=== PATIENT | female | born 1965 | race Caucasian/White ===

== ENCOUNTER 2017-08-14 08:04 | Day surgery (SDC) | payer MEDICARE ==
[2017-08-13 08:29] LABS: BASOPHILS # (AUTO) 0.1 X10'3 (0-0.2); EOSINOPHILS # (AUTO) 0.4 X10'3 (0-0.9); EOSINOPHILS % (AUTO) 2.6 % (0-6); HEMATOCRIT 45.3 % (35.0-45.0); HEMOGLOBIN 15.4 g/dl (12.0-16.0); LYMPHOCYTES # (AUTO) 2.1 X10'3 (1.1-4.8); LYMPHOCYTES % (AUTO) 15.5 % (21-51); MEAN CORPUSCULAR HEMOGLOBIN 29.2 PG (27.0-31.0); MEAN CORPUSCULAR HGB CONC 34.1 % (33.0-36.5); MEAN CORPUSCULAR VOLUME 85.8 FL (78-98); MEAN PLATELET VOLUME 7.6 FL (7.4-10.4); MONOCYTES # (AUTO) 0.9 X10'3 (0-0.9); MONOCYTES % (AUTO) 6.6 % (2-12); NEUTROPHILS # (AUTO) 10.1 X10'3 (1.8-7.7); NEUTROPHILS % (AUTO) 74.3 % (42-75); PLATELET COUNT 344 X10'3 (140-440); RED BLOOD COUNT 5.28 X10'6 (4.20-5.60); RED CELL DISTRIBUTION WIDTH 13.4 % (11.5-14.5); WHITE BLOOD COUNT 13.7 X10'3 (4.5-11.0)
[2017-08-13 08:43] LABS: INR 0.9 INR; PARTIAL THROMBOPLASTIN TIME 28 SECONDS (22-32); PROTHROMBIN TIME 9.5 SECONDS (9.0-12.0)
[2017-08-13 08:46] LABS: ALANINE AMINOTRANSFERASE 26 U/L (12-78); ALBUMIN 3.9 G/DL (3.4-5.0); ALKALINE PHOSPHATASE 127 IU/L (46-116); ANION GAP 12 (8-16); ASPARTATE AMINO TRANSFERASE 14 U/L (10-37); BILIRUBIN,TOTAL 0.2 MG/DL (0.1-1.0); BLOOD UREA NITROGEN 12 MG/DL (7-18); BUN/CREATININE RATIO 16.4 (6.6-38.0); CALCIUM 8.7 MG/DL (8.5-10.1); CHLORIDE 105 MMOL/L (99-107); CREATININE 0.73 MG/DL (0.40-0.90); GLUCOSE 83 MG/DL (70-104); POTASSIUM 3.1 MMOL/L (3.5-5.1); SODIUM 143 MMOL/L (135-145); TOTAL CARBON DIOXIDE 26.5 MMOL/L (24-32); TOTAL PROTEIN 7.9 G/DL (6.4-8.2); eGFR 84 ML/MIN
[2017-08-14] VITALS (12 sets, daily range): BP systolic 113–141; BP diastolic 69–85
[~2017-08-14] VITALS: Ht 162.6 cm; Wt 106.0 kg
[~2017-08-14 08:04] MED LIST: ACET-812 PO; ALBU8.5H8 INH; ASPI-10 PO; BUSP10TA10 PO; FLUT1DIS4 IH; FURO40TA4 PO; IBUP-1985 PO; IPRA3AMP IH; IPRA4AER INH; NIFE90TA2 PO; OMEP-50 PO; OMEP40CA37 PO; POLY17PO10 PO; POTA10CA44 PO; POTA10TA19 PO; SPIIN INH; SUCR1TAB PO; SUCR1TAB34 PO; TOPI25TA15 PO; TRAM50TA2 PO; VENL150C2 PO; VENL150T3 PO; VENL75TA4 PO; VENL75TA90 PO
[2017-08-14] MEDS ORDERED: nitroGLYCERIN 0.4mg SUBLingual tab SL PRN (08:20)
[2017-08-14] MEDS ORDERED: normal saline 1000ml 1,000 ML IV SCH (08:25)
[2017-08-14] MEDS ORDERED: diphenhydrAMINE 25mg capsule PO PRN (08:25)
[2017-08-14] MEDS ORDERED: LORazepam 0.5 MG tablet PO PRN (08:25)
[2017-08-14] MEDS ORDERED: DIPH25CA83 PO (08:46)
[2017-08-14] MEDS ORDERED: VENL150C2 PO (08:46)
[2017-08-14] MEDS ORDERED: VARE0.5T PO (08:51)
[2017-08-14] MEDS ORDERED: iohexol 350 MG/ML 50ML vial IV ONE (09:26)
[2017-08-14] MEDS ORDERED: iohexol 350MG/ML 100ml bottle IV ONE (09:26)
[2017-08-14] MEDS ORDERED: LIDOcaine 1%/PF (10mg/ml) 5ml vial ONE (09:27)
[2017-08-14] MEDS ORDERED: K and/or MAG REPLACEMENT MC SCH (09:30)
[2017-08-14] MEDS ORDERED: potassium Cl 40MEQ/NS 500ml 500 ML IV PRN ×2 (09:40)
[2017-08-14] MEDS ORDERED: potassium Cl 20 mEq SR tablet PO PRN ×2 (09:40)
[2017-08-14] MEDS ORDERED: potassium Cl oral solution 20 MEQ/15 ML PO PRN (09:48)
[2017-08-14] MEDS: potassium Cl oral solution 20 MEQ/15 ML PO PRN ×2 (10:00→16:38)
[2017-08-14] MEDS ORDERED: fentaNYL/PF 50MCG/1 ML 2ML syringe ONE (10:18)
[2017-08-14] MEDS ORDERED: midazolam 2 mg/2 ml injection ONE ×2 (10:19→10:37)
[2017-08-14] MEDS ORDERED: HYDROmorphone inj. 0.5 MG/0.5 ML DISP.SYRIN ONE (10:31)
[2017-08-14] MEDS ORDERED: HYDROcodone/acetaminophen 5mg/325mg tablet PO PRN (11:25)
[2017-08-14] MEDS ORDERED: acetaminophen 325mg tablet PO PRN (11:25)
[2017-08-14] MEDS ORDERED: HYDROcodone/acetaminophen 10/325mg tab PO PRN (11:25)
[2017-08-14] MEDS ORDERED: OXAZEpam 15mg capsule PO PRN (11:25)
[2017-08-14] MEDS ORDERED: ondansetron/PF 4mg/2ml inj IV PRN (11:25)
[2017-08-14] MEDS ORDERED: proCHLORperazine 10 MG/2 ml inj IV PRN (11:25)
[2017-08-14] MEDS ORDERED: HYDROmorphone 1 mg/ml syringe IV PRN (12:30)
== END 2017-08-14 17:00 | disposition home or self-care (01) ==
LOC: SSTAY O 08:04
PROVIDERS: ATTEND Internal Medicine Cardiovascular Disease
DX: I25.119 Atherosclerotic heart disease of native coronary artery with unspecified angina pectoris (principal); J44.9 Chronic obstructive pulmonary disease, unspecified; I73.9 Peripheral vascular disease, unspecified; K21.9 Gastro-esophageal reflux disease without esophagitis; F31.9 Bipolar disorder, unspecified; I34.0 Nonrheumatic mitral (valve) insufficiency; Z79.82 Long term (current) use of aspirin; Z79.899 Other long term (current) drug therapy; Z88.0 Allergy status to penicillin; Z88.1 Allergy status to other antibiotic agents; Z88.8 Allergy status to other drugs, medicaments and biological substances
CPT/HCPCS: 36415; 71046; 80053; 82948; 85025; 85610; 85730; 93458; 99152; 99153; A6257; C1769; J1170; J1644; J2001; J2250; J3010; J7030; Q0163; Q9967; A4315; A4620

== ENCOUNTER 2017-08-24 10:45 | Inpatient (IN) | payer MEDICARE, MEDICAID ==
[~2017-08-24] VITALS: Ht 162.6 cm; Wt 109.0 kg
[~2017-08-24 10:45] MED LIST changes: -ALBU8.5H8 INH; -BUSP10TA10 PO; -IBUP-1985 PO; -IPRA3AMP IH; -IPRA4AER INH; -OMEP-50 PO; -POTA10TA19 PO; -SPIIN INH; -SUCR1TAB PO; -SUCR1TAB34 PO; +TOP100T PO; -TOPI25TA15 PO; -VENL150C2 PO; -VENL150T3 PO; -VENL75TA4 PO
[2017-08-24] MEDS ORDERED: VENLAFAXINE PO (13:22)
[2017-08-24] MEDS ORDERED: ALBU18HF2 INH (13:22)
[2017-08-24] MEDS ORDERED: SPIRIVA RESPIMAT INH (13:22)
[2017-08-24] MEDS ORDERED: mag hydrox/Alum hydrox/simeth 30ml oral suspension PO PRN (13:30)
[2017-08-24] MEDS ORDERED: acetaminophen 325mg tablet PO PRN (13:30)
[2017-08-24] MEDS ORDERED: magnesium hydroxide 30ml (MOM) UD suspension PO PRN (13:30)
[2017-08-24] MEDS ORDERED: ipratropium 0.5 MG/2.5ML nebule IH PRN (15:35)
[2017-08-24] MEDS ORDERED: albuterol 2.5 MG/3 ML nebule NEB PRN (15:35)
[2017-08-24] MEDS: nicotine prolacrilex 2mg gum BC PRN (16:27)
[2017-08-24] MEDS: traMADol 50MG tablet PO PRN ×2 (16:28→21:26)
[2017-08-24] MEDS: acetaminophen 325mg tablet PO PRN (17:37)
[2017-08-24 19:57] VITALS: BP 98/55
[2017-08-24] MEDS: acetaminophen 325mg tablet PO SCH (21:00)
[2017-08-24] MEDS: furosemide 40mg tablet PO SCH (21:12)
[2017-08-24] MEDS: potassium Cl 20 mEq SR tablet PO SCH (21:12)
[2017-08-24] MEDS: polyethylene glycol 3350 17gm powd pack PO PRN (21:26)
[2017-08-25] MEDS: traMADol 50MG tablet PO PRN ×3 (03:15→15:39)
[2017-08-25 07:02] VITALS: BP 98/55
[2017-08-25] MEDS ORDERED: venlafaxine XR 75mg capsule (Q24H) PO SCH (08:00)
[2017-08-25] MEDS: acetaminophen 325mg tablet PO SCH ×2 (08:00→13:17)
[2017-08-25] MEDS ORDERED: topiramate 100mg tablet PO SCH (08:00)
[2017-08-25 08:10] VITALS: BP 127/80
[2017-08-25] MEDS: pantoprazole 40mg Tablet.DR PO SCH (08:10)
[2017-08-25] MEDS: NIFEdipine XL 30mg tablet PO SCH (08:10)
[2017-08-25] MEDS: potassium Cl 20 mEq SR tablet PO SCH ×2 (08:11→20:19)
[2017-08-25] MEDS: aspirin 325mg tablet PO PRN ×2 (08:26→20:36)
[2017-08-25] MEDS: furosemide 40mg tablet PO SCH ×2 (09:11→20:19)
[2017-08-25] MEDS: polyethylene glycol 3350 17gm powd pack PO PRN (12:19)
[2017-08-25] MEDS: hydrOXYzine 25 MG tablet PO PRN (14:18)
[2017-08-25] MEDS: nicotine prolacrilex 2mg gum BC PRN ×2 (14:18→20:36)
[2017-08-25 19:55] VITALS: BP 110/60
[2017-08-25] MEDS: lurasidone 20mg tablet PO SCH (20:19)
[2017-08-26 06:54] LABS: BASOPHILS # (AUTO) 0.1 X10'3 (0-0.2); BASOPHILS % (AUTO) 0.9 % (0-1); EOSINOPHILS # (AUTO) 0.5 X10'3 (0-0.9); EOSINOPHILS % (AUTO) 4.5 % (0-6); HEMATOCRIT 44.1 % (35.0-45.0); LYMPHOCYTES # (AUTO) 2.1 X10'3 (1.1-4.8); LYMPHOCYTES % (AUTO) 19.7 % (21-51); MEAN CORPUSCULAR HEMOGLOBIN 29.3 PG (27.0-31.0); MEAN CORPUSCULAR VOLUME 86.2 FL (78-98); MEAN PLATELET VOLUME 7.6 FL (7.4-10.4); MONOCYTES # (AUTO) 0.6 X10'3 (0-0.9); MONOCYTES % (AUTO) 6.1 % (2-12); NEUTROPHILS # (AUTO) 7.2 X10'3 (1.8-7.7); NEUTROPHILS % (AUTO) 68.8 % (42-75); PLATELET COUNT 325 X10'3 (140-440); RED BLOOD COUNT 5.12 X10'6 (4.20-5.60); RED CELL DISTRIBUTION WIDTH 13.5 % (11.5-14.5); WHITE BLOOD COUNT 10.5 X10'3 (4.5-11.0)
[2017-08-26] MEDS: traMADol 50MG tablet PO PRN ×3 (07:09→20:25)
[2017-08-26] MEDS: potassium Cl 20 mEq SR tablet PO SCH ×2 (07:49→20:23)
[2017-08-26] MEDS: polyethylene glycol 3350 17gm powd pack PO PRN (07:49)
[2017-08-26] MEDS: venlafaxine XR 75mg capsule (Q24H) PO SCH (07:49)
[2017-08-26] MEDS: topiramate 25mg tablet PO SCH (07:50)
[2017-08-26] MEDS: furosemide 40mg tablet PO SCH ×2 (07:50→20:24)
[2017-08-26] MEDS: NIFEdipine XL 30mg tablet PO SCH (07:50)
[2017-08-26] MEDS: pantoprazole 40mg Tablet.DR PO SCH (07:50)
[2017-08-26 08:10] VITALS: BP 116/85
[2017-08-26] MEDS: nicotine prolacrilex 2mg gum BC PRN ×3 (08:11→16:41)
[2017-08-26] MEDS: hydrOXYzine 25 MG tablet PO PRN ×3 (09:20→20:24)
[2017-08-26] MEDS: acetaminophen 325mg tablet PO PRN (09:55)
[2017-08-26] MEDS: aspirin 325mg tablet PO PRN (09:55)
[2017-08-26] MEDS: lurasidone 20mg tablet PO SCH (18:29)
[2017-08-26 19:36] VITALS: BP 111/79
[2017-08-26] MEDS: naproxen sodium 220mg tablet PO SCH (20:23)
[2017-08-27] MEDS: hydrOXYzine 25 MG tablet PO PRN (03:41)
[2017-08-27] MEDS: traMADol 50MG tablet PO PRN ×2 (03:42→09:27)
[2017-08-27 06:48] VITALS: BP 120/88
[2017-08-27] MEDS: pantoprazole 40mg Tablet.DR PO SCH (08:01)
[2017-08-27] MEDS: potassium Cl 20 mEq SR tablet PO SCH (08:14)
[2017-08-27] MEDS: naproxen sodium 220mg tablet PO SCH (08:14)
[2017-08-27] MEDS: NIFEdipine XL 30mg tablet PO SCH (08:14)
[2017-08-27] MEDS: venlafaxine XR 75mg capsule (Q24H) PO SCH (08:15)
[2017-08-27] MEDS: topiramate 25mg tablet PO SCH (08:15)
[2017-08-27] MEDS: furosemide 40mg tablet PO SCH (08:15)
[2017-08-27 08:40] LABS: HEMOGLOBIN A1C 5.6 % (4.5-6.2)
[2017-08-27 08:42] LABS: CHOL/HDL RATIO 4.2 (0.00-4.99); CHOLESTEROL 220 MG/DL (0-200); HDL CHOLESTEROL 52 MG/DL (35-60); LDL CHOLESTEROL 150 MG/DL (50-100); TRIGLYCERIDES 126 MG/DL (20-135)
[2017-08-27] MEDS: polyethylene glycol 3350 17gm powd pack PO PRN (09:27)
[2017-08-27] MEDS: nicotine prolacrilex 2mg gum BC PRN (09:27)
[2017-08-27] MEDS ORDERED: NAPR220T67 PO (10:38)
[2017-08-27] MEDS ORDERED: NICO2GUM29 BC (10:38)
[2017-08-27] MEDS ORDERED: LURA20TA PO (10:38)
[2017-08-27] MEDS ORDERED: HYDR-3686 PO (10:38)
[2017-08-27] MEDS ORDERED: ACET-812 PO (10:38)
[2017-08-27] MEDS ORDERED: VENL150T3 PO (10:38)
[2017-08-27] MEDS: acetaminophen 325mg tablet PO PRN (12:07)
== END 2017-08-27 12:45 | disposition home or self-care (01) | DRG 885 ==
LOC: ADULT MH 10:45
PROVIDERS: ADMIT Psychiatry & Neurology Psychiatry; ATTEND Psychiatry & Neurology Psychiatry
DX: F29 Unspecified psychosis not due to a substance or known physiological condition (principal); R45.851 Suicidal ideations; E66.01 Morbid (severe) obesity due to excess calories; Z68.41 Body mass index [BMI] 40.0-44.9, adult; F15.20 Other stimulant dependence, uncomplicated; F25.9 Schizoaffective disorder, unspecified; F32.9 Major depressive disorder, single episode, unspecified; D72.829 Elevated white blood cell count, unspecified; F41.9 Anxiety disorder, unspecified; G89.29 Other chronic pain; M54.9 Dorsalgia, unspecified; I10 Essential (primary) hypertension; J44.9 Chronic obstructive pulmonary disease, unspecified; F10.10 Alcohol abuse, uncomplicated; F12.90 Cannabis use, unspecified, uncomplicated; F17.210 Nicotine dependence, cigarettes, uncomplicated; F19.11 Other psychoactive substance abuse, in remission; Z88.0 Allergy status to penicillin; Z88.1 Allergy status to other antibiotic agents; Z88.8 Allergy status to other drugs, medicaments and biological substances; Z79.899 Other long term (current) drug therapy; Z79.82 Long term (current) use of aspirin
CPT/HCPCS: 36415; 80061; 83036; 85025; 87070; 94640; 94760; Q0177

== ENCOUNTER 2017-11-07 11:02 | Emergency (ER) | payer MEDICARE, MEDICAID ==
[~2017-11-07] VITALS: Ht 167.6 cm; Wt 109.5 kg
[~2017-11-07 11:02] MED LIST changes: +ALBU18HF2 INH; -ASPI-10 PO; +HYDR-3686 PO; +LURA20TA PO; +NAPR220T67 PO; +NICO2GUM29 BC; +SPIRIVA RESPIMAT INH; -TRAM50TA2 PO; +VENL150T3 PO; -VENL75TA90 PO
[2017-11-07] MEDS ORDERED: AZIT-55 PO (12:23)
[2017-11-07] MEDS ORDERED: triamcinolone acetonide 40mg/ml inj IM ONE (12:25)
[2017-11-07 12:46] VITALS: BP 138/65
== END 2017-11-07 12:47 | disposition home or self-care (01) ==
LOC: ER 11:03
DX: J44.1 Chronic obstructive pulmonary disease with (acute) exacerbation (principal); I11.0 Hypertensive heart disease with heart failure; I50.9 Heart failure, unspecified; K21.9 Gastro-esophageal reflux disease without esophagitis; G89.29 Other chronic pain; F12.10 Cannabis abuse, uncomplicated; Z88.0 Allergy status to penicillin; Z88.6 Allergy status to analgesic agent; Z88.8 Allergy status to other drugs, medicaments and biological substances; Z87.891 Personal history of nicotine dependence; Z79.899 Other long term (current) drug therapy
CPT/HCPCS: 71045; 82948; 93005; 96372; 99284; J3301

== ENCOUNTER 2017-11-09 11:43 | Inpatient (IN) | payer MEDICARE, MEDICAID ==
[~2017-11-09] VITALS: Ht 167.6 cm; Wt 110.0 kg
[~2017-11-09 11:43] MED LIST changes: +AZIT-55 PO
[2017-11-09] MEDS ORDERED: methylPREDNISolone sod succ 125mg/2ml vial IV ONE (12:10)
[2017-11-09] MEDS ORDERED: magnesium 2GM in 50ml NS 50 ML IV ONE (12:10)
[2017-11-09] MEDS ORDERED: levoFLOXACIN-Levaquin 750MG/D5 150 ML IV ONE (12:10)
[2017-11-09] MEDS ORDERED: ipratropium/albuterol 3ml nebule NEB ONE (12:10)
[2017-11-09 12:41] LABS: BASOPHILS # (AUTO) 0.1 X10'3 (0-0.2); BASOPHILS % (AUTO) 0.7 % (0-1); EOSINOPHILS # (AUTO) 0.5 X10'3 (0-0.9); EOSINOPHILS % (AUTO) 3.3 % (0-6); HEMATOCRIT 40.1 % (35.0-45.0); HEMOGLOBIN 14.1 g/dl (12.0-16.0); LYMPHOCYTES # (AUTO) 1.9 X10'3 (1.1-4.8); LYMPHOCYTES % (AUTO) 11.4 % (21-51); MEAN CORPUSCULAR HEMOGLOBIN 28.3 PG (27.0-31.0); MEAN CORPUSCULAR HGB CONC 35.1 % (33.0-36.5); MEAN CORPUSCULAR VOLUME 80.7 FL (78-98); MEAN PLATELET VOLUME 6.7 FL (7.4-10.4); MONOCYTES # (AUTO) 1.1 X10'3 (0-0.9); MONOCYTES % (AUTO) 6.7 % (2-12); NEUTROPHILS # (AUTO) 13.1 X10'3 (1.8-7.7); NEUTROPHILS % (AUTO) 77.9 % (42-75); PLATELET COUNT 432 X10'3 (140-440); RED BLOOD COUNT 4.97 X10'6 (4.20-5.60); RED CELL DISTRIBUTION WIDTH 12.9 % (11.5-14.5); WHITE BLOOD COUNT 16.8 X10'3 (4.5-11.0)
[2017-11-09 13:03] LABS: ALANINE AMINOTRANSFERASE 60 U/L (12-78); ALBUMIN 3.1 G/DL (3.4-5.0); ALBUMIN/GLOBULIN RATIO 0.7 (1.1-1.5); ALKALINE PHOSPHATASE 114 IU/L (46-116); ANION GAP 10 (8-16); ASPARTATE AMINO TRANSFERASE 45 U/L (10-37); BILIRUBIN,TOTAL 0.4 MG/DL (0.1-1.0); BLOOD UREA NITROGEN 6 MG/DL (7-18); BUN/CREATININE RATIO 12.5 (6.6-38.0); CALCIUM 8.5 MG/DL (8.5-10.1); CHLORIDE 86 MMOL/L (99-107); CREATININE 0.48 MG/DL (0.40-0.90); GLUCOSE 123 MG/DL (70-104); MAGNESIUM 1.8 MG/DL (1.5-2.4); SODIUM 123 MMOL/L (135-145); TOTAL CARBON DIOXIDE 27.2 MMOL/L (24-32); TOTAL PROTEIN 7.6 G/DL (6.4-8.2); eGFR > 90 ML/MIN
[2017-11-09 13:06] LABS: POTASSIUM 2.5 MMOL/L (3.5-5.1)
[2017-11-09] MEDS ORDERED: potassium Cl 40MEQ/NS 500ml 500 ML IV PRN ×4 (13:30→15:00)
[2017-11-09] MEDS ORDERED: potassium Cl 20 mEq SR tablet PO PRN ×3 (13:30→15:00)
[2017-11-09] MEDS ORDERED: morphine 4 MG/ML inj SYRINge IV PRN ×2 (15:00)
[2017-11-09] MEDS ORDERED: metoclopramide 5 mg/ml inj IV PRN (15:00)
[2017-11-09] MEDS ORDERED: magnesium hydroxide 30ml (MOM) UD suspension PO PRN (15:00)
[2017-11-09] MEDS ORDERED: mag hydrox/Alum hydrox/simeth 30ml oral suspension PO PRN (15:00)
[2017-11-09] MEDS ORDERED: HYDROcodone/acetaminophen 5mg/325mg tablet PO PRN (15:00)
[2017-11-09] MEDS ORDERED: diphenhydrAMINE 50 mg/ml inj IV PRN (15:00)
[2017-11-09] MEDS ORDERED: acetaminophen 650mg rectal suppository RC PRN (15:00)
[2017-11-09] MEDS ORDERED: acetaminophen 325mg tablet PO PRN ×2 (15:00)
[2017-11-09] MEDS ORDERED: HYDROmorphone inj. 0.5 MG/0.5 ML DISP.SYRIN IV PRN (15:00)
[2017-11-09] MEDS ORDERED: diphenhydrAMINE 25mg capsule PO PRN (15:00)
[2017-11-09] MEDS ORDERED: bisacodyl 10mg suppository rectal RC PRN (15:00)
[2017-11-09] MEDS: potassium Cl 20 mEq SR tablet PO PRN ×2 (15:05→19:15)
[2017-11-09] MEDS ORDERED: hydrOXYzine 25 MG tablet PO PRN (15:15)
[2017-11-09 15:22] LABS: PARTIAL THROMBOPLASTIN TIME 35 SECONDS (22-32)
[2017-11-09] MEDS: nicotine 21mg patch - 24 hr TD SCH (17:18)
[2017-11-09 17:30] VITALS: BP 118/66
[2017-11-09] MEDS: potassium Cl 20mEq in NS 1,000 ML IV SCH ×2 (17:40→23:42)
[2017-11-09] MEDS: HYDROcodone/acetaminophen 10/325mg tab PO PRN (17:51)
[2017-11-09 18:00] VITALS: BP 142/84
[2017-11-09] MEDS ORDERED: lurasidone 20mg tablet PO SCH (18:00)
[2017-11-09] MEDS: docusate sod 100mg capsule PO SCH (19:16)
[2017-11-09] MEDS: ondansetron/PF 4mg/2ml inj IV PRN (19:41)
[2017-11-09] MEDS: albuterol 2.5 MG/3 ML nebule NEB PRN (21:17)
[2017-11-09 22:14] LABS: HEMOGLOBIN A1C 5.8 % (4.5-6.2)
[2017-11-09] MEDS: temazepam 15mg capsule PO PRN (23:42)
[2017-11-10] VITALS: BP 144/85
[2017-11-10] MEDS: potassium Cl 20 mEq SR tablet PO PRN (00:25)
[2017-11-10] MEDS: ondansetron/PF 4mg/2ml inj IV PRN (02:13)
[2017-11-10] MEDS: HYDROmorphone inj. 0.5 MG/0.5 ML DISP.SYRIN IV PRN ×2 (02:13→20:51)
[2017-11-10 05:33] LABS: BASOPHILS % (AUTO) 0.1 % (0-1); EOSINOPHILS # (AUTO) 0.2 X10'3 (0-0.9); EOSINOPHILS % (AUTO) 1.5 % (0-6); HEMATOCRIT 40.4 % (35.0-45.0); HEMOGLOBIN 13.6 g/dl (12.0-16.0); LYMPHOCYTES # (AUTO) 1.3 X10'3 (1.1-4.8); LYMPHOCYTES % (AUTO) 10.3 % (21-51); MEAN CORPUSCULAR HGB CONC 33.5 % (33.0-36.5); MEAN CORPUSCULAR VOLUME 83.5 FL (78-98); MONOCYTES # (AUTO) 0.9 X10'3 (0-0.9); MONOCYTES % (AUTO) 7.4 % (2-12); NEUTROPHILS # (AUTO) 10.2 X10'3 (1.8-7.7); NEUTROPHILS % (AUTO) 80.7 % (42-75); PLATELET COUNT 408 X10'3 (140-440); RED BLOOD COUNT 4.84 X10'6 (4.20-5.60); WHITE BLOOD COUNT 12.7 X10'3 (4.5-11.0)
[2017-11-10 06:10] LABS: ANION GAP 9 (8-16); BILIRUBIN,TOTAL 0.2 MG/DL (0.1-1.0); BLOOD UREA NITROGEN 7 MG/DL (7-18); BUN/CREATININE RATIO 11.7 (6.6-38.0); CALCIUM 8.5 MG/DL (8.5-10.1); CHLORIDE 96 MMOL/L (99-107); GLUCOSE 133 MG/DL (70-104); MAGNESIUM 2.4 MG/DL (1.5-2.4); POTASSIUM 3.9 MMOL/L (3.5-5.1); SODIUM 132 MMOL/L (135-145); TOTAL CARBON DIOXIDE 26.8 MMOL/L (24-32); TOTAL PROTEIN 7.4 G/DL (6.4-8.2); eGFR > 90 ML/MIN
[2017-11-10 06:11] LABS: ALANINE AMINOTRANSFERASE 54 U/L (12-78); ALBUMIN/GLOBULIN RATIO 0.7 (1.1-1.5); ALKALINE PHOSPHATASE 106 IU/L (46-116); ASPARTATE AMINO TRANSFERASE 30 U/L (10-37)
[2017-11-10 07:00] VITALS: BP 130/82
[2017-11-10] MEDS: K and/or MAG REPLACEMENT MC SCH (07:06)
[2017-11-10] MEDS: levoFLOXACIN-Levaquin 750MG/D5 150 ML IV SCH (07:19)
[2017-11-10] MEDS: enoxaparin 40mg/0.4ml syringe SQ SCH (07:23)
[2017-11-10] MEDS: nicotine 21mg patch - 24 hr TD SCH (07:24)
[2017-11-10] MEDS: docusate sod 100mg capsule PO SCH ×2 (07:25→20:30)
[2017-11-10] MEDS: pantoprazole 40mg Tablet.DR PO SCH (07:26)
[2017-11-10] MEDS: venlafaxine XR 75mg capsule (Q24H) PO SCH (07:27)
[2017-11-10] MEDS: aripiprazole 5mg tablet PO SCH (07:28)
[2017-11-10] MEDS: topiramate 25mg tablet PO SCH (07:30)
[2017-11-10] MEDS: NIFEdipine XL 30mg tablet PO SCH (08:03)
[2017-11-10] MEDS: HYDROcodone/acetaminophen 10/325mg tab PO PRN ×3 (09:24→19:52)
[2017-11-10 11:00] VITALS: BP 119/77
[2017-11-10] MEDS: potassium Cl 20mEq in NS 1,000 ML IV SCH ×2 (11:21→20:32)
[2017-11-10] MEDS ORDERED: insulin Lispro (HumaLOG) vial - multi-dose SQ SCH (11:50)
[2017-11-10] MEDS ORDERED: dextrose 50%-water 50ml dispensing syringe IV PRN ×2 (11:50)
[2017-11-10] MEDS ORDERED: MESSAGE TO PHARMACY PO ONE (11:50)
[2017-11-10] MEDS ORDERED: glucagon, human recombinant 1mg kit SUBCUT PRN (11:50)
[2017-11-10] MEDS ORDERED: dextrose ORAL solution 15 GM/59 ML bottle PO PRN ×2 (11:50)
[2017-11-10] MEDS: diphenhydrAMINE 50 mg/ml inj IV PRN (14:27)
[2017-11-10] MEDS: albuterol 2.5 MG/3 ML nebule NEB PRN (16:30)
[2017-11-10] MEDS: ketorolac trometh. 30mg/ml inj. IV PRN (17:02)
[2017-11-10 19:00] VITALS: BP 116/88
[2017-11-10] MEDS: insulin glargine (Lantus) pen - multi-dose SQ SCH (21:00)
[2017-11-11] VITALS: BP 116/88
[2017-11-11] MEDS: HYDROcodone/acetaminophen 10/325mg tab PO PRN ×4 (01:22→21:07)
[2017-11-11] MEDS: HYDROmorphone inj. 0.5 MG/0.5 ML DISP.SYRIN IV PRN ×4 (03:01→23:46)
[2017-11-11 05:53] LABS: ALANINE AMINOTRANSFERASE 50 U/L (12-78); ALBUMIN/GLOBULIN RATIO 0.8 (1.1-1.5); ALKALINE PHOSPHATASE 92 IU/L (46-116); ANION GAP 7 (8-16); ASPARTATE AMINO TRANSFERASE 21 U/L (10-37); BASOPHILS % (AUTO) 0.4 % (0-1); BILIRUBIN,TOTAL 0.1 MG/DL (0.1-1.0); BLOOD UREA NITROGEN 11 MG/DL (7-18); CALCIUM 8.6 MG/DL (8.5-10.1); CHLORIDE 101 MMOL/L (99-107); CREATININE 0.61 MG/DL (0.40-0.90); EOSINOPHILS # (AUTO) 0.5 X10'3 (0-0.9); EOSINOPHILS % (AUTO) 4.3 % (0-6); GLUCOSE 102 MG/DL (70-104); HEMATOCRIT 36.7 % (35.0-45.0); HEMOGLOBIN 12.5 g/dl (12.0-16.0); LYMPHOCYTES # (AUTO) 2.1 X10'3 (1.1-4.8); LYMPHOCYTES % (AUTO) 19.9 % (21-51); MAGNESIUM 2.2 MG/DL (1.5-2.4); MEAN CORPUSCULAR VOLUME 82.4 FL (78-98); MEAN PLATELET VOLUME 7.4 FL (7.4-10.4); MONOCYTES % (AUTO) 8.9 % (2-12); NEUTROPHILS # (AUTO) 7.1 X10'3 (1.8-7.7); NEUTROPHILS % (AUTO) 66.5 % (42-75); PLATELET COUNT 462 X10'3 (140-440); POTASSIUM 3.9 MMOL/L (3.5-5.1); RED BLOOD COUNT 4.45 X10'6 (4.20-5.60); RED CELL DISTRIBUTION WIDTH 12.5 % (11.5-14.5); SODIUM 136 MMOL/L (135-145); TOTAL CARBON DIOXIDE 27.6 MMOL/L (24-32); WHITE BLOOD COUNT 10.7 X10'3 (4.5-11.0); eGFR > 90 ML/MIN
[2017-11-11] MEDS: potassium Cl 20mEq in NS 1,000 ML IV SCH (06:59)
[2017-11-11 07:51] VITALS: BP 121/78
[2017-11-11] MEDS: K and/or MAG REPLACEMENT MC SCH (08:00)
[2017-11-11] MEDS: levoFLOXACIN-Levaquin 750MG/D5 150 ML IV SCH (08:57)
[2017-11-11] MEDS: NIFEdipine XL 30mg tablet PO SCH (08:58)
[2017-11-11] MEDS: topiramate 25mg tablet PO SCH (08:58)
[2017-11-11] MEDS: aripiprazole 5mg tablet PO SCH (08:58)
[2017-11-11] MEDS: nicotine 21mg patch - 24 hr TD SCH (08:58)
[2017-11-11] MEDS: venlafaxine XR 75mg capsule (Q24H) PO SCH (08:58)
[2017-11-11] MEDS: docusate sod 100mg capsule PO SCH ×2 (08:59→20:34)
[2017-11-11] MEDS: enoxaparin 40mg/0.4ml syringe SQ SCH (08:59)
[2017-11-11] MEDS: pantoprazole 40mg Tablet.DR PO SCH (09:11)
[2017-11-11 11:19] VITALS: BP 123/69
[2017-11-11] MEDS: diphenhydrAMINE 50 mg/ml inj IV PRN (11:35)
[2017-11-11] MEDS: albuterol 2.5 MG/3 ML nebule NEB PRN (18:51)
[2017-11-11 19:05] VITALS: BP 113/61
[2017-11-11] MEDS: lactobacillus rhamnosus 10,000 MMU CELLS/CAPSULE PO SCH (20:34)
[2017-11-11] MEDS: insulin glargine (Lantus) pen - multi-dose SQ SCH (21:00)
[2017-11-11] MEDS ORDERED: polyethylene glycol 3350 17gm powd pack PO SCH (21:00)
[2017-11-11] MEDS: temazepam 15mg capsule PO PRN (21:07)
[2017-11-12] VITALS: BP 135/73
[2017-11-12] MEDS: HYDROcodone/acetaminophen 10/325mg tab PO PRN (05:19)
[2017-11-12 06:07] LABS: BASOPHILS # (AUTO) 0.1 X10'3 (0-0.2); BASOPHILS % (AUTO) 0.8 % (0-1); EOSINOPHILS # (AUTO) 0.6 X10'3 (0-0.9); EOSINOPHILS % (AUTO) 6.4 % (0-6); HEMATOCRIT 36.9 % (35.0-45.0); HEMOGLOBIN 12.5 g/dl (12.0-16.0); LYMPHOCYTES # (AUTO) 2.2 X10'3 (1.1-4.8); LYMPHOCYTES % (AUTO) 23.7 % (21-51); MEAN CORPUSCULAR HEMOGLOBIN 27.9 PG (27.0-31.0); MEAN CORPUSCULAR HGB CONC 33.9 % (33.0-36.5); MEAN CORPUSCULAR VOLUME 82.2 FL (78-98); MEAN PLATELET VOLUME 6.9 FL (7.4-10.4); MONOCYTES # (AUTO) 0.8 X10'3 (0-0.9); MONOCYTES % (AUTO) 8.7 % (2-12); NEUTROPHILS # (AUTO) 5.7 X10'3 (1.8-7.7); NEUTROPHILS % (AUTO) 60.4 % (42-75); PLATELET COUNT 386 X10'3 (140-440); RED CELL DISTRIBUTION WIDTH 13.3 % (11.5-14.5); WHITE BLOOD COUNT 9.4 X10'3 (4.5-11.0)
[2017-11-12 06:49] LABS: ALANINE AMINOTRANSFERASE 46 U/L (12-78); ALBUMIN/GLOBULIN RATIO 0.8 (1.1-1.5); ALKALINE PHOSPHATASE 87 IU/L (46-116); ANION GAP 11 (8-16); ASPARTATE AMINO TRANSFERASE 12 U/L (10-37); BILIRUBIN,TOTAL 0.2 MG/DL (0.1-1.0); BLOOD UREA NITROGEN 9 MG/DL (7-18); BUN/CREATININE RATIO 15.8 (6.6-38.0); CALCIUM 8.7 MG/DL (8.5-10.1); CHLORIDE 102 MMOL/L (99-107); CREATININE 0.57 MG/DL (0.40-0.90); GLUCOSE 101 MG/DL (70-104); MAGNESIUM 1.9 MG/DL (1.5-2.4); POTASSIUM 3.7 MMOL/L (3.5-5.1); SODIUM 138 MMOL/L (135-145); TOTAL CARBON DIOXIDE 25.1 MMOL/L (24-32); TOTAL PROTEIN 6.7 G/DL (6.4-8.2); eGFR > 90 ML/MIN
[2017-11-12 06:53] VITALS: BP 143/85
[2017-11-12] MEDS: lactobacillus rhamnosus 10,000 MMU CELLS/CAPSULE PO SCH (07:46)
[2017-11-12] MEDS: aripiprazole 5mg tablet PO SCH (07:46)
[2017-11-12] MEDS: venlafaxine XR 75mg capsule (Q24H) PO SCH (07:47)
[2017-11-12] MEDS: topiramate 25mg tablet PO SCH (07:47)
[2017-11-12] MEDS: pantoprazole 40mg Tablet.DR PO SCH (07:47)
[2017-11-12] MEDS: docusate sod 100mg capsule PO SCH (07:47)
[2017-11-12] MEDS: NIFEdipine XL 30mg tablet PO SCH (07:47)
[2017-11-12] MEDS: enoxaparin 40mg/0.4ml syringe SQ SCH (07:48)
[2017-11-12] MEDS: nicotine 21mg patch - 24 hr TD SCH (07:48)
[2017-11-12] MEDS: levoFLOXACIN-Levaquin 750MG/D5 150 ML IV SCH (07:48)
[2017-11-12] MEDS: ketorolac trometh. 30mg/ml inj. IV PRN (07:49)
[2017-11-12] MEDS: K and/or MAG REPLACEMENT MC SCH (08:00)
[2017-11-12] MEDS: albuterol 2.5 MG/3 ML nebule NEB PRN (08:37)
[2017-11-12] MEDS: HYDROmorphone inj. 0.5 MG/0.5 ML DISP.SYRIN IV PRN (10:34)
== END 2017-11-12 11:42 | disposition home or self-care (01) | DRG 871 ==
LOC: ER 11:44 → ED HOLD 14:59 → EDBEDREQ 16:00 → MED 3N 17:03
PROVIDERS: ADMIT Family Medicine; ATTEND Family Medicine
DX: A41.9 Sepsis, unspecified organism (principal); J18.9 Pneumonia, unspecified organism; I11.0 Hypertensive heart disease with heart failure; I50.9 Heart failure, unspecified; J44.1 Chronic obstructive pulmonary disease with (acute) exacerbation; E87.1 Hypo-osmolality and hyponatremia; J44.0 Chronic obstructive pulmonary disease with (acute) lower respiratory infection; F25.9 Schizoaffective disorder, unspecified; E87.6 Hypokalemia; G47.30 Sleep apnea, unspecified; K21.9 Gastro-esophageal reflux disease without esophagitis; F32.9 Major depressive disorder, single episode, unspecified; F41.9 Anxiety disorder, unspecified; G89.29 Other chronic pain; M54.9 Dorsalgia, unspecified; F12.90 Cannabis use, unspecified, uncomplicated; F17.210 Nicotine dependence, cigarettes, uncomplicated; Z98.891 History of uterine scar from previous surgery; Z98.51 Tubal ligation status; Z88.0 Allergy status to penicillin; Z88.6 Allergy status to analgesic agent; Z88.8 Allergy status to other drugs, medicaments and biological substances; Z79.899 Other long term (current) drug therapy; Z82.49 Family history of ischemic heart disease and other diseases of the circulatory system
CPT/HCPCS: 36415; 71045; 80053; 83036; 83605; 83735; 83880; 84100; 84145; 84484; 85025; 85610; 85730; 87070; 93005; 94640; 94760; 96365; 96368; 96375; 99285; A6257; A6449; J1170; J1200; J1650; J1815; J1885; J1956; J2270; J2405; J2930; J3475; J7030; Q0177

== ENCOUNTER 2017-11-18 08:40 | Emergency (ER) | payer MEDICARE, MEDICAID ==
[~2017-11-18] VITALS: Ht 167.6 cm; Wt 106.0 kg
[~2017-11-18 08:40] MED LIST changes: -FURO40TA4 PO; -NAPR220T67 PO; -POTA10CA44 PO
[2017-11-18] MEDS ORDERED: ketorolac trometh inj. 60 MG/2 ML VIAL IM ONE (09:05)
[2017-11-18] MEDS ORDERED: HYDROcodone/acetaminophen 5mg/325mg tablet PO ONE (09:05)
[2017-11-18 10:18] VITALS: BP 140/91
== END 2017-11-18 10:22 | disposition home or self-care (01) ==
LOC: ER 08:40
DX: M54.42 Lumbago with sciatica, left side (principal); I11.0 Hypertensive heart disease with heart failure; I50.9 Heart failure, unspecified; J44.9 Chronic obstructive pulmonary disease, unspecified; K21.9 Gastro-esophageal reflux disease without esophagitis; Z98.51 Tubal ligation status; Z98.890 Other specified postprocedural states; Z88.0 Allergy status to penicillin; Z79.899 Other long term (current) drug therapy
CPT/HCPCS: 96372; 99283; J1885

== ENCOUNTER 2017-12-26 10:50 | Emergency (ER) | payer MEDICARE, MEDICAID ==
[~2017-12-26] VITALS: Ht 165.1 cm; Wt 101.0 kg
[~2017-12-26 10:50] MED LIST changes: -AZIT-55 PO
[2017-12-26 10:54] VITALS: BP 137/89
[2017-12-26 11:42] LABS: BASOPHILS # (AUTO) 0.1 X10'3 (0-0.2); BASOPHILS % (AUTO) 0.9 % (0-1); EOSINOPHILS # (AUTO) 0.4 X10'3 (0-0.9); EOSINOPHILS % (AUTO) 3.1 % (0-6); HEMATOCRIT 41.3 % (35.0-45.0); HEMOGLOBIN 14.2 g/dl (12.0-16.0); LYMPHOCYTES # (AUTO) 2.2 X10'3 (1.1-4.8); LYMPHOCYTES % (AUTO) 18.7 % (21-51); MEAN CORPUSCULAR HEMOGLOBIN 27.4 PG (27.0-31.0); MEAN CORPUSCULAR HGB CONC 34.4 % (33.0-36.5); MEAN CORPUSCULAR VOLUME 79.6 FL (78-98); MEAN PLATELET VOLUME 7.8 FL (7.4-10.4); MONOCYTES # (AUTO) 0.6 X10'3 (0-0.9); MONOCYTES % (AUTO) 5.3 % (2-12); NEUTROPHILS # (AUTO) 8.4 X10'3 (1.8-7.7); PLATELET COUNT 288 X10'3 (140-440); RED BLOOD COUNT 5.19 X10'6 (4.20-5.60); RED CELL DISTRIBUTION WIDTH 14.7 % (11.5-14.5); WHITE BLOOD COUNT 11.7 X10'3 (4.5-11.0)
[2017-12-26 12:02] LABS: ALANINE AMINOTRANSFERASE 33 U/L (12-78); ALBUMIN 3.7 G/DL (3.4-5.0); ALBUMIN/GLOBULIN RATIO 1.1 (1.1-1.5); ALKALINE PHOSPHATASE 101 IU/L (46-116); ANION GAP 10 (8-16); ASPARTATE AMINO TRANSFERASE 19 U/L (10-37); BILIRUBIN,TOTAL 0.3 MG/DL (0.1-1.0); BLOOD UREA NITROGEN 9 MG/DL (7-18); BUN/CREATININE RATIO 14.8 (6.6-38.0); CALCIUM 8.5 MG/DL (8.5-10.1); CHLORIDE 104 MMOL/L (99-107); CREATININE 0.61 MG/DL (0.40-0.90); ETHANOL < 0.010 GM/DL (0.0-0.010); GLUCOSE 104 MG/DL (70-104); SODIUM 138 MMOL/L (135-145); TOTAL CARBON DIOXIDE 24.5 MMOL/L (24-32); eGFR > 90 ML/MIN
[2017-12-26 12:05] LABS: POTASSIUM 2.6 MMOL/L (3.5-5.1)
[2017-12-26 12:08] LABS: CLARITY,URINE CLEAR (Clear); COLOR,URINE YELLOW (Yellow); GLUCOSE, URINE NEGATIVE (Neg); KETONES,URINE NEGATIVE (Neg); LEUKOCYTE ESTERASE ,URINE NEGATIVE (Neg); NITRITES, URINE NEGATIVE (Neg); OCCULT BLOOD,URINE NEGATIVE (Neg); PROTEIN,URINE NEGATIVE (Neg); UA COLLECTION TYPE CLN CATCH MIDSTREAM; UROBILINOGEN,URINE 0.2 E.U/dL (0.2-1.0)
[2017-12-26] MEDS ORDERED: potassium Cl oral solution 20 MEQ/15 ML PO ONE (12:10)
[2017-12-26 12:11] LABS: URINE AMPHETAMINE SCREEN NEGATIVE (Neg); URINE BARBITUATE SCREEN NEGATIVE (Neg); URINE BENZODIAZEPINES SCREEN NEGATIVE (Neg); URINE CANNABINOID SCREEN POSITIVE (Neg); URINE COCAINE SCREEN NEGATIVE (Neg); URINE METHADONE SCREEN NEGATIVE (Neg); URINE OPIATE SCREEN NEGATIVE (Neg); URINE PHENCYCLIDINE SCREEN NEGATIVE (Neg)
== END 2017-12-26 13:31 | disposition home or self-care (01) ==
LOC: ER 10:50
DX: F31.9 Bipolar disorder, unspecified (principal); F20.9 Schizophrenia, unspecified; F41.9 Anxiety disorder, unspecified; F32.9 Major depressive disorder, single episode, unspecified; I11.0 Hypertensive heart disease with heart failure; I50.9 Heart failure, unspecified; G89.29 Other chronic pain; K21.9 Gastro-esophageal reflux disease without esophagitis; J44.9 Chronic obstructive pulmonary disease, unspecified; F12.10 Cannabis abuse, uncomplicated; Z88.0 Allergy status to penicillin; Z88.1 Allergy status to other antibiotic agents; Z88.6 Allergy status to analgesic agent; Z88.8 Allergy status to other drugs, medicaments and biological substances; Z79.899 Other long term (current) drug therapy
CPT/HCPCS: 36415; 80053; 80305; 80320; 81003; 84443; 85025; 99284

== ENCOUNTER 2018-04-02 06:59 | Day surgery (SDC) | payer MEDICARE, MEDICAID ==
[~2018-04-02] VITALS: Ht 165.1 cm; Wt 98.9 kg
[2018-04-02 07:30] VITALS: BP 111/67
[2018-04-02] MEDS ORDERED: VENL150C58 PO (07:47)
[2018-04-02] MEDS ORDERED: DIPH25CA83 PO (07:47)
[2018-04-02] MEDS ORDERED: OXYC20TA55 PO (07:47)
[2018-04-02] MEDS ORDERED: PER10325T PO (07:47)
[2018-04-02] MEDS ORDERED: LIDOcaine 1%/PF 5ML 10 MG/ML VIAL SQ ONE (07:55)
[2018-04-02 08:35] VITALS: BP 98/60
[2018-04-02 08:40] VITALS: BP 100/54
[2018-04-02 08:45] VITALS: BP 99/52
[2018-04-02 08:46] VITALS: BP 100/55
[2018-04-02 08:57] VITALS: BP 114/73
[2018-04-02 10:50] LABS: BF RBC COUNT 20500 /CU MM; BF WBC COUNT 30 /CU MM (0-1000); BFAPPEAR CLOUDY; BFCOLOR RED; BFVOLUME 290 ML
== END 2018-04-02 09:00 | disposition home or self-care (01) ==
LOC: SSTAY O 06:59
PROVIDERS: ATTEND Radiology Diagnostic Radiology
DX: M96.842 Postprocedural seroma of a musculoskeletal structure following a musculoskeletal system procedure (principal); N94.89 Other specified conditions associated with female genital organs and menstrual cycle; I11.0 Hypertensive heart disease with heart failure; I50.9 Heart failure, unspecified; F17.210 Nicotine dependence, cigarettes, uncomplicated; J44.9 Chronic obstructive pulmonary disease, unspecified; K21.9 Gastro-esophageal reflux disease without esophagitis; F41.8 Other specified anxiety disorders; I34.0 Nonrheumatic mitral (valve) insufficiency; E89.0 Postprocedural hypothyroidism; F20.89 Other schizophrenia; E66.01 Morbid (severe) obesity due to excess calories; F32.89 Other specified depressive episodes; F12.90 Cannabis use, unspecified, uncomplicated; Z98.51 Tubal ligation status; Z72.89 Other problems related to lifestyle; Z79.2 Long term (current) use of antibiotics; Z98.891 History of uterine scar from previous surgery; Z79.82 Long term (current) use of aspirin; Z68.36 Body mass index [BMI] 36.0-36.9, adult; Z88.6 Allergy status to analgesic agent; Z88.0 Allergy status to penicillin; Z88.1 Allergy status to other antibiotic agents; Z79.891 Long term (current) use of opiate analgesic; Z88.8 Allergy status to other drugs, medicaments and biological substances; Z79.899 Other long term (current) drug therapy; Z98.890 Other specified postprocedural states; Z82.49 Family history of ischemic heart disease and other diseases of the circulatory system
CPT/HCPCS: 10030; 87070; 89051; J2001; 49083

== ENCOUNTER 2018-04-09 09:15 | Emergency (ER) | payer MEDICARE, MEDICAID ==
[~2018-04-09] VITALS: Ht 165.1 cm; Wt 100.0 kg
[~2018-04-09 09:15] MED LIST changes: +DIPH25CA83 PO; +OXYC20TA55 PO; +PER10325T PO; +VENL150C58 PO
[2018-04-09 09:18] VITALS: BP 102/56
[2018-04-09] MEDS ORDERED: CLIN300C85 PO (10:09)
== END 2018-04-09 10:23 | disposition home or self-care (01) ==
LOC: ER 09:16
DX: L03.116 Cellulitis of left lower limb (principal); L76.34 Postprocedural seroma of skin and subcutaneous tissue following other procedure; I11.0 Hypertensive heart disease with heart failure; I50.9 Heart failure, unspecified; J44.9 Chronic obstructive pulmonary disease, unspecified; K21.9 Gastro-esophageal reflux disease without esophagitis; E11.9 Type 2 diabetes mellitus without complications; G89.29 Other chronic pain; M54.9 Dorsalgia, unspecified; F17.200 Nicotine dependence, unspecified, uncomplicated; F12.90 Cannabis use, unspecified, uncomplicated; Z88.6 Allergy status to analgesic agent; Z88.1 Allergy status to other antibiotic agents; Z88.0 Allergy status to penicillin; Z88.8 Allergy status to other drugs, medicaments and biological substances
CPT/HCPCS: 93971; 99284

== ENCOUNTER 2018-05-02 20:24 | Inpatient (IN) | payer MEDICARE, MEDICAID ==
[~2018-05-02] VITALS: Ht 165.1 cm; Wt 86.0 kg
[~2018-05-02 20:24] MED LIST changes: -ACET-812 PO; -ALBU18HF2 INH; +CLIN300C85 PO; -HYDR-3686 PO; -LURA20TA PO; -NICO2GUM29 BC; -VENL150T3 PO
[2018-05-02 21:10] VITALS: BP 130/83
[2018-05-02] MEDS ORDERED: OLANZapine 2.5MG tablet PO ONE (21:10)
[2018-05-02] MEDS ORDERED: OLANZapine 5mg rapidly disint. tablet PO PRN (21:10)
[2018-05-02] MEDS ORDERED: acetaminophen 325mg tablet PO PRN ×2 (21:15)
[2018-05-02] MEDS ORDERED: magnesium hydroxide 30ml (MOM) UD suspension PO PRN (21:20)
[2018-05-02] MEDS ORDERED: mag hydrox/Alum hydrox/simeth 30ml oral suspension PO PRN (21:20)
[2018-05-02] MEDS ORDERED: SIMV10TA6 PO (22:03)
[2018-05-02] MEDS ORDERED: FURO-149 PO (22:03)
[2018-05-02] MEDS ORDERED: ARIP5TAB20 PO (22:03)
[2018-05-02] MEDS ORDERED: IPRA4AER IH (22:03)
[2018-05-02] MEDS ORDERED: PROM25TA14 PO (22:03)
[2018-05-02] MEDS ORDERED: FLUT16SP20 IH (22:03)
[2018-05-02] MEDS ORDERED: proMETHazine 25mg tablet PO PRN (22:05)
[2018-05-02] MEDS ORDERED: ipratropium 0.5 MG/2.5ML nebule IH SCH (22:15)
[2018-05-02] MEDS ORDERED: oxyCODONE SR 10mg (sust. release) tab PO SCH (22:15)
[2018-05-02] MEDS: temazepam 15mg capsule PO PRN (22:35)
[2018-05-02] MEDS: LORazepam 1 MG tablet PO PRN (22:40)
[2018-05-02] MEDS ORDERED: OLANZapine 5mg rapidly disint. tablet PO ONE (23:40)
[2018-05-03] MEDS: LORazepam 1 MG tablet PO PRN ×2 (00:32→22:30)
[2018-05-03] MEDS: temazepam 15mg capsule PO PRN ×2 (00:42→19:55)
[2018-05-03] MEDS ORDERED: oxyCODONE SR 10mg (sust. release) tab PO SCH (08:00)
[2018-05-03] MEDS ORDERED: aripiprazole 5mg tablet PO SCH (08:00)
[2018-05-03 08:01] VITALS: BP 127/91
[2018-05-03] MEDS: NIFEdipine XL 30mg tablet PO SCH (08:14)
[2018-05-03] MEDS: topiramate 25mg tablet PO SCH (08:15)
[2018-05-03] MEDS: potassium Cl 20 mEq SR tablet PO SCH (08:18)
[2018-05-03] MEDS: venlafaxine XR 75mg capsule (Q24H) PO SCH (08:19)
[2018-05-03] MEDS: atorvastatin 10mg tablet PO SCH (08:20)
[2018-05-03] MEDS ORDERED: OLANZapine 5mg rapidly disint. tablet PO PRN (08:20)
[2018-05-03] MEDS: pantoprazole 40mg Tablet.DR PO SCH (08:20)
[2018-05-03] MEDS: furosemide 40mg tablet PO SCH (08:21)
[2018-05-03] MEDS: fluticasone nasal spray 16GM bottle NS SCH (08:22)
[2018-05-03] MEDS: nicotine 21mg patch - 24 hr TD SCH (08:24)
[2018-05-03 09:58] LABS: BASOPHILS # (AUTO) 0.1 X10'3 (0-0.2); BASOPHILS % (AUTO) 0.9 % (0-1); EOSINOPHILS # (AUTO) 0.5 X10'3 (0-0.9); EOSINOPHILS % (AUTO) 4.7 % (0-6); HEMOGLOBIN 12.5 g/dl (12.0-16.0); LYMPHOCYTES # (AUTO) 1.7 X10'3 (1.1-4.8); LYMPHOCYTES % (AUTO) 16.8 % (21-51); MEAN CORPUSCULAR HEMOGLOBIN 24.6 PG (27.0-31.0); MEAN CORPUSCULAR HGB CONC 32.8 % (33.0-36.5); MEAN CORPUSCULAR VOLUME 74.9 FL (78-98); MEAN PLATELET VOLUME 8.5 FL (7.4-10.4); MONOCYTES # (AUTO) 0.7 X10'3 (0-0.9); NEUTROPHILS % (AUTO) 70.6 % (42-75); PLATELET COUNT 340 X10'3 (140-440); RED BLOOD COUNT 5.07 X10'6 (4.20-5.60); RED CELL DISTRIBUTION WIDTH 17.3 % (11.5-14.5); WHITE BLOOD COUNT 9.9 X10'3 (4.5-11.0)
[2018-05-03] MEDS: polyethylene glycol 3350 17gm powd pack PO PRN (10:11)
[2018-05-03 10:16] LABS: ALBUMIN 3.3 G/DL (3.4-5.0); ANION GAP 11 (8-16); BLOOD UREA NITROGEN 11 MG/DL (7-18); BUN/CREATININE RATIO 17.5 (6.6-38.0); CALCIUM 9.2 MG/DL (8.5-10.1); CHLORIDE 100 MMOL/L (99-107); CHOL/HDL RATIO 2.5 (0.00-4.99); CHOLESTEROL 138 MG/DL (0-200); CREATININE 0.63 MG/DL (0.40-0.90); GLUCOSE 103 MG/DL (70-104); HDL CHOLESTEROL 56 MG/DL (35-60); LDL CHOLESTEROL 75 MG/DL (50-100); POTASSIUM 3.2 MMOL/L (3.5-5.1); SODIUM 139 MMOL/L (135-145); TOTAL CARBON DIOXIDE 28.4 MMOL/L (24-32); TRIGLYCERIDES 96 MG/DL (20-135); eGFR > 90 ML/MIN
[2018-05-03] MEDS: HYDROcodone/acetaminophen 10/325mg tab PO PRN ×3 (11:22→23:28)
[2018-05-03] MEDS ORDERED: potassium chloride 8mEq ER tablet PO ONE (11:25)
[2018-05-03 11:37] LABS: HEMOGLOBIN A1C 5.8 % (4.5-6.2)
[2018-05-03] MEDS: azithromycin 250mg tablet PO SCH (13:10)
[2018-05-03] MEDS: haloperidol 1mg tablet PO SCH ×2 (13:11→19:55)
[2018-05-03 19:00] VITALS: BP 112/75
[2018-05-03] MEDS: benztropine 1mg tablet PO SCH (19:55)
[2018-05-03] MEDS ORDERED: OLANZapine 2.5MG tablet PO SCH (21:00)
[2018-05-04] MEDS: topiramate 25mg tablet PO SCH (07:56)
[2018-05-04] MEDS: venlafaxine XR 75mg capsule (Q24H) PO SCH (07:57)
[2018-05-04] MEDS: azithromycin 250mg tablet PO SCH (07:58)
[2018-05-04] MEDS: NIFEdipine XL 30mg tablet PO SCH (07:58)
[2018-05-04] MEDS: HYDROcodone/acetaminophen 10/325mg tab PO PRN ×2 (07:59→15:03)
[2018-05-04 08:00] VITALS: BP 120/86
[2018-05-04] MEDS ORDERED: enoxaparin 40mg/0.4ml syringe SUBCUT SCH (08:00)
[2018-05-04] MEDS: haloperidol 1mg tablet PO SCH ×3 (08:00→20:22)
[2018-05-04] MEDS: benztropine 1mg tablet PO SCH ×2 (08:00→20:23)
[2018-05-04] MEDS: furosemide 40mg tablet PO SCH (08:01)
[2018-05-04] MEDS: atorvastatin 10mg tablet PO SCH (08:01)
[2018-05-04] MEDS: pantoprazole 40mg Tablet.DR PO SCH (08:01)
[2018-05-04] MEDS: potassium Cl 20 mEq SR tablet PO SCH (08:01)
[2018-05-04] MEDS: fluticasone nasal spray 16GM bottle NS SCH (08:03)
[2018-05-04] MEDS: nicotine 21mg patch - 24 hr TD SCH (08:04)
[2018-05-04] MEDS: LORazepam 1 MG tablet PO PRN ×2 (10:11→20:22)
[2018-05-04] MEDS: ipratropium/albuterol 3ml nebule IH PRN ×2 (12:05→19:52)
[2018-05-04] MEDS: polyethylene glycol 3350 17gm powd pack PO PRN (16:32)
[2018-05-04 19:50] VITALS: BP 123/78
[2018-05-04] MEDS ORDERED: oxyCODONE SR 10mg (sust. release) tab PO SCH (20:00)
[2018-05-04] MEDS ORDERED: lactobacillus rhamnosus 10,000 MMU CELLS/CAPSULE PO SCH (20:00)
[2018-05-04] MEDS: temazepam 15mg capsule PO PRN (20:30)
== END 2018-05-04 22:40 | disposition left against medical advice (07) | DRG 885 ==
LOC: ADULT MH 20:24
PROVIDERS: ADMIT Psychiatry & Neurology Psychiatry; ATTEND Psychiatry & Neurology Psychiatry
DX: F29 Unspecified psychosis not due to a substance or known physiological condition (principal); J44.0 Chronic obstructive pulmonary disease with (acute) lower respiratory infection; F25.9 Schizoaffective disorder, unspecified; F32.9 Major depressive disorder, single episode, unspecified; E11.9 Type 2 diabetes mellitus without complications; E78.00 Pure hypercholesterolemia, unspecified; E78.5 Hyperlipidemia, unspecified; F12.90 Cannabis use, unspecified, uncomplicated; F17.210 Nicotine dependence, cigarettes, uncomplicated; I11.0 Hypertensive heart disease with heart failure; I25.10 Atherosclerotic heart disease of native coronary artery without angina pectoris; I50.9 Heart failure, unspecified; E66.01 Morbid (severe) obesity due to excess calories; G89.29 Other chronic pain; M54.9 Dorsalgia, unspecified; I83.90 Asymptomatic varicose veins of unspecified lower extremity; J20.9 Acute bronchitis, unspecified; Z53.21 Procedure and treatment not carried out due to patient leaving prior to being seen by health care provider; Z91.19 Patient's noncompliance with other medical treatment and regimen; Z98.51 Tubal ligation status; Z88.1 Allergy status to other antibiotic agents; Z88.0 Allergy status to penicillin; Z88.8 Allergy status to other drugs, medicaments and biological substances; Z79.899 Other long term (current) drug therapy; Z82.49 Family history of ischemic heart disease and other diseases of the circulatory system; Z68.31 Body mass index [BMI] 31.0-31.9, adult; Z71.6 Tobacco abuse counseling
CPT/HCPCS: 36415; 80048; 80061; 83036; 85025; 87070; 94640; 94760; J1650; Q0169

== ENCOUNTER 2018-05-24 08:31 | Emergency (ER) | payer MEDICARE, MEDICAID ==
[~2018-05-24] VITALS: Ht 165.1 cm; Wt 90.0 kg
[~2018-05-24 08:31] MED LIST changes: +ARIP5TAB20 PO; -CLIN300C85 PO; -DIPH25CA83 PO; +FLUT16SP20 IH; +FURO-149 PO; +IPRA4AER IH; -PER10325T PO; +PROM25TA14 PO; +SIMV10TA6 PO
[2018-05-24 09:09] VITALS: BP 115/71
== END 2018-05-24 09:18 | disposition home or self-care (01) ==
LOC: ER 08:32
DX: R07.89 Other chest pain (principal); R11.2 Nausea with vomiting, unspecified; R42 Dizziness and giddiness; R05 Cough; I25.10 Atherosclerotic heart disease of native coronary artery without angina pectoris; I11.0 Hypertensive heart disease with heart failure; I50.9 Heart failure, unspecified; E78.00 Pure hypercholesterolemia, unspecified; J44.9 Chronic obstructive pulmonary disease, unspecified; E11.9 Type 2 diabetes mellitus without complications; G89.29 Other chronic pain; F17.200 Nicotine dependence, unspecified, uncomplicated; F12.90 Cannabis use, unspecified, uncomplicated; Z98.51 Tubal ligation status; Z98.890 Other specified postprocedural states; Z88.0 Allergy status to penicillin; Z88.1 Allergy status to other antibiotic agents; Z88.5 Allergy status to narcotic agent; Z88.8 Allergy status to other drugs, medicaments and biological substances; Z79.899 Other long term (current) drug therapy
CPT/HCPCS: 71045; 93005; 99284

== ENCOUNTER 2018-08-07 18:29 | Inpatient (IN) | payer MEDICARE, OTHER ==
[~2018-08-07] VITALS: Ht 167.6 cm; Wt 107.7 kg
[2018-08-07] MEDS ORDERED: diltiazem 5mg/ml 5ml inj. IV ONE ×2 (19:35→20:30)
[2018-08-07] MEDS ORDERED: methylPREDNISolone sod succ 125mg/2ml vial IV ONE (19:35)
[2018-08-07] MEDS ORDERED: iohexol 350MG/ML 100ml bottle IV ONE (19:48)
[2018-08-07] MEDS ORDERED: fentaNYL/PF 50MCG/1 ML 2ML syringe IV ONE (20:00)
[2018-08-07 20:10] LABS: BASOPHILS # (AUTO) 0.1 X10'3 (0-0.2); BASOPHILS % (AUTO) 1.5 % (0-1); EOSINOPHILS # (AUTO) 0.4 X10'3 (0-0.9); EOSINOPHILS % (AUTO) 4.3 % (0-6); HEMATOCRIT 34.5 % (35.0-45.0); HEMOGLOBIN 11.5 g/dl (12.0-16.0); LYMPHOCYTES % (AUTO) 21.1 % (21-51); MEAN CORPUSCULAR HEMOGLOBIN 25.2 PG (27.0-31.0); MEAN CORPUSCULAR HGB CONC 33.3 % (33.0-36.5); MEAN CORPUSCULAR VOLUME 75.8 FL (78-98); MEAN PLATELET VOLUME 7.6 FL (7.4-10.4); MONOCYTES # (AUTO) 0.8 X10'3 (0-0.9); NEUTROPHILS # (AUTO) 6.1 X10'3 (1.8-7.7); NEUTROPHILS % (AUTO) 64.1 % (42-75); PLATELET COUNT 360 X10'3 (140-440); RED BLOOD COUNT 4.55 X10'6 (4.20-5.60); WHITE BLOOD COUNT 9.4 X10'3 (4.5-11.0)
[2018-08-07 20:15] LABS: PARTIAL THROMBOPLASTIN TIME 30 SECONDS (22-32); PROTHROMBIN TIME 9.8 SECONDS (9.0-12.0)
[2018-08-07 20:19] LABS: ALANINE AMINOTRANSFERASE 25 U/L (12-78); ALBUMIN 3.3 G/DL (3.4-5.0); ALKALINE PHOSPHATASE 116 IU/L (46-116); ANION GAP 14 (8-16); ASPARTATE AMINO TRANSFERASE 11 U/L (10-37); BILIRUBIN,TOTAL 0.2 MG/DL (0.1-1.0); BLOOD UREA NITROGEN 15 MG/DL (7-18); BUN/CREATININE RATIO 26.3 (6.6-38.0); CALCIUM 8.4 MG/DL (8.5-10.1); CHLORIDE 103 MMOL/L (99-107); CREATININE 0.57 MG/DL (0.40-0.90); GLUCOSE 93 MG/DL (70-104); SODIUM 140 MMOL/L (135-145); TOTAL CARBON DIOXIDE 23.2 MMOL/L (24-32); TOTAL PROTEIN 6.7 G/DL (6.4-8.2); eGFR > 90 ML/MIN
[2018-08-07 20:27] LABS: ETHANOL < 0.010 GM/DL (0.0-0.010)
--- NOTE | 2018-08-07 20:32 | NUR ---
TO CT SCAN
--- NOTE | 2018-08-07 20:50 | NUR ---
RETURNED FROM [facility]. REPORTING 9 OUT OF 10 BARNEY TO HER LEFT LEG. REPORTS THE PAIN MEDS GIVEN EARLIER HELPED BUT NOW IT IS WEARING OFF. BP 103/67, HR 83. PT A&OX4 AND COOERATIVE.
--- NOTE | 2018-08-07 20:52 | NUR ---
PT NOW IN NSR AT 83BPM
[2018-08-07] MEDS ORDERED: temazepam 15mg capsule PO PRN (21:00)
[2018-08-07] MEDS ORDERED: ipratropium/albuterol 3ml nebule NEB ONE (21:05)
[2018-08-07] MEDS ORDERED: aspirin 81mg tab.chew PO ONE (21:05)
[2018-08-07] MEDS ORDERED: potassium Cl 20 mEq SR tablet PO ONE (21:25)
[2018-08-07 21:59] LABS: URINE AMPHETAMINE SCREEN NEGATIVE (Neg); URINE BARBITUATE SCREEN NEGATIVE (Neg); URINE BENZODIAZEPINES SCREEN NEGATIVE (Neg); URINE CANNABINOID SCREEN POSITIVE (Neg); URINE COCAINE SCREEN NEGATIVE (Neg); URINE METHADONE SCREEN NEGATIVE (Neg); URINE OPIATE SCREEN POSITIVE (Neg); URINE PHENCYCLIDINE SCREEN NEGATIVE (Neg)
[2018-08-07] MEDS ORDERED: diphenhydrAMINE 25mg capsule PO PRN (22:05)
[2018-08-07] MEDS ORDERED: bisacodyl 10mg suppository rectal RC PRN (22:05)
[2018-08-07] MEDS ORDERED: ondansetron/PF 4mg/2ml inj IV PRN (22:05)
[2018-08-07] MEDS ORDERED: acetaminophen 325mg tablet PO PRN ×2 (22:05)
[2018-08-07] MEDS ORDERED: morphine 4 MG/ML inj SYRINge IV PRN (22:05)
[2018-08-07] MEDS ORDERED: acetaminophen 650mg rectal suppository RC PRN (22:05)
[2018-08-07] MEDS ORDERED: mag hydrox/Alum hydrox/simeth 30ml oral suspension PO PRN (22:05)
[2018-08-07] MEDS ORDERED: potassium Cl 40MEQ/NS 500ml 500 ML IV PRN ×2 (22:05)
[2018-08-07] MEDS ORDERED: potassium Cl 20 mEq SR tablet PO PRN ×2 (22:05)
[2018-08-07] MEDS ORDERED: metoclopramide 5 mg/ml inj IV PRN (22:05)
[2018-08-07] MEDS: K and/or MAG REPLACEMENT MC SCH (22:05)
[2018-08-07] MEDS ORDERED: diphenhydrAMINE 50 mg/ml inj IV PRN (22:05)
[2018-08-07] MEDS ORDERED: magnesium hydroxide 30ml (MOM) UD suspension PO PRN (22:05)
[2018-08-07 22:30] LABS: LIPASE 109 U/L (73-393); PHOSPHORUS 3.8 MG/DL (2.3-4.5)
[2018-08-07 22:33] LABS: HEMOGLOBIN A1C 5.8 % (4.5-6.2)
[2018-08-07] MEDS: potassium 10mEq/100ml NS w/LIDOcaine (10mg/bag) IV SCH (23:07)
[2018-08-07] MEDS: HYDROmorphone 1 mg/ml syringe IV PRN (23:10)
[2018-08-08 00:30] VITALS: BP 104/62
--- NOTE | 2018-08-08 00:30 | NUR ---
patient arrived to floor via gurney and ambulated to hospital bed with sba; patient had disconnected her iv infusing with potassium replacement on her own and was instructed and educated on risks of doing this. iv protector placed on new iv. patient placed on tele monitor, oriented to room, nurses and call light system. bed low/locked and alarm on. patient appearing very fatigued and sleepy during assessment and v/s. will continue to monitor belongings at bedside.
[2018-08-08] MEDS: potassium 10mEq/100ml NS w/LIDOcaine (10mg/bag) IV SCH (00:58)
[2018-08-08] MEDS ORDERED: azithromycin/NS 500mg/250ml 250 ML IV SCH (02:00)
[2018-08-08] MEDS: potassium Cl 20mEq in NS 1,000 ML IV SCH ×2 (02:22→08:05)
[2018-08-08 03:00] VITALS: BP 136/68
[2018-08-08 06:00] VITALS: BP 129/74
--- NOTE | 2018-08-08 06:22 | NUR ---
[facility] Medication Administration: For this medication-pass time frame, all medication were reviewed, dispensed, administered and documented per hospital policy by marylou jones.
--- NOTE | 2018-08-08 06:22 | NUR ---
orientee documentation: I have reviewed and agree with all interventions, assessments performed and documented by marylou jones.
--- NOTE | 2018-08-08 06:34 | NUR ---
Problems reprioritized. Patient report given, questions answered & plan of care reviewed with Arely CUEVA. Addendum: 08/08/18 at 0635 by Luis Daniel Chapman RN patient awake in no distress; sitting up in chair
[2018-08-08] MEDS ORDERED: docusate sod 100mg capsule PO SCH (08:00)
[2018-08-08] MEDS ORDERED: enoxaparin 100mg/ml syringe SQ SCH (08:00)
[2018-08-08] MEDS ORDERED: metoprolol tartrate 50mg tablet PO SCH (08:00)
[2018-08-08] MEDS ORDERED: methylPREDNISolone sod succ 125mg/2ml vial IV SCH ×2 (08:00→20:00)
[2018-08-08] MEDS: K and/or MAG REPLACEMENT MC SCH (08:00)
[2018-08-08 08:11] LABS: BASOPHILS % (AUTO) 0.2 % (0-1); EOSINOPHILS % (AUTO) 0.2 % (0-6); LYMPHOCYTES % (AUTO) 11.1 % (21-51); MEAN CORPUSCULAR HGB CONC 32.4 % (33.0-36.5); MEAN PLATELET VOLUME 7.9 FL (7.4-10.4); MONOCYTES # (AUTO) 0.4 X10'3 (0-0.9); MONOCYTES % (AUTO) 4.1 % (2-12); NEUTROPHILS # (AUTO) 7.3 X10'3 (1.8-7.7); NEUTROPHILS % (AUTO) 84.4 % (42-75); PLATELET COUNT 338 X10'3 (140-440); RED BLOOD COUNT 4.41 X10'6 (4.20-5.60); RED CELL DISTRIBUTION WIDTH 16.8 % (11.5-14.5); WHITE BLOOD COUNT 8.7 X10'3 (4.5-11.0)
[2018-08-08 08:29] LABS: ALANINE AMINOTRANSFERASE 26 U/L (12-78); ALBUMIN 3.5 G/DL (3.4-5.0); ALBUMIN/GLOBULIN RATIO 0.9 (1.1-1.5); ALKALINE PHOSPHATASE 110 IU/L (46-116); ANION GAP 11 (8-16); ASPARTATE AMINO TRANSFERASE 11 U/L (10-37); BILIRUBIN,TOTAL 0.2 MG/DL (0.1-1.0); BLOOD UREA NITROGEN 17 MG/DL (7-18); BUN/CREATININE RATIO 29.8 (6.6-38.0); CALCIUM 8.4 MG/DL (8.5-10.1); CHLORIDE 105 MMOL/L (99-107); CREATININE 0.57 MG/DL (0.40-0.90); GLUCOSE 121 MG/DL (70-104); POTASSIUM 3.9 MMOL/L (3.5-5.1); SODIUM 140 MMOL/L (135-145); TOTAL CARBON DIOXIDE 24.3 MMOL/L (24-32); TOTAL PROTEIN 7.3 G/DL (6.4-8.2); eGFR > 90 ML/MIN
[2018-08-08 08:36] LABS: CHOL/HDL RATIO 1.9 (0.00-4.99); CHOLESTEROL 161 MG/DL (0-200); HDL CHOLESTEROL 83 MG/DL (35-60); LDL CHOLESTEROL 71 MG/DL (50-100); TRIGLYCERIDES 38 MG/DL (20-135)
[2018-08-08 11:00] VITALS: BP 116/74
[2018-08-08] MEDS ORDERED: nicotine 7mg patch - 24hr TD SCH (11:15)
[2018-08-08 15:00] VITALS: BP 137/79
[2018-08-08] MEDS: HYDROmorphone 1 mg/ml syringe IV PRN (16:56)
[2018-08-08 18:00] VITALS: BP 125/76
--- NOTE | 2018-08-08 19:00 | NUR ---
Met pt. in [facility], expressing she wants to go home now. Encouraged to stay and MD called and paged w/no response. This nurse encouraged pt to have patience so staff can obtain the approp orders, however pt. took off her monitor and took out her SL and called her spouse to come and get her. Pt. moved to room closer to nurse's station to enhance staff attention. Pt. conts. to state she wants her home meds fr/the in house pharmacy so she can leave when her arrives. Still no call back fr/.
--- NOTE | 2018-08-08 19:31 | NUR ---
Patient in room PCU 3023. I have received report from Arely CUEVA and had the opportunity to ask questions and assume patient care.
[2018-08-08] MEDS ORDERED: apixaban 5mg tablet PO SCH (20:00)
[2018-08-08] MEDS ORDERED: lactobacillus rhamnosus 10,000 MMU CELLS/CAPSULE PO SCH (20:00)
[2018-08-08] MEDS ORDERED: carVEDilol 3.125mg tablet PO SCH (20:00)
--- NOTE | 2018-08-08 21:00 | NUR ---
Pt left PCU to wait f/ in the lobby. This nurse found her sitting in the lobby waiting f/spouse to sign AMA form which was completed on PCU w/CN. Home medications returned to pt. and spouse and accompanied out of hospital to the door. Pt. amb w/spouse to car. Educated to consequences of leaving AMA and pt. stated she needs to go home tonight.
== END 2018-08-08 20:55 | disposition left against medical advice (07) | DRG 308 ==
LOC: ER 18:29 → ED HOLD 22:05 → PCU 3S 08-08 00:40
PROVIDERS: ADMIT Family Medicine; ATTEND Family Medicine
PROC: B32T1ZZ Computerized Tomography (CT Scan) of Left Pulmonary Artery using Low Osmolar Contrast (ICD-10-PCS; principal; 2018-08-07)
PROC: B3201ZZ Computerized Tomography (CT Scan) of Thoracic Aorta using Low Osmolar Contrast (ICD-10-PCS; 2018-08-07)
PROC: B32S1ZZ Computerized Tomography (CT Scan) of Right Pulmonary Artery using Low Osmolar Contrast (ICD-10-PCS; 2018-08-07)
DX: I48.91 Unspecified atrial fibrillation (principal); I50.33 Acute on chronic diastolic (congestive) heart failure; J44.1 Chronic obstructive pulmonary disease with (acute) exacerbation; I11.0 Hypertensive heart disease with heart failure; Z53.21 Procedure and treatment not carried out due to patient leaving prior to being seen by health care provider; E11.9 Type 2 diabetes mellitus without complications; E66.01 Morbid (severe) obesity due to excess calories; F20.9 Schizophrenia, unspecified; G89.29 Other chronic pain; M54.9 Dorsalgia, unspecified; E78.00 Pure hypercholesterolemia, unspecified; E87.6 Hypokalemia; F12.90 Cannabis use, unspecified, uncomplicated; F17.210 Nicotine dependence, cigarettes, uncomplicated; I25.10 Atherosclerotic heart disease of native coronary artery without angina pectoris; Z98.891 History of uterine scar from previous surgery; Z88.0 Allergy status to penicillin; Z88.8 Allergy status to other drugs, medicaments and biological substances; Z98.51 Tubal ligation status; Z79.899 Other long term (current) drug therapy; Z82.49 Family history of ischemic heart disease and other diseases of the circulatory system; Z68.38 Body mass index [BMI] 38.0-38.9, adult
CPT/HCPCS: 36415; 71045; 71275; 80053; 80061; 80305; 80320; 83036; 83690; 83735; 83880; 84100; 84484; 85025; 85610; 85730; 87070; 87502; 87503; 93306; 94640; 94760; 96374; 96375; 99291; G0378; J1170; J1650; J2270; J2930; J3010; J3480; J3490; Q9967

== ENCOUNTER 2018-10-11 09:15 | Emergency (ER) | payer MEDICARE, MEDICAID ==
[~2018-10-11] VITALS: Ht 167.6 cm; Wt 118.2 kg
[2018-10-11 10:15] LABS: BASOPHILS # (AUTO) 0.2 X10'3 (0-0.2); BASOPHILS % (AUTO) 1.1 % (0-1); EOSINOPHILS # (AUTO) 0.7 X10'3 (0-0.9); EOSINOPHILS % (AUTO) 5.3 % (0-6); HEMATOCRIT 31.9 % (35.0-45.0); HEMOGLOBIN 10.4 g/dl (12.0-16.0); LYMPHOCYTES # (AUTO) 2.1 X10'3 (1.1-4.8); LYMPHOCYTES % (AUTO) 14.9 % (21-51); MEAN CORPUSCULAR HEMOGLOBIN 23.6 PG (27.0-31.0); MEAN CORPUSCULAR HGB CONC 32.6 g/dL (33.0-36.5); MEAN CORPUSCULAR VOLUME 72.4 FL (78-98); MEAN PLATELET VOLUME 6.4 FL (7.4-10.4); MONOCYTES # (AUTO) 1.1 X10'3 (0-0.9); MONOCYTES % (AUTO) 7.9 % (2-12); NEUTROPHILS # (AUTO) 9.8 X10'3 (1.8-7.7); NEUTROPHILS % (AUTO) 70.8 % (42-75); PLATELET COUNT 475 X10'3 (140-440); RED CELL DISTRIBUTION WIDTH 19.1 % (11.5-14.5); WHITE BLOOD COUNT 13.8 X10'3 (4.5-11.0)
[2018-10-11] MEDS ORDERED: ipratropium/albuterol 3ml nebule NEB ONE (10:15)
[2018-10-11] MEDS ORDERED: furosemide 40mg/4ml inj IV ONE (10:15)
[2018-10-11 10:18] LABS: PARTIAL THROMBOPLASTIN TIME 32 SECONDS (22-32); PROTHROMBIN TIME 9.8 SECONDS (9.0-12.0)
[2018-10-11 10:48] LABS: ALANINE AMINOTRANSFERASE 30 U/L (12-78); ALBUMIN/GLOBULIN RATIO 0.7 (1.1-1.5); ALKALINE PHOSPHATASE 119 IU/L (46-116); ANION GAP 8 (8-16); ASPARTATE AMINO TRANSFERASE 5 U/L (10-37); BILIRUBIN,TOTAL 0.1 MG/DL (0.1-1.0); BLOOD UREA NITROGEN 10 MG/DL (7-18); BUN/CREATININE RATIO 15.4 (6.6-38.0); CALCIUM 8.7 MG/DL (8.5-10.1); CHLORIDE 101 MMOL/L (99-107); CREATININE 0.65 MG/DL (0.40-0.90); GLUCOSE 96 MG/DL (70-104); POTASSIUM 3.6 MMOL/L (3.5-5.1); SODIUM 137 MMOL/L (135-145); TOTAL CARBON DIOXIDE 27.8 MMOL/L (24-32); TOTAL PROTEIN 7.2 G/DL (6.4-8.2); eGFR > 90 ML/MIN
[2018-10-11] MEDS ORDERED: HYDROcodone/acetaminophen 10/325mg tab PO ONE (10:55)
[2018-10-11 11:26] LABS: ANISOCYTOSIS 2+; MICROCYTOSIS 1+; PLATELET ESTIMATE INCREASED; POLYCHROMASIA 1+; TOTAL CELLS COUNTED 100
--- NOTE | 2018-10-11 11:33 | NUR ---
medic technician at bedside.
[2018-10-11] MEDS ORDERED: IPRA4AER IH (12:28)
[2018-10-11 12:40] VITALS: BP 126/32
== END 2018-10-11 12:42 | disposition home or self-care (01) ==
LOC: ER 09:15
DX: J44.1 Chronic obstructive pulmonary disease with (acute) exacerbation (principal); R60.0 Localized edema; I25.10 Atherosclerotic heart disease of native coronary artery without angina pectoris; I11.0 Hypertensive heart disease with heart failure; I50.9 Heart failure, unspecified; E78.00 Pure hypercholesterolemia, unspecified; E11.9 Type 2 diabetes mellitus without complications; G89.29 Other chronic pain; F17.200 Nicotine dependence, unspecified, uncomplicated; F12.10 Cannabis abuse, uncomplicated; Z98.51 Tubal ligation status; Z88.5 Allergy status to narcotic agent; Z88.8 Allergy status to other drugs, medicaments and biological substances; Z88.0 Allergy status to penicillin; Z88.1 Allergy status to other antibiotic agents; Z79.899 Other long term (current) drug therapy
CPT/HCPCS: 36415; 71045; 80053; 83880; 84484; 85025; 85610; 85730; 93005; 93970; 94640; 94760; 96374; 99284; J1940

== ENCOUNTER 2018-11-19 13:55 | Inpatient (IN) | payer MEDICARE, MEDICAID ==
[~2018-11-19] VITALS: Ht 167.6 cm; Wt 115.5 kg
[~2018-11-19 13:55] MED LIST changes: +FLUT16SP20; -FLUT16SP20 IH
[2018-11-19] MEDS ORDERED: ketorolac tromethamine 15mg/ml inj. IM ONE (14:20)
[2018-11-19] MEDS ORDERED: dexamethasone 4mg tablet PO ONE (14:20)
[2018-11-19 14:46] LABS: BASOPHILS # (AUTO) 0.1 X10'3 (0-0.2); BASOPHILS % (AUTO) 0.5 % (0-1); EOSINOPHILS # (AUTO) 0.6 X10'3 (0-0.9); EOSINOPHILS % (AUTO) 3.6 % (0-6); HEMOGLOBIN 10.3 g/dl (12.0-16.0); LYMPHOCYTES # (AUTO) 1.7 X10'3 (1.1-4.8); LYMPHOCYTES % (AUTO) 11.1 % (21-51); MEAN CORPUSCULAR HEMOGLOBIN 21.8 PG (27.0-31.0); MEAN CORPUSCULAR HGB CONC 32.1 g/dL (33.0-36.5); MEAN PLATELET VOLUME 6.7 FL (7.4-10.4); MONOCYTES # (AUTO) 1.6 X10'3 (0-0.9); MONOCYTES % (AUTO) 10.1 % (2-12); NEUTROPHILS # (AUTO) 11.6 X10'3 (1.8-7.7); NEUTROPHILS % (AUTO) 74.7 % (42-75); PLATELET COUNT 397 X10'3 (140-440); RED CELL DISTRIBUTION WIDTH 18.6 % (11.5-14.5); WHITE BLOOD COUNT 15.5 X10'3 (4.5-11.0)
[2018-11-19 14:59] LABS: ALANINE AMINOTRANSFERASE 21 U/L (12-78); ALBUMIN 3.2 G/DL (3.4-5.0); ALBUMIN/GLOBULIN RATIO 0.8 (1.1-1.5); ALKALINE PHOSPHATASE 124 IU/L (46-116); ANION GAP 7 (8-16); ASPARTATE AMINO TRANSFERASE 11 U/L (10-37); BILIRUBIN,TOTAL 0.1 MG/DL (0.1-1.0); BLOOD UREA NITROGEN 14 MG/DL (7-18); CHLORIDE 100 MMOL/L (99-107); CREATININE 0.56 MG/DL (0.40-0.90); GLUCOSE 90 MG/DL (70-104); POTASSIUM 3.1 MMOL/L (3.5-5.1); SODIUM 137 MMOL/L (135-145); TOTAL PROTEIN 7.2 G/DL (6.4-8.2); eGFR > 90 ML/MIN
[2018-11-19 15:00] LABS: D-DIMER 0.53 MG/L FEU (0-0.50); PARTIAL THROMBOPLASTIN TIME 33 SECONDS (22-32)
[2018-11-19 15:05] LABS: TOTAL CELLS COUNTED 100
[2018-11-19 15:06] LABS: ANISOCYTOSIS 2+; MICROCYTOSIS 2+; PLATELET ESTIMATE NORMAL
[2018-11-19 15:08] LABS: HYPOCHROMASIA 2+; TEAR DROP CELLS FEW
[2018-11-19] MEDS ORDERED: FLUO20CA22 PO (16:03)
[2018-11-19] MEDS ORDERED: ASPI81TA52 PO (16:03)
[2018-11-19] MEDS ORDERED: POTA10TA15 PO (16:03)
[2018-11-19] MEDS ORDERED: TIOT4MIS5 IH (16:03)
[2018-11-19] MEDS ORDERED: DULO60CA45 PO (16:03)
[2018-11-19] MEDS ORDERED: IPRA4AER IH (16:03)
[2018-11-19] MEDS ORDERED: ALBU8.5H8 INH (16:03)
[2018-11-19] MEDS ORDERED: OLAN5TAB26 PO (16:03)
[2018-11-19] MEDS ORDERED: ACTIFED PO (16:03)
[2018-11-19] MEDS ORDERED: TRAM50TA2 PO (16:03)
[2018-11-19] MEDS ORDERED: OLAN10TA19 PO (16:03)
[2018-11-19] MEDS ORDERED: SPIR50TA5 PO (16:03)
[2018-11-19] MEDS ORDERED: HYDR50TA65 PO (16:03)
[2018-11-19] MEDS ORDERED: iohexol 350MG/ML 100ml bottle IV ONE (16:41)
[2018-11-19] MEDS ORDERED: CefTRIAXone 2gm/D5W 50ml 50 ML IV ONE (18:35)
[2018-11-19] MEDS ORDERED: azithromycin 250mg tablet PO ONE (18:35)
[2018-11-19] MEDS ORDERED: potassium Cl 20 mEq SR tablet PO STA (19:30)
[2018-11-19] MEDS ORDERED: acetaminophen 325mg tablet PO PRN ×2 (19:50)
[2018-11-19] MEDS ORDERED: magnesium 2GM in 50ml NS 50 ML IV PRN (19:50)
[2018-11-19] MEDS ORDERED: mag hydrox/Alum hydrox/simeth 30ml oral suspension PO PRN (19:50)
[2018-11-19] MEDS ORDERED: ipratropium/albuterol 3ml nebule NEB PRN (19:50)
[2018-11-19] MEDS ORDERED: magnesium 4gm in 100ml NS 100 ML IV PRN (19:50)
[2018-11-19] MEDS ORDERED: furosemide 40mg/4ml inj IV ONE (19:50)
[2018-11-19] MEDS ORDERED: potassium Cl 20 mEq SR tablet PO PRN (19:50)
[2018-11-19] MEDS ORDERED: ondansetron/PF 4mg/2ml inj IV PRN (19:50)
[2018-11-19] MEDS ORDERED: potassium Cl 40MEQ/NS 500ml 500 ML IV PRN ×2 (19:50)
[2018-11-19] MEDS ORDERED: magnesium Cl slow-release 64mg tablet PO PRN (19:50)
[2018-11-19] MEDS: furosemide 40mg/4ml inj IV SCH (20:36)
[2018-11-19] MEDS ORDERED: MESSAGE TO PHARMACY PO ONE (21:15)
[2018-11-19] MEDS ORDERED: dextrose ORAL solution 15 GM/59 ML bottle PO PRN ×2 (21:15)
[2018-11-19] MEDS ORDERED: glucagon, human recombinant 1mg kit SUBCUT PRN (21:15)
[2018-11-19] MEDS ORDERED: dextrose 50%-water 50ml dispensing syringe IV PRN ×2 (21:15)
[2018-11-19] MEDS ORDERED: HYDROcodone/acetaminophen 5mg/325mg tablet PO PRN (21:15)
[2018-11-19] MEDS ORDERED: nicotine 14mg patch - 24hr TD ONE (21:20)
[2018-11-19] MEDS ORDERED: OLANZAPINE 5 MG TABLET PO PRN (21:20)
[2018-11-19 21:45] LABS: HEMOGLOBIN A1C 6.2 % (4.5-6.2)
[2018-11-19] MEDS: HYDROcodone/acetaminophen 10/325mg tab PO PRN (22:35)
[2018-11-20 00:15] VITALS: BP 120/70
[2018-11-20] MEDS: temazepam 15mg capsule PO PRN ×3 (01:03→23:48)
[2018-11-20] MEDS: ipratropium/albuterol 3ml nebule NEB SCH ×6 (01:12→23:51)
[2018-11-20] MEDS: HYDROcodone/acetaminophen 10/325mg tab PO PRN ×2 (02:35→07:01)
[2018-11-20] MEDS: methylPREDNISolone sod succ 125mg/2ml vial IV SCH ×4 (02:38→20:37)
[2018-11-20 03:12] LABS: BASOPHILS % (AUTO) 0.3 % (0-1); EOSINOPHILS % (AUTO) 0 % (0-6); HEMATOCRIT 33.2 % (35.0-45.0); HEMOGLOBIN 10.4 g/dl (12.0-16.0); LYMPHOCYTES # (AUTO) 0.9 X10'3 (1.1-4.8); LYMPHOCYTES % (AUTO) 6.7 % (21-51); MEAN CORPUSCULAR HEMOGLOBIN 21.6 PG (27.0-31.0); MEAN CORPUSCULAR HGB CONC 31.4 g/dL (33.0-36.5); MEAN PLATELET VOLUME 6.9 FL (7.4-10.4); MONOCYTES # (AUTO) 0.3 X10'3 (0-0.9); MONOCYTES % (AUTO) 2.5 % (2-12); NEUTROPHILS # (AUTO) 11.7 X10'3 (1.8-7.7); NEUTROPHILS % (AUTO) 90.5 % (42-75); PLATELET COUNT 427 X10'3 (140-440); RED BLOOD COUNT 4.82 X10'6 (4.20-5.60); RED CELL DISTRIBUTION WIDTH 18.9 % (11.5-14.5); WHITE BLOOD COUNT 12.9 X10'3 (4.5-11.0)
[2018-11-20 03:16] LABS: ALBUMIN 3.3 G/DL (3.4-5.0); ANION GAP 10 (8-16); BLOOD UREA NITROGEN 15 MG/DL (7-18); BUN/CREATININE RATIO 24.2 (6.6-38.0); CALCIUM 9.5 MG/DL (8.5-10.1); CHLORIDE 100 MMOL/L (99-107); CHOL/HDL RATIO 2.2 (0.00-4.99); CHOLESTEROL 141 MG/DL (0-200); CREATININE 0.62 MG/DL (0.40-0.90); GLUCOSE 156 MG/DL (70-104); HDL CHOLESTEROL 65 MG/DL (35-60); LDL CHOLESTEROL 73 MG/DL (50-100); PHOSPHORUS 4.3 MG/DL (2.3-4.5); POTASSIUM 3.8 MMOL/L (3.5-5.1); SODIUM 135 MMOL/L (135-145); TOTAL CARBON DIOXIDE 25.3 MMOL/L (24-32); TRIGLYCERIDES 37 MG/DL (20-135); eGFR > 90 ML/MIN
[2018-11-20] MEDS: hydrOXYzine 25 MG tablet PO PRN ×3 (04:04→23:49)
--- NOTE | 2018-11-20 06:30 | NUR ---
I have received patient report from Malka CUEVA
[2018-11-20 06:58] VITALS: BP 126/76
[2018-11-20] MEDS ORDERED: enoxaparin 40mg/0.4ml syringe SUBCUT SCH (08:00)
[2018-11-20] MEDS: K and/or MAG REPLACEMENT MC SCH (08:00)
[2018-11-20] MEDS ORDERED: aspirin 81mg tablet.DR PO SCH (08:00)
[2018-11-20] MEDS: levoFLOXACIN-Levaquin 500mg/D5 100 ML IV SCH (08:25)
[2018-11-20] MEDS: furosemide 40mg/4ml inj IV SCH ×2 (08:25→20:38)
[2018-11-20] MEDS: FLUoxetine 20mg capsule PO SCH (08:26)
[2018-11-20] MEDS: spironolactone 50 MG tablet PO SCH (08:26)
[2018-11-20] MEDS: pantoprazole 40mg Tablet.DR PO SCH (08:26)
[2018-11-20] MEDS: NIFEdipine XL 30mg tablet PO SCH (08:26)
[2018-11-20] MEDS: topiramate 100mg tablet PO SCH (08:27)
[2018-11-20] MEDS: duloxetine 30mg CAPSULE.DR PO SCH (08:27)
[2018-11-20] MEDS: potassium chloride 10mEq ER tablet PO SCH (08:27)
[2018-11-20] MEDS: nicotine 14mg patch - 24hr TD SCH (08:28)
[2018-11-20] MEDS: CefTRIAXone/D5W-Rocephin 1gm 50 ML IV SCH (09:41)
[2018-11-20] MEDS: oxyCODONE/APAP 10/325mg tablet PO PRN ×3 (09:56→21:54)
[2018-11-20 10:00] VITALS: BP 116/73
[2018-11-20] MEDS: traMADol 50MG tablet PO PRN (15:00)
[2018-11-20] MEDS ORDERED: albuterol 2.5 MG/3 ML nebule NEB PRN (16:05)
[2018-11-20] MEDS ORDERED: LORazepam 1 MG tablet PO PRN (17:30)
[2018-11-20 18:00] VITALS: BP 114/94
--- NOTE | 2018-11-20 18:10 | NUR ---
Patient in room ORTHO 4015B. I have received report from ANAY Alcocer and had the opportunity to ask questions and assume patient care.
--- NOTE | 2018-11-20 18:30 | NUR ---
Patient report given to Lizzie Manriquez RN
--- NOTE | 2018-11-20 18:48 | NUR ---
Student documentation: I have reviewed and agree with all interventions, assessments performed and documented by Aleshia Stanton
[2018-11-20] MEDS: diazepam 5mg tablet PO PRN (19:04)
[2018-11-20] MEDS: insulin Lispro (HumaLOG) vial - multi-dose SQ SCH (19:07)
[2018-11-20] MEDS: lactobacillus rhamnosus 10,000 MMU CELLS/CAPSULE PO SCH (20:37)
[2018-11-20] MEDS: atorvastatin 10mg tablet PO SCH (20:37)
[2018-11-20] MEDS: olanzapine 10mg tablet PO SCH (20:37)
[2018-11-20] MEDS: apixaban 5mg tablet PO SCH (20:37)
[2018-11-20] MEDS: insulin glargine (Lantus) pen - multi-dose SQ SCH (21:15)
[2018-11-20 22:00] VITALS: BP 99/45
[2018-11-21] MEDS: methylPREDNISolone sod succ 125mg/2ml vial IV SCH ×5 (02:06→20:47)
[2018-11-21 06:29] VITALS: BP 118/67
--- NOTE | 2018-11-21 06:30 | NUR ---
I have received patient report from Lizzie Max RN
[2018-11-21 06:44] LABS: BASOPHILS % (AUTO) 0.3 % (0-1); EOSINOPHILS % (AUTO) 0 % (0-6); HEMATOCRIT 31.5 % (35.0-45.0); HEMOGLOBIN 9.9 g/dl (12.0-16.0); LYMPHOCYTES # (AUTO) 0.6 X10'3 (1.1-4.8); LYMPHOCYTES % (AUTO) 3.3 % (21-51); MEAN CORPUSCULAR HEMOGLOBIN 21.4 PG (27.0-31.0); MEAN CORPUSCULAR HGB CONC 31.3 g/dL (33.0-36.5); MEAN CORPUSCULAR VOLUME 68.5 FL (78-98); MONOCYTES # (AUTO) 1.1 X10'3 (0-0.9); MONOCYTES % (AUTO) 6.1 % (2-12); NEUTROPHILS # (AUTO) 16.3 X10'3 (1.8-7.7); NEUTROPHILS % (AUTO) 90.3 % (42-75); PLATELET COUNT 425 X10'3 (140-440); RED CELL DISTRIBUTION WIDTH 18.7 % (11.5-14.5); WHITE BLOOD COUNT 18.1 X10'3 (4.5-11.0)
[2018-11-21 07:01] LABS: ALBUMIN 3.1 G/DL (3.4-5.0); ANION GAP 8 (8-16); BLOOD UREA NITROGEN 21 MG/DL (7-18); BUN/CREATININE RATIO 32.8 (6.6-38.0); CALCIUM 8.7 MG/DL (8.5-10.1); CHLORIDE 103 MMOL/L (99-107); CREATININE 0.64 MG/DL (0.40-0.90); GLUCOSE 179 MG/DL (70-104); MAGNESIUM 2.2 MG/DL (1.5-2.4); PHOSPHORUS 3.7 MG/DL (2.3-4.5); POTASSIUM 3.4 MMOL/L (3.5-5.1); SODIUM 139 MMOL/L (135-145); TOTAL CARBON DIOXIDE 27.7 MMOL/L (24-32); eGFR > 90 ML/MIN
[2018-11-21] MEDS: ipratropium/albuterol 3ml nebule NEB SCH ×5 (07:55→23:16)
[2018-11-21] MEDS: K and/or MAG REPLACEMENT MC SCH (08:00)
[2018-11-21] MEDS: spironolactone 50 MG tablet PO SCH (08:34)
[2018-11-21] MEDS: furosemide 40mg/4ml inj IV SCH ×3 (08:34→20:20)
[2018-11-21] MEDS: apixaban 5mg tablet PO SCH ×2 (08:34→20:19)
[2018-11-21] MEDS: pantoprazole 40mg Tablet.DR PO SCH (08:34)
[2018-11-21] MEDS: lactobacillus rhamnosus 10,000 MMU CELLS/CAPSULE PO SCH ×2 (08:34→20:16)
[2018-11-21] MEDS: topiramate 100mg tablet PO SCH (08:35)
[2018-11-21] MEDS: FLUoxetine 20mg capsule PO SCH (08:35)
[2018-11-21] MEDS: potassium chloride 10mEq ER tablet PO SCH (08:35)
[2018-11-21] MEDS: NIFEdipine XL 30mg tablet PO SCH (08:35)
[2018-11-21] MEDS: duloxetine 30mg CAPSULE.DR PO SCH (08:36)
[2018-11-21] MEDS: nicotine 14mg patch - 24hr TD SCH (08:36)
[2018-11-21] MEDS: levoFLOXACIN-Levaquin 500mg/D5 100 ML IV SCH (08:36)
[2018-11-21] MEDS: insulin Lispro (HumaLOG) vial - multi-dose SQ SCH ×3 (09:02→18:50)
[2018-11-21 10:00] VITALS: BP 119/75
[2018-11-21] MEDS: potassium Cl 20 mEq SR tablet PO PRN ×3 (10:06→18:49)
[2018-11-21] MEDS: CefTRIAXone/D5W-Rocephin 1gm 50 ML IV SCH (10:06)
[2018-11-21] MEDS: oxyCODONE/APAP 10/325mg tablet PO PRN ×2 (12:59→20:19)
[2018-11-21] MEDS: diazepam 5mg tablet PO PRN (14:04)
[2018-11-21] MEDS: magnesium hydroxide 30ml (MOM) UD suspension PO PRN (17:16)
[2018-11-21] MEDS: traMADol 50MG tablet PO PRN (17:16)
[2018-11-21 18:00] VITALS: BP 121/63
--- NOTE | 2018-11-21 18:28 | NUR ---
I gave patient report to Lizzie CUEVA
--- NOTE | 2018-11-21 18:30 | NUR ---
Patient in room ORTHO 4015B. I have received report from Carlyn CUEVA, and had the opportunity to ask questions and assume patient care.
[2018-11-21] MEDS: nortriptyline 25mg capsule PO SCH (20:16)
[2018-11-21] MEDS: atorvastatin 10mg tablet PO SCH (20:17)
[2018-11-21] MEDS: temazepam 15mg capsule PO PRN (20:19)
[2018-11-21] MEDS: olanzapine 10mg tablet PO SCH (20:24)
[2018-11-21] MEDS: insulin glargine (Lantus) pen - multi-dose SQ SCH (20:27)
--- NOTE | 2018-11-21 20:53 | NUR ---
Took over care of this patient with Jena CUEVA who is on orientation at this time.
[2018-11-21 22:00] VITALS: BP 104/57
[2018-11-22] MEDS: methylPREDNISolone sod succ 125mg/2ml vial IV SCH ×4 (02:13→20:32)
[2018-11-22] MEDS: diazepam 5mg tablet PO PRN ×2 (02:43→15:00)
[2018-11-22] MEDS: oxyCODONE/APAP 10/325mg tablet PO PRN ×2 (02:53→20:32)
[2018-11-22 05:00] VITALS: BP 107/63
[2018-11-22] MEDS: traMADol 50MG tablet PO PRN ×2 (05:29→19:07)
[2018-11-22 06:16] LABS: BASOPHILS % (AUTO) 0.2 % (0-1); EOSINOPHILS % (AUTO) 0 % (0-6); HEMATOCRIT 34.7 % (35.0-45.0); HEMOGLOBIN 10.9 g/dl (12.0-16.0); LYMPHOCYTES # (AUTO) 0.8 X10'3 (1.1-4.8); LYMPHOCYTES % (AUTO) 4.6 % (21-51); MEAN CORPUSCULAR HEMOGLOBIN 21.6 PG (27.0-31.0); MEAN CORPUSCULAR HGB CONC 31.6 g/dL (33.0-36.5); MEAN CORPUSCULAR VOLUME 68.6 FL (78-98); MEAN PLATELET VOLUME 6.8 FL (7.4-10.4); MONOCYTES # (AUTO) 0.8 X10'3 (0-0.9); NEUTROPHILS # (AUTO) 14.9 X10'3 (1.8-7.7); NEUTROPHILS % (AUTO) 90.2 % (42-75); PLATELET COUNT 507 X10'3 (140-440); RED BLOOD COUNT 5.06 X10'6 (4.20-5.60); RED CELL DISTRIBUTION WIDTH 18.5 % (11.5-14.5); WHITE BLOOD COUNT 16.5 X10'3 (4.5-11.0)
[2018-11-22 06:28] LABS: ALBUMIN 3.3 G/DL (3.4-5.0); ANION GAP 9 (8-16); BLOOD UREA NITROGEN 24 MG/DL (7-18); BUN/CREATININE RATIO 36.4 (6.6-38.0); CALCIUM 8.9 MG/DL (8.5-10.1); CHLORIDE 105 MMOL/L (99-107); CREATININE 0.66 MG/DL (0.40-0.90); GLUCOSE 159 MG/DL (70-104); MAGNESIUM 2.4 MG/DL (1.5-2.4); PHOSPHORUS 3.1 MG/DL (2.3-4.5); SODIUM 140 MMOL/L (135-145); TOTAL CARBON DIOXIDE 26.3 MMOL/L (24-32); eGFR > 90 ML/MIN
[2018-11-22] MEDS: ipratropium/albuterol 3ml nebule NEB SCH ×4 (07:51→23:00)
[2018-11-22] MEDS: K and/or MAG REPLACEMENT MC SCH (08:00)
[2018-11-22 08:16] LABS: TOTAL CELLS COUNTED 100
[2018-11-22 08:19] LABS: ANISOCYTOSIS 2+; HYPOCHROMASIA 2+; MICROCYTOSIS 2+; PLATELET ESTIMATE INCREASED; POLYCHROMASIA 1+; TEAR DROP CELLS FEW
[2018-11-22] MEDS: apixaban 5mg tablet PO SCH ×2 (08:26→20:32)
[2018-11-22] MEDS: topiramate 100mg tablet PO SCH (08:26)
[2018-11-22] MEDS: duloxetine 30mg CAPSULE.DR PO SCH (08:26)
[2018-11-22] MEDS: pantoprazole 40mg Tablet.DR PO SCH (08:26)
[2018-11-22] MEDS: FLUoxetine 20mg capsule PO SCH (08:26)
[2018-11-22] MEDS: furosemide 40mg/4ml inj IV SCH ×2 (08:27→20:33)
[2018-11-22] MEDS: NIFEdipine XL 30mg tablet PO SCH (08:27)
[2018-11-22] MEDS: lactobacillus rhamnosus 10,000 MMU CELLS/CAPSULE PO SCH ×2 (08:27→20:44)
[2018-11-22] MEDS: potassium chloride 10mEq ER tablet PO SCH (08:27)
[2018-11-22] MEDS: spironolactone 50 MG tablet PO SCH (08:27)
[2018-11-22] MEDS: nicotine 14mg patch - 24hr TD SCH (08:28)
[2018-11-22] MEDS: CefTRIAXone/D5W-Rocephin 1gm 50 ML IV SCH (08:29)
--- NOTE | 2018-11-22 08:30 | NUR ---
patient was dozing off and fell asleep during med pass.
[2018-11-22] MEDS: oxyCODONE/APAP 5-325mg tablet PO PRN ×2 (09:28→15:00)
[2018-11-22] MEDS: insulin Lispro (HumaLOG) vial - multi-dose SQ SCH ×3 (09:47→19:06)
[2018-11-22] MEDS: levoFLOXACIN-Levaquin 500mg/D5 100 ML IV SCH (10:05)
--- NOTE | 2018-11-22 12:45 | NUR ---
PATIENT IS NON COMPLIANT WITH FLUID RESTRICTIONS. SHE IS GETTING UP AND GETTTING WATER OUT OF THE FAUCET
[2018-11-22] MEDS ORDERED: diazepam 5mg tablet PO PRN (16:05)
[2018-11-22 18:00] VITALS: BP 119/77
[2018-11-22] MEDS: nortriptyline 25mg capsule PO SCH (20:32)
[2018-11-22] MEDS: olanzapine 10mg tablet PO SCH (20:32)
[2018-11-22] MEDS: atorvastatin 10mg tablet PO SCH (20:32)
[2018-11-22] MEDS: insulin glargine (Lantus) pen - multi-dose SQ SCH (21:07)
[2018-11-22 22:00] VITALS: BP 122/74
[2018-11-23] MEDS: temazepam 15mg capsule PO PRN (01:27)
--- NOTE | 2018-11-23 01:29 | NUR ---
reviewed and agree with SRN assessment.
[2018-11-23] MEDS: methylPREDNISolone sod succ 125mg/2ml vial IV SCH ×4 (01:30→21:24)
[2018-11-23 05:00] VITALS: BP 118/76
[2018-11-23] MEDS: oxyCODONE/APAP 10/325mg tablet PO PRN ×3 (05:05→19:15)
[2018-11-23] MEDS: diazepam 5mg tablet PO PRN ×2 (05:05→16:40)
[2018-11-23 06:09] LABS: BASOPHILS % (AUTO) 0.2 % (0-1); EOSINOPHILS % (AUTO) 0.1 % (0-6); HEMATOCRIT 36.7 % (35.0-45.0); HEMOGLOBIN 11.5 g/dl (12.0-16.0); LYMPHOCYTES # (AUTO) 0.8 X10'3 (1.1-4.8); LYMPHOCYTES % (AUTO) 6.5 % (21-51); MEAN CORPUSCULAR HEMOGLOBIN 21.4 PG (27.0-31.0); MEAN CORPUSCULAR HGB CONC 31.2 g/dL (33.0-36.5); MEAN CORPUSCULAR VOLUME 68.4 FL (78-98); MEAN PLATELET VOLUME 6.8 FL (7.4-10.4); MONOCYTES # (AUTO) 0.8 X10'3 (0-0.9); MONOCYTES % (AUTO) 5.8 % (2-12); NEUTROPHILS # (AUTO) 11.4 X10'3 (1.8-7.7); NEUTROPHILS % (AUTO) 87.4 % (42-75); PLATELET COUNT 504 X10'3 (140-440); RED BLOOD COUNT 5.37 X10'6 (4.20-5.60); RED CELL DISTRIBUTION WIDTH 18.4 % (11.5-14.5)
[2018-11-23 06:30] LABS: ALBUMIN 3.2 G/DL (3.4-5.0); ANION GAP 8 (8-16); CHLORIDE 104 MMOL/L (99-107); GLUCOSE 157 MG/DL (70-104); MAGNESIUM 2.4 MG/DL (1.5-2.4); PHOSPHORUS 3.3 MG/DL (2.3-4.5); POTASSIUM 3.7 MMOL/L (3.5-5.1); SODIUM 138 MMOL/L (135-145); TOTAL CARBON DIOXIDE 26.2 MMOL/L (24-32)
[2018-11-23 06:48] LABS: BLOOD UREA NITROGEN 34 MG/DL (7-18); BUN/CREATININE RATIO 51.5 (6.6-38.0); CREATININE 0.66 MG/DL (0.40-0.90); eGFR > 90 ML/MIN
[2018-11-23] MEDS: ipratropium/albuterol 3ml nebule NEB SCH ×6 (07:00→23:00)
[2018-11-23 07:50] LABS: PLATELET ESTIMATE INCREASED
[2018-11-23 07:51] LABS: ANISOCYTOSIS 2+; HYPOCHROMASIA 2+; MICROCYTOSIS 2+; POLYCHROMASIA 1+; TEAR DROP CELLS FEW
[2018-11-23] MEDS: apixaban 5mg tablet PO SCH ×2 (08:00→21:37)
[2018-11-23] MEDS: K and/or MAG REPLACEMENT MC SCH (08:00)
[2018-11-23] MEDS: furosemide 40mg/4ml inj IV SCH ×2 (09:42→21:24)
[2018-11-23] MEDS: CefTRIAXone/D5W-Rocephin 1gm 50 ML IV SCH (09:43)
[2018-11-23] MEDS: levoFLOXACIN-Levaquin 500mg/D5 100 ML IV SCH (09:52)
[2018-11-23] MEDS: spironolactone 50 MG tablet PO SCH (09:53)
[2018-11-23] MEDS: lactobacillus rhamnosus 10,000 MMU CELLS/CAPSULE PO SCH ×2 (09:54→21:25)
[2018-11-23] MEDS: duloxetine 30mg CAPSULE.DR PO SCH (09:55)
[2018-11-23] MEDS: potassium chloride 10mEq ER tablet PO SCH (09:55)
[2018-11-23] MEDS: NIFEdipine XL 30mg tablet PO SCH (09:56)
[2018-11-23] MEDS: FLUoxetine 20mg capsule PO SCH (09:56)
[2018-11-23] MEDS: nicotine 14mg patch - 24hr TD SCH (09:56)
[2018-11-23] MEDS: pantoprazole 40mg Tablet.DR PO SCH (09:56)
[2018-11-23] MEDS: topiramate 100mg tablet PO SCH (09:56)
[2018-11-23 10:00] VITALS: BP 130/89
[2018-11-23] MEDS: insulin Lispro (HumaLOG) vial - multi-dose SQ SCH ×3 (10:17→19:11)
[2018-11-23] MEDS: hydrOXYzine 25 MG tablet PO PRN (16:26)
[2018-11-23 17:00] VITALS: BP 126/78
--- NOTE | 2018-11-23 18:24 | NUR ---
Problems reprioritized. Patient report given, questions answered & plan of care reviewed with ANAY Upton.
--- NOTE | 2018-11-23 18:27 | NUR ---
Patient in room ORTHO 4015. I have received report from SUMEET CUEVA and had the opportunity to ask questions and assume patient care.
--- NOTE | 2018-11-23 20:58 | NUR ---
phoned MD YEAGER to notify him that pt continues to complain of 8-10/10 pain in back and rt leg despite percocet admin earlier, pt is specifically demanding that I call the dr and get her IV dilaudid. received orders to increase percocet with the next dose
[2018-11-23] MEDS: olanzapine 10mg tablet PO SCH (21:24)
[2018-11-23] MEDS: traMADol 50MG tablet PO PRN (21:25)
[2018-11-23] MEDS: nortriptyline 25mg capsule PO SCH (21:25)
[2018-11-23] MEDS: atorvastatin 10mg tablet PO SCH (21:25)
[2018-11-23] MEDS: insulin glargine (Lantus) pen - multi-dose SQ SCH (21:42)
[2018-11-23 22:00] VITALS: BP 115/63
[2018-11-24] MEDS ORDERED: oxyCODONE/APAP 10/325mg tablet PO PRN (01:35)
[2018-11-24] MEDS: methylPREDNISolone sod succ 125mg/2ml vial IV SCH ×3 (02:15→15:38)
[2018-11-24 06:00] VITALS: BP 139/83
--- NOTE | 2018-11-24 06:11 | NUR ---
Patient in room ORTHO 4015. I have received report from SUMEET CUEVA and had the opportunity to ask questions and assume patient care.
[2018-11-24 06:40] LABS: BASOPHILS % (AUTO) 0.1 % (0-1); EOSINOPHILS % (AUTO) 0 % (0-6); HEMATOCRIT 38.9 % (35.0-45.0); HEMOGLOBIN 12.1 g/dl (12.0-16.0); LYMPHOCYTES # (AUTO) 0.6 X10'3 (1.1-4.8); LYMPHOCYTES % (AUTO) 4.2 % (21-51); MEAN CORPUSCULAR HEMOGLOBIN 21.3 PG (27.0-31.0); MEAN CORPUSCULAR HGB CONC 31.1 g/dL (33.0-36.5); MEAN CORPUSCULAR VOLUME 68.5 FL (78-98); MEAN PLATELET VOLUME 6.8 FL (7.4-10.4); MONOCYTES # (AUTO) 0.6 X10'3 (0-0.9); MONOCYTES % (AUTO) 3.8 % (2-12); NEUTROPHILS # (AUTO) 13.4 X10'3 (1.8-7.7); NEUTROPHILS % (AUTO) 91.9 % (42-75); PLATELET COUNT 539 X10'3 (140-440); RED BLOOD COUNT 5.69 X10'6 (4.20-5.60); RED CELL DISTRIBUTION WIDTH 18.7 % (11.5-14.5); WHITE BLOOD COUNT 14.6 X10'3 (4.5-11.0)
[2018-11-24 07:02] LABS: ALBUMIN 3.1 G/DL (3.4-5.0); ANION GAP 6 (8-16); BLOOD UREA NITROGEN 33 MG/DL (7-18); BUN/CREATININE RATIO 49.3 (6.6-38.0); CHLORIDE 103 MMOL/L (99-107); CREATININE 0.67 MG/DL (0.40-0.90); GLUCOSE 168 MG/DL (70-104); MAGNESIUM 2.3 MG/DL (1.5-2.4); PHOSPHORUS 4.3 MG/DL (2.3-4.5); POTASSIUM 3.8 MMOL/L (3.5-5.1); SODIUM 136 MMOL/L (135-145); TOTAL CARBON DIOXIDE 26.7 MMOL/L (24-32); eGFR > 90 ML/MIN
[2018-11-24 07:24] LABS: ANISOCYTOSIS 2+; MICROCYTOSIS 2+; PLATELET ESTIMATE INCREASED
[2018-11-24 07:25] LABS: HYPOCHROMASIA 1+
[2018-11-24 07:26] LABS: LARGE PLATELETS FEW; TEAR DROP CELLS FEW
[2018-11-24] MEDS: K and/or MAG REPLACEMENT MC SCH (08:00)
[2018-11-24] MEDS: ipratropium/albuterol 3ml nebule NEB SCH ×2 (08:03→11:00)
[2018-11-24] MEDS: insulin Lispro (HumaLOG) vial - multi-dose SQ SCH (08:38)
[2018-11-24] MEDS: CefTRIAXone/D5W-Rocephin 1gm 50 ML IV SCH (08:41)
[2018-11-24] MEDS: furosemide 40mg/4ml inj IV SCH (08:41)
[2018-11-24 09:10] VITALS: BP 129/72
[2018-11-24] MEDS ORDERED: levoFLOXACIN 500mg tablet PO SCH (11:00)
[2018-11-24] MEDS: pantoprazole 40mg Tablet.DR PO SCH (11:25)
[2018-11-24] MEDS: spironolactone 50 MG tablet PO SCH (11:25)
[2018-11-24] MEDS: lactobacillus rhamnosus 10,000 MMU CELLS/CAPSULE PO SCH (11:25)
[2018-11-24] MEDS: duloxetine 30mg CAPSULE.DR PO SCH (11:26)
[2018-11-24] MEDS: potassium chloride 10mEq ER tablet PO SCH (11:27)
[2018-11-24] MEDS: apixaban 5mg tablet PO SCH (11:27)
[2018-11-24] MEDS: topiramate 100mg tablet PO SCH (11:28)
[2018-11-24] MEDS: FLUoxetine 20mg capsule PO SCH (11:28)
[2018-11-24] MEDS: NIFEdipine XL 30mg tablet PO SCH (11:28)
[2018-11-24] MEDS: nicotine 14mg patch - 24hr TD SCH (11:30)
[2018-11-24] MEDS: oxyCODONE/APAP 5-325mg tablet PO PRN ×2 (11:33→15:38)
--- NOTE | 2018-11-24 12:21 | NUR ---
Student Medication Administration:For this medication-pass time frame [id number], all medications were reviewed, administered and documented per hospital policy by Mark Mckeon. Student documentation: I have reviewed and agree with all interventions, assessments performed and documented by Mark Mckeon.
[2018-11-24] MEDS: magnesium hydroxide 30ml (MOM) UD suspension PO PRN (15:38)
[2018-11-24] MEDS: traMADol 50MG tablet PO PRN (15:39)
--- NOTE | 2018-11-24 17:00 | NUR ---
Received discharge orders for pt to transfer to [facility] for short term rehab at 1715 today. Called report to Cheryl at [facility] at 1700. Dc'd Saline lock RFA with cannula intact. No redness/swelling at IV site. Bandaid applied. [facility] [employer] transported pt via w/c at 1715.
== END 2018-11-24 17:15 | DRG 871 ==
LOC: ER 13:55 → ORTHO 4S 11-20 00:29 → CMPBEDREQ 11-20 01:48
PROVIDERS: ADMIT Family Medicine; ATTEND Family Medicine
PROC: BW241ZZ Computerized Tomography (CT Scan) of Chest and Abdomen using Low Osmolar Contrast (ICD-10-PCS; principal; 2018-11-19)
DX: A41.9 Sepsis, unspecified organism (principal); J18.9 Pneumonia, unspecified organism; J96.91 Respiratory failure, unspecified with hypoxia; J44.1 Chronic obstructive pulmonary disease with (acute) exacerbation; Z68.41 Body mass index [BMI] 40.0-44.9, adult; I50.30 Unspecified diastolic (congestive) heart failure; J44.0 Chronic obstructive pulmonary disease with (acute) lower respiratory infection; K76.0 Fatty (change of) liver, not elsewhere classified; E66.01 Morbid (severe) obesity due to excess calories; E11.9 Type 2 diabetes mellitus without complications; E78.00 Pure hypercholesterolemia, unspecified; E78.5 Hyperlipidemia, unspecified; E87.6 Hypokalemia; F32.9 Major depressive disorder, single episode, unspecified; F41.9 Anxiety disorder, unspecified; G89.4 Chronic pain syndrome; I11.0 Hypertensive heart disease with heart failure; I25.10 Atherosclerotic heart disease of native coronary artery without angina pectoris; I48.91 Unspecified atrial fibrillation; F17.200 Nicotine dependence, unspecified, uncomplicated; M51.36 Other intervertebral disc degeneration, lumbar region; K21.9 Gastro-esophageal reflux disease without esophagitis; M43.17 Spondylolisthesis, lumbosacral region; Z98.1 Arthrodesis status; Z98.51 Tubal ligation status; Z98.891 History of uterine scar from previous surgery; Z88.1 Allergy status to other antibiotic agents; Z88.0 Allergy status to penicillin; Z88.8 Allergy status to other drugs, medicaments and biological substances; Z79.82 Long term (current) use of aspirin; Z79.899 Other long term (current) drug therapy; Z82.49 Family history of ischemic heart disease and other diseases of the circulatory system
CPT/HCPCS: 36415; 71045; 71275; 72110; 72131; 80048; 80053; 80061; 82948; 83036; 83735; 83880; 84100; 84443; 84484; 85025; 85379; 85610; 85730; 87070; 93005; 94640; 94760; 96365; 96372; 96375; 97116; 97162; 97530; 99285; G0378; J0696; J1650; J1815; J1885; J1940; J1956; J2930; J3490; J8540; Q0177; Q9967

== ENCOUNTER 2018-11-27 21:35 | Emergency (ER) | payer MEDICARE, MEDICAID ==
[~2018-11-27] VITALS: Ht 165.1 cm; Wt 117.7 kg
[~2018-11-27 21:35] MED LIST changes: +ACTIFED PO; +ALBU8.5H8 INH; -ARIP5TAB20 PO; +ASPI81TA52 PO; +DULO60CA45 PO; +FLUO20CA22 PO; -FLUT1DIS4 IH; +HYDR50TA65 PO; +OLAN10TA19 PO; +OLAN5TAB26 PO; -OXYC20TA55 PO; -POLY17PO10 PO; +POTA10TA15 PO; +SPIR50TA5 PO; -SPIRIVA RESPIMAT INH; +TIOT4MIS5 IH; +TRAM50TA2 PO; -VENL150C58 PO
[2018-11-27 22:19] LABS: BASOPHILS # (AUTO) 0.2 X10'3 (0-0.2); BASOPHILS % (AUTO) 0.8 % (0-1); EOSINOPHILS # (AUTO) 0.6 X10'3 (0-0.9); EOSINOPHILS % (AUTO) 2.6 % (0-6); HEMATOCRIT 37.3 % (35.0-45.0); HEMOGLOBIN 11.6 g/dl (12.0-16.0); LYMPHOCYTES % (AUTO) 13.9 % (21-51); MEAN CORPUSCULAR HEMOGLOBIN 21.3 PG (27.0-31.0); MEAN CORPUSCULAR HGB CONC 31.1 g/dL (33.0-36.5); MEAN CORPUSCULAR VOLUME 68.5 FL (78-98); MEAN PLATELET VOLUME 7.2 FL (7.4-10.4); MONOCYTES # (AUTO) 1.4 X10'3 (0-0.9); MONOCYTES % (AUTO) 6.5 % (2-12); NEUTROPHILS # (AUTO) 16.6 X10'3 (1.8-7.7); NEUTROPHILS % (AUTO) 76.2 % (42-75); PLATELET COUNT 392 X10'3 (140-440); RED BLOOD COUNT 5.44 X10'6 (4.20-5.60); RED CELL DISTRIBUTION WIDTH 19.3 % (11.5-14.5); WHITE BLOOD COUNT 21.8 X10'3 (4.5-11.0)
[2018-11-27 22:21] LABS: ALANINE AMINOTRANSFERASE 33 U/L (12-78); ALBUMIN 2.8 G/DL (3.4-5.0); ALBUMIN/GLOBULIN RATIO 0.8 (1.1-1.5); ALKALINE PHOSPHATASE 95 IU/L (46-116); ANION GAP 10 (8-16); ASPARTATE AMINO TRANSFERASE 12 U/L (10-37); BILIRUBIN,TOTAL 0.1 MG/DL (0.1-1.0); BLOOD UREA NITROGEN 16 MG/DL (7-18); BUN/CREATININE RATIO 23.2 (6.6-38.0); CALCIUM 8.4 MG/DL (8.5-10.1); CHLORIDE 102 MMOL/L (99-107); CREATININE 0.69 MG/DL (0.40-0.90); GLUCOSE 145 MG/DL (70-104); POTASSIUM 3.2 MMOL/L (3.5-5.1); SODIUM 139 MMOL/L (135-145); TOTAL PROTEIN 6.1 G/DL (6.4-8.2); eGFR 89 ML/MIN
[2018-11-27 22:22] LABS: PARTIAL THROMBOPLASTIN TIME 32 SECONDS (22-32)
--- NOTE | 2018-11-27 23:05 | NUR ---
pt requesting her evening scheduled pain meds tramadol 50 mg and percocet [address] sanders updated and verbal received for percocet
[2018-11-27] MEDS ORDERED: oxyCODONE/APAP 5-325mg tablet PO ONE (23:10)
[2018-11-27 23:55] LABS: TOTAL CELLS COUNTED 100
[2018-11-27 23:56] LABS: ANISOCYTOSIS 2+; MICROCYTOSIS 2+; PLATELET ESTIMATE NORMAL; POLYCHROMASIA FEW
--- NOTE | 2018-11-28 00:01 | NUR ---
PT UP TO BSC TO VOID, INDEPENDENT. PT WITH STABLE VS AND NSR OON MONITOR.
[2018-11-28] MEDS ORDERED: potassium Cl 20 mEq SR tablet PO STA (00:34)
--- NOTE | 2018-11-28 00:50 | NUR ---
3 hr trop drawn. pt feeling no further symptoms and is hopeful of discharge. dr. sanders updated. k 3.3, kdur ordered.
[2018-11-28 00:58] VITALS: BP 120/80
--- NOTE | 2018-11-28 02:04 | NUR ---
Report called to karen obrien, [facility]. Pt denies any cp currently.
== END 2018-11-28 02:04 | disposition home or self-care (01) ==
LOC: ER 21:35
DX: R07.81 Pleurodynia (principal); I11.0 Hypertensive heart disease with heart failure; I50.9 Heart failure, unspecified; I25.10 Atherosclerotic heart disease of native coronary artery without angina pectoris; E78.00 Pure hypercholesterolemia, unspecified; J44.9 Chronic obstructive pulmonary disease, unspecified; E11.9 Type 2 diabetes mellitus without complications; G89.29 Other chronic pain; M54.9 Dorsalgia, unspecified; F17.200 Nicotine dependence, unspecified, uncomplicated; Z98.51 Tubal ligation status; F12.90 Cannabis use, unspecified, uncomplicated; Z88.1 Allergy status to other antibiotic agents; Z88.0 Allergy status to penicillin; Z88.8 Allergy status to other drugs, medicaments and biological substances; Z79.82 Long term (current) use of aspirin
CPT/HCPCS: 36415; 71045; 80053; 82948; 84484; 85025; 85610; 85730; 93005; 99284

== ENCOUNTER 2018-12-24 21:56 | Emergency (ER) | payer MEDICARE, MEDICAID ==
[~2018-12-24] VITALS: Ht 165.1 cm; Wt 117.0 kg
--- NOTE | 2018-12-24 22:59 | NUR ---
PT TOLD THE TECH SHE WAS FEELING BETTER AND WANTED TO LEAVE. SHE ALSO TOLD THE TECH SHE WANTED TO EAT STARBURSTS AND WE DIDN'T HAVE ANY IN THE VENDING MACHINE SO SHE WANTED TO GO GET SOME. PT REQUESTING A CAB (HOSPITAL PAY). PT WAS ADVISED THAT SHE IS NEXT TO COME BACK FOR EVALUATION BUT THAT THE ROOM NEEDED TO BE CLEANED. SHE WAS ALSO ADVISED THAT IN ORDER FOR D\C TRANSPORTATION SHE ACTUALLY NEEDS TO BE SEEN AND D\C'D BY A PROVIDER. PT AGREES TO WAIT TO BE SEEN.
[2018-12-24] MEDS ORDERED: HYDROcodone/acetaminophen 10/325mg tab PO ONE (23:25)
[2018-12-24 23:57] LABS: BASOPHILS # (AUTO) 0.1 X10'3 (0-0.2); BASOPHILS % (AUTO) 0.7 % (0-1); EOSINOPHILS # (AUTO) 0.5 X10'3 (0-0.9); EOSINOPHILS % (AUTO) 4.7 % (0-6); HEMATOCRIT 37.5 % (35.0-45.0); HEMOGLOBIN 11.9 g/dl (12.0-16.0); LYMPHOCYTES # (AUTO) 2.5 X10'3 (1.1-4.8); LYMPHOCYTES % (AUTO) 22.3 % (21-51); MEAN CORPUSCULAR HEMOGLOBIN 21.6 PG (27.0-31.0); MEAN CORPUSCULAR HGB CONC 31.8 g/dL (33.0-36.5); MEAN CORPUSCULAR VOLUME 67.8 FL (78-98); MEAN PLATELET VOLUME 6.7 FL (7.4-10.4); MONOCYTES # (AUTO) 1.1 X10'3 (0-0.9); MONOCYTES % (AUTO) 9.8 % (2-12); NEUTROPHILS # (AUTO) 7.1 X10'3 (1.8-7.7); NEUTROPHILS % (AUTO) 62.5 % (42-75); PLATELET COUNT 450 X10'3 (140-440); RED BLOOD COUNT 5.53 X10'6 (4.20-5.60); RED CELL DISTRIBUTION WIDTH 19.9 % (11.5-14.5); WHITE BLOOD COUNT 11.4 X10'3 (4.5-11.0)
[2018-12-25 00:08] LABS: ALANINE AMINOTRANSFERASE 23 U/L (12-78); ALBUMIN 3.1 G/DL (3.4-5.0); ALBUMIN/GLOBULIN RATIO 0.8 (1.1-1.5); ALKALINE PHOSPHATASE 142 IU/L (46-116); ANION GAP 8 (8-16); ASPARTATE AMINO TRANSFERASE 10 U/L (10-37); BILIRUBIN,TOTAL 0.1 MG/DL (0.1-1.0); BLOOD UREA NITROGEN 7 MG/DL (7-18); BUN/CREATININE RATIO 11.1 (6.6-38.0); CALCIUM 8.6 MG/DL (8.5-10.1); CHLORIDE 100 MMOL/L (99-107); CREATININE 0.63 MG/DL (0.40-0.90); GLUCOSE 100 MG/DL (70-104); SODIUM 137 MMOL/L (135-145); TOTAL CARBON DIOXIDE 28.8 MMOL/L (24-32); eGFR > 90 ML/MIN
[2018-12-25 00:09] LABS: POTASSIUM 2.8 MMOL/L (3.5-5.1)
[2018-12-25] MEDS ORDERED: potassium Cl oral solution 20 MEQ/15 ML PO ONE (00:10)
--- NOTE | 2018-12-25 00:15 | NUR ---
wen alvarado at bedside and vascular us in progress. provider talking with pt about likely dc. current vss.
[2018-12-25 00:16] VITALS: BP 136/89
[2018-12-25 00:19] LABS: PLATELET ESTIMATE INCREASED
[2018-12-25 00:20] LABS: ANISOCYTOSIS 2+; MICROCYTOSIS 2+
[2018-12-25] MEDS ORDERED: CEPH-571 PO (00:23)
[2018-12-25] MEDS ORDERED: SPIR50TA5 PO (00:23)
[2018-12-25] MEDS ORDERED: RIVA10TA PO (00:23)
[2018-12-25] MEDS ORDERED: cephalexin 250mg capsule PO ONE (00:25)
[2018-12-25] MEDS ORDERED: rivaroxaban 10mg tablet PO ONE (00:25)
[2018-12-25] MEDS ORDERED: ketorolac trometh. 30mg/ml inj. IV ONE (01:00)
== END 2018-12-25 01:19 | disposition home or self-care (01) ==
LOC: ER 21:57
DX: L03.115 Cellulitis of right lower limb (principal); E87.6 Hypokalemia; I48.91 Unspecified atrial fibrillation; F12.90 Cannabis use, unspecified, uncomplicated; Z76.0 Encounter for issue of repeat prescription; I25.10 Atherosclerotic heart disease of native coronary artery without angina pectoris; I11.0 Hypertensive heart disease with heart failure; I50.9 Heart failure, unspecified; E78.00 Pure hypercholesterolemia, unspecified; J44.9 Chronic obstructive pulmonary disease, unspecified; E11.9 Type 2 diabetes mellitus without complications; G89.29 Other chronic pain; Z98.51 Tubal ligation status; Z98.890 Other specified postprocedural states; Z88.0 Allergy status to penicillin; Z88.1 Allergy status to other antibiotic agents; Z88.8 Allergy status to other drugs, medicaments and biological substances; Z79.82 Long term (current) use of aspirin; Z79.899 Other long term (current) drug therapy
CPT/HCPCS: 36415; 80053; 85025; 85610; 93971; 96374; 99284; J1885

== ENCOUNTER 2018-12-31 22:07 | Emergency (ER) | payer MEDICARE, MEDICAID ==
[~2018-12-31] VITALS: Ht 165.1 cm; Wt 122.0 kg
[~2018-12-31 22:07] MED LIST changes: +CEPH-571 PO; +RIVA10TA PO
[2018-12-31] MEDS ORDERED: ketorolac trometh. 30mg/ml inj. IM ONE (22:50)
[2018-12-31] MEDS ORDERED: HYDROcodone/acetaminophen 5mg/325mg tablet PO ONE (22:50)
[2019-01-01 00:24] VITALS: BP 131/85
--- NOTE | 2019-01-01 00:25 | NUR ---
CAB COMPANY CONTACTED WHO REPORTS SENDING A CONSTRUCTION SUPERVISOR OUT IN THE NEXT 10-15 MINUTES. PATIENT REQUESTS THAT HER BE CONTACTED TO HAVE HER WALKER WAITING FOR HER OUTSIDE WHICH WAS DONE.
== END 2019-01-01 00:29 | disposition home or self-care (01) ==
LOC: ER 22:07
DX: M25.551 Pain in right hip (principal); I25.10 Atherosclerotic heart disease of native coronary artery without angina pectoris; I11.0 Hypertensive heart disease with heart failure; I50.9 Heart failure, unspecified; E78.00 Pure hypercholesterolemia, unspecified; J44.9 Chronic obstructive pulmonary disease, unspecified; E11.9 Type 2 diabetes mellitus without complications; G89.29 Other chronic pain; F17.210 Nicotine dependence, cigarettes, uncomplicated; F12.90 Cannabis use, unspecified, uncomplicated; Z88.0 Allergy status to penicillin; Z88.1 Allergy status to other antibiotic agents; Z98.51 Tubal ligation status; Z98.890 Other specified postprocedural states; Z88.8 Allergy status to other drugs, medicaments and biological substances; Z79.82 Long term (current) use of aspirin; Z79.2 Long term (current) use of antibiotics; Z79.899 Other long term (current) drug therapy
CPT/HCPCS: 73502; 96372; 99284; J1885

== ENCOUNTER 2019-06-12 01:37 | Emergency (ER) | payer MEDICARE, MEDICAID ==
[~2019-06-12] VITALS: Ht 167.6 cm; Wt 123.0 kg
[~2019-06-12 01:37] MED LIST changes: -CEPH-571 PO; -NIFE90TA2 PO; -OLAN10TA19 PO; +OLAN20TA3 PO; -OLAN5TAB26 PO; +OMEP40CA13 PO; -OMEP40CA37 PO; -POTA10TA15 PO; +POTA20TA19 PO; -RIVA10TA PO; +RIVA20TA PO; -SIMV10TA6 PO; +SIMV10TA98 PO; -SPIR50TA5 PO
--- NOTE | 2019-06-12 02:00 | NUR ---
pt admits to smoking and eating marijuana today. 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 admits to partaking in this behavior before calling EMS today.
[2019-06-12] MEDS ORDERED: ipratropium/albuterol 3ml nebule NEB ONE (02:15)
[2019-06-12 02:31] LABS: BASOPHILS # (AUTO) 0.3 X10'3 (0-0.2); BASOPHILS % (AUTO) 1.6 % (0-1); EOSINOPHILS # (AUTO) 0.7 X10'3 (0-0.9); EOSINOPHILS % (AUTO) 4.5 % (0-6); HEMATOCRIT 38.4 % (35.0-45.0); HEMOGLOBIN 12.3 g/dl (12.0-16.0); LYMPHOCYTES # (AUTO) 3.1 X10'3 (1.1-4.8); LYMPHOCYTES % (AUTO) 19.1 % (21-51); MEAN CORPUSCULAR HEMOGLOBIN 21.7 PG (27.0-31.0); MEAN CORPUSCULAR HGB CONC 32.2 g/dL (33.0-36.5); MEAN CORPUSCULAR VOLUME 67.4 FL (78-98); MEAN PLATELET VOLUME 7.5 FL (7.4-10.4); MONOCYTES # (AUTO) 1.2 X10'3 (0-0.9); MONOCYTES % (AUTO) 7.4 % (2-12); NEUTROPHILS # (AUTO) 11.1 X10'3 (1.8-7.7); NEUTROPHILS % (AUTO) 67.4 % (42-75); PLATELET COUNT 430 X10'3 (140-440); RED CELL DISTRIBUTION WIDTH 17.1 % (11.5-14.5); WHITE BLOOD COUNT 16.4 X10'3 (4.5-11.0)
[2019-06-12 02:42] LABS: ALANINE AMINOTRANSFERASE 19 U/L (12-78); ALBUMIN 3.4 G/DL (3.4-5.0); ALBUMIN/GLOBULIN RATIO 0.8 (1.1-1.5); ALKALINE PHOSPHATASE 134 IU/L (46-116); ANION GAP 7 (8-16); ASPARTATE AMINO TRANSFERASE 7 U/L (10-37); BILIRUBIN,TOTAL 0.2 MG/DL (0.1-1.0); BLOOD UREA NITROGEN 21 MG/DL (7-18); BUN/CREATININE RATIO 27.6 (6.6-38.0); CHLORIDE 103 MMOL/L (99-107); CREATININE 0.76 MG/DL (0.40-0.90); GLUCOSE 132 MG/DL (70-104); POTASSIUM 3.6 MMOL/L (3.5-5.1); SODIUM 138 MMOL/L (135-145); TOTAL CARBON DIOXIDE 27.6 MMOL/L (24-32); TOTAL PROTEIN 7.5 G/DL (6.4-8.2); eGFR 80 ML/MIN
[2019-06-12 03:04] LABS: URINE AMPHETAMINE SCREEN NEGATIVE (Neg); URINE BARBITUATE SCREEN NEGATIVE (Neg); URINE BENZODIAZEPINES SCREEN NEGATIVE (Neg); URINE CANNABINOID SCREEN POSITIVE (Neg); URINE COCAINE SCREEN NEGATIVE (Neg); URINE METHADONE SCREEN NEGATIVE (Neg); URINE OPIATE SCREEN NEGATIVE (Neg); URINE PHENCYCLIDINE SCREEN NEGATIVE (Neg)
[2019-06-12 03:05] LABS: ANISOCYTOSIS 1+; MICROCYTOSIS 2+; PLATELET ESTIMATE NORMAL
[2019-06-12 03:06] LABS: HYPOCHROMASIA 1+; POLYCHROMASIA FEW; STOMATOCYTES FEW
--- NOTE | 2019-06-12 03:22 | NUR ---
PT C/O LEFT SIDED RIB/CHEST PAIN 04/14. EDMD OHLFS MADE AWARE. NO NEW ORDERS AT THIS TIME. WILL CONTINUE TO MONITOR. PT HOOKED UP TO CARDIAC MONITORS PREVIOUSLY AND NO SIGNIFICANT CHANGES NOTED AT THIS TIME.
[2019-06-12] MEDS ORDERED: aspirin 325mg tablet PO ONE (03:55)
[2019-06-12] MEDS ORDERED: azithromycin 250mg tablet PO ONE (04:30)
[2019-06-12] MEDS ORDERED: CefTRIAXone 2gm/D5W 50ml 50 ML IV ONE (04:30)
[2019-06-12 04:33] LABS: CLARITY,URINE CLOUDY (Clear); COLOR,URINE YELLOW (Yellow); GLUCOSE, URINE NEGATIVE (Neg); KETONES,URINE NEGATIVE (Neg); LEUKOCYTE ESTERASE ,URINE NEGATIVE (Neg); NITRITES, URINE NEGATIVE (Neg); OCCULT BLOOD,URINE NEGATIVE (Neg); PH,URINE 7.5 (4.8-8.0); PROTEIN,URINE NEGATIVE (Neg); UROBILINOGEN,URINE 0.2 E.U/dL (0.2-1.0)
[2019-06-12 04:38] LABS: UA COLLECTION TYPE CLN CATCH MIDSTREAM
[2019-06-12] MEDS ORDERED: AZIT-63 PO (04:53)
[2019-06-12 04:57] LABS: BACTERIA,URINE FEW /HPF (Neg); RBC,URINE NONE SEEN /HPF (0-2); SQUAMOUS EPITHELIAL CELL,UR MANY /LPF (FEW); WBC,URINE 0-4 /HPF (0-4)
[2019-06-12] MEDS ORDERED: BENZ-38 PO (05:22)
[2019-06-12 05:47] VITALS: BP 108/67
== END 2019-06-12 05:51 | disposition home or self-care (01) ==
LOC: ER 01:38
DX: J44.9 Chronic obstructive pulmonary disease, unspecified (principal); R07.9 Chest pain, unspecified; E78.00 Pure hypercholesterolemia, unspecified; I25.10 Atherosclerotic heart disease of native coronary artery without angina pectoris; I50.9 Heart failure, unspecified; I11.0 Hypertensive heart disease with heart failure; E11.9 Type 2 diabetes mellitus without complications; G89.29 Other chronic pain; F12.90 Cannabis use, unspecified, uncomplicated; F17.210 Nicotine dependence, cigarettes, uncomplicated; Z88.0 Allergy status to penicillin; Z88.1 Allergy status to other antibiotic agents; Z88.8 Allergy status to other drugs, medicaments and biological substances; Z79.899 Other long term (current) drug therapy; Z79.82 Long term (current) use of aspirin; Z79.2 Long term (current) use of antibiotics; Z98.890 Other specified postprocedural states; Z98.51 Tubal ligation status
CPT/HCPCS: 36415; 71045; 80053; 80305; 81001; 83735; 83880; 84145; 84484; 85025; 93005; 94640; 94760; 96365; 99284; J0696

== ENCOUNTER 2019-09-15 16:35 | Emergency (ER) | payer MEDICARE, MEDICAID ==
[~2019-09-15] VITALS: Ht 167.6 cm; Wt 115.9 kg
[~2019-09-15 16:35] MED LIST changes: +FLUO-167 PO; -FLUO20CA22 PO
[2019-09-15 18:00] LABS: BASOPHILS # (AUTO) 0.1 X10'3 (0-0.2); BASOPHILS % (AUTO) 0.5 % (0-1); EOSINOPHILS # (AUTO) 0.9 X10'3 (0-0.9); EOSINOPHILS % (AUTO) 4.4 % (0-6); HEMATOCRIT 39.8 % (35.0-45.0); HEMOGLOBIN 12.8 g/dl (12.0-16.0); LYMPHOCYTES # (AUTO) 4.1 X10'3 (1.1-4.8); LYMPHOCYTES % (AUTO) 20.1 % (21-51); MEAN CORPUSCULAR HGB CONC 32.2 g/dL (33.0-36.5); MEAN CORPUSCULAR VOLUME 62.1 FL (78-98); MEAN PLATELET VOLUME 8.8 FL (7.4-10.4); MONOCYTES # (AUTO) 1.3 X10'3 (0-0.9); MONOCYTES % (AUTO) 6.2 % (2-12); NEUTROPHILS % (AUTO) 68.8 % (42-75); PLATELET COUNT 489 X10'3 (140-440); RED BLOOD COUNT 6.41 X10'6 (4.20-5.60); RED CELL DISTRIBUTION WIDTH 20.6 % (11.5-14.5); WHITE BLOOD COUNT 20.3 X10'3 (4.5-11.0)
[2019-09-15 18:15] LABS: ALANINE AMINOTRANSFERASE 22 U/L (12-78); ALBUMIN 3.3 G/DL (3.4-5.0); ALBUMIN/GLOBULIN RATIO 0.8 (1.1-1.5); ALKALINE PHOSPHATASE 130 IU/L (46-116); AMYLASE 28 U/L (25-115); ANION GAP 8 (8-16); ASPARTATE AMINO TRANSFERASE 10 U/L (10-37); BILIRUBIN,TOTAL 0.2 MG/DL (0.1-1.0); BLOOD UREA NITROGEN 12 MG/DL (7-18); BUN/CREATININE RATIO 17.6 (6.6-38.0); CALCIUM 9.2 MG/DL (8.5-10.1); CHLORIDE 102 MMOL/L (99-107); CREATININE 0.68 MG/DL (0.40-0.90); GLUCOSE 101 MG/DL (70-104); LIPASE 117 U/L (73-393); POTASSIUM 3.5 MMOL/L (3.5-5.1); SODIUM 138 MMOL/L (135-145); TOTAL CARBON DIOXIDE 27.8 MMOL/L (24-32); TOTAL PROTEIN 7.3 G/DL (6.4-8.2); eGFR > 90 ML/MIN
[2019-09-15 18:41] LABS: PLATELET ESTIMATE INCREASED
[2019-09-15 18:42] LABS: ANISOCYTOSIS 2+; MICROCYTOSIS 2+
[2019-09-15 20:22] LABS: CLARITY,URINE CLEAR (Clear); COLOR,URINE YELLOW (Yellow); GLUCOSE, URINE NEGATIVE (Neg); KETONES,URINE NEGATIVE (Neg); LEUKOCYTE ESTERASE ,URINE NEGATIVE (Neg); NITRITES, URINE NEGATIVE (Neg); OCCULT BLOOD,URINE TRACE-INTACT (Neg); PH,URINE 6.5 (4.8-8.0); PROTEIN,URINE NEGATIVE (Neg); UROBILINOGEN,URINE 0.2 E.U/dL (0.2-1.0)
[2019-09-15 20:35] LABS: UA COLLECTION TYPE CLN CATCH MIDSTREAM
[2019-09-15 20:38] LABS: BACTERIA,URINE FEW /HPF (Neg); RBC,URINE NONE SEEN /HPF (0-2); SQUAMOUS EPITHELIAL CELL,UR MODERATE /LPF (FEW); WBC,URINE NONE SEEN /HPF (0-4)
[2019-09-15] MEDS ORDERED: HYDR25SU32 RC (20:44)
[2019-09-15 21:06] VITALS: BP 112/70
== END 2019-09-15 21:07 | disposition home or self-care (01) ==
LOC: ER 16:35
DX: K92.2 Gastrointestinal hemorrhage, unspecified (principal); I25.10 Atherosclerotic heart disease of native coronary artery without angina pectoris; I50.9 Heart failure, unspecified; E78.00 Pure hypercholesterolemia, unspecified; I11.0 Hypertensive heart disease with heart failure; J44.9 Chronic obstructive pulmonary disease, unspecified; G47.30 Sleep apnea, unspecified; E11.9 Type 2 diabetes mellitus without complications; G89.29 Other chronic pain; F12.90 Cannabis use, unspecified, uncomplicated; F17.200 Nicotine dependence, unspecified, uncomplicated; Z98.51 Tubal ligation status; Z98.890 Other specified postprocedural states; Z88.0 Allergy status to penicillin; Z88.1 Allergy status to other antibiotic agents; Z88.8 Allergy status to other drugs, medicaments and biological substances; Z79.82 Long term (current) use of aspirin; Z79.899 Other long term (current) drug therapy
CPT/HCPCS: 36415; 80053; 81001; 82150; 83690; 85025; 85610; 99284

== ENCOUNTER 2019-10-04 03:16 | Emergency (ER) | payer MEDICARE, MEDICAID ==
[~2019-10-04] VITALS: Ht 165.1 cm; Wt 111.4 kg
[~2019-10-04 03:16] MED LIST changes: +HYDR25SU32 RC
[2019-10-04 03:41] LABS: BASOPHILS # (AUTO) 0.2 X10'3 (0-0.2); BASOPHILS % (AUTO) 1.5 % (0-1); EOSINOPHILS # (AUTO) 0.5 X10'3 (0-0.9); EOSINOPHILS % (AUTO) 3.5 % (0-6); HEMOGLOBIN 12.5 g/dl (12.0-16.0); LYMPHOCYTES # (AUTO) 3.2 X10'3 (1.1-4.8); LYMPHOCYTES % (AUTO) 21.1 % (21-51); MEAN CORPUSCULAR HEMOGLOBIN 20.1 PG (27.0-31.0); MEAN CORPUSCULAR HGB CONC 31.3 g/dL (33.0-36.5); MEAN CORPUSCULAR VOLUME 64.2 FL (78-98); MEAN PLATELET VOLUME 8.5 FL (7.4-10.4); NEUTROPHILS # (AUTO) 10.1 X10'3 (1.8-7.7); NEUTROPHILS % (AUTO) 66.9 % (42-75); PLATELET COUNT 395 X10'3 (140-440); RED BLOOD COUNT 6.23 X10'6 (4.20-5.60); WHITE BLOOD COUNT 15.1 X10'3 (4.5-11.0)
[2019-10-04 03:53] LABS: ALANINE AMINOTRANSFERASE 23 U/L (12-78); ALBUMIN 3.2 G/DL (3.4-5.0); ALBUMIN/GLOBULIN RATIO 0.9 (1.1-1.5); ALKALINE PHOSPHATASE 117 IU/L (46-116); ANION GAP 8 (8-16); ASPARTATE AMINO TRANSFERASE 13 U/L (10-37); BILIRUBIN,TOTAL 0.1 MG/DL (0.1-1.0); BLOOD UREA NITROGEN 9 MG/DL (7-18); CALCIUM 8.4 MG/DL (8.5-10.1); CHLORIDE 105 MMOL/L (99-107); CREATININE 0.75 MG/DL (0.40-0.90); GLUCOSE 107 MG/DL (70-104); POTASSIUM 3.6 MMOL/L (3.5-5.1); SODIUM 141 MMOL/L (135-145); TOTAL CARBON DIOXIDE 28.4 MMOL/L (24-32); TOTAL PROTEIN 6.8 G/DL (6.4-8.2); eGFR 81 ML/MIN
[2019-10-04 04:22] VITALS: BP 130/95
== END 2019-10-04 04:23 | disposition home or self-care (01) ==
LOC: ER 03:16
DX: R07.9 Chest pain, unspecified (principal); I25.10 Atherosclerotic heart disease of native coronary artery without angina pectoris; I11.0 Hypertensive heart disease with heart failure; E78.00 Pure hypercholesterolemia, unspecified; J44.9 Chronic obstructive pulmonary disease, unspecified; G47.30 Sleep apnea, unspecified; G89.29 Other chronic pain; M54.9 Dorsalgia, unspecified; F12.90 Cannabis use, unspecified, uncomplicated; F41.9 Anxiety disorder, unspecified; I50.9 Heart failure, unspecified; E11.9 Type 2 diabetes mellitus without complications; Z98.890 Other specified postprocedural states; Z72.89 Other problems related to lifestyle; Z79.02 Long term (current) use of antithrombotics/antiplatelets; Z79.82 Long term (current) use of aspirin; Z79.899 Other long term (current) drug therapy; Z88.0 Allergy status to penicillin; Z88.1 Allergy status to other antibiotic agents; Z88.8 Allergy status to other drugs, medicaments and biological substances
CPT/HCPCS: 71045; 80053; 84484; 85025; 93005; 99285

== ENCOUNTER 2020-01-03 04:17 | Emergency (ER) | payer MEDICARE, OTHER ==
[~2020-01-03] VITALS: Ht 167.6 cm; Wt 109.1 kg
[2020-01-03] MEDS ORDERED: aspirin 81mg tab.chew PO ONE (04:20)
[2020-01-03 04:51] LABS: BASOPHILS # (AUTO) 0.2 X10'3 (0-0.2); BASOPHILS % (AUTO) 1.1 % (0-1); EOSINOPHILS # (AUTO) 0.7 X10'3 (0-0.9); EOSINOPHILS % (AUTO) 2.9 % (0-6); HEMATOCRIT 39.5 % (35.0-45.0); HEMOGLOBIN 12.3 g/dl (12.0-16.0); LYMPHOCYTES # (AUTO) 3.3 X10'3 (1.1-4.8); LYMPHOCYTES % (AUTO) 14.9 % (21-51); MEAN CORPUSCULAR HGB CONC 31.2 g/dL (33.0-36.5); MEAN CORPUSCULAR VOLUME 67.4 FL (78-98); MEAN PLATELET VOLUME 7.4 FL (7.4-10.4); MONOCYTES # (AUTO) 1.1 X10'3 (0-0.9); MONOCYTES % (AUTO) 4.8 % (2-12); NEUTROPHILS # (AUTO) 17.1 X10'3 (1.8-7.7); NEUTROPHILS % (AUTO) 76.3 % (42-75); PLATELET COUNT 538 X10'3 (140-440); RED BLOOD COUNT 5.87 X10'6 (4.20-5.60); RED CELL DISTRIBUTION WIDTH 18.6 % (11.5-14.5); WHITE BLOOD COUNT 22.4 X10'3 (4.5-11.0)
[2020-01-03 04:53] LABS: ALANINE AMINOTRANSFERASE 14 U/L (12-78); ALBUMIN 3.4 G/DL (3.4-5.0); ALBUMIN/GLOBULIN RATIO 0.9 (1.1-1.5); ALKALINE PHOSPHATASE 127 IU/L (46-116); ANION GAP 7 (8-16); ASPARTATE AMINO TRANSFERASE 7 U/L (10-37); BILIRUBIN,TOTAL 0.1 MG/DL (0.1-1.0); BLOOD UREA NITROGEN 8 MG/DL (7-18); BUN/CREATININE RATIO 10.5 (6.6-38.0); CHLORIDE 99 MMOL/L (99-107); CREATININE 0.76 MG/DL (0.40-0.90); GLUCOSE 128 MG/DL (70-104); POTASSIUM 3.7 MMOL/L (3.5-5.1); SODIUM 135 MMOL/L (135-145); TOTAL CARBON DIOXIDE 28.8 MMOL/L (24-32); eGFR 80 ML/MIN
[2020-01-03 05:22] LABS: TOTAL CELLS COUNTED 100
[2020-01-03 05:23] LABS: ANISOCYTOSIS 2+; LARGE PLATELETS FEW; MICROCYTOSIS 2+; PLATELET ESTIMATE INCREASED; POLYCHROMASIA FEW
[2020-01-03 05:31] VITALS: BP 129/81
== END 2020-01-03 05:39 | disposition home or self-care (01) ==
LOC: ER 04:17
DX: R00.2 Palpitations (principal); I25.10 Atherosclerotic heart disease of native coronary artery without angina pectoris; E78.00 Pure hypercholesterolemia, unspecified; I11.0 Hypertensive heart disease with heart failure; I50.9 Heart failure, unspecified; J44.9 Chronic obstructive pulmonary disease, unspecified; E11.9 Type 2 diabetes mellitus without complications; G89.29 Other chronic pain; F12.90 Cannabis use, unspecified, uncomplicated; Z98.890 Other specified postprocedural states; Z98.51 Tubal ligation status; Z88.8 Allergy status to other drugs, medicaments and biological substances; Z88.0 Allergy status to penicillin; Z88.1 Allergy status to other antibiotic agents; Z79.82 Long term (current) use of aspirin; Z79.899 Other long term (current) drug therapy
CPT/HCPCS: 80053; 83735; 84484; 85025; 93005; 99284

== ENCOUNTER 2020-09-17 08:39 | Emergency (ER) | payer MEDICARE, OTHER ==
[~2020-09-17] VITALS: Ht 167.6 cm; Wt 113.6 kg
[2020-09-17 09:20] LABS: BASOPHILS # (AUTO) 0.1 X10'3 (0-0.2); BASOPHILS % (AUTO) 0.7 % (0-1); EOSINOPHILS # (AUTO) 0.3 X10'3 (0-0.9); EOSINOPHILS % (AUTO) 1.6 % (0-6); LYMPHOCYTES # (AUTO) 2.4 X10'3 (1.1-4.8); LYMPHOCYTES % (AUTO) 13.3 % (21-51); MEAN PLATELET VOLUME 8.5 FL (7.4-10.4); MONOCYTES # (AUTO) 1.1 X10'3 (0-0.9); MONOCYTES % (AUTO) 6.1 % (2-12); NEUTROPHILS # (AUTO) 13.8 X10'3 (1.8-7.7); NEUTROPHILS % (AUTO) 78.3 % (42-75); PLATELET COUNT 465 X10'3 (140-440); WHITE BLOOD COUNT 17.6 X10'3 (4.5-11.0)
[2020-09-17 09:31] LABS: ALANINE AMINOTRANSFERASE 17 U/L (12-78); ALBUMIN/GLOBULIN RATIO 0.8 (1.1-1.5); ALKALINE PHOSPHATASE 122 IU/L (46-116); ANION GAP 11 (8-16); ASPARTATE AMINO TRANSFERASE 9 U/L (10-37); BILIRUBIN,TOTAL 0.2 MG/DL (0.1-1.0); BLOOD UREA NITROGEN 19 MG/DL (7-18); BUN/CREATININE RATIO 20.7 (6.6-38.0); CHLORIDE 95 MMOL/L (99-107); CREATININE 0.92 MG/DL (0.40-0.90); GLUCOSE 202 MG/DL (70-104); LIPASE 102 U/L (73-393); SODIUM 133 MMOL/L (135-145); TOTAL CARBON DIOXIDE 26.9 MMOL/L (24-32); eGFR 64 ML/MIN
[2020-09-17 09:35] LABS: CLARITY,URINE CLEAR (Clear); COLOR,URINE YELLOW (Yellow); GLUCOSE, URINE NEGATIVE (Neg); KETONES,URINE NEGATIVE (Neg); LEUKOCYTE ESTERASE ,URINE NEGATIVE (Neg); NITRITES, URINE NEGATIVE (Neg); OCCULT BLOOD,URINE NEGATIVE (Neg); PROTEIN,URINE NEGATIVE (Neg); UROBILINOGEN,URINE 0.2 E.U/dL (0.2-1.0)
[2020-09-17 09:35] LABS: POTASSIUM 3.4 MMOL/L (3.5-5.1)
[2020-09-17 09:38] LABS: RED BLOOD COUNT 6.42 X10'6 (4.20-5.60)
[2020-09-17 09:38] LABS: URINE HCG NEGATIVE (NEG)
[2020-09-17 09:39] LABS: HEMATOCRIT 38.7 % (35.0-45.0); MEAN CORPUSCULAR HEMOGLOBIN 18.7 PG (27.0-31.0); MEAN CORPUSCULAR VOLUME 60.3 FL (78-98); RED CELL DISTRIBUTION WIDTH 18.8 % (11.5-14.5)
[2020-09-17 09:41] LABS: UA COLLECTION TYPE STRAIGHT CATH
[2020-09-17] MEDS ORDERED: normal saline 1000ML IV soln IVB ONE (10:00)
[2020-09-17] MEDS ORDERED: ondansetron/PF 4mg/2ml inj IV ONE (10:15)
[2020-09-17] MEDS ORDERED: morphine 2 MG/ML inj. syringe IV ONE (10:15)
[2020-09-17] MEDS ORDERED: iohexol 350MG/ML 100ml bottle IV ONE (10:41)
[2020-09-17] MEDS ORDERED: MESSAGE TO NURSING PO SCH (11:00)
[2020-09-17] MEDS ORDERED: morphine 4 MG/ML inj SYRINge IV ONE (11:15)
[2020-09-17] MEDS ORDERED: CYCL-1 PO (12:06)
[2020-09-17 12:25] VITALS: BP 106/63
== END 2020-09-17 12:27 | disposition home or self-care (01) ==
LOC: ER 08:42
DX: R10.31 Right lower quadrant pain (principal); R25.2 Cramp and spasm; R94.6 Abnormal results of thyroid function studies; D17.79 Benign lipomatous neoplasm of other sites; I25.10 Atherosclerotic heart disease of native coronary artery without angina pectoris; I50.9 Heart failure, unspecified; E78.00 Pure hypercholesterolemia, unspecified; I11.0 Hypertensive heart disease with heart failure; J44.9 Chronic obstructive pulmonary disease, unspecified; G47.30 Sleep apnea, unspecified; E11.9 Type 2 diabetes mellitus without complications; G89.29 Other chronic pain; Z86.79 Personal history of other diseases of the circulatory system; Z98.891 History of uterine scar from previous surgery; Z98.51 Tubal ligation status; F12.90 Cannabis use, unspecified, uncomplicated; Z72.89 Other problems related to lifestyle; Z88.0 Allergy status to penicillin; Z88.2 Allergy status to sulfonamides; Z88.8 Allergy status to other drugs, medicaments and biological substances; Z79.82 Long term (current) use of aspirin; Z79.899 Other long term (current) drug therapy
CPT/HCPCS: 71275; 74174; 80053; 81003; 81025; 83690; 85025; 96361; 96374; 96375; 99285; J2270; J2405; J7030; Q9967; 96372

== ENCOUNTER 2021-04-17 13:02 | Emergency (ER) | payer MEDICARE, OTHER ==
[~2021-04-17] VITALS: Ht 167.6 cm; Wt 90.9 kg
[~2021-04-17 13:02] MED LIST changes: +ALBU8.5H17 INH; -ALBU8.5H8 INH; +CYCL-1 PO; -DULO60CA45 PO; +DULO60CA59 PO; -OMEP40CA13 PO; +OMEP40CA21 PO; +POTA-208 PO; -POTA20TA19 PO
[2021-04-17 14:10] VITALS: BP 128/88
== END 2021-04-17 15:17 | disposition home or self-care (01) ==
LOC: ER 13:03
DX: S00.83XA Contusion of other part of head, initial encounter (principal); R07.89 Other chest pain; R06.02 Shortness of breath; R05 Cough; I25.10 Atherosclerotic heart disease of native coronary artery without angina pectoris; E78.00 Pure hypercholesterolemia, unspecified; I11.0 Hypertensive heart disease with heart failure; I50.9 Heart failure, unspecified; J44.9 Chronic obstructive pulmonary disease, unspecified; E11.9 Type 2 diabetes mellitus without complications; G89.29 Other chronic pain; G47.39 Other sleep apnea; F17.200 Nicotine dependence, unspecified, uncomplicated; F12.90 Cannabis use, unspecified, uncomplicated; Z72.89 Other problems related to lifestyle; Z88.0 Allergy status to penicillin; Z88.1 Allergy status to other antibiotic agents; Z88.8 Allergy status to other drugs, medicaments and biological substances; Z79.82 Long term (current) use of aspirin; Z79.899 Other long term (current) drug therapy; W22.8XXA Striking against or struck by other objects, initial encounter; Y93.89 Activity, other specified; Y92.002 Bathroom of unspecified non-institutional (private) residence as the place of occurrence of the external cause; Y99.8 Other external cause status
CPT/HCPCS: 99281

== ENCOUNTER 2021-06-05 18:39 | Emergency (ER) | payer MEDICARE, OTHER ==
[~2021-06-05] VITALS: Ht 162.6 cm; Wt 84.1 kg
--- NOTE | 2021-06-05 23:57 | NUR ---
PT CURLED UP IN POSITION WITH BLANKET ON HER. DOES NOT SPEAK OR ANSWER QUESTIONS. MAKES RANDOM NOISES FROM TIME TO TIME. DAUGHTER AT BEDSIDE REPORTS PT HAS NOT BEEN ON HER SCHIZOPHRENIA MEDS FOR 3 MONTHS. IS CONCERNED PT HAS BEEN 'ACTING DIFFERENTLY TODAY' INCLUDING THROWING THINGS AROUND THE HOUSE, FALLING ASLEEP ON HER CIGARETTES, AND WALKING INTO THE STREET ALTERED.
--- NOTE | 2021-06-06 00:39 | NUR ---
UNABLE TO TAKE COVID SWAB AT THIS TIME. PT PRESSES HER FACE AGAINST HER PILLOWS; WILL ATTEMPT AT ANOTHER TIME. BLOODWORK HAS ALREADY BEEN TAKEN.
[2021-06-06 00:48] LABS: BASOPHILS # (AUTO) 0.1 X10'3 (0-0.2); EOSINOPHILS # (AUTO) 0.3 X10'3 (0-0.9); LYMPHOCYTES % (AUTO) 15.4 % (21-51); MEAN CORPUSCULAR VOLUME 60.4 FL (78-98); MEAN PLATELET VOLUME 8.6 FL (7.4-10.4); MONOCYTES # (AUTO) 0.9 X10'3 (0-0.9); RED CELL DISTRIBUTION WIDTH 20.1 % (11.5-14.5)
[2021-06-06 00:49] LABS: BASOPHILS % (AUTO) 0.7 % (0-1); EOSINOPHILS % (AUTO) 2.5 % (0-6); HEMATOCRIT 37.2 % (35.0-45.0); HEMOGLOBIN 11.5 g/dl (12.0-16.0); LYMPHOCYTES # (AUTO) 1.8 X10'3 (1.1-4.8); MEAN CORPUSCULAR HEMOGLOBIN 18.7 PG (27.0-31.0); MEAN CORPUSCULAR HGB CONC 30.9 g/dL (33.0-36.5); MONOCYTES % (AUTO) 7.4 % (2-12); NEUTROPHILS # (AUTO) 8.7 X10'3 (1.8-7.7); PLATELET COUNT 350 X10'3 (140-440); RED BLOOD COUNT 6.15 X10'6 (4.20-5.60); WHITE BLOOD COUNT 11.8 X10'3 (4.5-11.0)
--- NOTE | 2021-06-06 00:51 | NUR ---
DAUGHTER REPORTS THAT IN THE PAST PT HAS USED PINS TO HURT HER OWN WRISTS. DENIES SEEING PT DOING ANYTHING TO HURT HERSELF RECENTLY. I AM UNABLE TO INTERVIEW PT SHE IS NONVERBAL AND ONLY SPEAKS RANDOM WORDS
[2021-06-06 00:57] LABS: ALANINE AMINOTRANSFERASE 17 U/L (12-78); ALBUMIN 3.3 G/DL (3.4-5.0); ALBUMIN/GLOBULIN RATIO 0.9 (1.1-1.5); ALKALINE PHOSPHATASE 99 IU/L (46-116); ANION GAP 8 (8-16); ASPARTATE AMINO TRANSFERASE 11 U/L (10-37); BILIRUBIN,TOTAL 0.3 MG/DL (0.1-1.0); BLOOD UREA NITROGEN 11 MG/DL (7-18); CALCIUM 8.6 MG/DL (8.5-10.1); CHLORIDE 101 MMOL/L (99-107); CREATININE 0.55 MG/DL (0.40-0.90); GLUCOSE 105 MG/DL (70-104); POTASSIUM 3.8 MMOL/L (3.5-5.1); SODIUM 138 MMOL/L (135-145); TOTAL PROTEIN 6.8 G/DL (6.4-8.2); eGFR > 90 ML/MIN
[2021-06-06 01:06] LABS: ETHANOL < 0.010 GM/DL (0.0-0.010)
--- NOTE | 2021-06-06 01:45 | NUR ---
PT WAS ABLE TO VOICE NEED TO USE RESTROOM. WAS ABLE TO MOVE FROM THE GURNEY TO BEDSIDE COMMODE. URINE SAMPLE PROVIDED. COVID SWAB TAKEN WELL. PT NOW APPROPRIATELY ANSWERING QUESTIONS. WILL SWITCH TO MAKING RANDOM STATEMENTS INTERMITTENTLY PT USES WHEELCHAIR AT HOME D/T CHRONIC PAIN
[2021-06-06 02:07] LABS: ANISOCYTOSIS 3+; MICROCYTOSIS 2+; PLATELET ESTIMATE NORMAL
[2021-06-06 02:08] LABS: LARGE PLATELETS FEW
[2021-06-06 02:11] LABS: CLARITY,URINE SLIGHTLY CLOUDY (Clear); COLOR,URINE YELLOW (Yellow); UA COLLECTION TYPE OTHER
[2021-06-06 02:12] LABS: GLUCOSE, URINE NEGATIVE (Neg); KETONES,URINE TRACE mg/dl (Neg); LEUKOCYTE ESTERASE ,URINE NEGATIVE (Neg); NITRITES, URINE NEGATIVE (Neg); OCCULT BLOOD,URINE NEGATIVE (Neg); PH,URINE 6.5 (4.8-8.0); PROTEIN,URINE NEGATIVE (Neg); UROBILINOGEN,URINE 0.2 E.U/dL (0.2-1.0)
[2021-06-06 02:13] LABS: URINE HCG NEGATIVE (NEG)
[2021-06-06 02:20] LABS: HYALINE CASTS 0-3 /LPF (NEGATIVE); MUCUS STRANDS FEW /LPF (Neg); SQUAMOUS EPITHELIAL CELL,UR MANY /LPF (FEW)
[2021-06-06 02:21] LABS: BACTERIA,URINE 1+ /HPF (Neg)
[2021-06-06 02:22] LABS: RBC,URINE 0-2 /HPF (0-2); URINE AMPHETAMINE SCREEN NEGATIVE (Neg); URINE BARBITUATE SCREEN NEGATIVE (Neg); URINE BENZODIAZEPINES SCREEN NEGATIVE (Neg); URINE CANNABINOID SCREEN POSITIVE (Neg); URINE COCAINE SCREEN NEGATIVE (Neg); URINE METHADONE SCREEN NEGATIVE (Neg); URINE OPIATE SCREEN NEGATIVE (Neg); URINE PHENCYCLIDINE SCREEN NEGATIVE (Neg); WBC,URINE 0-4 /HPF (0-4)
[2021-06-06] MEDS ORDERED: acetaminophen 325mg tablet PO ONE (02:40)
[2021-06-06] MEDS ORDERED: LORazepam 1 MG tablet PO PRN (02:40)
--- NOTE | 2021-06-06 03:55 | NUR ---
DAUGHTER'S LARY) PHONE NUMBER IS [phone].
--- NOTE | 2021-06-06 03:58 | NUR ---
PT HAS USED BEDSIDE COMMODE AGAIN. SHE REQUESTED DILAUDID.
--- NOTE | 2021-06-06 04:19 | NUR ---
PT SLEEPING, INTERMITTENTLY MAKING RANDOM NOISES
--- NOTE | 2021-06-06 06:37 | NUR ---
recieved patient @ 0630 from [facility], patient is asking for assistance to ambulated to restroom. Patient given Greens to change into, personal belongs taken added to inventory. Patient given a walk for assistance when going to restroom.
[2021-06-06] MEDS ORDERED: METF-1203 PO (07:40)
[2021-06-06] MEDS ORDERED: OMEP-50 PO (07:40)
[2021-06-06] MEDS ORDERED: CHOL200012 PO (07:40)
[2021-06-06] MEDS ORDERED: FURO40TA4 PO (07:40)
[2021-06-06] MEDS ORDERED: POTA-84 PO (07:40)
[2021-06-06] MEDS ORDERED: topiramate 100mg tablet PO SCH (08:00)
[2021-06-06] MEDS ORDERED: OLANZapine 2.5MG tablet PO SCH (08:00)
[2021-06-06] MEDS ORDERED: potassium Cl 20 mEq SR tablet PO SCH (08:00)
[2021-06-06] MEDS ORDERED: ALBUTEROL INHALER 1 PUFF/90 MCG INHALER IH PRN (08:05)
--- NOTE | 2021-06-06 08:05 | NUR ---
Breakfast tray set at bedside patient still sleeping
[2021-06-06] MEDS ORDERED: OLANZapine 5mg rapidly disint. tablet PO SCH ×2 (08:35→20:00)
[2021-06-06] MEDS ORDERED: pantoprazole 40mg Tablet.DR PO SCH (09:00)
--- NOTE | 2021-06-06 09:02 | NUR ---
PACKET FAXED TO [facility]
--- NOTE | 2021-06-06 10:15 | NUR ---
Patient sleepin well after Zyprexa Zidis given, patient sleepin on left side snoring, no distress noted, this wrtier cleaned room area and covered patient up to ensure good rest.
--- NOTE | 2021-06-06 12:13 | NUR ---
Patient sleeping on right side, amanda thrashing about but will not wake for MH eval, [facility] try eval after lunch. Family has called to talk with patient, patient too sleepy to take phone call. Head of bed is up, as patient is snoring loudly, seems to have helped. Patient declined inhaler at this time.
--- NOTE | 2021-06-06 12:30 | NUR ---
Patient urinated in her depends and took them off and placed them on her sheets, bed changed and patient given wipes and new depends to change. Patient was able to change herself with prompting.
--- NOTE | 2021-06-06 14:34 | NUR ---
Patient sleeping on left side, easliy arroused by this wrtier, pateint asked if she was safe here, patient overheard bed next to her getting interviewed, patient advised that she is safe here, patient pulled covers over her shoulders and went back to sleep.
--- NOTE | 2021-06-06 15:59 | NUR ---
Patient resting on left side, toss and turns often while talking in her sleep. No signs of distress
--- NOTE | 2021-06-06 17:33 | NUR ---
Patient resting on left side, vitals being done
[2021-06-06 17:45] VITALS: BP 129/88
--- NOTE | 2021-06-06 18:21 | NUR ---
Naheed accepted at [facility] picking up at 1845
--- NOTE | 2021-06-06 18:43 | NUR ---
Received report on patient that will discharge at 1845.
--- NOTE | 2021-06-06 19:17 | NUR ---
Director Of Respiratory Therapy here to picker packer patient for travel to [place]. She is accompanied by PCT and inventory associate and driver.
[2021-06-06] MEDS ORDERED: furosemide 40mg tablet PO SCH (20:00)
[2021-06-06] MEDS ORDERED: metFORMIN 500mg tablet PO SCH (20:00)
[2021-06-07] MEDS ORDERED: cholecalciferol (vitamin D3) 1,000 unit (25mcg) tablet PO SCH (08:00)
== END 2021-06-06 19:50 ==
LOC: ER 18:39
DX: R45.851 Suicidal ideations (principal); Z20.822 Contact with and (suspected) exposure to COVID-19; F20.9 Schizophrenia, unspecified; I11.0 Hypertensive heart disease with heart failure; I50.9 Heart failure, unspecified; E78.00 Pure hypercholesterolemia, unspecified; J44.9 Chronic obstructive pulmonary disease, unspecified; G47.30 Sleep apnea, unspecified; E11.9 Type 2 diabetes mellitus without complications; G89.29 Other chronic pain; F12.90 Cannabis use, unspecified, uncomplicated; Z72.89 Other problems related to lifestyle; Z98.891 History of uterine scar from previous surgery; Z98.51 Tubal ligation status; Z86.79 Personal history of other diseases of the circulatory system
CPT/HCPCS: 36415; 80053; 80305; 80320; 81001; 81025; 84443; 85008; 85025; 87635; 99285; C9803

== ENCOUNTER 2021-08-23 11:12 | Inpatient (IN) | payer MEDICARE, MEDICAID ==
[~2021-08-23] VITALS: Ht 170.2 cm; Wt 98.6 kg
[~2021-08-23 11:12] MED LIST changes: -ACTIFED PO; -ASPI81TA52 PO; +CHOL200012 PO; -CYCL-1 PO; -DULO60CA59 PO; -FLUO-167 PO; -FLUT16SP20; -FURO-149 PO; +FURO40TA4 PO; -HYDR25SU32 RC; -HYDR50TA65 PO; -IPRA4AER IH; +METF-1203 PO; -OLAN20TA3 PO; +OMEP20CA16 PO; -OMEP40CA21 PO; -POTA-208 PO; +POTA-84 PO; -PROM25TA14 PO; -RIVA20TA PO; -SIMV10TA98 PO; -TIOT4MIS5 IH; -TOP100T PO; -TRAM50TA2 PO
[2021-08-23 12:00] LABS: BASOPHILS # (AUTO) 0.1 X10'3 (0-0.2); BASOPHILS % (AUTO) 1.1 % (0-1); EOSINOPHILS # (AUTO) 0.4 X10'3 (0-0.9); EOSINOPHILS % (AUTO) 2.6 % (0-6); HEMATOCRIT 43.1 % (35.0-45.0); LYMPHOCYTES # (AUTO) 2.5 X10'3 (1.1-4.8); LYMPHOCYTES % (AUTO) 18.5 % (21-51); MEAN CORPUSCULAR HGB CONC 32.4 g/dL (33.0-36.5); MEAN CORPUSCULAR VOLUME 71.1 FL (78-98); MEAN PLATELET VOLUME 8.5 FL (7.4-10.4); MONOCYTES % (AUTO) 7.2 % (2-12); NEUTROPHILS # (AUTO) 9.6 X10'3 (1.8-7.7); NEUTROPHILS % (AUTO) 70.6 % (42-75); PLATELET COUNT 335 X10'3 (140-440); RED BLOOD COUNT 6.06 X10'6 (4.20-5.60); RED CELL DISTRIBUTION WIDTH 25.3 % (11.5-14.5); WHITE BLOOD COUNT 13.6 X10'3 (4.5-11.0)
[2021-08-23 12:16] LABS: ALANINE AMINOTRANSFERASE 19 U/L (12-78); ALBUMIN 3.6 G/DL (3.4-5.0); ALBUMIN/GLOBULIN RATIO 1.1 (1.1-1.5); ALKALINE PHOSPHATASE 103 IU/L (46-116); ANION GAP 11 (8-16); ASPARTATE AMINO TRANSFERASE 8 U/L (10-37); BILIRUBIN,TOTAL 0.3 MG/DL (0.1-1.0); BLOOD UREA NITROGEN 16 MG/DL (7-18); BUN/CREATININE RATIO 31.4 (6.6-38.0); CALCIUM 9.4 MG/DL (8.5-10.1); CHLORIDE 102 MMOL/L (99-107); CREATININE 0.51 MG/DL (0.40-0.90); ETHANOL < 0.010 GM/DL (0.0-0.010); GLUCOSE 112 MG/DL (70-104); POTASSIUM 3.5 MMOL/L (3.5-5.1); SODIUM 140 MMOL/L (135-145); TOTAL CARBON DIOXIDE 27.3 MMOL/L (24-32); TOTAL PROTEIN 6.9 G/DL (6.4-8.2); eGFR > 90 ML/MIN
[2021-08-23 13:25] LABS: ANISOCYTOSIS 3+; MICROCYTOSIS 1+; PLATELET ESTIMATE NORMAL; TOTAL CELLS COUNTED 100
[2021-08-23 13:27] LABS: LARGE PLATELETS FEW
[2021-08-23 13:28] LABS: ELLIPTOCYTES FEW
[2021-08-23 13:32] LABS: URINE HCG NEGATIVE (NEG)
[2021-08-23 13:44] LABS: URINE AMPHETAMINE SCREEN NEGATIVE (Neg); URINE BARBITUATE SCREEN NEGATIVE (Neg); URINE BENZODIAZEPINES SCREEN NEGATIVE (Neg); URINE CANNABINOID SCREEN POSITIVE (Neg); URINE COCAINE SCREEN NEGATIVE (Neg); URINE METHADONE SCREEN NEGATIVE (Neg); URINE OPIATE SCREEN NEGATIVE (Neg); URINE PHENCYCLIDINE SCREEN NEGATIVE (Neg)
--- NOTE | 2021-08-23 20:00 | NUR ---
The patient was transported via [place] to bed 20 in the ER overflow. She was incontinent of urine and she was assisted with linen change. She was able to state where she was at. She was unable to state why she here.
[2021-08-23] MEDS ORDERED: HYDR-3686 PO (20:55)
[2021-08-23] MEDS ORDERED: ATRIN INH (20:55)
[2021-08-23] MEDS ORDERED: OLAN10TA73 PO (20:55)
[2021-08-23] MEDS ORDERED: METH-797 PO (20:55)
[2021-08-23] MEDS ORDERED: HALO5TAB PO (20:55)
[2021-08-23] MEDS ORDERED: DOCU-148 PO (20:55)
[2021-08-23] MEDS ORDERED: ALBU18HF2 INH (20:55)
[2021-08-23] MEDS ORDERED: BENZ0.5T36 PO (20:55)
[2021-08-23] MEDS ORDERED: TOPI50TA PO (20:55)
[2021-08-23] MEDS ORDERED: albuterol 2.5 MG/3 ML nebule NEB PRN (21:50)
--- NOTE | 2021-08-23 22:10 | NUR ---
The patient appears to be sleeping
--- NOTE | 2021-08-23 23:38 | NUR ---
The patient up to use the bathroom. She is making nonsensical statements that very disorganized
--- NOTE | 2021-08-24 01:24 | NUR ---
The patient appears to be sleeping
--- NOTE | 2021-08-24 03:00 | NUR ---
THe patient appears to be sleeping
--- NOTE | 2021-08-24 04:53 | NUR ---
The patient appears to be sleeping
--- NOTE | 2021-08-24 06:30 | NUR ---
Received pt. sleeping with HOB elevated at the beginning of the shift, rr even and unlabored.
--- NOTE | 2021-08-24 07:57 | NUR ---
Pt. awoke to use the bedside commode. She continues to require assistance from one-staff member r/t generalized weakness. Pt's thought process presents as tangental and disorganized, but she is able to be redirected.
--- NOTE | 2021-08-24 08:30 | NUR ---
Pt. sitting up eating breakfast at this time, she was able to eat 100% of her meal, and afterwards lay back in bed, will continue to monitor.
[2021-08-24] MEDS: haloperidol 5mg tablet PO SCH (08:47)
[2021-08-24] MEDS: topiramate 25mg tablet PO SCH (08:47)
[2021-08-24] MEDS: furosemide 40mg tablet PO SCH ×2 (08:48→20:37)
[2021-08-24] MEDS: potassium Cl 20 mEq SR tablet PO SCH ×2 (08:48→20:37)
--- NOTE | 2021-08-24 09:00 | NUR ---
Pt. was compliant with all medications, however she continues to present with tangential and disorganized speech and thought process and requires frequent redirection. She is A&O x1 to name only, and when questioned why she is here states, "I'm here to help the little dog get back." Pt. denies any S/I or H/I, however repots A/V/PARRISH. Upon further questioning she states nonsensically, "I see and hear things, I'm a mixed up copycat." Pt. also admits to paranoid delusions that random others want to hurt here. Pt. appears to be internally preoccupied and talks aloud to random others who are not there. She also calls staff random names which may be the names of family members or friends. Pt. is disheveled and requires assistance to dress herself and preform ADLs.
[2021-08-24] MEDS: ipratropium 0.5 MG/2.5ML nebule NEB SCH ×3 (09:36→20:25)
--- NOTE | 2021-08-24 10:33 | NUR ---
Pt. contiues to sleep at this time, laying on her left side with HOB elevated. She snores occassionally.
--- NOTE | 2021-08-24 12:30 | NUR ---
Pt. sat up and ate lunch independently, she continues to be internally preoccupied, and is observed to be talking aloud to herself. After lunch, pt. lays back down in bed, will continue to monitor.
[2021-08-24] MEDS: hydrOXYzine 25 MG tablet PO PRN (13:30)
--- NOTE | 2021-08-24 13:30 | NUR ---
Pt. exhibited increased anxiety and agitation AEB increasingly responding to internal stimuli, speaking profanities, and banging on objects. This appeals writer sat with pt. and offered active listening and positive encouragement regarding her safety. Pt. reported paranoid delusions of being "chased by rattlesnakes" and being "Cursed by Satan." PRN Atrax was administered, will continue to monitor.
--- NOTE | 2021-08-24 14:28 | NUR ---
Pt. is laying in bed with her eyes open at this time, she appears calm and content.
--- NOTE | 2021-08-24 14:32 | NUR ---
Pt. is talking on the telephone with her sister at this time. She remains very tangental and disorganized. Upon finishing the conversation yells out, "Are you still there?!" She throws the phone, however is able to be redirected.
--- NOTE | 2021-08-24 16:30 | NUR ---
Pt. is sleeping in bed at this time, rr even and unlabored.
--- NOTE | 2021-08-24 17:10 | NUR ---
Per [facility], pt. accepted at [facility] by Dr. Cisneros. Will endorse to Noc shift.
--- NOTE | 2021-08-24 18:07 | NUR ---
Pt. continues to sleep at this time, laying on her left side.
--- NOTE | 2021-08-24 19:29 | NUR ---
THe patient has been up and sitting on the side of her bed. She is very disorganized and is unable to answer any questions in any logical or coherrant way. "I'm here to prove that I'm here and your'e here...we are all in God's family...It could be a fig sanabria" She is only oriented to self.
[2021-08-24] MEDS: olanzapine 10mg tablet PO SCH (20:37)
[2021-08-24] MEDS: benztropine 1mg tablet PO SCH (20:37)
--- NOTE | 2021-08-24 20:47 | NUR ---
The patient is disorganized. She placed a roll of toilet paper in her water pitcher. Her bedside table and area was cleaned and organized. She is pending transfer to [facility]
[2021-08-24] MEDS ORDERED: mag hydrox/Alum hydrox/simeth 30ml oral suspension PO PRN (22:30)
[2021-08-24] MEDS ORDERED: acetaminophen 325mg tablet PO PRN (22:30)
[2021-08-24] MEDS ORDERED: loperamide 2mg capsule PO PRN (22:30)
[2021-08-24] MEDS ORDERED: NICOTINE POLACRILEX 2 MG LOZENGE BC PRN (22:30)
--- NOTE | 2021-08-24 23:48 | NUR ---
5150 NOTE: LEGAL HOLD: 5150 for GD REASON FOR ADMIT: "Nereida was brought to [facility] by her who was concerned that Nereida was hallucinating that the devil was going to get her." "Nereida is disoriented, disorganized, and unable to articulate a viable plan for food, clothing, and/or correction. Her reports that she has been increasingly agitated and has not been sleeping or eating."
[2021-08-25] MEDS ORDERED: METF-436 PO (00:01)
[2021-08-25] MEDS ORDERED: OMEP40CA21 PO (00:02)
[2021-08-25 03:13] VITALS: BP 133/92
--- NOTE | 2021-08-25 03:23 | NUR ---
WORKFORCE INVESTMENT ACT CAREER MANAGER NOTE: LEGAL HOLD: 5150 for GD REASON FOR ADMIT: "[facility] her who was concerned that Nereida was hallucinating that the devil was going to get her." "Nereida is disoriented, disorganized, and unable to articulate a viable plan for food, clothing, and/or skilled nursing. Her reports that she has been increasingly agitated and has not been sleeping or eating." THIS SHIFT: Client arrived on unit at 22:38, in a wheelchair accompanied by Artie Saldana Client is disheveled and disorganized. Client is a high fall risk. Ambulates poorly with walker. A wheelchair is at bedside. A bedside commode was provided and then removed as client attempted to take it apart. Clients speech is disjointed and she makes numerous jehovah's witness references. Client was cooperative. Client had PM meds in ED.
[2021-08-25 08:06] LABS: HEMOGLOBIN A1C 6.7 % (4.5-6.2)
[2021-08-25] MEDS: furosemide 40mg tablet PO SCH ×2 (08:14→20:48)
[2021-08-25] MEDS: haloperidol 5mg tablet PO SCH (08:14)
[2021-08-25] MEDS: nicotine 21mg patch - 24 hr TD SCH (08:14)
[2021-08-25] MEDS: topiramate 25mg tablet PO SCH (08:14)
[2021-08-25] MEDS: potassium Cl 20 mEq SR tablet PO SCH ×2 (08:14→20:48)
[2021-08-25 08:22] VITALS: BP 153/96
[2021-08-25 08:37] LABS: CHOL/HDL RATIO 2.9 (0.00-4.99); CHOLESTEROL 152 MG/DL (0-200); HDL CHOLESTEROL 52 MG/DL (35-60); LDL CHOLESTEROL 83 MG/DL (50-100); TRIGLYCERIDES 75 MG/DL (20-135)
[2021-08-25] MEDS: ipratropium 0.5 MG/2.5ML nebule NEB SCH ×2 (09:00→21:00)
[2021-08-25] MEDS: hydrOXYzine 25 MG tablet PO PRN ×2 (13:22→22:21)
--- NOTE | 2021-08-25 16:05 | NUR ---
Nursing Progress Note: Legal hold:5150 Client on voluntary/involuntary status for GD Report received from nurse with use of MARIANA Cheema REASON FOR ADMIT: "Nereida was brought to [facility] by her who was concerned that Nereida was hallucinating that the devil was going to get her." "Nereida is disoriented, disorganized, and unable to articulate a viable plan for food, clothing, and/or long term. Her reports that she has been increasingly agitated and has not been sleeping or eating." Assessment What has happened this shift: Pt spends most of the day in her room. PT took her pants off. Helped pt into clothes for breakfast. Pt uses walker, has steady gait but walks bent over. Pt talks all day responding to internal stimuli. Pt later in day seen swatting at invisible bugs on her bed. Pt found banging on her commode. Removed the commode. Pt later banging a cup on a table. Removed the cup. Pt threw her water on one bed and dumped lemonade on the other bed. Room cleaned up . Pt has no linen on bed at this time. Pt will have bed made prior to sleep time. Pt found with her pants off again. Pt redressed by staff. PT talking nonsensical. S/I, H/I:[No] A/VH: [Yes] Sleep:[not during day shift] ADL's:[needs prompting] Group attendance:[No groups today] Were meds taken:[compliant] Any med S/E[no] Mental Status Exam Appearance:[unkempt] Eye contact:[good] Behavior:[bizarre] Speech:[pressured] Mood:[] Affect:[] Thought process:[delusional] Thought Content:[delusional] Cognition:[delusional] Insight:[poor] Judgment:[poor] Interventions PRN's used:[Atarax] Therapeutic interventions:[] Restraints/seclusion/emergency medication:[no] Justification of Continued Inpatient Treatment:[psychotic, delusional]
[2021-08-25 19:55] VITALS: BP 127/96
[2021-08-25] MEDS: olanzapine 10mg tablet PO SCH (20:48)
[2021-08-25] MEDS: benztropine 1mg tablet PO SCH (20:49)
[2021-08-25] MEDS: olanzapine 10mg tablet PO PRN (23:09)
[2021-08-25] MEDS: acetaminophen 325mg tablet PO PRN (23:20)
--- NOTE | 2021-08-26 03:22 | NUR ---
Nursing Progress Note: Legal hold:5150 Client on voluntary/involuntary status for GD Report received from Atilio MOYA with use of SBAR REASON FOR ADMIT: "Nereida was brought to [facility] by her who was concerned that Nereida was hallucinating that the devil was going to get her." "Nereida is disoriented, disorganized, and unable to articulate a viable plan for food, clothing, and/or mcc. Her reports that she has been increasingly agitated and has not been sleeping or eating." Assessment What has happened this shift: Patient was found in the community room at the start of the shift, referring to another patient as "German" incorrectly. Patient was initially very nonsensical in speech but pleasant. Patient was compliant with medications and ate a snack. Patient's speech became much more linear by 2200 but patient also grew more anxious and agitated. Patient requested haldol for sleep. This selling underwriter explained to the patient that that medication was not available outside of its scheduled time and that other options would be tried. Patient was dubious of potential effectiveness of atarax and zyprexa. patient additionally grew angry that "no one is willing to come into my room and let me talk through all of my needs, I am also in pain and I want aspirin and a toothbrush and a hair brush." These things were provided to patient, but patient remained anxious and slept fitfully. S/I, H/I: denies A/VH: [Yes] Sleep: see sleep report ADL's:needed prompting earlier in shift but was fixated later in shift. Group attendance:none during shift Were meds taken: compliant Any med S/E: no Mental Status Exam Appearance:[unkempt] Eye contact:[good] Behavior:[bizarre] Speech:[pressured, nonsensical, tangential.] Mood:[affable to highly anxious] Affect:[congruent with mood] Thought process:[delusional] Thought Content:[delusional] Cognition:[delusional] Insight:[poor] Judgment:[poor] Interventions PRN's used:[Atarax, zyprexa, tylenol] Therapeutic interventions:[] Restraints/seclusion/emergency medication:[no] Justification of Continued Inpatient Treatment:[psychotic, delusional, needs medications adjusted]
[2021-08-26] MEDS: olanzapine 10mg tablet PO PRN (05:44)
[2021-08-26] MEDS: acetaminophen 325mg tablet PO PRN (05:44)
[2021-08-26] MEDS: nicotine 21mg patch - 24 hr TD SCH (07:41)
[2021-08-26] MEDS: furosemide 40mg tablet PO SCH ×2 (07:41→20:52)
[2021-08-26] MEDS: topiramate 25mg tablet PO SCH (07:41)
[2021-08-26] MEDS: haloperidol 5mg tablet PO SCH (07:41)
[2021-08-26] MEDS: potassium Cl 20 mEq SR tablet PO SCH ×2 (07:41→20:52)
[2021-08-26 08:18] VITALS: BP 147/101
[2021-08-26] MEDS: metFORMIN 500mg tablet PO SCH ×2 (08:30→20:52)
[2021-08-26] MEDS: ipratropium 0.5 MG/2.5ML nebule NEB SCH ×2 (10:02→21:00)
[2021-08-26] MEDS: docusate sod 100mg capsule PO PRN (15:44)
--- NOTE | 2021-08-26 17:01 | NUR ---
Nursing Progress Note: Legal hold: 5150 Client on involuntary status for GD Report received from nurse with use of Rocío PEÑA. REASON FOR ADMIT: "Nereida was brought to [facility] by her who was concerned that Nereida was hallucinating that the devil was going to get her." "Nereida is disoriented, disorganized, and unable to articulate a viable plan for food, clothing, and/or prison. Her reports that she has been increasingly agitated and has not been sleeping or eating." Assessment What has happened this shift: Received pt. awake in her room. Patients room is a mess with bits of paper torn up all over the room. Water on the floor. Requesting new socks due to them being wet. Patient is talking about some witches that made a brew in her room for Atilio, and points to the trash can. Patient has a ball of hair stuck around her water container and tells RN that it is horse hair and did I need any. Patient responding to internal stimuli. Patient attempted to leave through the exit door. Patient expressing the need to go home. Patient sitting in the hallway screaming and yelling for to help her. Dont make me call on the Holy Spirit. Patient also starts yelling that she wants real drugs, like Cocaine and Dilaudid. Patient singing at times nonsensical statements and then some rhyming words. Patient only slept 1.5 hours last night. Patient complains of tooth pain. Patient was able to talk to and when she is done with the phone she asks RN do you want to gnaw off my hand? Hospitalist came to see patient for tooth pain. Patient refused Tylenol stating that it doesnt work. S/I, H/I: No A/VH: Yes Sleep: 1.5 hours at NOC. 2 hr. nap. ADL's: needs prompting Group attendance: No groups today Were meds taken: Yes. Any med S/E: None noted or reported. Mental Status Exam Appearance: Blonde haired female with dark circles under her eyes, wearing green scrubs, disheveled. Eye contact: Good. Behavior: Responding to internal stimuli, yelling. Speech: Pressured. Mood: Agitated. Affect: Labile. Thought process: Delusions, tangential, loose associations. Thought Content: Going home. Cognition: Oriented x 1. Insight: Impaired. Judgment: Impaired. Interventions PRN's used: None. Therapeutic interventions: 1:1 assessment, establishment of rapport, therapeutic conversation, active listening, medication administration/education/monitoring, encouragement of personal hygiene, behavior monitoring and intervention as needed; reality orientation, distraction, redirection, limit setting, positive reinforcement, and Q 15 minute safety checks. Restraints/seclusion/emergency medication: N/A Justification of Continued Inpatient Treatment: Pt in need of stabilization with medication adjustment and monitoring in a safe and therapeutic environment.
[2021-08-26 19:25] VITALS: BP 124/68
[2021-08-26] MEDS: benztropine 1mg tablet PO SCH (20:52)
[2021-08-26] MEDS: traZODone 50mg tablet PO SCH (20:52)
[2021-08-26] MEDS: clindamycin 150mg capsule PO SCH (20:53)
[2021-08-27] MEDS: clindamycin 150mg capsule PO SCH ×4 (02:00→20:35)
--- NOTE | 2021-08-27 02:56 | NUR ---
Nursing Progress Note: Legal hold:5150 Client on voluntary/involuntary status for GD Report received from Atilio MOYA with use of SBAR REASON FOR ADMIT: "Nereida was brought to [facility] by her who was concerned that Nereida was hallucinating that the devil was going to get her." "Nereida is disoriented, disorganized, and unable to articulate a viable plan for food, clothing, and/or retirement. Her reports that she has been increasingly agitated and has not been sleeping or eating." Assessment What has happened this shift: Patient isolated to her room, mumbling to herself at the beginning of shift. Pt is not cooperative for the 1:1 assessment and is resistive to care. Pt refuses physical assessment and keeps waving her hands at RN to exit the room. Pt refused HS accucheck stating, "leave a wee bit for and get out!" PT did take HS medications after yelling at RN. She then accused RN of pounding on her window. "Get with it bitch, you know how to make it stop, but you won't because you're a whore." She then screams a few times and yells " Yaya!" she then goes to sleep and sleeps soundly. S/I, H/I: denies A/VH: Yes Sleep: see sleep report ADL's:needed prompting Group attendance:none during shift Were meds taken: compliant, but refused physical assessment and accucheck Any med S/E: no Mental Status Exam Appearance:unkempt, hair uncombed Eye contact:fair Behavior: erratic Speech:pressured Mood: angry Affect: congruent with mood Thought process: delusional Thought Content: delusional Cognition:poor Insight: poor Judgment:poor Interventions PRN's used:NA Therapeutic interventions: 1:1, Q15 min safety checks, medication administration, encouragement Restraints/seclusion/emergency medication: no Justification of Continued Inpatient Treatment: psychotic, delusional, needs medications adjusted
--- NOTE | 2021-08-27 06:38 | NUR ---
NOC shift blood sugar was not documented. Addendum: 08/27/21 at 0638 by Brenda Layton RN Amended: Links added.
[2021-08-27] MEDS: nicotine 21mg patch - 24 hr TD SCH (07:41)
[2021-08-27] MEDS: benztropine 1mg tablet PO SCH ×2 (07:42→20:36)
[2021-08-27] MEDS: potassium Cl 20 mEq SR tablet PO SCH ×2 (07:42→20:36)
[2021-08-27] MEDS: topiramate 25mg tablet PO SCH (07:42)
[2021-08-27] MEDS: haloperidol 5mg tablet PO SCH (07:42)
[2021-08-27] MEDS: metFORMIN 500mg tablet PO SCH ×2 (07:42→20:36)
[2021-08-27] MEDS: furosemide 40mg tablet PO SCH ×2 (07:42→20:35)
[2021-08-27] MEDS: lactobacillus rhamnosus 10,000 MMU CELLS/CAPSULE PO SCH ×2 (07:42→20:36)
[2021-08-27 07:54] VITALS: BP 136/60
[2021-08-27] MEDS ORDERED: CARIPRAZINE 1.5 MG CAPSULE PO SCH (08:00)
[2021-08-27] MEDS: ipratropium 0.5 MG/2.5ML nebule NEB SCH ×2 (09:00→21:00)
--- NOTE | 2021-08-27 13:12 | NUR ---
Nursing Progress Note: WENDY Legal hold: 5150 Expires 08/27 @ 9092 Client on involuntary status for GD Report received from ANAY Ward with use of SBAR REASON FOR ADMIT: Patient was brought to [facility] by her who was concerned that patient was hallucinating that the devil was going to get her. Patient is disoriented, disorganized, and unable to articulate a viable plan for food, clothing, and/or nursing home. Her reports that she has been increasingly agitated and has not been sleeping or eating." Assessment What has happened this shift: Received pt awake in her room at shift change. Pt lying in bed rambling to herself. Pt talking surely someone like you wouldnt want satan Then something about reading the Bible, you dont want to get stricken. We are so dizzy we dont want nuts and berries. Pt was compliant with medications and 1:1. When asked why she was here pt stated lets skip that one and go down two lines, youre smarter than that. It was later noted that pt had pulled the curtain divider down from the hooks, states I dont want to be in Satans family anymore. I am tired of blowing him. Dont want to do it anymore when I can blow a horn. Not sure what I blew yesterday." When asked about A/VH pt states Its all true. 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 I honestly report whats going on in my head when it happens. Conversation quickly decompensates pt stating then I honestly report to my mom and dad. You would rather eat me because youre a caldron in the fire. Pt is psychotic, but had not outburst with ghost writer and is able to be redirected. S/I, H/I: Pt denies. A/VH: Yes. See note above. Sleep: 5.75 hours per sleep assessment. No naps today. ADL's: Independent, with prompting. Group attendance: No scheduled group today. Were meds taken: Yes, without issue. Any med S/E: None observed or reported. Mental Status Exam Appearance: Heavy set middle age women with disheveled blonde hair. Dressed in kahn t-shirt and green scrub bottoms. Eye contact: Good Behavior: Isolates to her room rambling to self. Pt has been cooperative with no outbursts. Speech: Rapid, Mood: angry Affect: congruent with mood Thought process: Delusional, flight of ideas Thought Content: Flight of ideas, religiously preoccupied. Cognition: Alert Insight: Poor Judgment: Poor Interventions PRN's used: None Therapeutic interventions: Maintained safe, therapeutic environment, encouraged participation with ADLs, therapeutic conversation, reality orientation, distraction, limit setting, Q15 min safety checks. Restraints/seclusion/emergency medication: N/A Justification of Continued Inpatient Treatment: Pt in need of stabilization with medication adjustment and monitoring in a safe and therapeutic environment. Pt presents with psychotic, delusional symptoms. Addendum: 08/27/21 at 1357 by Brenda Layton RN BLOOD GLUCOSE TEST CHANGED TO AM ONLY. PER DR. MEYERS. Addendum: 08/27/21 at 1500 by Brenda Layton RN GLUCOSE TESTING CHANGED TO A.M ONLY. Pt on Clindamycin r/t poor dentition. No c/o pain this shift. Pt's gait is unsteady without her FWW.
[2021-08-27 19:06] VITALS: BP 156/81
[2021-08-27] MEDS: traZODone 50mg tablet PO SCH (21:12)
[2021-08-28] MEDS: clindamycin 150mg capsule PO SCH ×4 (02:00→20:11)
--- NOTE | 2021-08-28 03:55 | NUR ---
Nursing Progress Note: Legal hold: 5150 Client on involuntary status for GD Report received from ANAY Trimble with use of SBAR REASON FOR ADMIT: "Nereida was brought to [facility] by her who was concerned that Nereida was hallucinating that the devil was going to get her." "Nereida is disoriented, disorganized, and unable to articulate a viable plan for food, clothing, and/or penitentiary. Her reports that she has been increasingly agitated and has not been sleeping or eating." Assessment What has happened this shift: The patient was in her room talking to herself. She is disorganized in speech and refuses assessment. Patient seems paranoid about "the end coming soon." She rambles on about the Devil and "Satan taking" her. She then tells medical underwriter to leave. Came back later with HS medications, and she was so distracted that she just took them. Patient has woke a couple times through the night, but goes back to sleep. S/I, H/I: Denies A/VH: Positive AV/H. Sleep: see sleep report ADL's: Needs prompting prompting Group attendance: No Were meds taken: Yes Any med S/E: None reported or observed. Mental Status Exam Appearance: Disheveled with unbrushed hair in unit scrubs. Eye contact: Fair Behavior: Isolative, distracted, delusional Speech: Pressured Mood: Angry Affect: Congruent with mood Thought process: Delusional Thought Content: Delusional Cognition: Poor Insight: Poor Judgment: Poor Interventions PRN's used:NA Therapeutic interventions: 1:1, Q15 min safety checks, medication administration, encouragement Restraints/seclusion/emergency medication: no Justification of Continued Inpatient Treatment: psychotic, delusional, needs medications adjusted
[2021-08-28] MEDS: topiramate 25mg tablet PO SCH (07:25)
[2021-08-28] MEDS: aspirin 81mg, enteric-coated 1 TAB TABLET.DR PO SCH (07:25)
[2021-08-28] MEDS: nicotine 21mg patch - 24 hr TD SCH (07:25)
[2021-08-28] MEDS: haloperidol 5mg tablet PO SCH (07:25)
[2021-08-28] MEDS: furosemide 40mg tablet PO SCH ×2 (07:26→20:12)
[2021-08-28] MEDS: lactobacillus rhamnosus 10,000 MMU CELLS/CAPSULE PO SCH ×2 (07:26→20:11)
[2021-08-28] MEDS: potassium Cl 20 mEq SR tablet PO SCH ×2 (07:26→20:11)
[2021-08-28] MEDS: metFORMIN 500mg tablet PO SCH ×2 (07:26→20:11)
[2021-08-28] MEDS: benztropine 1mg tablet PO SCH ×2 (07:29→20:11)
[2021-08-28 07:48] VITALS: BP 138/86
[2021-08-28] MEDS ORDERED: CARIPRAZINE 1.5 MG CAPSULE PO SCH (08:00)
[2021-08-28] MEDS: magnesium hydroxide 30ml (MOM) UD suspension PO PRN (09:00)
[2021-08-28] MEDS: ipratropium 0.5 MG/2.5ML nebule NEB SCH ×2 (09:00→20:49)
[2021-08-28] MEDS: hydrOXYzine 25 MG tablet PO PRN (09:29)
--- NOTE | 2021-08-28 11:47 | NUR ---
PHONE CALL W/ Nereida's , Craig (ph# [phone]) called. He reported Nereida was hospitalized about a month ago in [place]. He reported she followed up with [facility], however, was declined services due to insurance (Medicare only). He reported in the past she did well on Abilify. ASIM Mendez
[2021-08-28] MEDS ORDERED: proCHLORperazine 5mg tablet PO ONE (12:00)
--- NOTE | 2021-08-28 14:43 | NUR ---
5250 HEARING UPHELD FOR GD
--- NOTE | 2021-08-28 16:33 | NUR ---
Nursing Progress Note: WENDY Legal hold: 5250 Expires 09/10/21. UPHELD IN HEARING TODAY. Client on involuntary status for GD Report received from NITA Nava with use of SBAR REASON FOR ADMIT: Patient was brought to [facility] by her who was concerned that patient was hallucinating that the devil was going to get her. Patient is disoriented, disorganized, and unable to articulate a viable plan for food, clothing, and/or senior care. Her reports that she has been increasingly agitated and has not been sleeping or eating." Assessment What has happened this shift: Received patient awake in her room. Noted upon greeting pt was blowing into her water pitcher as if it was a horn. I am trying to keep those snakes in control. Pt then said something about the doctors lounge. Pt was compliant with medication and 1:1 assessment. AM blood sugar was 129. Pt is disorganized and has flight of ideas. Last recorded BM was 08/24. Pt states I think Im constipated. Auscultate bowel sounds x4, no pain with palpation. Administered MOM and prune juice. Around 0915 pt was in her bathroom talking loud I just want out of here! I am getting my get out free card, in [facility] name! Pt was nonsensically praying to . Pt stated You just dont give a damn, I want my own stuff! Its difficult to follow pt at times because she doesnt make sense. I need to talk to Janice! I can get a witch twitch and I can get coke for my nose. Pt initially refused PRN Atarax 75mg, stating it doesnt work. I am tired of being your testing ape! Noted emesis of prune juice in waste receptacle. Pt reports nausea its the snakes, every time I close my eyes I get nauseous. Noted later pt was spitting in her waste receptacle referring to snakes, reporting when I lie down they come up into my throat and choke me. Received order for Compazine 5mg, as pt stated I take Zofran all the time it doesnt work on me anymore. Layer Out attempted to reorient pt to reality explaining the snakes were a delusion pt stated depends on your perspective. No BM as of this writing S/I, H/I: Pt denies. A/VH: Endorses A/VH fixated on seeing and feeling snakes. AH I have them. Sleep: 1.75 hours per sleep assessment. No naps today. Difficulty falling asleep because pt sees snakes Sat[place]. ADL's: Independent, with prompting. Pt showered today. Group attendance: Pt declined. Were meds taken: Yes, without issue. Any med S/E: None observed or reported. Mental Status Exam Appearance: Heavy set middle age women with disheveled blonde hair. Dressed in kahn t-shirt and green scrub bottoms. Eye contact: Good Behavior: Isolates to her room rambling to self. Pt presents labile, requires redirection and distraction to decrease agitation. Speech: Rapid, loud, disorganized. Mood: Labile/delusional Affect: Congruent with mood Thought process: Delusional, flight of ideas Thought Content: Pt fixated on snakes and not being able to sleep. Cognition: Alert Insight: Poor Judgment: Poor Interventions PRN's used: Atarax 50mg x1, Compazine 5mg, MOM Therapeutic interventions: Maintained safe, therapeutic environment, encouraged participation with ADLs, therapeutic conversation, reality orientation, distraction, redirection, limit setting, Q15 min safety checks. Restraints/seclusion/emergency medication: N/A Justification of Continued Inpatient Treatment: Patient presents with psychotic, delusional symptoms. Pt unable to formulate a plan for food, senior care or clothing r/t disorganized, delusional thought process. Pt continues to require medication initiation and adjustment until stable.
[2021-08-28] MEDS: olanzapine 10mg tablet PO PRN (19:29)
[2021-08-28] MEDS: traZODone 50mg tablet PO SCH (20:12)
[2021-08-28 20:15] VITALS: BP 121/79
--- NOTE | 2021-08-29 01:10 | NUR ---
Nursing Progress Note: Legal hold: 5250 Client on involuntary status for GD Report received from Atilio MOYA with use of SBAR REASON FOR ADMIT: Patient was brought to [facility] by her who was concerned that patient was hallucinating that the devil was going to get her. Patient is disoriented, disorganized, and unable to articulate a viable plan for food, clothing, and/or assisted. Her reports that she has been increasingly agitated and has not been sleeping or eating." Assessment What has happened this shift: Pt awake lying in bed at the start of the shift, she was talking to herself. When I inquired who she was talking to she stated "My !" When I asked what they were talking about she stated "We are talking about the nightmares we had last night." Pt stated she has not been sleeping well and requested Haldol to help with her voices and something to help her sleep and was able to report Restoril had been helpful in the past. She was hyperverbal during our interaction, labile, speech was pressured and garbled and she became more irritable the more we interacted. Pt has PRN Zyprexa for agitation which I offered her to help with her voices and her irritability. Pt was resistive to take it believing that if she did it would somehow make her look like me. I gave her reality feedback and she eventually took the Zyprexa. She took her HS meds and remained in bed and sleeping once HS meds were given. Pt still has not reported a BM, bowel sounds hypoactive, no pain, abdomen soft. Will continue to monitor. S/I, H/I: unable to assess A/VH: pt reports talking to her , no one is present and she is not on the phone, she is noted to be RIS Sleep: Poor sleep recently, but pt sleeping well tonight ADL's: Independent, needs prompts Group attendance: N/A Were meds taken: Yes, resistive, odd thinking about meds changing the way she looks Any med S/E: None observed Mental Status Exam Appearance: Heavy set middle age women with disheveled blonde hair. Dressed in kahn t-shirt and green scrub bottoms. Eye contact: Fair Behavior: labile, delusional Speech: rapid, garbled Mood: remains labile Affect: irritated Thought process: flight of ideas Thought Content: delusions Cognition:impaired, unable to assess completely due to level of psychosis/homar Insight: Poor Judgment: Poor Interventions PRN's used: Zyprexa 10 mg po Therapeutic interventions: Maintained safe, therapeutic environment, encouraged participation with ADLs, therapeutic conversation, reality orientation, distraction, redirection, limit setting, Q15 min safety checks. Restraints/seclusion/emergency medication: N/A Justification of Continued Inpatient Treatment: Patient continues to be psychotic and labile. Pt unable to formulate a plan for food, assisted or clothing r/t disorganized, delusional thought process. Pt continues to require stabilization.
[2021-08-29] MEDS: clindamycin 150mg capsule PO SCH ×4 (01:56→20:16)
[2021-08-29] MEDS: haloperidol 5mg tablet PO SCH (07:23)
[2021-08-29] MEDS: aspirin 81mg, enteric-coated 1 TAB TABLET.DR PO SCH (07:23)
[2021-08-29] MEDS: potassium Cl 20 mEq SR tablet PO SCH ×2 (07:23→20:16)
[2021-08-29] MEDS: lactobacillus rhamnosus 10,000 MMU CELLS/CAPSULE PO SCH ×2 (07:23→20:16)
[2021-08-29] MEDS: furosemide 40mg tablet PO SCH ×2 (07:23→20:16)
[2021-08-29] MEDS: metFORMIN 500mg tablet PO SCH ×2 (07:23→20:16)
[2021-08-29] MEDS: topiramate 25mg tablet PO SCH (07:24)
[2021-08-29] MEDS: benztropine 1mg tablet PO SCH ×2 (07:24→20:16)
[2021-08-29] MEDS: nicotine 21mg patch - 24 hr TD SCH (07:25)
--- NOTE | 2021-08-29 07:35 | NUR ---
Initial: pt admitted for psychosis and hallucinations per EMR. Pt currently on CCHO/SB6 diet w/ moderate PO intake, avg 73% x 12 meals which meets approximately 79% of est energy needs and 100% of est protein needs. Recommend liberalizing to Regular diet given A1C 6.7 and BG mostly WNL this admit. Noted pt sometimes get nauseas r/t snakes and has refused prune juice previously. LBM 08/24 receiving PRN bowel care. Will continue to monitor. Recs: 1. Liberalize to Regular diet given glucose well controlled 2. Bowel care PRN 3. Weekly wts Addendum: 08/29/21 at [address] Amended: Links added.
[2021-08-29 08:24] VITALS: BP 138/83
[2021-08-29] MEDS: ipratropium 0.5 MG/2.5ML nebule NEB SCH ×2 (08:30→21:00)
--- NOTE | 2021-08-29 14:19 | NUR ---
Nursing Progress Note: WENDY Legal hold: 5250 Expires 09/10/21. Client on involuntary status for GD Report received from NITA Cardenas with use of SBAR REASON FOR ADMIT: Patient was brought to [facility] by her who was concerned that patient was hallucinating that the devil was going to get her. Patient is disoriented, disorganized, and unable to articulate a viable plan for food, clothing, and/or mcfp. Her reports that she has been increasingly agitated and has not been sleeping or eating." Assessment What has happened this shift: Received patient sleeping in her room at shift change. Pt woke shortly after and sat in her chair. Pt slept 8.5 hours last night. Upon greeting pt appears less labile and pts speech is not as rapid as yesterday. Pt continues to present with disorganized, delusional thought pattern, talking about [place]. And asking senior writer Are you who you are supposed to be? Pt sleeps in her chair, even though senior writer encouraged her to lay down thats when the snakes get into my nose. Pt states she had a BM yesterday dont you remember I told you it filled up the whole toilet. S/I, H/I: Pt denies. A/VH: Endorses AH. Sleep: 8.5 hours per sleep assessment. Intermittent short naps, sitting in chair. ADL's: Independent, with prompting. Pt showered today. Group attendance: Pt declined. Were meds taken: Yes, without issue. Any med S/E: None observed or reported. Mental Status Exam Appearance: Heavy set middle age women with disheveled blonde hair. Dressed in kahn t-shirt and green scrub bottoms. Eye contact: Good Behavior: Isolates to her room rambling to self. Pt presents less labile, a little more sleepy today, pleasant. Speech: Decrease in rhythm and volume, still disorganized. Mood: Disorganized Affect: Congruent with mood Thought process: Delusional, disorganized Thought Content: Snakes in her nose. Cognition: A&Ox3 Insight: Poor Judgment: Poor Interventions PRN's used: Colace Therapeutic interventions: Maintained safe, therapeutic environment, medication administration/education/monitoring, encouraged participation with ADLs, therapeutic conversation, reality orientation, distraction, redirection, limit setting, Q15 min safety checks. Restraints/seclusion/emergency medication: N/A Justification of Continued Inpatient Treatment: Patient presents with psychotic, delusional symptoms. Pt unable to formulate a plan for food, mcfp or clothing r/t disorganized, delusional thought process. Pt continues to require medication initiation and adjustment until stable.
[2021-08-29 20:00] VITALS: BP 110/75
[2021-08-29] MEDS: traZODone 50mg tablet PO SCH (20:16)
[2021-08-29] MEDS: olanzapine 10mg tablet PO PRN (20:32)
[2021-08-30] MEDS: clindamycin 150mg capsule PO SCH ×4 (02:01→19:58)
--- NOTE | 2021-08-30 04:54 | NUR ---
Nursing Progress Note: Legal hold: 5250 Expires 09/10/21. Client on involuntary status for GD Report received from Atilio MOYA with use of SBAR REASON FOR ADMIT: Patient was brought to [facility] by her who was concerned that patient was hallucinating that the devil was going to get her. Patient is disoriented, disorganized, and unable to articulate a viable plan for food, clothing, and/or intermediate. Her reports that she has been increasingly agitated and has not been sleeping or eating." Assessment What has happened this shift: Pt lying in bed at the start of the shift, she continues to be very delusional, she was more irritable tonight, when I tried to ask her about having a bowel movement she was unable to tell me if she had gone or not, she did deny any pain. Pt continues to make references to , the devil and witchcraft. While doing rounds it was observed that patient had vomited on the floor, she was complaining of feeling like there was fire in her throat (unclear if perhaps she is having reflux issues), but then stated people are putting flaming sticks down her throat. Will report to daysndft to continue to monitor for G/I issues. S/I, H/I: Pt denies. A/VH: +A/H, seen RIS Sleep: pt slept well through the night ADL's: Independent, with prompting Group attendance: N/A Were meds taken: Yes, without issue. Any med S/E: None observed or reported. Mental Status Exam Appearance: fair hygiene and grooming, wearing hospital scrubs Eye contact: Fair Behavior: isolates in room, RIS, labile mood Speech: Decrease in rhythm and volume, still disorganized. Mood: Angry, irritable at times Affect: Congruent with mood Thought process: Delusional, disorganized Thought Content: focused on , the devil and witchcraft Cognition: A&Ox3 Insight: Poor Judgment: Poor Interventions PRN's used: Colace Therapeutic interventions: Maintained safe, therapeutic environment, medication administration/education/monitoring, encouraged participation with ADLs, therapeutic conversation, reality orientation, distraction, redirection, limit setting, Q15 min safety checks. Restraints/seclusion/emergency medication: N/A Justification of Continued Inpatient Treatment: Patient presents with psychotic, delusional symptoms. Pt unable to formulate a plan for food, intermediate or clothing r/t disorganized, delusional thought process. Pt continues to require medication initiation and adjustment until stable.
[2021-08-30 07:30] VITALS: BP 120/83
[2021-08-30] MEDS: metFORMIN 500mg tablet PO SCH ×2 (07:43→19:58)
[2021-08-30] MEDS: aspirin 81mg, enteric-coated 1 TAB TABLET.DR PO SCH (07:43)
[2021-08-30] MEDS: benztropine 1mg tablet PO SCH ×2 (07:43→19:56)
[2021-08-30] MEDS: lactobacillus rhamnosus 10,000 MMU CELLS/CAPSULE PO SCH ×2 (07:43→19:58)
[2021-08-30] MEDS: topiramate 25mg tablet PO SCH (07:44)
[2021-08-30] MEDS: potassium Cl 20 mEq SR tablet PO SCH ×2 (07:44→19:58)
[2021-08-30] MEDS: haloperidol 5mg tablet PO SCH (07:44)
[2021-08-30] MEDS: furosemide 40mg tablet PO SCH ×2 (07:44→19:56)
[2021-08-30] MEDS: nicotine 21mg patch - 24 hr TD SCH (08:00)
[2021-08-30] MEDS: ipratropium 0.5 MG/2.5ML nebule NEB SCH ×2 (08:25→20:44)
--- NOTE | 2021-08-30 08:25 | NUR ---
morning svn refused-hr 72 rr 20 bs clear
[2021-08-30] MEDS: olanzapine 10mg tablet PO PRN (12:11)
--- NOTE | 2021-08-30 17:00 | NUR ---
Nursing Progress Note Legal hold: 5250 Expires 09/10/21. Client on involuntary status for GD Report received from ANAY Cardenas with use of SBAR REASON FOR ADMIT: Patient was brought to [facility] by her who was concerned that patient was hallucinating that the devil was going to get her. Patient is disoriented, disorganized, and unable to articulate a viable plan for food, clothing, and/or fdc. Her reports that she has been increasingly agitated and has not been sleeping or eating." Assessment What has happened this shift: Received patient awake sitting in her chair. Medications administered and 1:1 done at bedside. Patient wearing green scrubs and barefoot, hair is disheveled. Pt. responding to internal stimuli and thought process is disorganized. She speaks of delivering my baby, and how she has been shocked by witches. Pt. was pleasant and cooperative with commercial real estate underwriter. Pt. states she had a BM yesterday 08/29. AM accu check 109. Pt. approached nurses station early afternoon and was upset, yelling at the nurses, slamming her walker into the doorframe and requesting to see her aunt Vichy, claiming she was going to eat us if we did not find her. Pt. speech was rapid, forced and disorganized, speaking of witchcraft. Pt. returned to her room where commercial real estate underwriter administered her PRN Zyprexa, pt. had already calmed down. Pt. continues to sit in the chair in her room and speak to herself speaking about her aunt and . Client denied any episodes of vomiting until late in the afternoon she coughed up some phlegm and stated it was vomit. S/I, H/I: Pt denies. A/VH: Pt. denies. Seen responding to internal stimuli, talking to self in her bedroom. Sleep 6.5 hours per NOC sleep assessment. ADL's: Independent. Group attendance: Declined Were meds taken: Yes, without issue. Any med S/E: None observed or reported. Mental Status Exam Appearance: Heavy set middle aged women with disheveled blonde hair. Dressed in scrubs and barefoot. Eye contact: Good Behavior: Isolates to her room rambling to self, cooperative. Speech: Rambling, disorganized, hyperverbal. Mood: Disorganized, agitated, labile. Affect: Congruent with mood Thought process: Delusional, disorganized, tangential. Thought Content: delivering babies Cognition: A&Ox3 Insight: Poor Judgment: Poor Interventions PRN's used: Zyprexa 10mg Therapeutic interventions: Maintained safe, therapeutic environment, medication administration/education/monitoring, encouraged participation with ADLs, therapeutic conversation, reality orientation, distraction, redirection, limit setting, Q15 min safety checks. Restraints/seclusion/emergency medication: N/A Justification of Continued Inpatient Treatment: Patient presents with psychotic, delusional symptoms. Pt unable to formulate a plan for food, fdc or clothing r/t disorganized, delusional thought process. Pt continues to require medication initiation and adjustment until stable.
[2021-08-30 19:33] VITALS: BP 118/91
[2021-08-30] MEDS: acetaminophen 325mg tablet PO PRN (19:57)
[2021-08-30] MEDS: ibuprofen tablet 400 MG TABLET PO PRN (19:58)
[2021-08-30] MEDS: hydrOXYzine 25 MG tablet PO PRN (19:58)
[2021-08-30] MEDS: traZODone 50mg tablet PO SCH (20:01)
[2021-08-31] MEDS: clindamycin 150mg capsule PO SCH ×4 (00:46→20:08)
--- NOTE | 2021-08-31 01:08 | NUR ---
Nursing Progress Note Legal hold: 5250 for grave disability Report received from Corby RN, disbursing agent REASON FOR ADMIT: Patient was brought to [facility] by her who was concerned that patient was hallucinating that the devil was going to get her. Patient is disoriented, disorganized, and unable to articulate a viable plan for food, clothing, and/or senior living. Her reports that she has been increasingly agitated and has not been sleeping or eating." Assessment What has happened this shift: The patient was isolative to her room except when she got up and went across the raines for the evening snack. She was pleasant on approach but her replies were very bizarre. She stated, "I told God to put me in the fire place" She then volunteered, "I'm supposed t have alcohol and all sorts of drugs but hasn't taken the time...I have no Dilaudid or cocaine" She rambled on to talk about her father, "He was a slave. He was on a slave ship. He's being underpaid...He is in hell stirring a pot of cold. My mother is there too sucking satan's ugo" She appears disheveled. She is not able to answer questions in any rational way. S/I, H/I: None verbalized. A/VH: Very thought disordered but it was unclear if she is having A/V hallucinations Sleep: Sleep disturbed by night mare ADL's: poor and she requires assistance and prompts Group attendance: no groups this shift Were meds taken: yes Any med S/E she was unable to state. Mental Status Exam Appearance: obese older woman wearing tight green scrubs and has long unwashed hair Eye contact: Intermittent Behavior: disorganized Speech: rambling, fast, pressured Mood: labile Affect: labile Thought process: disorganized Thought Content: jehovah's witness themes Cognition: oriented to self Insight: poor Judgment: poor Justification of Continued Inpatient Treatment: The patient continues to have significant thought disorder and is unable to formulate a plan for self. She makes delusional statements. Medication adjustments continue and she will start Abilify in the morning.
[2021-08-31 08:00] VITALS: BP 100/67
[2021-08-31] MEDS: ARIPIPRAZOLE 10 MG TABLET PO SCH (08:45)
[2021-08-31] MEDS: potassium Cl 20 mEq SR tablet PO SCH ×2 (08:46→20:09)
[2021-08-31] MEDS: topiramate 25mg tablet PO SCH (08:46)
[2021-08-31] MEDS: furosemide 40mg tablet PO SCH ×2 (08:46→20:09)
[2021-08-31] MEDS: benztropine 1mg tablet PO SCH ×2 (08:46→20:09)
[2021-08-31] MEDS: metFORMIN 500mg tablet PO SCH ×2 (08:46→20:09)
[2021-08-31] MEDS: aspirin 81mg, enteric-coated 1 TAB TABLET.DR PO SCH (08:46)
[2021-08-31] MEDS: lactobacillus rhamnosus 10,000 MMU CELLS/CAPSULE PO SCH ×2 (08:46→20:09)
[2021-08-31] MEDS: nicotine 21mg patch - 24 hr TD SCH (08:47)
[2021-08-31] MEDS: ipratropium 0.5 MG/2.5ML nebule NEB SCH ×2 (09:00→21:00)
[2021-08-31] MEDS: hydrOXYzine 25 MG tablet PO PRN ×2 (09:29→21:09)
[2021-08-31] MEDS: olanzapine 10mg tablet PO PRN (14:12)
--- NOTE | 2021-08-31 18:02 | NUR ---
Nursing Progress Note Legal hold: 5250 for grave disability Report received from Theresa RN, berry grower REASON FOR ADMIT: Patient was brought to [facility] by her who was concerned that patient was hallucinating that the devil was going to get her. Patient is disoriented, disorganized, and unable to articulate a viable plan for food, clothing, and/or usp. Her reports that she has been increasingly agitated and has not been sleeping or eating." Assessment What has happened this shift: Received pt. sleeping in bed at the beginning of the shift, she required direction from staff in order to attend breakfast in the Group Room. Afterwards, Pt. returned back to bed where she continued to isolate throughout much of the shift. This food writer greeted pt. and attempted to complete 1:1 at bedside; pt. presents as cooperative, fatigued, anxious, agitated, impulsive, and withdrawn. She questions this food writer in a paranoid delusional manner, "Are you here to eat me?!" Pt's speech is hyperverbal and pressured, and she goes on talk in a hyper-tenriism manner about a dream she had about and his mother. Pt's thought process is tangental and disorganized, and she has difficulty answering questions. Pt. denies any S/I or H/I, however appears to be internally preoccupied AEB talking aloud to herself at intervals. She appears to focus on the topics of witchcraft, synagogue, and sexuality. Later, pt. exhibited increased anxiety and was observed to be hitting herself in the head with her hands, PRN Atrax was administered with effectiveness. Pt. isolated in her bed throughout the day, getting up only to attend meals with encouragement. In the afternoon she was observed to be laying in bed without any pants on, yelling loudly, "You walk out of this room and you'll be taken by the Devil!" This food writer was able to redirect pt. and assist her in putting pants on, and PRN Zyprexa was administered with effectiveness. S/I, H/I: Denies A/VH: Pt. appears to be internally preoccupied AEB talking aloud to herself Sleep: Sleep hours are 6.5, and pt. naps intermittently ADL's: Pt. requires assistance and prompts. She uses a FWW Group attendance: No Were meds taken: yes Any med S/E: None Mental Status Exam Appearance: Hair and clothing are disheveled Eye contact: Good, intense at times Behavior: Cooperative, fatigued, anxious, agitated, impulsive, and withdrawn Speech: Hyperverbal and pressured Mood: labile Affect: labile Thought process: Disorganized and tangental Thought Content: Delusions with tenriism preoccupation Cognition: oriented to self Insight: poor Judgment: poor Justification of Continued Inpatient Treatment: Pt. continues to require a safe and supportive environment with medication adjustments.
[2021-08-31 19:09] VITALS: BP 133/95
[2021-08-31] MEDS: traZODone 50mg tablet PO SCH (20:08)
[2021-08-31] MEDS: ibuprofen tablet 400 MG TABLET PO PRN (20:17)
--- NOTE | 2021-08-31 22:11 | NUR ---
NICOTINE PATCH REMOVED Addendum: 08/31/21 at 2212 by Bouchra Engel RN Amended: Links added.
--- NOTE | 2021-08-31 23:18 | NUR ---
Nursing Progress Note Legal hold: 5250 for grave disability Report received from Sylvia CUEVA (Charge Nurse) REASON FOR ADMIT: Patient was brought to [facility] by her who was concerned that patient was hallucinating that the devil was going to get her. Patient is disoriented, disorganized, and unable to articulate a viable plan for food, clothing, and/or mcc. Her reports that she has been increasingly agitated and has not been sleeping or eating." Assessment What has happened this shift: Received pt report from Sylvia CUEVA. Patient in the room and when greeted, patient answered and wanted the mask pulled down so she can see my face. She kept rambling and most of the things she said did not make sense. Patient was walking around the room with her walker and when it was time for an assessment and med pass, she was receptive. She took all her night meds and was complaining of sinus pain. Administered Motrin as ordered. Patient mentioned that she has been vomiting blood throughout the day. That did not happen according to report and no staff member has not seen any vomit on the floor. Pt. denies any S/I or H/I, however appears to be internally preoccupied AEB talking aloud to herself at intervals. Antianxiety medication administered and patient resting. Per her request, she wants the room dark so she can sleep. S/I, H/I: None A/VH: Pt. appears to be internally preoccupied AEB talking aloud to herself Sleep: ADL's: Pt. requires assistance and prompts. She uses a FWW Group attendance: None Were meds taken: Yes Any med S/E: None Mental Status Exam Appearance: Hair and clothing are disheveled Eye contact: Good, intense at times Behavior: Cooperative, fatigued, anxious, agitated, impulsive, and withdrawn Speech: Talkative and pressured Mood: labile Affect: labile Thought process: Disorganized Thought Content: Delusional Cognition: oriented to self Insight: poor Judgment: poor Justification of Continued Inpatient Treatment: Pt. continues to require a safe and supportive environment with medication adjustments
[2021-09-01] MEDS: clindamycin 150mg capsule PO SCH ×4 (02:14→19:42)
[2021-09-01 08:00] VITALS: BP 113/74
[2021-09-01] MEDS: nicotine 21mg patch - 24 hr TD SCH ×2 (08:00→08:15)
[2021-09-01] MEDS: metFORMIN 500mg tablet PO SCH ×2 (08:14→19:42)
[2021-09-01] MEDS: ARIPIPRAZOLE 10 MG TABLET PO SCH (08:14)
[2021-09-01] MEDS: potassium Cl 20 mEq SR tablet PO SCH ×2 (08:14→19:42)
[2021-09-01] MEDS: benztropine 1mg tablet PO SCH ×2 (08:14→19:44)
[2021-09-01] MEDS: furosemide 40mg tablet PO SCH ×2 (08:14→19:42)
[2021-09-01] MEDS: topiramate 25mg tablet PO SCH (08:14)
[2021-09-01] MEDS: lactobacillus rhamnosus 10,000 MMU CELLS/CAPSULE PO SCH ×2 (08:15→19:41)
[2021-09-01] MEDS: aspirin 81mg, enteric-coated 1 TAB TABLET.DR PO SCH (08:15)
[2021-09-01] MEDS: ipratropium 0.5 MG/2.5ML nebule NEB SCH ×2 (09:00→21:58)
--- NOTE | 2021-09-01 10:51 | NUR ---
morning svn triaged-therapist not available
[2021-09-01] MEDS ORDERED: calcium carbonate 500mg chew tablet PO PRN (15:20)
[2021-09-01] MEDS: ondansetron 4mg rapidly disintigrating tab PO PRN (15:44)
[2021-09-01] MEDS: olanzapine 10mg tablet PO PRN (17:31)
[2021-09-01] MEDS: hydrOXYzine 25 MG tablet PO PRN (17:31)
--- NOTE | 2021-09-01 17:39 | NUR ---
Nursing Progress Note Legal hold: 5250 for grave disability Report received from Sylvia RN, board liner operator REASON FOR ADMIT: Patient was brought to [facility] by her who was concerned that patient was hallucinating that the devil was going to get her. Patient is disoriented, disorganized, and unable to articulate a viable plan for food, clothing, and/or intermediate. Her reports that she has been increasingly agitated and has not been sleeping or eating." Assessment What has happened this shift: Received pt. awake at the beginning of the shift sitting in a chair in her room. It was noted that she had taken both bed mattresses and stacked them on top of each other. Pt. had also ripped a hole in one of her pillows and pulled the stuffing out, she stated nonsensically, "That's a keyhole!" This check writer provided education to pt. regarding destruction of property (will not have a pillow if she continues this behavior), and she reported some understanding. However, pt. became increasingly anxious and labile and stated, "Amarilis (incorrect name she gives to this check writer) why are you punishing me?!" PRN Atarax was administered with effectiveness. 1:1 completed at bedside, pt. continues to deny any S/I or H/I, however she remains delusional and religiously preoccupied. Pt. states, "I'm a monkey that stuffed before he went on a fishing trip." She also continues to make periodic paranoid delusional statements that others want to "Eat her." Prior to lunch, pt. c/o N/V and had an emesis x1 of what appeared to be stomach acid. PRN Maalox was administered with some effectiveness. This check writer helped pt. to shower and change her clothing r/t ongoing weakness and use of FWW. This was endorsed to SIRIA Garcia who ordered PRN Zofran, Tums, and Prevacid to begin tomorrow with breakfast. Pt. isolated in her bed throughout the day, getting up only to attend meals with encouragement. Prior to dinner she exhibited increased anxiety and agitation AEB yelling loudly in her room about " being taken by the devil and having to suck the devil's ugo!" This check writer was unable to verbally redirect pt. and PRN Atarax and Zyprexa were administered with effectiveness. Will continue to monitor. S/I, H/I: Denies A/VH: Pt. appears to be internally preoccupied AEB talking aloud to herself Sleep: Pt. napped intermittently during the day ADL's: Pt. requires assistance and prompts. She uses a FWW Group attendance: N/A Were meds taken: yes Any med S/E: None Mental Status Exam Appearance: Hair and clothing are disheveled. However pt. did shower today with assistance Eye contact: Good, intense at times Behavior: Cooperative, fatigued, anxious, agitated, impulsive, and withdrawn Speech: Hyperverbal and pressured. Yells out when agitated Mood: labile Affect: labile Thought process: Disorganized and tangental Thought Content: Delusions with synagogue preoccupation and possible A/V/PARRISH Cognition: A&O X1 Insight: poor Judgment: poor Justification of Continued Inpatient Treatment: Pt. continues to require a safe and supportive environment with medication adjustments.
[2021-09-01] MEDS: traZODone 50mg tablet PO SCH (19:42)
--- NOTE | 2021-09-01 21:34 | NUR ---
pt refused vital signs. will continue to monitor Addendum: 09/01/21 at 2135 by Sofia May RN Amended: Links added.
--- NOTE | 2021-09-02 02:04 | NUR ---
Nursing Progress Note Legal hold: 5250 for grave disability Report received from Corby RN, blocker polishing REASON FOR ADMIT: Patient was brought to [facility] by her who was concerned that patient was hallucinating that the devil was going to get her. Patient is disoriented, disorganized, and unable to articulate a viable plan for food, clothing, and/or prison. Her reports that she has been increasingly agitated and has not been sleeping or eating." Assessment What has happened this shift: Pt in her bed, repositioning herself in bed. Pt stayed isolated in her room. Gave patient medications. Pt told me a story about going to a wedding with her friend Nahomy and that she made her mad. She said Nahomy was glad to leave the wedding early. She then stated that the wedding was in [place] and turned water into wine. She then continued to jump around with ideas at one point stating she is the Mother God. Pt later received a breathing treatment and would sleep on and off through the night. S/I, H/I: Denies A/VH: Pt. appears to be internally preoccupied Sleep: will tally at the end of shift ADL's: Pt. requires assistance and prompts. She uses a FWW Group attendance: N/A Were meds taken: yes Any med S/E: None Mental Status Exam Appearance: Hair and clothing are disheveled. However pt. did shower today with assistance Eye contact: Good, intense at times Behavior: Cooperative, fatigued, anxious, agitated, impulsive, and withdrawn Speech: Hyperverbal and pressured. Yells out when agitated Mood: labile Affect: labile Thought process: Disorganized and tangental Thought Content: Delusions with pentecostalism preoccupation and possible A/V/PARRISH Cognition: A&O X1 Insight: poor Judgment: poor Justification of Continued Inpatient Treatment: Pt. continues to require a safe and supportive environment with medication adjustments.
[2021-09-02] MEDS: clindamycin 150mg capsule PO SCH ×4 (02:07→19:55)
[2021-09-02 07:09] VITALS: BP 143/85
[2021-09-02] MEDS: ibuprofen tablet 400 MG TABLET PO PRN (07:23)
[2021-09-02] MEDS: lansoprazole 15mg solutab PO SCH (07:23)
[2021-09-02] MEDS: nicotine 21mg patch - 24 hr TD SCH (08:00)
[2021-09-02] MEDS: metFORMIN 500mg tablet PO SCH ×2 (08:42→19:55)
[2021-09-02] MEDS: docusate sod 100mg capsule PO PRN ×2 (08:42→19:55)
[2021-09-02] MEDS: benztropine 1mg tablet PO SCH ×2 (08:42→19:55)
[2021-09-02] MEDS: potassium Cl 20 mEq SR tablet PO SCH ×2 (08:42→19:55)
[2021-09-02] MEDS: lactobacillus rhamnosus 10,000 MMU CELLS/CAPSULE PO SCH ×2 (08:42→19:55)
[2021-09-02] MEDS: furosemide 40mg tablet PO SCH ×2 (08:43→19:56)
[2021-09-02] MEDS: aspirin 81mg, enteric-coated 1 TAB TABLET.DR PO SCH (08:43)
[2021-09-02] MEDS: ARIPIPRAZOLE 10 MG TABLET PO SCH (08:43)
[2021-09-02] MEDS: topiramate 25mg tablet PO SCH (08:43)
[2021-09-02] MEDS: ipratropium 0.5 MG/2.5ML nebule NEB SCH ×2 (09:00→20:57)
[2021-09-02] MEDS: hydrOXYzine 25 MG tablet PO PRN (15:49)
--- NOTE | 2021-09-02 16:16 | NUR ---
Nursing Progress Note Legal hold: 5250 for grave disability Report received from Sylvia RN, surveying crew stake runner REASON FOR ADMIT: Patient was brought to [facility] by her who was concerned that patient was hallucinating that the devil was going to get her. Patient is disoriented, disorganized, and unable to articulate a viable plan for food, clothing, and/or fdc. Her reports that she has been increasingly agitated and has not been sleeping or eating." Assessment What has happened this shift: Received pt. awake at the beginning of the shift, she was independently ambulating in her room with her FWW. Pt. greeted this commercial underwriter appropriately, however c/o a headache, PRN Motrin administered with effectiveness. 1:1 was completed at bedside, pt. continues to present with hyperverbal speech and a tangental and disorganized thought process, however she is A&O X3 (not to reason she is here). She continues to deny all MH s/s, however makes ongoing hyper pentecostalism and delusional statements. Pt. continues to call this commercial underwriter by the name of "Amarilis," and states, "Jesus Olmos is going to send you flying all over the world on a [employer] / [employer]." She continues on to talk in a hyperverbal manner about many different topics including the names of people she knows, and her thought process is very hard to follow. Pt. reports she has been using "Pot at home as her antidepressant." She appears to be responding to internal stimuli at times AEB observed talking aloud to herself. Pt. does not c/o any stomach upset this shift, and no n/v exhibited. Pt. again isolated in her bed throughout the day, getting up only to attend meals with encouragement. At approximately 1540, pt. began yelling loudly in her room and appeared increasingly anxious. This commercial underwriter provided active listening and positive encouragement, and pt. stated, "Help me out of here before my dad busts through the window! The devil is coming and he will Kill ! Do you know what the means?!" Pt. continued on in a tangental and hyper-pentecostalism manner. This commercial underwriter pulled pt's window shade down per her request, and PRN Atrax administered with effectiveness. Will continue to monitor. S/I, H/I: Denies A/VH: Pt. appears to be internally preoccupied AEB talking aloud to herself Sleep: Pt. napped intermittently during the day ADL's: Pt. requires assistance and prompts. She uses a FWW Group attendance: N/A Were meds taken: yes Any med S/E: None Mental Status Exam Appearance: Hair and clothing are disheveled. Eye contact: Good, intense at times Behavior: Cooperative, fatigued, anxious, agitated, impulsive, and withdrawn Speech: Hyperverbal and pressured. Yells out when agitated Mood: labile Affect: labile Thought process: Disorganized and tangental Thought Content: Delusions with pentecostalism preoccupation and possible A/V/PARRISH Cognition: A&O X3 (not to reason here) Insight: poor Judgment: poor Interventions PRN's used: Motrin and Atarax Therapeutic interventions: Maintained a safe and supportive environment, ensured contract for safety, provided clear and simple instructions, attempted to orient to reality, monitored behaviors and need for intervention/redirection, provided active listening and positive encouragement, encouraged independent performance of ADLs and provide assistance as needed, and maintained Q 15min safety checks. Restraints/seclusion/emergency medication: N/A Justification of Continued Inpatient Treatment: Per SIRIA Garcia continues to require a safe and supportive environment with medication adjustments.
[2021-09-02 19:15] VITALS: BP 111/74
[2021-09-02] MEDS: traZODone 50mg tablet PO SCH (19:55)
[2021-09-02] MEDS: ondansetron 4mg rapidly disintigrating tab PO PRN (20:00)
--- NOTE | 2021-09-02 20:35 | NUR ---
pt refused nitcotin patch in the am Addendum: 09/02/21 at 6 by Sofia May RN Amended: Links added.
[2021-09-03] MEDS: clindamycin 150mg capsule PO SCH ×4 (01:26→20:29)
--- NOTE | 2021-09-03 01:54 | NUR ---
Nursing Progress Note Legal hold: 5250 for grave disability Report received from Julian RN, front office spec REASON FOR ADMIT: Patient was brought to [facility] by her who was concerned that patient was hallucinating that the devil was going to get her. Patient is disoriented, disorganized, and unable to articulate a viable plan for food, clothing, and/or fdc. Her reports that she has been increasingly agitated and has not been sleeping or eating." Assessment What has happened this shift: Pt in bed at the beginning of shift. Pt took her medications and was expressing that she was upset. She stated those bitches in the corner are making fun of me. She was referring to the other patients standing in her doorway. She was also upset about mother god not being taken care of and I have to think for everyone. Pt was referring to not getting her ensure ordered. Pt reported that she threw up all over her blanket and pants. Also, pt was responding to internal stimuli. Pt would sleep but wake up yelling. She was screaming at the glass saying she wanted out of the tank and that her was on the other side of the window. S/I, H/I: Denies A/VH: Pt. appears to be internally preoccupied AEB talking aloud to herself Sleep: Pt. napped intermittently during the day ADL's: Pt. requires assistance and prompts. She uses a FWW Group attendance: N/A Were meds taken: yes Any med S/E: None Mental Status Exam Appearance: Hair and clothing are disheveled. Eye contact: Good, intense at times Behavior: Cooperative, fatigued, anxious, agitated, impulsive, and withdrawn Speech: Hyperverbal and pressured. Yells out when agitated Mood: labile Affect: labile Thought process: Disorganized and tangental Thought Content: Delusions with tenriism preoccupation and possible A/V/PARRISH Cognition: A&O X3 (not to reason here) Insight: poor Judgment: poor Interventions PRN's used: Jennifer Therapeutic interventions: Maintained a safe and supportive environment, ensured contract for safety, provided clear and simple instructions, attempted to orient to reality, monitored behaviors and need for intervention/redirection, provided active listening and positive encouragement, encouraged independent performance of ADLs and provide assistance as needed, and maintained Q 15min safety checks. Restraints/seclusion/emergency medication: N/A Justification of Continued Inpatient Treatment: Per SIRIA Garcia continues to require a safe and supportive environment with medication adjustments.
[2021-09-03] MEDS: olanzapine 10mg tablet PO PRN (02:17)
[2021-09-03] MEDS: hydrOXYzine 25 MG tablet PO PRN (02:19)
[2021-09-03] MEDS: lansoprazole 15mg solutab PO SCH (07:52)
[2021-09-03] MEDS: benztropine 1mg tablet PO SCH ×2 (07:52→20:30)
[2021-09-03] MEDS: ARIPIPRAZOLE 10 MG TABLET PO SCH (07:53)
[2021-09-03] MEDS: furosemide 40mg tablet PO SCH ×2 (07:53→20:00)
[2021-09-03] MEDS: topiramate 25mg tablet PO SCH (07:53)
[2021-09-03] MEDS: metFORMIN 500mg tablet PO SCH ×2 (07:53→20:30)
[2021-09-03] MEDS: nicotine 21mg patch - 24 hr TD SCH (07:54)
[2021-09-03] MEDS: aspirin 81mg, enteric-coated 1 TAB TABLET.DR PO SCH (07:54)
[2021-09-03] MEDS: lactobacillus rhamnosus 10,000 MMU CELLS/CAPSULE PO SCH ×2 (07:54→20:30)
[2021-09-03] MEDS: potassium Cl 20 mEq SR tablet PO SCH ×2 (07:54→20:31)
[2021-09-03 08:04] VITALS: BP 117/71
[2021-09-03] MEDS: ipratropium 0.5 MG/2.5ML nebule NEB SCH ×2 (09:00→19:19)
--- NOTE | 2021-09-03 09:54 | NUR ---
Pt began eating prior to accu check Addendum: 09/03/21 at 0954 by Chayito Cisneros RN Amended: Links added.
--- NOTE | 2021-09-03 14:11 | NUR ---
Reassessment: Pt continues on CCHO/SB6 diet w/ moderate PO intake, avg 61% x 12 meals which meets approximately 66% of est energy needs and 95% of est protein needs. D/w RN recommendation to liberalize to Regular diet given A1C 6.7 and BG mostly WNL this admit. LBM 08/29 w/ PRN bowel care available Will continue to monitor. Recs: 1. Liberalize to Regular diet given glucose well controlled 2. Bowel care PRN 3. Weekly wts Addendum: 09/03/21 at [address] Amended: Links added.
--- NOTE | 2021-09-03 15:41 | NUR ---
Nursing Progress Note Legal hold: 5250 for grave disability Report received from ANAY Cortes with the use of SBAR REASON FOR ADMIT: Patient was brought to [facility] by her who was concerned that patient was hallucinating that the devil was going to get her. Patient is disoriented, disorganized, and unable to articulate a viable plan for food, clothing, and/or fci. Her reports that she has been increasingly agitated and has not been sleeping or eating." Assessment What has happened this shift: Observed pt sleeping at the start of the shift. Pt c/o of being tired and was late for breakfast. She spent most of the day in her bed resting. She was up for meals. She would not engage in conversation for a 1:1 assessment other than reply she had not had a BM for "maybe 2-3 days." She was cooperative allowing this nurse to auscultate bowel sounds. Normoactive bowel sounds in all 4 quadrants. At the start of the afternoon snack pt ambulated to the snack area with FWW cut in line grabbed a bag of chips then rushed back to her room refusing to return the chips and to get in line like the others. When confronted by staff over the chips she yelled, "you're not ." S/I, H/I: Denies A/VH: Pt. appears to be internally preoccupied AEB talking aloud to herself Sleep: Pt. napped intermittently during the day ADL's: Pt. requires assistance and prompts. She uses a FWW Group attendance: N/A Were Meds taken: yes Any med S/E: None Mental Status Exam Appearance: Hair and clothing are disheveled. Eye contact: Fair; does not want to be bothered today Behavior: Cooperative, fatigued, impulsive, and withdrawn Speech: Yells out when agitated Mood: Labile Affect: Irritable Thought process: Disorganized and tangential Thought Content: Delusions with rastafari preoccupation Cognition: A&O X3 Insight: Poor Judgment: Poor Interventions PRN's used: N/A Therapeutic interventions: Prompted and encouraged cooperation with 1:1 assessment; medication administration/education/monitoring, encouraged independent performance of ADLs and provide assistance as needed, and maintained Q 15min safety checks. Restraints/seclusion/emergency medication: N/A Justification of Continued Inpatient Treatment: Per SIRIA Garcia continues to require a safe and supportive environment with medication adjustments.
--- NOTE | 2021-09-03 16:01 | NUR ---
PER TELESALES SUPERVISOR PT DIET MOVED TO REG DIET SEE NOTE PER BW, TELESALES SUPERVISOR
[2021-09-03 19:20] VITALS: BP 96/64
[2021-09-03] MEDS: acetaminophen 325mg tablet PO PRN (19:23)
[2021-09-03 20:25] VITALS: BP 112/75
[2021-09-03] MEDS: divalproex sod 250mg ER (24-hour) tablet PO SCH (20:31)
[2021-09-03] MEDS: traZODone 50mg tablet PO SCH (20:32)
[2021-09-03] MEDS: docusate sod 100mg capsule PO PRN (22:18)
[2021-09-03] MEDS: magnesium hydroxide 30ml (MOM) UD suspension PO PRN (22:22)
--- NOTE | 2021-09-04 01:31 | NUR ---
Nursing Progress Note Legal hold: 5250 for grave disability Report received from Julian CUEVA with the use of SBAR REASON FOR ADMIT: Patient was brought to [facility] by her who was concerned that patient was hallucinating that the devil was going to get her. Patient is disoriented, disorganized, and unable to articulate a viable plan for food, clothing, and/or mcfp. Her reports that she has been increasingly agitated and has not been sleeping or eating." Assessment What has happened this shift: Observed pt laying on her bed at the start of the shift. Patient c/o PARRISH on the left and right side and agreed to take Tylenol for the pain. Patient went in to the community room at snack time and took all of her medications apart from the lasix stating that it makes her pee all the time and she didn't want that at night. 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 Pt. also refused her breathing treatment tonight. Patient was sleeping peacefully until the fire alarm went off and then became upset when staff had to close the door. Patient was requesting something to help her sleep, but when nurse took the medication in she reused it. Patient calmed down after this and went back to sleep. S/I, H/I: Denies A/VH: Pt. appears to be internally preoccupied AEB talking aloud to herself,.Delusional talking about her coming in and . Sleep:On/off ADL's: Pt. requires assistance and prompts. She uses a FWW Group attendance: N/A Were Meds taken: Mostlry Any med S/E: None Mental Status Exam Appearance: Hair and clothing are disheveled. Eye contact: Fair; does not want to be bothered today Behavior: One episode of yelling when fire alarm went off. Speech: Yells out when agitated Mood: Labile Affect: Irritable Thought process: Disorganized and tangential Thought Content: Delusions with quaker preoccupation Cognition: A&O X3 Insight: Poor Judgment: Poor Interventions PRN's used: N/A Therapeutic interventions: Prompted and encouraged cooperation with 1:1 assessment; medication administration/education/monitoring, encouraged independent performance of ADLs and provide assistance as needed, and maintained Q 15min safety checks. Restraints/seclusion/emergency medication: N/A Justification of Continued Inpatient Treatment: Per SIRIA Garcia continues to require a safe and supportive environment with medication adjustments. Addendum: 09/04/21 at 0330 by Sadaf Mark RN Meant to say that patient refused the med, NOt reused it
[2021-09-04] MEDS: clindamycin 150mg capsule PO SCH ×4 (01:53→20:18)
[2021-09-04] MEDS: ondansetron 4mg rapidly disintigrating tab PO PRN (05:33)
[2021-09-04 07:24] VITALS: BP 146/88
[2021-09-04] MEDS: ARIPIPRAZOLE 10 MG TABLET PO SCH (07:54)
[2021-09-04] MEDS: furosemide 40mg tablet PO SCH ×2 (07:55→20:14)
[2021-09-04] MEDS: aspirin 81mg, enteric-coated 1 TAB TABLET.DR PO SCH (07:55)
[2021-09-04] MEDS: benztropine 1mg tablet PO SCH ×2 (07:55→20:15)
[2021-09-04] MEDS: nicotine 21mg patch - 24 hr TD SCH ×2 (08:00→08:02)
[2021-09-04] MEDS: ipratropium 0.5 MG/2.5ML nebule IH SCH ×2 (08:00→20:00)
[2021-09-04] MEDS: lactobacillus rhamnosus 10,000 MMU CELLS/CAPSULE PO SCH ×2 (08:01→20:17)
[2021-09-04] MEDS: metFORMIN 500mg tablet PO SCH ×2 (08:01→20:14)
[2021-09-04] MEDS: topiramate 25mg tablet PO SCH (08:01)
[2021-09-04] MEDS: lansoprazole 15mg solutab PO SCH (08:02)
[2021-09-04] MEDS: potassium Cl 20 mEq SR tablet PO SCH ×2 (08:02→20:14)
[2021-09-04] MEDS: ipratropium 0.5 MG/2.5ML nebule NEB SCH ×2 (09:00→20:27)
[2021-09-04] MEDS: hydrOXYzine 25 MG tablet PO PRN (10:47)
--- NOTE | 2021-09-04 14:45 | NUR ---
Nursing Progress Note Legal hold: 5250 for grave disability Report received from ANAY Nava with the use of SBAR REASON FOR ADMIT: Patient was brought to [facility] by her who was concerned that patient was hallucinating that the devil was going to get her. Patient is disoriented, disorganized, and unable to articulate a viable plan for food, clothing, and/or longterm. Her reports that she has been increasingly agitated and has not been sleeping or eating." Assessment What has happened this shift: Patient was awake at start of shift. Patient at breakfast was refusing to eat her breakfast, insisting that her parents brought her dumplings and rice and could we look for her food. Showed her the other trays and none of them had her name on them. Informed her that we looked in refrigerator and there were no dumplings, patient stated you will not be judged, you are released. Later in the morning patient was saying that my parents are outside trying to bring me [employer], I am supposed to go downstairs and smoke a cigarette. Explained unit rules to patient and she was satisfied. Patient was in the restroom yelling, patient came to nurse afterwards and she was given Atarax. S/I, H/I: Denies A/VH: Pt. appears to be internally preoccupied AEB talking aloud to herself Sleep: 1.75 hrs. NOC. No naps. ADL's: Pt. requires assistance and prompts. She uses a FWW Group attendance: N/A Were Meds taken: yes Any med S/E: None Mental Status Exam Appearance: Disheveled middle aged woman in green scrubs utilizing walker. Eye contact: Good. Behavior: Cooperative. Angry conversations with herself in her room and bathroom. Speech: Yells out when agitated Mood: Labile Affect: Irritable Thought process: Disorganized and tangential Thought Content: Her parents bringing her food. Not getting enough attention on unit. Wants to discharge. Cognition: A&O X3 Insight: Poor Judgment: Poor Interventions PRN's used: Atarax. Therapeutic interventions: Prompted and encouraged cooperation with 1:1 assessment; medication administration/education/monitoring, encouraged independent performance of ADLs and provide assistance as needed, and maintained Q 15min safety checks. Restraints/seclusion/emergency medication: N/A Justification of Continued Inpatient Treatment: Per SIRIA Garcia continues to require a safe and supportive environment with medication adjustments.
[2021-09-04 20:04] VITALS: BP 101/70
[2021-09-04] MEDS: divalproex sod 250mg ER (24-hour) tablet PO SCH (20:15)
[2021-09-04] MEDS: traZODone 50mg tablet PO SCH (20:17)
--- NOTE | 2021-09-05 01:26 | NUR ---
Nursing Progress Note: Legal hold: 5250 for grave disability Report received from ANAY Jordan with the use of SBAR REASON FOR ADMIT: Patient was brought to [facility] by her who was concerned that patient was hallucinating that the devil was going to get her. Patient is disoriented, disorganized, and unable to articulate a viable plan for food, clothing, and/or fdc. Her reports that she has been increasingly agitated and has not been sleeping or eating." Assessment What has happened this shift: Patient was observed lying on her bed at shift change. She says she's doing fine. The patient then took a shower. After the shower, she looks clean, and hair is brushed. She spent the rest of the night isolated to her room. There was no outbursts, just quietly talking to herself. Patient took all her HS medication with no problem. She denies all MH symptoms. S/I,H/I: Denies A/VH: Patient denies, but is heard talking to herself.. Sleep: See sleep assessment ADL's: Pt. requires assistance and prompts. She uses a FWW Group attendance: N/A Were Meds taken: Yes Any med S/E: None reported or observed. Mental Status Exam Appearance: Freshly showered, hair is brushed.. Eye contact: Fair. Behavior: isolating, guarded, delusional. Speech: Normal Mood: Labile Affect: Irritable Thought process: Disorganized and tangential Thought Content: Delusions with cheondoism preoccupation Cognition: A&O X3 Insight: Poor Judgment: Poor Interventions PRN's used: N/A Therapeutic interventions: Prompted and encouraged cooperation with 1:1 assessment; medication administration/education/monitoring, encouraged independent performance of ADLs and provide assistance as needed, and maintained Q 15min safety checks. Restraints/seclusion/emergency medication: N/A Justification of Continued Inpatient Treatment: Per SIRIA Garcia continues to require a safe and supportive environment with medication adjustments.
[2021-09-05] MEDS: clindamycin 150mg capsule PO SCH ×3 (02:00→14:09)
[2021-09-05 07:00] VITALS: BP 130/94
[2021-09-05] MEDS: lansoprazole 15mg solutab PO SCH (07:56)
[2021-09-05] MEDS: ARIPIPRAZOLE 10 MG TABLET PO SCH (07:56)
[2021-09-05] MEDS: benztropine 1mg tablet PO SCH ×2 (07:57→20:18)
[2021-09-05] MEDS: metFORMIN 500mg tablet PO SCH ×2 (07:57→20:18)
[2021-09-05] MEDS: lactobacillus rhamnosus 10,000 MMU CELLS/CAPSULE PO SCH ×2 (07:57→20:18)
[2021-09-05] MEDS: topiramate 25mg tablet PO SCH (07:57)
[2021-09-05] MEDS: potassium Cl 20 mEq SR tablet PO SCH ×2 (07:58→20:18)
[2021-09-05] MEDS: furosemide 40mg tablet PO SCH ×2 (07:59→20:18)
[2021-09-05] MEDS: aspirin 81mg, enteric-coated 1 TAB TABLET.DR PO SCH (07:59)
[2021-09-05] MEDS: nicotine 21mg patch - 24 hr TD SCH (08:00)
[2021-09-05] MEDS: ipratropium 0.5 MG/2.5ML nebule NEB SCH (09:00)
[2021-09-05] MEDS: ipratropium 0.5 MG/2.5ML nebule IH SCH ×2 (10:05→22:00)
[2021-09-05] MEDS: hydrOXYzine 25 MG tablet PO PRN (17:03)
[2021-09-05] MEDS: olanzapine 10mg tablet PO PRN (17:03)
[2021-09-05] MEDS: docusate sod 100mg capsule PO PRN (17:03)
--- NOTE | 2021-09-05 17:33 | NUR ---
Nursing Progress Note Legal hold: 5250 for grave disability Report received from ANAY Nava with the use of SBAR REASON FOR ADMIT: Patient was brought to [facility] by her who was concerned that patient was hallucinating that the devil was going to get her. Patient is disoriented, disorganized, and unable to articulate a viable plan for food, clothing, and/or fpc. Her reports that she has been increasingly agitated and has not been sleeping or eating." Assessment What has happened this shift: Received pt. sleeping in bed at shift change. Patient awakens for medications and states that she feels tired today. Patient eats meals in the community room and eats and socializes with peers. Later in the morning, patient started yelling in the hallway, that she was told that she could go outside and have a cigarette. Informed her that she was told yesterday that she could not leave the unit and smoke. She was yelling that Dr. Chavez had told her, and again this RN reinforced that smoking and going outside were not allowed. Patient then went into the group room and calmed herself down. Later in the afternoon, patient began yelling in her room that her parents were outside the hospital trying to get in and that they might be burning. Patient accused staff of drinking and smoking in a room in the hallway. Patient has been verbally aggressive and delusional today. S/I, H/I: Denies A/VH: Pt. appears to be internally preoccupied AEB talking aloud to herself Sleep: 6.75 hrs. NOC. Napped. ADL's: Pt. requires assistance and prompts. She uses a FWW Group attendance: N/A Were Meds taken: yes, except nicotine patch. Any med S/E: None Mental Status Exam Appearance: Disheveled middle aged woman in green scrubs utilizing walker. Eye contact: Good. Behavior: Cooperative. Angry conversations with herself in her room and bathroom. Speech: Clear. Mood: Labile Affect: Irritable Thought process: Disorganized and tangential Thought Content: Patient wants to go smoke. Believes her parents are trying to get in hospital. Cognition: A&O X3 Insight: Poor Judgment: Poor Interventions PRN's used: Atarax, Zyprexa and Colace. Therapeutic interventions: Prompted and encouraged cooperation with 1:1 assessment; medication administration/education/monitoring, encouraged independent performance of ADLs and provide assistance as needed, and maintained Q 15min safety checks. Restraints/seclusion/emergency medication: N/A Justification of Continued Inpatient Treatment: Per SIRIA Garcia continues to require a safe and supportive environment with medication adjustments.
[2021-09-05 20:00] VITALS: BP 151/80
[2021-09-05] MEDS: divalproex sod 250mg ER (24-hour) tablet PO SCH (20:18)
[2021-09-05] MEDS: traZODone 50mg tablet PO SCH (20:18)
--- NOTE | 2021-09-06 01:20 | NUR ---
Nursing Progress Note: Legal hold: 5250 for grave disability Report received from ANAY Stratton with the use of SBAR REASON FOR ADMIT: Patient was brought to [facility] by her who was concerned that patient was hallucinating that the devil was going to get her. Patient is disoriented, disorganized, and unable to articulate a viable plan for food, clothing, and/or residential. Her reports that she has been increasingly agitated and has not been sleeping or eating." Assessment What has happened this shift: Patient isolated to her room tonight. Time was spent changing bed linens and cleaning her room. there were a couple cups on a table across the room, " knows they're there, and wants them to stay. Theresa is playing [employer], she is . She's the boss lady." Patient laughs. She was quiet with no outbursts or yelling. Compliant with medications, "these are the good ones right? Not the bad ones." S/I,H/I: Denies A/VH: Patient denies, but is heard talking to herself.. Sleep: See sleep assessment ADL's: Pt. requires assistance and prompts. She uses a FWW Group attendance: N/A Were Meds taken: Yes Any med S/E: None reported or observed. Mental Status Exam Appearance: Freshly showered, hair is clean and brushed.. Eye contact: Fair. Behavior: isolating, guarded, delusional. Speech: Normal Mood: Labile Affect: Irritable Thought process: Disorganized and tangential Thought Content: Delusions with spiritism preoccupation Cognition: A&O X3 Insight: Poor Judgment: Poor Interventions PRN's used: N/A Therapeutic interventions: Prompted and encouraged cooperation with 1:1 assessment; medication administration/education/monitoring, encouraged independent performance of ADLs and provide assistance as needed, and maintained Q 15min safety checks. Restraints/seclusion/emergency medication: N/A Justification of Continued Inpatient Treatment: Per SIRIA Garcia continues to require a safe and supportive environment with medication adjustments.
[2021-09-06] MEDS: ipratropium 0.5 MG/2.5ML nebule NEB SCH ×3 (03:10→21:00)
[2021-09-06 07:37] VITALS: BP 136/85
[2021-09-06] MEDS: metFORMIN 500mg tablet PO SCH ×2 (08:03→20:45)
[2021-09-06] MEDS: aspirin 81mg, enteric-coated 1 TAB TABLET.DR PO SCH (08:04)
[2021-09-06] MEDS: lactobacillus rhamnosus 10,000 MMU CELLS/CAPSULE PO SCH ×2 (08:04→20:45)
[2021-09-06] MEDS: benztropine 1mg tablet PO SCH ×2 (08:05→20:45)
[2021-09-06] MEDS: lansoprazole 15mg solutab PO SCH (08:05)
[2021-09-06] MEDS: topiramate 25mg tablet PO SCH (08:05)
[2021-09-06] MEDS: furosemide 40mg tablet PO SCH ×2 (08:05→20:46)
[2021-09-06] MEDS: potassium Cl 20 mEq SR tablet PO SCH ×2 (08:05→20:46)
[2021-09-06] MEDS: ARIPIPRAZOLE 10 MG TABLET PO SCH (08:06)
[2021-09-06] MEDS: docusate sod 100mg capsule PO PRN ×2 (11:37→20:46)
[2021-09-06] MEDS: olanzapine 10mg tablet PO PRN (15:37)
[2021-09-06] MEDS: hydrOXYzine 25 MG tablet PO PRN ×2 (15:38→22:07)
--- NOTE | 2021-09-06 17:12 | NUR ---
Nursing Progress Note: Legal hold: 5250 for grave disability Report received from ANAY Cardenas with the use of SBAR REASON FOR ADMIT: Patient was brought to [facility] by her who was concerned that patient was hallucinating that the devil was going to get her. Patient is disoriented, disorganized, and unable to articulate a viable plan for food, clothing, and/or long-term. Her reports that she has been increasingly agitated and has not been sleeping or eating." Assessment What has happened this shift: Patient is ambulating with walker. Patient eating at breakfast, agreed to take morning medications. She states she knows all of her medications and does not want an explanation on why each of them are given. She stated she is at the hospital for dementia and also states that she was having hallucinations. She denies any current visual or auditory hallucinations. Denies any intentions of harming self or others. However at the beginning of shift, patient did state that she was not sure if there were children or the devils children sitting in the dining room. She did state that she might have been poisoned last night, but she is not sure if she was just dreaming. When asked why she feels she might have been poisoned, she said I do not know, dont listen to me. Last bowel movement was a couple of days ago and would like a stool softener later on during morning shift. Patient was found trying to unlock exit doors and was redirected back to her room. She says she wants to leave and her is waiting for her in the ER. She also states Dr. Chavez spoke to her this morning and told her she would be able to go home today. She refuses to take any prn medication for agitation. Patient made a second attempt to open exit doors. PRN Zyprexa/atarax given. S/I,H/I: Denies A/VH: Patient denies, but is heard talking to herself.. Sleep: Slept 7.25 hours last night, napped for about 2 hours throughout day shift ADL's: Pt. requires assistance and prompts. She uses a FWW Group attendance: 2nd group session Were Meds taken: Yes Any med S/E: None reported or observed. Mental Status Exam Appearance: Freshly showered, hair is clean and brushed.. Eye contact: Fair. Behavior: isolating, guarded, delusional. Speech: Normal Mood: Labile Affect: Irritable Thought process: Disorganized and tangential Thought Content: Delusions with roman catholic preoccupation Cognition: A&O X3 Insight: Poor Judgment: Poor Interventions PRN's used: Colace, Zyprexa, atarax Therapeutic interventions: Prompted and encouraged cooperation with 1:1 assessment; medication administration/education/monitoring, encouraged independent performance of ADLs and provide assistance as needed, and maintained Q 15min safety checks. Restraints/seclusion/emergency medication: N/A Justification of Continued Inpatient Treatment: Per SIRIA Garcia continues to require a safe and supportive environment with medication adjustments.
[2021-09-06 20:00] VITALS: BP 133/91
[2021-09-06] MEDS: traZODone 50mg tablet PO SCH (20:46)
[2021-09-06] MEDS: divalproex sod 250mg ER (24-hour) tablet PO SCH (20:47)
[2021-09-07] MEDS: olanzapine 10mg tablet PO PRN ×2 (00:01→16:12)
--- NOTE | 2021-09-07 03:31 | NUR ---
Nursing Progress Note: Legal hold: 5250 for grave disability Report received from ANAY Tavarez with the use of SBAR REASON FOR ADMIT: Patient was brought to [facility] by her who was concerned that patient was hallucinating that the devil was going to get her. Patient is disoriented, disorganized, and unable to articulate a viable plan for food, clothing, and/or jail. Her reports that she has been increasingly agitated and has not been sleeping or eating." Assessment What has happened this shift: Patient continues to isolate in her room most of the shift, she did request to take a shower and changed her bed linens. She denied any hallucinations this shift and did not appear to be RIS, her mood continues to be labile at times and she started to become anxious and PRN Atarax was given, pt continued to escalate and requested "Haldol", but she only has Zyprexa PRN which was given. She still reports no BM and states at home she normally takes colace 3 x's a day and that is the only way she does not get constipated. Order obtained to add colace TID scheduled. S/I,H/I: Denies A/VH: denied and did not appear to be RIS Sleep: pt with difficulty falling asleep this shift ADL's: Independent, needs prompts. She uses a FWW, took a shower tonight and made her bed Group attendance: N/A Were Meds taken: Yes Any med S/E: None reported or observed. Mental Status Exam Appearance: hygiene and grooming good, wearing green scrubs Eye contact: Fair. Behavior: isolative, cooperative with care but continues to get anxious/agitated at times Speech: normal rate and volume Mood: Labile Affect: Irritable at times Thought process: still disorganized at times Thought Content: Delusions with congregational preoccupation Cognition: A&O X3 Insight: Poor Judgment: Poor Interventions PRN's used: Zyprexa, Atarax Therapeutic interventions: Prompted and encouraged cooperation with 1:1 assessment; medication administration/education/monitoring, encouraged independent performance of ADLs and provide assistance as needed, and maintained Q 15min safety checks. Restraints/seclusion/emergency medication: N/A Justification of Continued Inpatient Treatment: Per SIRIA Garcia continues to require a safe and supportive environment with medication adjustments.
[2021-09-07 07:34] VITALS: BP 107/71
[2021-09-07] MEDS: lactobacillus rhamnosus 10,000 MMU CELLS/CAPSULE PO SCH ×2 (07:36→20:58)
[2021-09-07] MEDS: metFORMIN 500mg tablet PO SCH ×2 (07:36→21:00)
[2021-09-07] MEDS: aspirin 81mg, enteric-coated 1 TAB TABLET.DR PO SCH (07:36)
[2021-09-07] MEDS: potassium Cl 20 mEq SR tablet PO SCH ×2 (07:36→21:00)
[2021-09-07] MEDS: lansoprazole 15mg solutab PO SCH (07:36)
[2021-09-07] MEDS: docusate sod 100mg capsule PO SCH ×3 (07:36→21:01)
[2021-09-07] MEDS: furosemide 40mg tablet PO SCH ×2 (07:37→21:00)
[2021-09-07] MEDS: topiramate 25mg tablet PO SCH (07:37)
[2021-09-07] MEDS: benztropine 1mg tablet PO SCH ×2 (07:37→20:58)
[2021-09-07] MEDS: ARIPIPRAZOLE 10 MG TABLET PO SCH (07:37)
[2021-09-07] MEDS: nicotine 21mg patch - 24 hr TD SCH (08:03)
[2021-09-07] MEDS: ibuprofen tablet 400 MG TABLET PO PRN (08:10)
[2021-09-07] MEDS: ipratropium 0.5 MG/2.5ML nebule NEB SCH ×2 (09:00→21:00)
--- NOTE | 2021-09-07 16:34 | NUR ---
Nursing Progress Note Legal hold: 5250 for grave disability Report received from ANAY Cardenas with the use of SBAR REASON FOR ADMIT: Patient was brought to [facility] by her who was concerned that patient was hallucinating that the devil was going to get her. Patient is disoriented, disorganized, and unable to articulate a viable plan for food, clothing, and/or senior living. Her reports that she has been increasingly agitated and has not been sleeping or eating." Assessment What has happened this shift: Pt was up for breakfast and cooperative with medications. She was pleasant and polite with this RN. Pt c/o 03/14 right arm pain and was given PRN ibuprofen 400 mg at 0810 with good effect. Pt paced in the raines and spent time in her room. She became increasingly confused, delusional and agitated in the afternoon. At around 1545, pt began loudly howling repeatedly and then yelling at people or possibly dogs not present. Pt stated that she was howling at her [facility] who was under this building somewhere. Pt stated that she was supposed to be transferred to [place] today, "It's a brand new building." Pt had her FWW crookedly elevated in the air wedged between her bed and an armchairs in her room, she would grab onto it at times. Pt stated, "This building is about to collapse and water is going to come rushing in, that's why I'm hanging on for dear life." Pt began rambling tangentially about little bears running around with leaf blowers but they are actually babies, then mentions men and something about it being God's will that they go to [facility] where they belong "so a nurse like you can get the recognition you deserve." Pt c/o of not having a garbage can or toiletries in her room but per charge nurse pt had been spitting and dumping liquids/toiletries into her trash can earlier. Pt also moves stuff/furniture around in her room which is why she has 2 armchairs on her side of the room and why the mattress on the 2nd bed was removed by some staff member on a previous shift due to patient piling the mattresses up on top of each other. Medicated pt with PRN Zyprexa 10 mg at 1612 with good effect. S/I, H/I: Pt denies A/VH: Pt denies though she is responding to internal stimuli. Sleep: Pt slept 5.75 hours last night per noc shift report. ADL's: Independent with prompts and FWW. Group attendance: No group today Were Meds taken: Yes Any med S/E: Ongoing constipation, increased confusion in the afternoon, unable to determine if due to medications or not at this time. Mental Status Exam Appearance: Heavy set, middle aged woman with blond hair. Eye contact: Good Behavior: Ranges from pleasant, polite and cooperative to angry and agitated. Speech: Clear, audible. Mood: Lability vs delirium. Affect: Labile Thought process: Disorganized, delusional, paranoid, religiously preoccupied, tangential, responding to internal stimuli. Thought Content: This building is about to collapse, she is supposed to be transferred to [place] today, her dog is under the building somewhere. Cognition: A&O X 2 Insight: Impaired Judgment: Impaired Interventions PRN's used: Zyprexa 10 mg Therapeutic interventions: 1:1 assessment, therapeutic communication, active listening, medication administration/education/monitoring, constipation management, medication administration/education/monitoring, behavior monitoring and intervention as needed; reality orientation, distraction, redirection verbal de-escalation, positive reinforcement, and maintained Q 15 minute safety checks. Restraints/seclusion/emergency medication: None Justification of Continued Inpatient Treatment: Pt continues to be psychotic with paranoid and yarsanism delusions, she responds to internal stimuli and becomes agitated. Pt remains gravely disabled. Pt is not stable and needs further medication adjustments and monitoring in a safe and therapeutic environment until stable.
[2021-09-07 19:00] VITALS: BP 143/95
[2021-09-07] MEDS: traZODone 50mg tablet PO SCH (21:03)
[2021-09-07] MEDS: divalproex sod 250mg ER (24-hour) tablet PO SCH (21:04)
[2021-09-08] MEDS ORDERED: temazepam 15mg capsule PO ONE (01:40)
--- NOTE | 2021-09-08 04:01 | NUR ---
RN PROGRESS NOTE: LEGAL HOLD: 5150 for GD REASON FOR ADMIT: "Nereida was brought to [facility] by her who was concerned that Nereida was hallucinating that the devil was going to get her." "Nereida is disoriented, disorganized, and unable to articulate a viable plan for food, clothing, and/or intermediate. Her reports that she has been increasingly agitated and has not been sleeping or eating. THIS SHIFT: Client was laying on the bed during this RN's assessment. Client was talkative. Stated, "I'm leaving at 08:00 tomorrow morning. I don't want to be drowsy. My is picking me up. There are 100 people coming to my wedding shower. We're getting ." Client reports constipation and feels she should be getting stool softeners three times a day. Reported she had a BM two days ago. The client had difficulty falling asleep. At 01:30 client was offered 30 mg Restoril Tab PO. Client refused and accused staff stating, "You all are giving me meds that will poison me." Client became irritated. DISCHARGE: TBD
[2021-09-08 07:33] VITALS: BP 171/100
[2021-09-08] MEDS: lansoprazole 15mg solutab PO SCH (07:35)
[2021-09-08 07:41] VITALS: BP 134/95
[2021-09-08] MEDS: olanzapine 10mg tablet PO PRN (08:09)
[2021-09-08] MEDS: ARIPIPRAZOLE 10 MG TABLET PO SCH (08:09)
[2021-09-08] MEDS: docusate sod 100mg capsule PO SCH ×3 (08:09→21:52)
[2021-09-08] MEDS: ibuprofen tablet 400 MG TABLET PO PRN (08:09)
[2021-09-08] MEDS: furosemide 40mg tablet PO SCH ×2 (08:09→21:52)
[2021-09-08] MEDS: metFORMIN 500mg tablet PO SCH ×2 (08:11→21:51)
[2021-09-08] MEDS: aspirin 81mg, enteric-coated 1 TAB TABLET.DR PO SCH (08:11)
[2021-09-08] MEDS: topiramate 25mg tablet PO SCH (08:11)
[2021-09-08] MEDS: benztropine 1mg tablet PO SCH ×2 (08:12→21:52)
[2021-09-08] MEDS: lactobacillus rhamnosus 10,000 MMU CELLS/CAPSULE PO SCH ×2 (08:12→21:51)
[2021-09-08] MEDS: hydrOXYzine 25 MG tablet PO PRN (08:12)
[2021-09-08] MEDS: potassium Cl 20 mEq SR tablet PO SCH ×2 (08:12→21:52)
[2021-09-08] MEDS: nicotine 21mg patch - 24 hr TD SCH (08:42)
[2021-09-08] MEDS: ipratropium 0.5 MG/2.5ML nebule NEB SCH ×2 (10:35→21:00)
--- NOTE | 2021-09-08 10:43 | NUR ---
Pt having s/sx of delirium; intermittent severe confusion, did not sleep all night. Pt has not had labs drawn since 08/23/21 in the ER overflow. Her WBC count then was 13.6. No UA/C&S on record this admit. Pt is due to be seen by the hospitalist today. Pt has an extensive medical history. Paged hospitalist. Dr Higgins responded and ordered CBC, BMP, procalcitonin, ammonia level, and UA/C&S if indicated.
--- NOTE | 2021-09-08 10:48 | NUR ---
Pt has a routine nebulizer treatment scheduled at 0900 which is past due. Paged RT twice. Pt is aware of her nebulizer treatments and c/o SOB and excessive phlegm she is having difficulty clearing.
--- NOTE | 2021-09-08 10:52 | NUR ---
RT arrived to unit and gave pt her nebulizer treatment.
--- NOTE | 2021-09-08 11:02 | NUR ---
Clean catch UA collected and sent ,urine was clear and yellow.
[2021-09-08 11:10] LABS: BASOPHILS # (AUTO) 0.1 X10'3 (0-0.2); BASOPHILS % (AUTO) 1.1 % (0-1); EOSINOPHILS # (AUTO) 0.3 X10'3 (0-0.9); EOSINOPHILS % (AUTO) 2.6 % (0-6); HEMATOCRIT 42.5 % (35.0-45.0); LYMPHOCYTES # (AUTO) 2.4 X10'3 (1.1-4.8); LYMPHOCYTES % (AUTO) 23.5 % (21-51); MEAN CORPUSCULAR HEMOGLOBIN 23.9 PG (27.0-31.0); MEAN CORPUSCULAR HGB CONC 32.8 g/dL (33.0-36.5); MEAN CORPUSCULAR VOLUME 72.7 FL (78-98); MEAN PLATELET VOLUME 8.5 FL (7.4-10.4); MONOCYTES # (AUTO) 0.7 X10'3 (0-0.9); MONOCYTES % (AUTO) 6.5 % (2-12); NEUTROPHILS # (AUTO) 6.8 X10'3 (1.8-7.7); NEUTROPHILS % (AUTO) 66.3 % (42-75); PLATELET COUNT 300 X10'3 (140-440); RED BLOOD COUNT 5.84 X10'6 (4.20-5.60); RED CELL DISTRIBUTION WIDTH 22.6 % (11.5-14.5); WHITE BLOOD COUNT 10.2 X10'3 (4.5-11.0)
[2021-09-08 11:15] LABS: CLARITY,URINE CLEAR (Clear); COLOR,URINE YELLOW (Yellow); GLUCOSE, URINE NEGATIVE (Neg); KETONES,URINE NEGATIVE (Neg); LEUKOCYTE ESTERASE ,URINE NEGATIVE (Neg); NITRITES, URINE NEGATIVE (Neg); OCCULT BLOOD,URINE NEGATIVE (Neg); PROTEIN,URINE NEGATIVE (Neg); UA COLLECTION TYPE CLN CATCH MIDSTREAM; UROBILINOGEN,URINE 0.2 E.U/dL (0.2-1.0)
[2021-09-08 11:58] LABS: ALANINE AMINOTRANSFERASE 21 U/L (12-78); ALBUMIN 3.6 G/DL (3.4-5.0); ALBUMIN/GLOBULIN RATIO 1.2 (1.1-1.5); ALKALINE PHOSPHATASE 96 IU/L (46-116); ANION GAP 13 (8-16); ASPARTATE AMINO TRANSFERASE 6 U/L (10-37); BILIRUBIN,DIRECT 0.1 MG/DL (0-0.3); BILIRUBIN,TOTAL 0.2 MG/DL (0.1-1.0); BLOOD UREA NITROGEN 15 MG/DL (7-18); BUN/CREATININE RATIO 20.8 (6.6-38.0); CALCIUM 8.9 MG/DL (8.5-10.1); CHLORIDE 102 MMOL/L (99-107); CREATININE 0.72 MG/DL (0.40-0.90); GLUCOSE 88 MG/DL (70-104); POTASSIUM 3.9 MMOL/L (3.5-5.1); SODIUM 141 MMOL/L (135-145); TOTAL CARBON DIOXIDE 26.2 MMOL/L (24-32); TOTAL PROTEIN 6.6 G/DL (6.4-8.2); eGFR 84 ML/MIN
--- NOTE | 2021-09-08 12:16 | NUR ---
Reassessment: Pt currently on regular diet and eating well, documented with 75-100% PO intake meeting estimated nutrient needs. [facility] 09/08 receiving routine colace. Will continue to follow and monitor need for nutrition intervention. Addendum: 09/08/21 at [address] Amended: Links added. Addendum: 09/08/21 at [address] ALYSON has reviewed and approves of above note.
--- NOTE | 2021-09-08 12:39 | NUR ---
Ammonia level came back elevated at 51. Dr Cisneros was notified and he ordered to stop her Depakote.
--- NOTE | 2021-09-08 16:35 | NUR ---
Nursing Progress Note Legal hold: 5250 for grave disability Report received from Nahomy Medrano RN with the use of SBAR REASON FOR ADMIT: Patient was brought to [facility] by her who was concerned that patient was hallucinating that the devil was going to get her. Patient is disoriented, disorganized, and unable to articulate a viable plan for food, clothing, and/or senior living. Her reports that she has been increasingly agitated and has not been sleeping or eating." Assessment What has happened this shift: Pt presented as restless and paranoid this morning. Per noc shift report pt did not sleep at all last night and had been irritable and agitated. Pt requested to take 2 colace caps at once this morning. Explained that the order was for three times a day, she would get one now and another one with lunch. Pt c/o 02/11 generalized pain. Pt said that when she had her back surgery they left something in a box in her back that causes electric jolts, jolts of electricity to shoot through her body. She also said that she has a chronic collection of blood and water in her abdomen from the botched back surgery, pt mentioned the word "ascites." Pt rambled on for awhile about medical issues. This RN said that I would bring some PRN ibuprofen with the rest of her morning meds. Went to prepare her morning meds. Pt was walking down the hallway towards the nurse's station when this nurse returned. Pt said she wanted another nurse, that she didn't trust this nurse that I must be new and didn't know what I was doing, that she had a lot of medical issues. This nurse remained calm and polite, attempted to reassure pt, address her concerns, and provide reality orientation. Pt was adamant about wanting another nurse and said she would not take her pills from this one. Asked another female nurse to give pt her morning meds including PRN ibuprofen 400 mg, Zyprexa 10 mg and Atarax 75 mg. The other nurse was able to convince the patient to take all morning meds. Pt told Ayaka PEREIRA that the doctor wanted a stool sample from her and said it was in the bathroom. Ayaka PEREIRA discovered that pt had removed some BM from the toilet and placed it on her sink. The stool was hard and formed. Pt reported that she had gone a lot more but this is what she had saved. Pt did not have orders for a stool specimen. Pt then asked if her radio headphones could be charged. She stated that gave them to her and she wanted her name written on them. Reality orientation attempted that they were unit headphones to be shared by all the patients. Pt continued to insist they were hers. Pt did nap for awhile late morning. This RN paged the hospitalist about increased intermittent confusion, s/sx of delirium and her not sleeping all night. ordered labs and a UA. UA was negative. See previous nurse's notes. Ammonia level was elevated at 51. Dr Cisneros notified and he stopped her Depakote. Dr Cai came to see the patient later in the shift and was notified. Pt reported having another large BM. No new orders received from Dr Cai. Pt changed her mind about this RN later in the shift and did not object to receiving care. Pt was notified of her elevated ammonia level and of her Depakote being discontinued. Pt reported that she has fatty liver syndrome. Pt stated, "my brain's been feeling hot and I've been so ready to fight all the time." Pt expressed understanding that elevated ammonia levels can cause confusion. Pt was pleasant and cooperative for the remainder of the shift however continued to insist that the radio headphones belonged to her. S/I, H/I: Pt denies A/VH: Pt denies Sleep: Pt did not sleep last night, per noc shift report slept 0 hours. ADL's: Independent with prompts and FWW. Group attendance: No group today Were Meds taken: Yes with encouragement. Any med S/E: Intermittent confusion, agitation, and no sleep last night. Mental Status Exam Appearance: Heavy set, middle aged woman with blond hair. Eye contact: Good Behavior: Fluctuates between pleasant/cooperative and agitation. Speech: Clear, audible, hyperverbal. Mood: Labile Affect: Labile Thought process: Disorganized, delusional, paranoid, religiously preoccupied Thought Content: She owns the radio headphones, she has lots of medical problems, has difficulty trusting nursing staff. Cognition: Intermittent severe confusion Insight: Impaired Judgment: Impaired Interventions PRN's used: Zyprexa, Atarax Therapeutic interventions: 1:1 assessment, therapeutic communication, active listening, medication administration/education/monitoring, constipation management, medication administration/education/monitoring, behavior monitoring and intervention as needed; reality orientation, distraction, redirection verbal de-escalation, provided reassurance and positive reinforcement, and maintained Q 15 minute safety checks. Restraints/seclusion/emergency medication: None Justification of Continued Inpatient Treatment: Pt continues to be psychotic with paranoid and rastafari delusions, she responds to internal stimuli and becomes agitated. Pt remains gravely disabled. Pt had an adverse medication effect of elevated ammonia level with Depakote, she needs further medication changes and monitoring.
[2021-09-08 19:52] VITALS: BP 146/94
[2021-09-08] MEDS: traZODone 50mg tablet PO SCH (21:52)
[2021-09-08] MEDS: acetaminophen 325mg tablet PO PRN (21:53)
[2021-09-08] MEDS ORDERED: traZODone 150mg tablet PO ONE ×2 (23:20→23:45)
[2021-09-08] MEDS ORDERED: mirtazapine 15mg tablet PO ONE (23:20)
--- NOTE | 2021-09-09 04:41 | NUR ---
RN PROGRESS NOTE: LEGAL HOLD: 5150 for GD REASON FOR ADMIT: "Nereida was brought to [facility] by her who was concerned that Nereida was hallucinating that the devil was going to get her." "Nereida is disoriented, disorganized, and unable to articulate a viable plan for food, clothing, and/or long-term. Her reports that she has been increasingly agitated and has not been sleeping or eating. THIS SHIFT: Client has been cooperative and pleasant during RN's assessment. Patient has been anticipating her "parents being on their way to pick me up" tonight and is waiting on them. During the physical examination patient states that she is "needing a cigarette, smokes about two packs/day at home and was promised at least half of one" since admission. Patient was informed of PM meds to be taken and did so without issues, did refuse the stool softener, as she "didn't need it." The client had difficulty falling asleep, was visited by the nurses station at approximately 10pm asking for ryana. Dr. Cisneros apparently called after being advised that patient isn't getting sleep at night, and added more Trazodone and Remeron to take. She refused both, stating that "they wouldn't help her, she stays awake at night because she sleeps during the day, she's a nightowl." After about an hour, the patient fell asleep on her own. Has remained asleep for hours now, will continue to monitor. DISCHARGE: TBD
[2021-09-09 07:33] VITALS: BP 140/101
[2021-09-09] MEDS: lactobacillus rhamnosus 10,000 MMU CELLS/CAPSULE PO SCH ×2 (07:57→20:17)
[2021-09-09] MEDS: docusate sod 100mg capsule PO SCH ×3 (07:57→20:17)
[2021-09-09] MEDS: potassium Cl 20 mEq SR tablet PO SCH ×2 (07:58→20:23)
[2021-09-09] MEDS: topiramate 25mg tablet PO SCH (07:58)
[2021-09-09] MEDS: aspirin 81mg, enteric-coated 1 TAB TABLET.DR PO SCH (07:58)
[2021-09-09] MEDS: metFORMIN 500mg tablet PO SCH ×2 (07:58→20:17)
[2021-09-09] MEDS: benztropine 1mg tablet PO SCH ×2 (07:59→20:16)
[2021-09-09] MEDS: furosemide 40mg tablet PO SCH ×2 (08:00→20:16)
[2021-09-09] MEDS: lansoprazole 15mg solutab PO SCH (08:00)
[2021-09-09] MEDS: nicotine 21mg patch - 24 hr TD SCH (08:15)
[2021-09-09] MEDS: ipratropium 0.5 MG/2.5ML nebule NEB SCH ×2 (09:00→21:00)
[2021-09-09] MEDS: ondansetron 4mg rapidly disintigrating tab PO PRN (14:59)
--- NOTE | 2021-09-09 15:39 | NUR ---
Nursing Progress Note Legal hold: 5250 for grave disability Report received from Nahomy Medrano RN with the use of SBAR REASON FOR ADMIT: Patient was brought to [facility] by her who was concerned that patient was hallucinating that the devil was going to get her. Patient is disoriented, disorganized, and unable to articulate a viable plan for food, clothing, and/or snf. Her reports that she has been increasingly agitated and has not been sleeping or eating." Assessment What has happened this shift: Received Pt in bed sleeping w/o distress at the beginning of the shift. Pt woke and was cooperative with vitals and returned to sleep. Pt took AM meds w/o issue and ate breakfast in her room. Pt pleasant and cooperative for AM assessments and voiced throughout the day, the desire to leave; I need to get a day pass. Pt delusional at times, stating I have small snakes that live in my intestines. She believes she has a parasite in her that is the real problem. Pt ambulating well with walker and seen around unit conversing with other Pts and staff. Pt c/o nausea and was given Zofran. Earlier she c/o upset stomach and was helped with prn Tums. Pts Nicotine Patch fell off and she did not want to use tape to keep it on, so it was disposed of. Pt pleasant in late afternoon conversation in her room, and she appreciated the attention. S/I, H/I: Pt denies A/VH: Pt denies Sleep: Pt did not sleep this shift ADL's: Independent Group attendance: No group today Were Meds taken: Yes Any med S/E: None noted Mental Status Exam Appearance: Groomed in own clothes Eye contact: Good Behavior: Mostly pleasant and cooperative Speech: Clear, audible, loud at times Mood: Labile Affect: Labile Thought process: Disorganized, delusional, paranoid Thought Content: Wanting to leave, go home, go to a alliance party tonite Cognition: Delusional Insight: Impaired Judgment: Impaired Interventions PRN's used: Tums Therapeutic interventions: 1:1 assessment, therapeutic communication, active listening, medication administration/education/monitoring, constipation management, medication administration/education/monitoring, behavior monitoring and intervention as needed; reality orientation, distraction, redirection verbal de-escalation, provided reassurance and positive reinforcement, and maintained Q 15 minute safety checks. Restraints/seclusion/emergency medication: None Justification of Continued Inpatient Treatment: Pt continues to be psychotic with paranoid and confucianism delusions, she responds to internal stimuli and becomes agitated. Pt remains gravely disabled. Pt had an adverse medication effect of elevated ammonia level with Depakote, she needs further medication changes and monitoring.
[2021-09-09 19:01] VITALS: BP 128/83
[2021-09-09] MEDS: acetaminophen 325mg tablet PO PRN (20:16)
[2021-09-09] MEDS: ARIPIPRAZOLE 10 MG TABLET PO SCH (20:18)
[2021-09-09] MEDS: traZODone 50mg tablet PO SCH (20:19)
--- NOTE | 2021-09-09 21:00 | NUR ---
Pt requesting breathing treatment. Pt knows she has a scheduled breathing treatment and upset she believes they're late. RT paged, treatment administered.
--- NOTE | 2021-09-10 01:24 | NUR ---
INTERRUPTED SLEEP: Client has been having difficulty falling/staying asleep. Clients Trazodone was increased to 200 mg Tab PO. Client received Trazodone with PM meds. (Her Nicotine patch was removed earlier in the day.) Client was asleep at 23:15. Client periodically awakes and talks loudly. SIRIA Batres was called at 01:20. Awaiting response. Will continue to monitor.
--- NOTE | 2021-09-10 03:40 | NUR ---
Nursing Progress Note Nereida Legal hold: 5250 for grave disability Report received from Atilio CUEVA with the use of SBAR REASON FOR ADMIT: Per record patient was brought to [facility] by her who was concerned that patient was hallucinating that the devil was going to get her. Patient is disoriented, disorganized, and unable to articulate a viable plan for food, clothing, and/or alf. Her reports that she has been increasingly agitated and has not been sleeping or eating." Assessment What has happened this shift: Received Pt in bed head phones on w/o distress at the beginning of the shift. 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 She mentioned needing to filter her own water because there were "small worm looking things in it" and thinks staff are not giving her filtered water like they should be, but says "I know it's not on purpose". Pt is pleasant and cooperative for PM assessments and voiced throughout the shift the desire to leave, because she has 2 husbands and couldnt decide which one she wanted so she chose both. Pt ambulating well with walker and seen around unit conversing with other Pts and staff. Pts Nicotine Patch fell off during day shift and she did not want to use tape to keep it on, per day shift. Pt took PM meds w/o issue, inquiring about Ativan, and Percocet and stating "My is an MD and has those at home, but it doesn't matter I'm going home tomorrow".Pt wanting something else for her pain as Tylenol didn't help, Motrin was offered as well as Atarax, however pt upset it wasnt Ativan and Percocet and refused medications, stating to nurse you dont care about me, get out, go on, I dont want those meds. Pt has not slept well this shift. S/I, H/I: Pt denies A/VH: Pt denies Sleep: Pt did not sleep this shift ADL's: Independent Group attendance: No group this nocs. Out of her room walking with FWW. Were Meds taken: Yes, but refused PRNs when asked. Any med S/E: None noted. Mental Status Exam Appearance: Groomed in own clothes Eye contact: Good Behavior: Mostly pleasant and cooperative Speech: Clear, audible, loud at times Mood: Labile Affect: Labile Thought process: Disorganized, delusional, paranoid Thought Content: Wanting to leave, go home. Cognition: Delusional Insight: Impaired Judgment: Impaired Interventions PRN's used: returned pt denied. Therapeutic interventions: 1:1 assessment, therapeutic communication, active listening, medication administration/education/monitoring, constipation management, medication administration/education/monitoring, behavior monitoring and intervention as needed; reality orientation, distraction, redirection verbal de-escalation, provided reassurance and positive reinforcement, and maintained Q 15 minute safety checks. Restraints/seclusion/emergency medication: None Justification of Continued Inpatient Treatment: Reported that Pt continues to be psychotic with paranoid and judaism delusions, she responds to internal stimuli and becomes agitated. Pt remains gravely disabled. Pt had an adverse medication effect of elevated ammonia level with Depakote, she needs further medication changes and monitoring.
[2021-09-10 07:14] VITALS: BP 127/88
[2021-09-10] MEDS: nicotine 21mg patch - 24 hr TD SCH ×2 (07:39→08:00)
[2021-09-10] MEDS: lansoprazole 15mg solutab PO SCH (07:40)
[2021-09-10] MEDS: aspirin 81mg, enteric-coated 1 TAB TABLET.DR PO SCH (07:40)
[2021-09-10] MEDS: docusate sod 100mg capsule PO SCH ×3 (07:41→20:58)
[2021-09-10] MEDS: metFORMIN 500mg tablet PO SCH ×2 (07:41→20:58)
[2021-09-10] MEDS: lactobacillus rhamnosus 10,000 MMU CELLS/CAPSULE PO SCH ×2 (07:41→20:58)
[2021-09-10] MEDS: potassium Cl 20 mEq SR tablet PO SCH ×2 (07:41→20:58)
[2021-09-10] MEDS: furosemide 40mg tablet PO SCH ×2 (07:42→20:58)
[2021-09-10] MEDS: benztropine 1mg tablet PO SCH ×2 (07:43→20:59)
[2021-09-10] MEDS: topiramate 25mg tablet PO SCH (07:44)
--- NOTE | 2021-09-10 08:15 | NUR ---
PT BECAME MAD ABOUT HER NICOTINE PATCH AND TOOK IT OFF.
[2021-09-10] MEDS: ipratropium 0.5 MG/2.5ML nebule NEB SCH ×2 (09:00→21:00)
--- NOTE | 2021-09-10 15:10 | NUR ---
Nursing Progress Note Legal hold: 5250 for grave disability Report received from Nahomy Tran RN with the use of SBAR REASON FOR ADMIT: Patient was brought to [facility] by her who was concerned that patient was hallucinating that the devil was going to get her. Patient is disoriented, disorganized, and unable to articulate a viable plan for food, clothing, and/or halfway. Her reports that she has been increasingly agitated and has not been sleeping or eating." Assessment What has happened this shift: Observed pt sitting in a chair wearing headphones at the beginning of the shift. Pt was compliant and pleasant with med pass, assessment and VS. Ammonia level 51. SIRIA Guzman prescribed Lactulose which will start tonight. Pt talks about parasites, snakes and gargles being in her organs. She runs her finger over her eyebrow and states, "you can fill it in here, fill it they saw it on a CT." S/I, H/I: Pt denies A/VH: Pt denies Sleep: Pt did not sleep this shift ADL's: Independent Group attendance: No group today Were Meds taken: Yes Any med S/E: None noted Mental Status Exam Appearance: Wearing personal clothes Eye contact: Good Behavior: disorganized Speech: Clear, audible, loud at times Mood: Labile, hypomanic Affect: congruent with mood Thought process: Flight of ideas, delusional Thought Content: RIS, disorganized Cognition: Delusional Insight: Impaired Judgment: Impaired Interventions PRN's used: N/A Therapeutic interventions: Provided 1:1 assessment with therapeutic communication and active listening, medication administration/education/monitoring, constipation management, medication administration/education/monitoring, and maintained Q 15 minute safety checks. Restraints/seclusion/emergency medication: None Justification of Continued Inpatient Treatment: Pt continues to be psychotic with paranoid and gnosticist delusions, she responds to internal stimuli and becomes agitated. Pt remains gravely disabled. Pt had an adverse medication effect of elevated ammonia level with Depakote, she needs further medication changes and monitoring.
[2021-09-10 19:00] VITALS: BP 146/84
[2021-09-10 19:41] VITALS: BP 146/84
--- NOTE | 2021-09-10 20:53 | NUR ---
At this time patient is refusing to take any meds. Have passed over meds to nurse who will be assuming care at this time, and she will try again a little later. Patient has acted this way before at times and then changed her mind.
[2021-09-10] MEDS: traZODone 50mg tablet PO SCH (20:58)
[2021-09-10] MEDS: lactulose 20gm/30ml cup PO SCH (20:58)
[2021-09-10] MEDS: ARIPIPRAZOLE 10 MG TABLET PO SCH (20:58)
[2021-09-10] MEDS: olanzapine 10mg tablet PO PRN (21:03)
--- NOTE | 2021-09-11 00:22 | NUR ---
Nursing Progress Note Legal hold: 5250 Involuntary hold for GD Report received from ANAY Trimble with the use of SBAR REASON FOR ADMIT: Patient was brought to [facility] by her who was concerned that patient was hallucinating that the devil was going to get her. Patient is disoriented, disorganized, and unable to articulate a viable plan for food, clothing, and/or chcf. Her reports that she has been increasingly agitated and has not been sleeping or eating." Assessment What has happened this shift: Patient sitting up in bed at the beginning of shift. She initially refused medications from previous nurse. She was agitated with entry writer upon entering her room; picked her walker up as if she was going to throw it. Code Enforcement Inspector explained her medications and that the doctor/staff are just trying to help as she was talked about someone trying to poison her. Patient agreed to take her medication and PRN Zyprexa was provided. Patient denies SI, HI, A/VH but appears to be responding to IS. Patient spends most of the shift in her room; briefly came out for coffee. Patient intermittently coughing and propping herself while sleeping. S/I, H/I: Denies A/VH: Denies; appear to be responding to IS Sleep: Refer to sleep assessment ADL's: Independent Group attendance: NA Were Meds taken: Yes Any med S/E: None observed or reported Mental Status Exam Appearance: Appropriately dressed in personal attire Eye contact: Good Behavior: Impulsive Speech: Clear, audible, loud at times Mood: Labile, hypomanic Affect: congruent with mood Thought process: Flight of ideas, delusional, paranoid Thought Content: Delusions, meeting needs Cognition: A/O x1 Insight: Impaired Judgment: Impaired Interventions PRN's used: Zyprexa Therapeutic interventions: Provided 1:1 assessment with therapeutic communication and active listening, medication administration/education/monitoring, constipation management, medication administration/education/monitoring, and maintained Q 15 minute safety checks. Restraints/seclusion/emergency medication: NA Justification of Continued Inpatient Treatment: Pt continues to be psychotic with paranoid and mu-ism delusions, she responds to internal stimuli and becomes agitated. Pt remains gravely disabled. Pt had an adverse medication effect of elevated ammonia level with Depakote, she needs further medication changes and monitoring.
[2021-09-11] MEDS: docusate sod 100mg capsule PO SCH ×3 (07:48→20:14)
[2021-09-11] MEDS: furosemide 40mg tablet PO SCH ×2 (07:48→20:12)
[2021-09-11] MEDS: potassium Cl 20 mEq SR tablet PO SCH ×2 (07:48→20:12)
[2021-09-11] MEDS: topiramate 25mg tablet PO SCH (07:48)
[2021-09-11] MEDS: metFORMIN 500mg tablet PO SCH ×2 (07:48→20:18)
[2021-09-11] MEDS: aspirin 81mg, enteric-coated 1 TAB TABLET.DR PO SCH (07:49)
[2021-09-11] MEDS: benztropine 1mg tablet PO SCH ×2 (07:49→20:11)
[2021-09-11] MEDS: lansoprazole 15mg solutab PO SCH (07:49)
[2021-09-11] MEDS: lactobacillus rhamnosus 10,000 MMU CELLS/CAPSULE PO SCH ×2 (07:49→20:11)
[2021-09-11] MEDS: lactulose 20gm/30ml cup PO SCH ×4 (07:49→20:18)
[2021-09-11] MEDS: nicotine 21mg patch - 24 hr TD SCH (07:50)
[2021-09-11 08:00] VITALS: BP 137/90
[2021-09-11] MEDS: ipratropium 0.5 MG/2.5ML nebule NEB SCH ×2 (09:00→21:00)
[2021-09-11] MEDS: hydrOXYzine 25 MG tablet PO PRN (12:46)
--- NOTE | 2021-09-11 15:48 | NUR ---
Nursing Progress Note: Nereida Hernandez Legal hold: 520 for grave disability Report received from ANAY Nava with the use of SBAR Reason for admit: Patient was brought to [facility] by her who was concerned that patient was hallucinating that the devil was going to get her. Patient is disoriented, disorganized, and unable to articulate a viable plan for food, clothing, and/or skilled nursing. Her reports that she has been increasingly agitated and has not been sleeping or eating." Assessment What has happened this shift: Pt. received sleeping in her room, she woke to receive her medications and 1:1 assessment completed at the bedside. Pt. denies all SI, HI, AH, VH, and minimizes MH need. Pt. reported she was admitted d/t My doesnt believe in self-fulfilling prophecies, he doesnt believe in psych meds either she presents as religiously preoccupied, and delusional. She reports I will go home, when I get the hell out of here. Pt. utilizes a walker for ambulation support, she was compliant with medications and cooperative with assessment. Pt. ate her meals in her room d/t temp. guidelines, interacted with cohorts at times, and was often smiling. Pt. later approached staff and threw a 20$ bill in nursing station landing on the floor. She stated, here Shahla for coming in on your day off. Staff assured pt. no one by the name of Shahla worked here, and encouraged her to retrieve the money; she refused and the money was added to her inventory. Pt. approached typewriter repairer delusional stating Can you look behind the staff door, my family are here, they are mostly sprits, but I know you are supernatural and can see them. Pt. presented very agitated; PRN Atarax given. Later typewriter repairer attempted to admin. Meds, but pt. refused lactulose; she was upset re previous interaction and the inability of typewriter repairer to communicate with her families spirits. S/I, H/I: Pt denies A/VH: Pt denies Sleep: One nap ADL's: Independent Group attendance: No group today Were Meds taken: Yes Any med S/E: None noted Mental Status Exam Appearance: Older female, clean, wearing street clothes Eye contact: Good Behavior: Disorganized, delusional Speech: Clear, audible Mood: Labile Affect: Congruent with mood Thought process: Flight of ideas, delusional Thought Content: Going home Cognition: Delusional Insight: Impaired Judgment: Impaired Interventions PRN's used: None Therapeutic interventions: Provided 1:1 assessment with therapeutic communication and active listening, medication administration/education/monitoring, constipation management, medication administration/education/monitoring, and maintained Q 15 minute safety checks.
--- NOTE | 2021-09-11 16:24 | NUR ---
5270 upheld for GD
[2021-09-11] MEDS: ARIPIPRAZOLE 10 MG TABLET PO SCH (20:12)
[2021-09-11] MEDS: traZODone 50mg tablet PO SCH (20:13)
[2021-09-11] MEDS: acetaminophen 325mg tablet PO PRN (20:13)
[2021-09-11 20:16] VITALS: BP 124/80
--- NOTE | 2021-09-12 01:24 | NUR ---
Nursing Progress Note Legal hold: 5250 Involuntary hold for GD Report received from ANAY Trimble with the use of SBAR REASON FOR ADMIT: Patient was brought to [facility] by her who was concerned that patient was hallucinating that the devil was going to get her. Patient is disoriented, disorganized, and unable to articulate a viable plan for food, clothing, and/or mcc. Her reports that she has been increasingly agitated and has not been sleeping or eating." Assessment What has happened this shift: Patient was seen in her room at shift change. She took a shower later and put towels over the drain. She flooded the whole end of the unit. Patient went back to her room, and was there for HS medications. She poured them into her hand and asked what they were. She was satisfied and took her meds. Patient did not go to sleep, and was later getting loud and agitated. She received PRN Zyprexa that was effective. She appears to be sleeping well. S/I, H/I: Denies A/VH: Denies; appear to be responding to IS Sleep: Refer to sleep assessment ADL's: Independent Group attendance: NA Were Meds taken: Yes Any med S/E: None observed or reported Mental Status Exam Appearance: Appropriately dressed in green unit attire Eye contact: Good Behavior: Impulsive, delusional, guarded. Speech: Clear, audible, loud at times Mood: Labile, hypomanic Affect: Congruent with mood Thought process: Flight of ideas, delusional, paranoid Thought Content: Delusions, meeting needs Cognition: A/O x1 Insight: Impaired Judgment: Impaired Interventions PRN's used: Zyprexa Therapeutic interventions: Provided 1:1 assessment with therapeutic communication and active listening, medication administration/education/monitoring, constipation management, medication administration/education/monitoring, and maintained Q 15 minute safety checks. Restraints/seclusion/emergency medication: NA Justification of Continued Inpatient Treatment: Pt continues to be psychotic with paranoid and lutheran delusions, she responds to internal stimuli and becomes agitated. Pt remains gravely disabled. Pt had an adverse medication effect of elevated ammonia level with Depakote, she needs further medication changes and monitoring.
[2021-09-12 08:00] VITALS: BP 110/73
[2021-09-12] MEDS ORDERED: aripiprazole 5mg tablet PO SCH (08:00)
[2021-09-12] MEDS: nicotine 21mg patch - 24 hr TD SCH (08:05)
[2021-09-12] MEDS: lactulose 20gm/30ml cup PO SCH ×3 (08:06→20:52)
[2021-09-12] MEDS: lactobacillus rhamnosus 10,000 MMU CELLS/CAPSULE PO SCH (08:06)
[2021-09-12] MEDS: docusate sod 100mg capsule PO SCH ×3 (08:06→20:51)
[2021-09-12] MEDS: benztropine 1mg tablet PO SCH ×2 (08:06→20:50)
[2021-09-12] MEDS: potassium Cl 20 mEq SR tablet PO SCH ×2 (08:07→20:51)
[2021-09-12] MEDS: topiramate 25mg tablet PO SCH (08:07)
[2021-09-12] MEDS: metFORMIN 500mg tablet PO SCH ×2 (08:07→20:52)
[2021-09-12] MEDS: aspirin 81mg, enteric-coated 1 TAB TABLET.DR PO SCH (08:07)
[2021-09-12] MEDS: furosemide 40mg tablet PO SCH ×2 (08:07→20:52)
[2021-09-12] MEDS: lansoprazole 15mg solutab PO SCH (08:19)
[2021-09-12] MEDS: ipratropium 0.5 MG/2.5ML nebule NEB SCH ×2 (09:00→21:00)
--- NOTE | 2021-09-12 15:01 | NUR ---
1:1 This below named therapist, met briefly with his patient to provide an expressive art activity using two templates. The patient was asked to complete in preparation for a mural making activity tomorrow. Patient took the handouts thanking this therapist for stopping by her room. Uncertain if this patient will follow through as she was still organized in her thought process and communication. Will follow up 09/13/2021. Bri Monzon MA, INTERPRETATIVE DANCER #[id number] [facility] Art Therapist Addendum: 09/12/21 at 1535 by Bri Monzon SS Correction from above: The patient was still UNORGANIZED in her thought process and communication. This therapist was able to encourage this patient, 2 hours later, to take some time out from her room and do her expressive arts project at the table in the community room. Patient was able to do so, completing both her drawings which she was able to talk about briefly. Her thought content remains disorganized and unrelated to cohesive topics of conversation. Patient remained pleasant and content to be drawing. Bri Monzon MA, INTERPRETATIVE DANCER #[id number] [facility] Art Therapist
--- NOTE | 2021-09-12 17:05 | NUR ---
Nursing Progress Note Legal hold: 5250 Involuntary hold for GD Report received from ANAY Cardenas with the use of SBAR REASON FOR ADMIT: Patient was brought to [facility] by her who was concerned that patient was hallucinating that the devil was going to get her. Patient is disoriented, disorganized, and unable to articulate a viable plan for food, clothing, and/or prison. Her reports that she has been increasingly agitated and has not been sleeping or eating." Assessment What has happened this shift: Received patient while she was lying sideways on her bed. Patient was talking out loud in her room. Patient informed that she was speaking to her (no phone in hand. Patient states I want to go home today and smoke a cigarette. Patient appears disorganized when communicating, and reports I am very tired. Patient ambulated to the Community Room before breakfast and asked if she could return to her room so she could eat breakfast there. Informed patient that she could return to her room. 1:1 Patient Assessment and Interview completed. Patient continues to make states about her , and how he wants to have another baby right now, but she states I want to go out with the girls for about 2 years before I have any more kids. Patient making multiple delusional statement throughout the day. Patient ambulated to the Charting Room with the cordless phone in her hand reaching out to me, and said Tell my that when calls he needs to answer the phone. I told the what the patient said, and she smiled and thanked me for telling him and returned to her room. S/I, H/I: Denies A/VH: Auditory Hallucinations/ No VH Sleep: 4 hrs. ADL's: Independent Group attendance: No Group Attendance Held Today. Were Meds taken: Yes, without hesitation. Any med S/E: None observed or reported Mental Status Exam Appearance: Female with long blonde hair and dressed in green unit attire Eye contact: Good Behavior: Delusional Speech: Clear & Speaks Loudly. Mood: Labile Affect: Congruent with mood Thought process: Flight of ideas & Delusional Thought Content: Delusions, meeting needs Cognition: A/O x2 Insight: Impaired Judgment: Impaired Interventions PRN's used: None Therapeutic interventions: Provided 1:1 assessment with therapeutic communication and active listening, medication administration/education/monitoring, constipation management, medication administration/education/monitoring, and maintained Q 15 minute safety checks. Restraints/seclusion/emergency medication: NA Justification of Continued Inpatient Treatment: Pt continues to be psychotic with paranoid and shinto delusions, she responds to internal stimuli and becomes agitated. Pt remains gravely disabled. Pt had an adverse medication effect of elevated ammonia level with Depakote, she needs further medication changes and monitoring.
[2021-09-12] MEDS: hydrOXYzine 25 MG tablet PO PRN (18:10)
[2021-09-12] MEDS: ARIPIPRAZOLE 10 MG TABLET PO SCH (20:51)
[2021-09-12] MEDS: traZODone 50mg tablet PO SCH (20:51)
[2021-09-12] MEDS: OLANZapine 5mg rapidly disint. tablet PO PRN (20:55)
--- NOTE | 2021-09-13 04:24 | NUR ---
Nursing Progress Note Legal hold: 5250 Involuntary hold for GD Report received from ANAY Trimble with the use of SBAR REASON FOR ADMIT: Patient was brought to [facility] by her who was concerned that patient was hallucinating that the devil was going to get her. Patient is disoriented, disorganized, and unable to articulate a viable plan for food, clothing, and/or mcc. Her reports that she has been increasingly agitated and has not been sleeping or eating." Assessment What has happened this shift: Patient was seen in her room at shift change. She was agitated, yelling, "All you bitches better stay out of my room. You think the towels last night was bad, wait until you see the fire I can bring. Patient labile, wants to go outside. She believes is outside waiting to have a cigarette with her. Patient left in her room. Was worried patient too aggravated for medication, but she was different person now, kind, saying nice things, accepting of all medications. Patient continues to be psychotic. S/I, H/I: Denies A/VH: Denies; appear to be responding to IS Sleep: Refer to sleep assessment ADL's: Independent Group attendance: NA Were Meds taken: Yes Any med S/E: None observed or reported Mental Status Exam Appearance: Appropriately dressed in green unit attire Eye contact: Good Behavior: Impulsive, delusional, guarded. Speech: Clear, audible, loud at times Mood: Labile, hypomanic Affect: Congruent with mood Thought process: Flight of ideas, delusional, paranoid Thought Content: Delusions, meeting needs Cognition: A/O x1 Insight: Impaired Judgment: Impaired Interventions PRN's used: Zyprexa jose alejandrois Therapeutic interventions: Provided 1:1 assessment with therapeutic communication and active listening, medication administration/education/monitoring, constipation management, medication administration/education/monitoring, and maintained Q 15 minute safety checks. Restraints/seclusion/emergency medication: NA Justification of Continued Inpatient Treatment: Pt continues to be psychotic with paranoid and samaritan delusions, she responds to internal stimuli and becomes agitated. Pt remains gravely disabled. Pt had an adverse medication effect of elevated ammonia level with Depakote, she needs further medication changes and monitoring.
[2021-09-13 07:31] VITALS: BP 148/101
[2021-09-13] MEDS: aspirin 81mg, enteric-coated 1 TAB TABLET.DR PO SCH (07:46)
[2021-09-13] MEDS: aripiprazole 5mg tablet PO SCH (07:46)
[2021-09-13] MEDS: metFORMIN 500mg tablet PO SCH ×2 (07:46→20:30)
[2021-09-13] MEDS: furosemide 40mg tablet PO SCH ×2 (07:47→20:29)
[2021-09-13] MEDS: topiramate 25mg tablet PO SCH (07:47)
[2021-09-13] MEDS: lansoprazole 15mg solutab PO SCH (07:47)
[2021-09-13] MEDS: docusate sod 100mg capsule PO SCH ×3 (07:47→20:29)
[2021-09-13] MEDS: potassium Cl 20 mEq SR tablet PO SCH ×2 (07:48→20:30)
[2021-09-13] MEDS: benztropine 1mg tablet PO SCH ×2 (07:49→20:29)
[2021-09-13] MEDS: lactulose 20gm/30ml cup PO SCH ×3 (07:49→20:32)
[2021-09-13] MEDS: nicotine 21mg patch - 24 hr TD SCH (07:50)
--- NOTE | 2021-09-13 07:52 | NUR ---
Spoke with Nereida in the group room this morning. She was reading a magazine. She was alert and oriented. She reported she wants to return home to her . She went on to talk about how she lives with both husbands in the same house. She reported she wants to follow up with [facility] upon discharge. Reminded her that she will have a share of cost and she reported she is ok with that. ASIM Mendez
[2021-09-13] MEDS: ipratropium 0.5 MG/2.5ML nebule NEB SCH ×2 (09:21→21:00)
[2021-09-13] MEDS: OLANZapine 5mg rapidly disint. tablet PO PRN (12:20)
[2021-09-13] MEDS: ibuprofen tablet 400 MG TABLET PO PRN (12:23)
--- NOTE | 2021-09-13 15:11 | NUR ---
Nursing Progress Note: WENDY Legal hold: 5270 Expires 10/10. Client on involuntary status for GD Report received from NITA Cardenas with the use of SBAR Why are they here: Patient was brought to [facility] by her who was concerned that patient was hallucinating that the devil was going to get her. Patient is disoriented, disorganized, and unable to articulate a viable plan for food, clothing, and/or residential. Her reports that she has been increasingly agitated and has not been sleeping or eating." Assessment What has happened this shift: Received patient sleeping at shift, respirations even and unlabored. Pt woke ate breakfast in her room. Pt was compliant with medication and care. When pt saw short story writer she thought it was her mental health worker. When short story writer said no pt stated they are trying to trick me and make me stay longer. Pt remained in her room most of the shift talking to herself and occasionally coming out to use the phone. Pt continues to present disorganized and delusional. Pt told short story writer take me to the ICU, to my parents. Pt then asked where is ? I know is up there, he is wearing a green strip polo shirt. Dont tell me you havent seen him. He looks like he should be on golf course. Pt continued to elevate. Zyprexa zydis 5mg was administered with effect. Pt c/o of low back pain, Motrin 600 mg was administered with effect. Received order for new sleep aid as pt has difficulty falling asleep Restoril 15mg HSMR1. Pt appeared to be napping after afternoon snack, no labile behavior to report. No c/o cough, sore throat, headache, SOB. S/I, H/I: Pt denies both. A/VH: Pt endorses AH, but does not elaborate. Definitely responding to internal stimuli. Sleep: 2 hours per sleep assessment. Short nap in afternoon. ADL's: Independent. Declined shower. Group attendance: Were Meds taken: Yes, without hesitation. Any med S/E: None observed or reported Mental Status Exam Appearance: Female with long blonde disheveled hair and dressed in t-shirt and green scrubs. Eye contact: Good Behavior: Isolates to her room, delusional comments, cooperative. No outbursts. Speech: Clear, loud at times, disorganized. Mood: Less labile. Affect: Animated. Thought process: Flight of ideas, delusional Thought Content: Delusions, still talks about not wanting to be here. Cognition: A/O x2 Insight: Poor Judgment: Poor Interventions PRN's used: Zyprexa zydis 5mg, Motrin Therapeutic interventions: Provided 1:1 assessment with therapeutic communication and active listening, medication administration/education/monitoring, constipation management (receives Colace 100mg TID), medication administration/education/monitoring, and maintained Q 15 minute safety checks. Restraints/seclusion/emergency medication: NA Justification of Continued Inpatient Treatment: Pt continues to be psychotic with paranoid and denominational delusions, she responds to internal stimuli and becomes agitated. Pt remains gravely disabled. Pt needs further medication changes and monitoring.
[2021-09-13 20:00] VITALS: BP 130/80
[2021-09-13] MEDS: ARIPIPRAZOLE 10 MG TABLET PO SCH (20:29)
[2021-09-13] MEDS: temazepam 15mg capsule PO SCH (20:30)
[2021-09-13] MEDS: traZODone 50mg tablet PO SCH (20:30)
--- NOTE | 2021-09-14 00:41 | NUR ---
Nursing Progress Note: WENDY Legal hold: 5270 Expires 10/10. Client on involuntary status for GD Report received from Corby MOYA with the use of SBAR Why are they here: Patient was brought to [facility] by her who was concerned that patient was hallucinating that the devil was going to get her. Patient is disoriented, disorganized, and unable to articulate a viable plan for food, clothing, and/or senior living. Her reports that she has been increasingly agitated and has not been sleeping or eating." Assessment What has happened this shift: Received patient lying in bed resting. Pt cooperative with care. She states she is tired and that she has lower back pain and her legs hurt. Pt requested Tylenol, given 650MG of Tylenol with good effect. Pt requested this RN to get a hold of an ICU Dr. They are waiting for her so they can rule out cancer and something going on in her head. She states she is going to [facility] or [place] and [facility] She states she is going with the long haired hippy yvrose. Pt took all HS medications without issue and laid down in her bed. S/I, H/I: Pt denies both. A/VH: Denies, appears to be responding to IS Sleep: ADL's: Independent. Requested shower then refused Group attendance: Were Meds taken: Yes, without hesitation. Any med S/E: None observed or reported Mental Status Exam Appearance: Female with long blonde disheveled hair and dressed in t-shirt and green scrubs. Eye contact: Good Behavior: Isolates to her room, delusional comments, cooperative. No outbursts. Speech: Clear, loud at times, disorganized. Mood: labile, hypomanic Affect: Animated. Thought process: Flight of ideas, delusional Thought Content: Delusions, still talks about not wanting to be here. Cognition: A/O x2 Insight: Poor Judgment: Poor Interventions PRN's used: Therapeutic interventions: Provided 1:1 assessment with therapeutic communication and active listening, medication administration/education/monitoring, constipation management (receives Colace 100mg TID), medication administration/education/monitoring, and maintained Q 15 minute safety checks. Restraints/seclusion/emergency medication: NA Justification of Continued Inpatient Treatment: Pt continues to be psychotic with paranoid and druze delusions, she responds to internal stimuli and becomes agitated. Pt remains gravely disabled. Pt needs further medication changes and monitoring.
[2021-09-14 08:00] VITALS: BP 135/79
[2021-09-14] MEDS: lactulose 20gm/30ml cup PO SCH ×3 (08:00→20:19)
[2021-09-14] MEDS: benztropine 1mg tablet PO SCH ×2 (08:00→20:18)
[2021-09-14] MEDS: aripiprazole 5mg tablet PO SCH (08:00)
[2021-09-14] MEDS: topiramate 25mg tablet PO SCH (08:00)
[2021-09-14] MEDS: metFORMIN 500mg tablet PO SCH ×2 (08:00→20:17)
[2021-09-14] MEDS: docusate sod 100mg capsule PO SCH ×3 (08:00→20:18)
[2021-09-14] MEDS: aspirin 81mg, enteric-coated 1 TAB TABLET.DR PO SCH (08:00)
[2021-09-14] MEDS: lansoprazole 15mg solutab PO SCH (08:00)
[2021-09-14] MEDS: potassium Cl 20 mEq SR tablet PO SCH ×2 (08:00→20:18)
[2021-09-14] MEDS: furosemide 40mg tablet PO SCH ×2 (08:01→20:17)
[2021-09-14] MEDS: nicotine 21mg patch - 24 hr TD SCH (08:06)
--- NOTE | 2021-09-14 08:41 | NUR ---
Reassessment: Pt currently on regular diet and eating well, documented with ~100% PO intake meeting estimated nutrient needs. LBM 2 receiving routine Colace and lactulose w/ ammonia 51 2/4 per EMR. Will continue to follow and monitor need for nutrition intervention. Recommendations: 1. Continue regular diet 2. Routine bowel care per MD 3. Weekly wts Addendum: 09/14/21 at [address] ALYSON has reviewed and approves of above note. Addendum: 09/14/21 at [address] Amended: Links added.
[2021-09-14] MEDS: ipratropium 0.5 MG/2.5ML nebule NEB SCH (09:00)
--- NOTE | 2021-09-14 15:43 | NUR ---
0900 SVN TRIAGED-THERAPIST NOT AVAILABLE
[2021-09-14] MEDS: hydrOXYzine 25 MG tablet PO PRN (17:18)
[2021-09-14] MEDS: OLANZapine 5mg rapidly disint. tablet PO PRN (17:18)
--- NOTE | 2021-09-14 18:09 | NUR ---
Nursing Progress Note Legal hold: 5270 for grave disability Report received from RN with the use of SBAR REASON FOR ADMIT: Patient was brought to [facility] by her who was concerned that patient was hallucinating that the devil was going to get her. Patient is disoriented, disorganized, and unable to articulate a viable plan for food, clothing, and/or [place] [facility]. Her reports that she has been increasingly agitated and has not been sleeping or eating." Assessment What has happened this shift: Received Pt in bed sleeping w/o distress at the beginning of the shift. Pt woke and was cooperative with vitals and returned to sleep. Pt took AM meds w/o issue and ate breakfast in her room. Pt pleasant and cooperative for AM assessments.Pt remains delusional stating abdelrahman worked it out, your taking me home for lunch in your truck, the administrators are ok with it. Pt wants to leave and became agitated in afternoon and received atarax and Zyprexa prn. Amonia level ordered by PA. Continues to ambulate well with walker and has good sense of humor when not agitated. S/I, H/I: Pt denies A/VH: Pt denies Sleep: Pt did not sleep this shift ADL's: Independent Group attendance: No group today Were Meds taken: Yes Any med S/E: None noted Mental Status Exam Appearance: Groomed in own clothes Eye contact: Good Behavior: Mostly pleasant and cooperative Speech: Clear, audible, loud at times Mood: Labile Affect: Labile Thought process: Disorganized, delusional Thought Content: Wanting to leave Cognition: Delusional Insight: Impaired Judgment: Impaired Interventions PRN's used: Atarax, Zyprexa Therapeutic interventions: 1:1 assessment, therapeutic communication, active listening, medication administration/education/monitoring, constipation management, medication administration/education/monitoring, behavior monitoring and intervention as needed; reality orientation, distraction, redirection verbal de-escalation, provided reassurance and positive reinforcement, and maintained Q 15 minute safety checks. Restraints/seclusion/emergency medication: None Justification of Continued Inpatient Treatment: Pt continues to be psychotic with paranoid and yazidi delusions, she responds to internal stimuli and becomes agitated. Pt remains gravely disabled. Pt had an adverse medication effect of elevated ammonia level with Depakote, she needs further medication changes and monitoring.
[2021-09-14 19:00] VITALS: BP 134/79
[2021-09-14] MEDS: traZODone 50mg tablet PO SCH (20:17)
[2021-09-14] MEDS: OLANZAPINE 5 MG TABLET PO SCH (20:17)
[2021-09-14] MEDS: ARIPIPRAZOLE 10 MG TABLET PO SCH (20:17)
[2021-09-14] MEDS: temazepam 15mg capsule PO SCH (20:18)
--- NOTE | 2021-09-15 00:32 | NUR ---
Nursing Progress Note Legal hold: 5270 for grave disability Report received from ANAY Coffman with the use of SBAR REASON FOR ADMIT: Patient was brought to [facility] by her who was concerned that patient was hallucinating that the devil was going to get her. Patient is disoriented, disorganized, and unable to articulate a viable plan for food, clothing, and/or correction. Her reports that she has been increasingly agitated and has not been sleeping or eating." Assessment What has happened this shift: Pt walking with walker at beginning of shift. Met patient in room. Pt denies A/V H, Patient states that her is outside and she needs to talk to him. Patient also reports that her is a doctor and I need to call him. Patient was very disorganized when speaking. Patient mentioned several times about mother Jesus Corea and climbing to the heTechnorati. Patient talks to self in room. Pt states she had a large BM today. Pt ate a snack at snack time and took evening meds w/o complications. Ammonia levels to be drawn in the morning 09/15/21 @ 0730. S/I, H/I: pt denies A/VH: Pt denies Sleep: See sleep hours. ADL's: Independent Group attendance: No group in the evenings Were Meds taken: Yes Any med S/E: None noted Mental Status Exam Appearance: Groomed in own clothes Eye contact: Good Behavior: Mostly pleasant and cooperative Speech: Clear, audible, loud at times Mood: Labile Affect: Labile Thought process: Disorganized, delusional Thought Content: Cognition: Delusional Insight: Impaired Judgment: Impaired Interventions PRN's used: none Therapeutic interventions: 1:1 assessment, therapeutic communication, active listening, medication administration/education/monitoring, constipation management, medication administration/education/monitoring, behavior monitoring and intervention as needed; reality orientation, distraction, redirection verbal de-escalation, provided reassurance and positive reinforcement, and maintained Q 15 minute safety checks. Restraints/seclusion/emergency medication: None Justification of Continued Inpatient Treatment: Pt continues to be psychotic with paranoid and protestant delusions, she responds to internal stimuli and becomes agitated. Pt remains gravely disabled. Pt had an adverse medication effect of elevated ammonia level with Depakote, she needs further medication changes and monitoring.
[2021-09-15 07:08] VITALS: BP 134/77
[2021-09-15] MEDS: benztropine 1mg tablet PO SCH ×2 (07:34→20:23)
[2021-09-15] MEDS: lactulose 20gm/30ml cup PO SCH ×3 (07:34→20:23)
[2021-09-15] MEDS: aripiprazole 5mg tablet PO SCH (07:35)
[2021-09-15] MEDS: topiramate 25mg tablet PO SCH (07:35)
[2021-09-15] MEDS: docusate sod 100mg capsule PO SCH ×3 (07:35→20:22)
[2021-09-15] MEDS: aspirin 81mg, enteric-coated 1 TAB TABLET.DR PO SCH (07:35)
[2021-09-15] MEDS: OLANZAPINE 5 MG TABLET PO SCH ×2 (07:35→20:22)
[2021-09-15] MEDS: furosemide 40mg tablet PO SCH ×2 (07:35→20:22)
[2021-09-15] MEDS: potassium Cl 20 mEq SR tablet PO SCH ×2 (07:35→20:22)
[2021-09-15] MEDS: lansoprazole 15mg solutab PO SCH (07:36)
[2021-09-15] MEDS: nicotine 21mg patch - 24 hr TD SCH (07:36)
[2021-09-15] MEDS: metFORMIN 500mg tablet PO SCH ×2 (07:36→20:21)
[2021-09-15] MEDS: hydrOXYzine 25 MG tablet PO PRN (15:49)
--- NOTE | 2021-09-15 16:22 | NUR ---
Nursing Progress Note: Legal hold: 5270 Client on involuntary status for GD Report received from NITA Villa with use of SBAR REASON FOR ADMIT: Patient was brought to [facility] by her who was concerned that patient was hallucinating that the devil was going to get her. Patient is disoriented, disorganized, and unable to articulate a viable plan for food, clothing, and/or detention. Her reports that she has been increasingly agitated and has not been sleeping or eating." Assessment What has happened this shift: Patient resting quietly in bed at the start of the shift. Cooperative with 1:1 assessment and medications. Thought process is disorganized and delusional. Denies any AH but appears to be responding to internal stimuli. Sits on the side of her bed for much of the day talking to herself. In the afternoon the patient becomes agitated and is yelling to herself. PRN Atarax given which appears helpful. S/I, H/I: Denies A/VH: Denies but appears to be responding to internal stimuli. Sleep: 2 hours in the morning. Naps off and on. ADL's: Independent with prompting, Ambulates with FWW Group attendance: NA Were Meds taken: Yes Any med S/E: None observed or reported Mental Status Exam Appearance: Older appearing woman, disheveled wearing green unit scrubs. Eye contact: Good Behavior: Cooperative, intrusive Speech: Clear, normal rate, loud at times Mood: Good. Labile Affect: Congruent, full range Thought process: Disorganized, delusional Thought Content: Meeting needs. Talks about her . Cognition: A/O x2 to self and place Insight: Poor Judgment: Poor Interventions PRN's used: None Therapeutic interventions: 1:1 assessment, therapeutic communication, active listening, medication administration/education/monitoring, constipation management, medication administration/education/monitoring, behavior monitoring and intervention as needed; reality orientation, distraction, redirection verbal de-escalation, provided reassurance and positive reinforcement, and maintained Q 15 minute safety checks. Restraints/seclusion/emergency medication: None Justification of Continued Inpatient Treatment: Pt continues to be psychotic with paranoid and temple delusions, she responds to internal stimuli and becomes agitated. Pt remains gravely disabled. Pt had an adverse medication effect of elevated ammonia level with Depakote, she needs further medication changes and monitoring.
[2021-09-15 20:00] VITALS: BP 139/88
[2021-09-15] MEDS: ARIPIPRAZOLE 10 MG TABLET PO SCH (20:21)
[2021-09-15] MEDS: temazepam 15mg capsule PO SCH ×2 (20:21→22:00)
[2021-09-15] MEDS: traZODone 50mg tablet PO SCH (20:22)
[2021-09-15] MEDS: OLANZapine 5mg rapidly disint. tablet PO PRN (23:57)
--- NOTE | 2021-09-16 00:25 | NUR ---
Nursing Progress Note: Legal hold: 5270 Client on involuntary status for GD Report received from NITA Jordan with use of SBAR REASON FOR ADMIT: Patient was brought to [facility] by her who was concerned that patient was hallucinating that the devil was going to get her. Patient is disoriented, disorganized, and unable to articulate a viable plan for food, clothing, and/or jail. Her reports that she has been increasingly agitated and has not been sleeping or eating." Assessment What has happened this shift: Patient sitting on bed at shift change. Pt was observed talking to herself loudly. Pt denies A/V H. Pt has disorganized thoughts, rambles about Nahomy , Dioni and . Pt reports that her is a Dr and I need to contact him. Other statements centered around wanting cigarettes. Pt refused snack and took all evening meds w/o complaint. At 2200 pt approached this nurse in observation room stating she couldn't sleep, a second dose of Restoril was provided to the pt. The pt came out a third time and demanded that this nurse call a unknown person up in ICU to give me orders. Pt was reminded of HIPPA laws and that If she was having trouble sleeping we have more options on different meds, pt continued to yell down hallway. Pt provided with 5mg Zyprexa due to increasing agitation which had a good effect on the pt. Pt went to sleep shortly after. S/I, H/I: Denies A/VH: Denies but appears to be responding to internal stimuli. Sleep: See sleep hours ADL's: Independent with prompting, Ambulates with FWW Group attendance: NA Were Meds taken: Yes Any med S/E: None observed or reported Mental Status Exam Appearance: Older appearing woman, disheveled wearing green unit scrubs. Eye contact: Good Behavior: cooperative, agitated Speech: Clear, normal rate, loud at times Mood: irritated Affect: Congruent, full range Thought process: Disorganized, delusional Thought Content: cigarettes, Cognition: A/O x2 to self and place Insight: Poor Judgment: Poor Interventions PRN's used: Restoril 15mg, Zyprexa 5mg Therapeutic interventions: 1:1 assessment, therapeutic communication, active listening, medication administration/education/monitoring, constipation management, medication administration/education/monitoring, behavior monitoring and intervention as needed; reality orientation, distraction, redirection verbal de-escalation, provided reassurance and positive reinforcement, and maintained Q 15 minute safety checks. Restraints/seclusion/emergency medication: None Justification of Continued Inpatient Treatment: Pt continues to be psychotic with paranoid and tenriism delusions, she responds to internal stimuli and becomes agitated. Pt remains gravely disabled. Pt had an adverse medication effect of elevated ammonia level with Depakote, she needs further medication changes and monitoring. Addendum: 09/16/21 at 0515 by Rosa Quiroga RN Pt woke and requested medication for having trouble sleeping, due to lack of sleep and earlier agitation hydroxyzine was provided. Pt continues to have tenriism delusions and is making the empty bed next to her for /Adam
[2021-09-16] MEDS: hydrOXYzine 25 MG tablet PO PRN (05:03)
[2021-09-16 07:43] VITALS: BP 129/86
[2021-09-16] MEDS: lansoprazole 15mg solutab PO SCH (08:54)
[2021-09-16] MEDS: docusate sod 100mg capsule PO SCH ×4 (08:55→21:00)
[2021-09-16] MEDS: nicotine 21mg patch - 24 hr TD SCH (08:55)
[2021-09-16] MEDS: potassium Cl 20 mEq SR tablet PO SCH ×2 (08:55→20:20)
[2021-09-16] MEDS: benztropine 1mg tablet PO SCH ×2 (08:55→20:20)
[2021-09-16] MEDS: aripiprazole 5mg tablet PO SCH (08:55)
[2021-09-16] MEDS: aspirin 81mg, enteric-coated 1 TAB TABLET.DR PO SCH (08:55)
[2021-09-16] MEDS: OLANZAPINE 5 MG TABLET PO SCH ×2 (08:55→20:19)
[2021-09-16] MEDS: metFORMIN 500mg tablet PO SCH ×2 (08:55→20:18)
[2021-09-16] MEDS: lactulose 20gm/30ml cup PO SCH ×2 (08:55→13:43)
[2021-09-16] MEDS: furosemide 40mg tablet PO SCH ×2 (08:55→20:20)
[2021-09-16] MEDS: topiramate 25mg tablet PO SCH (08:55)
--- NOTE | 2021-09-16 15:26 | NUR ---
Nursing Progress Note: Legal hold: 5270 for grave disability Report received from RN with the use of SBAR REASON FOR ADMIT: Patient was brought to [facility] by her who was concerned that patient was hallucinating that the devil was going to get her. Patient is disoriented, disorganized, and unable to articulate a viable plan for food, clothing, and/or custodial. Her reports that she has been increasingly agitated and has not been sleeping or eating." Assessment What has happened this shift: Received Pt in bed sleeping w/o distress at the beginning of the shift. Pt woke and was cooperative with vitals and returned to sleep. Pt took AM meds w/o issue and ate breakfast in her room. Pt pleasant and cooperative for AM assessments. Pt stated she wanted marijuana and [employer]. Amonia level is wnl/23. Continues to ambulate well with walker. Pt yelling in room for about 20 min then able to calm with verbal intervention. S/I, H/I: Pt denies A/VH: Pt denies Sleep: Pt did not sleep this shift ADL's: Independent Group attendance: No groups Were Meds taken: Yes Any med S/E: None noted Mental Status Exam Appearance: Groomed in own clothes Eye contact: Good Behavior: Pt cooperative Speech: Clear, audible, loud at times Mood: Labile Affect: Labile Thought process: Disorganized, delusional Thought Content: Wanting to leave Cognition: Delusional Insight: Impaired Judgment: Impaired Interventions PRN's used: Therapeutic interventions: 1:1 assessment, therapeutic communication, active listening, medication administration/education/monitoring, constipation management, medication administration/education/monitoring, behavior monitoring and intervention as needed; reality orientation, distraction, redirection verbal de-escalation, provided reassurance and positive reinforcement, and maintained Q 15 minute safety checks. 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 Pt remains gravely disabled.
[2021-09-16] MEDS ORDERED: magnesium hydroxide 30ml (MOM) UD suspension PO PRN (16:25)
[2021-09-16 18:36] VITALS: BP 140/89
[2021-09-16] MEDS: traZODone 50mg tablet PO SCH (20:18)
[2021-09-16] MEDS: ARIPIPRAZOLE 10 MG TABLET PO SCH (20:18)
[2021-09-16] MEDS: temazepam 15mg capsule PO SCH (20:19)
[2021-09-16] MEDS: ibuprofen tablet 400 MG TABLET PO PRN (20:19)
--- NOTE | 2021-09-17 00:43 | NUR ---
Nursing Progress Note: Legal hold: 5270 for grave disability Report received from RN with the use of SBAR REASON FOR ADMIT: Patient was brought to [facility] by her who was concerned that patient was hallucinating that the devil was going to get her. Patient is disoriented, disorganized, and unable to articulate a viable plan for food, clothing, and/or long term. Her reports that she has been increasingly agitated and has not been sleeping or eating." Assessment What has happened this shift: Received Pt in bed sleeping w/o distress at the beginning of the shift. Pt woke and was cooperative with vitals and returned to sleep. Pt took AM meds w/o issue and ate breakfast in her room. Pt pleasant and cooperative for AM assessments. Pt stated she wanted marijuana and [employer]. Amonia level is wnl/23. Continues to ambulate well with walker. Pt yelling in room for about 20 min then able to calm with verbal intervention. S/I, H/I: Pt denies A/VH: Pt denies Sleep: Pt did not sleep this shift ADL's: Independent Group attendance: No groups Were Meds taken: Yes Any med S/E: None noted Mental Status Exam Appearance: Groomed in own clothes Eye contact: Good Behavior: Pt cooperative Speech: Clear, audible, loud at times Mood: Labile Affect: Labile Thought process: Disorganized, delusional Thought Content: Wanting to leave Cognition: Delusional Insight: Impaired Judgment: Impaired Interventions PRN's used: Therapeutic interventions: 1:1 assessment, therapeutic communication, active listening, medication administration/education/monitoring, constipation management, medication administration/education/monitoring, behavior monitoring and intervention as needed; reality orientation, distraction, redirection verbal de-escalation, provided reassurance and positive reinforcement, and maintained Q 15 minute safety checks. Restraints/seclusion/emergency medication: None Justification of Continued Inpatient Treatment: Pt continues to be psychotic with paranoid and baptist delusions, she responds to internal stimuli and becomes agitated. Pt remains gravely disabled. Addendum: 09/17/21 at 0540 by Rosa Quiroga RN PLEASE DISREGARD PROGRESS NOTE, MADE IN ERROR
--- NOTE | 2021-09-17 00:51 | NUR ---
Nursing Progress Note: Legal hold: 5270 for grave disability Report received from RN with the use of SBAR REASON FOR ADMIT: Patient was brought to [facility] by her who was concerned that patient was hallucinating that the devil was going to get her. Patient is disoriented, disorganized, and unable to articulate a viable plan for food, clothing, and/or correction. Her reports that she has been increasingly agitated and has not been sleeping or eating." Assessment What has happened this shift: Pt in room talking to herself loudly.Pt very disorganized with thoughts. Pt denies A/V H. Pt responds to internal stimuli, yells in room incoherently by herself. Very polite when approached. Patient reports having a bowel movement today. Pt ate a sandwich for snack and took meds w/o complaint. Pt given 400mg of IB-Profen for a headache. Pt went to sleep shortly after. S/I, H/I: Pt denies A/VH: Pt denies Sleep: Pt did not sleep this shift ADL's: Independent Group attendance: No groups Were Meds taken: Yes Any med S/E: None noted Mental Status Exam Appearance: Groomed in own clothes Eye contact: Good Behavior: Pt cooperative Speech: Clear, audible, loud at times Mood: Labile Affect: Labile Thought process: Disorganized, delusional Thought Content: Wanting to leave Cognition: Delusional Insight: Impaired Judgment: Impaired Interventions PRN's used: Therapeutic interventions: 1:1 assessment, therapeutic communication, active listening, medication administration/education/monitoring, constipation management, medication administration/education/monitoring, behavior monitoring and intervention as needed; reality orientation, distraction, redirection verbal de-escalation, provided reassurance and positive reinforcement, and maintained Q 15 minute safety checks. Restraints/seclusion/emergency medication: None Justification of Continued Inpatient Treatment: Pt continues to be psychotic with paranoid and sabianism delusions, she responds to internal stimuli and becomes agitated. Pt remains gravely disabled.
[2021-09-17] MEDS: OLANZapine 5mg rapidly disint. tablet PO PRN ×3 (05:52→17:48)
[2021-09-17] MEDS: metFORMIN 500mg tablet PO SCH ×2 (07:54→20:20)
[2021-09-17] MEDS: benztropine 1mg tablet PO SCH ×2 (07:54→20:22)
[2021-09-17] MEDS: topiramate 25mg tablet PO SCH (07:54)
[2021-09-17] MEDS: docusate sod 100mg capsule PO SCH ×5 (07:55→21:00)
[2021-09-17] MEDS: furosemide 40mg tablet PO SCH ×2 (07:55→20:21)
[2021-09-17] MEDS: OLANZAPINE 5 MG TABLET PO SCH ×2 (07:55→20:20)
[2021-09-17] MEDS: aspirin 81mg, enteric-coated 1 TAB TABLET.DR PO SCH (07:55)
[2021-09-17] MEDS: aripiprazole 5mg tablet PO SCH (07:55)
[2021-09-17] MEDS: potassium Cl 20 mEq SR tablet PO SCH ×2 (07:56→20:21)
[2021-09-17] MEDS: nicotine 21mg patch - 24 hr TD SCH (07:56)
[2021-09-17 08:00] VITALS: BP 143/88
[2021-09-17] MEDS: lansoprazole 15mg solutab PO SCH (08:04)
[2021-09-17] MEDS: hydrOXYzine 25 MG tablet PO PRN ×2 (09:01→17:48)
--- NOTE | 2021-09-17 17:33 | NUR ---
Nursing Progress Note: Legal hold: 5270 for grave disability Report received from RN with the use of SBAR REASON FOR ADMIT: Patient was brought to [facility] by her who was concerned that patient was hallucinating that the devil was going to get her. Patient is disoriented, disorganized, and unable to articulate a viable plan for food, clothing, and/or group home. Her reports that she has been increasingly agitated and has not been sleeping or eating." Assessment What has happened this shift: Patient was asleep at change of shift and up for breakfast. Patient is very disorganized AEB RN went to give patient her medication. Patient asked "Are you here to eat me?". RN explained that she was not but was here to help her. Patient is hyper-methodist. Patient attempted to get into the Art room so she could go down the escape dubois. Patient was given Zyprexa and Atarax. Patient is now in the Rec Room yelling at people to get out of her room. Patient talking about . Patient yelled at RN to get out of her room. RN explained that this is not her room. Patient yelled to "Take her off the list!" Patient is agitated and given Zyprexa and Atarax again. sent her a card and gave her castro. She is leaving them on the chair for and the little red headed girl. S/I, H/I: Pt denies A/VH: Pt denies Sleep: Pt did not sleep this shift ADL's: Independent Group attendance: No groups Were Meds taken: Yes Any med S/E: None noted Mental Status Exam Appearance: Groomed in own clothes Eye contact: Good Behavior: Labile Speech: Clear, audible, loud at times Mood: agitated Affect: Angry/calm Thought process: Disorganized, delusional Thought Content: Wanting to leave Cognition: Delusional Insight: Impaired Judgment: Impaired Interventions PRN's used: Zyprexa, Atarax, X 2 Therapeutic interventions: 1:1 assessment, therapeutic communication, active listening, medication administration/education/monitoring, constipation management, medication administration/education/monitoring, behavior monitoring and intervention as needed; reality orientation, distraction, redirection verbal de-escalation, provided reassurance and positive reinforcement, and maintained Q 15 minute safety checks. Restraints/seclusion/emergency medication: None Justification of Continued Inpatient Treatment: Pt continues to be psychotic with paranoid and methodist delusions, she responds to internal stimuli and becomes agitated. Pt remains gravely disabled.
[2021-09-17] MEDS: ARIPIPRAZOLE 10 MG TABLET PO SCH (20:21)
[2021-09-17] MEDS: temazepam 15mg capsule PO SCH ×2 (20:21→21:21)
[2021-09-17] MEDS: traZODone 50mg tablet PO SCH (20:21)
--- NOTE | 2021-09-18 01:07 | NUR ---
Nursing Progress Note: Legal hold: 5270 for grave disability Report received from RN with the use of SBAR REASON FOR ADMIT: Patient was brought to [facility] by her who was concerned that patient was hallucinating that the devil was going to get her. Patient is disoriented, disorganized, and unable to articulate a viable plan for food, clothing, and/or care home. Her reports that she has been increasingly agitated and has not been sleeping or eating." Assessment What has happened this shift: Patient sitting in community room at shift change. Patient states that a man is sitting in her room and he wont leave. Patient also states that the bathroom is now free to use and she was holding bowel symptoms because she couldn't afford to go. Patient is reassured that there is no men in her room and that her bathroom is always free for her to use, and it's okay if she wants to go in her room. Patient then goes to room and lies down. Pt denies A/VH. Patient eats sandwich and chips at snack time. Patient takes evening meds w/op complications. Patient given a Restoril 15mg for sleep. S/I, H/I: Pt denies A/VH: Pt denies Sleep: Pt did not sleep this shift ADL's: Independent Group attendance: No groups Were Meds taken: Yes Any med S/E: None noted Mental Status Exam Appearance: Groomed in own clothes Eye contact: Good Behavior: Labile Speech: Clear, audible, loud at times Mood: agitated Affect: hesitant Thought process: Disorganized, delusional Thought Content: Wanting to leave Cognition: Delusional Insight: Impaired Judgment: Impaired Interventions PRN's used: Restoril 15mg Therapeutic interventions: 1:1 assessment, therapeutic communication, active listening, medication administration/education/monitoring, constipation management, medication administration/education/monitoring, behavior monitoring and intervention as needed; reality orientation, distraction, redirection verbal de-escalation, provided reassurance and positive reinforcement, and maintained Q 15 minute safety checks. Restraints/seclusion/emergency medication: None Justification of Continued Inpatient Treatment: Pt continues to be psychotic with paranoid and pentecostalism delusions, she responds to internal stimuli and becomes agitated. Pt remains gravely disabled.
[2021-09-18] MEDS: OLANZapine 5mg rapidly disint. tablet PO PRN ×3 (01:44→14:24)
[2021-09-18] MEDS: metFORMIN 500mg tablet PO SCH ×2 (07:26→20:12)
[2021-09-18] MEDS: topiramate 25mg tablet PO SCH (07:26)
[2021-09-18] MEDS: aripiprazole 5mg tablet PO SCH (07:26)
[2021-09-18] MEDS: aspirin 81mg, enteric-coated 1 TAB TABLET.DR PO SCH (07:26)
[2021-09-18] MEDS: benztropine 1mg tablet PO SCH ×2 (07:26→20:13)
[2021-09-18] MEDS: OLANZAPINE 5 MG TABLET PO SCH ×2 (07:26→08:33)
[2021-09-18] MEDS: potassium Cl 20 mEq SR tablet PO SCH ×2 (07:27→20:12)
[2021-09-18] MEDS: lansoprazole 15mg solutab PO SCH (07:29)
[2021-09-18] MEDS: hydrOXYzine 25 MG tablet PO PRN ×2 (07:30→14:25)
[2021-09-18] MEDS: nicotine 21mg patch - 24 hr TD SCH (07:31)
[2021-09-18] MEDS: furosemide 40mg tablet PO SCH ×2 (07:34→20:13)
[2021-09-18] MEDS: docusate sod 100mg capsule PO SCH ×4 (07:34→20:13)
[2021-09-18 08:00] VITALS: BP 134/81
[2021-09-18 08:45] VITALS: BP 134/81
--- NOTE | 2021-09-18 14:57 | NUR ---
Nursing Progress Note: Legal hold: 5270 for grave disability Report received from RN with the use of SBAR REASON FOR ADMIT: Patient was brought to [facility] by her who was concerned that patient was hallucinating that the devil was going to get her. Patient is disoriented, disorganized, and unable to articulate a viable plan for food, clothing, and/or retirement. Her reports that she has been increasingly agitated and has not been sleeping or eating." Assessment What has happened this shift: Patient was asleep at change of shift and up for breakfast. Patient was loud and yelling in her room before breakfast. Patient talking to herself. Patient is getting Zyprexa twice daily and Q 6 hours PRN. She has had it twice today already. Patient still agitated and yelling in her room. Tech attempted to calm her down and speak softly with her. Patient responds "Get out of my room you bitch!" Patient also getting 75 mg of Atarax. RN spoke with Dr Chavez today who will add an anti-depressant to patient's regimen. SIRIA Saxena added Zyprexa 5 mg BID recently and RN does not know if Dr Chavez is aware. Dr Chavez was going to give patient Haldol 5 mg BID. Patient needs a medication adjustment. S/I, H/I: Pt denies A/VH: Pt denies Sleep: Pt did not sleep this shift ADL's: Independent Group attendance: No Were Meds taken: Yes Any med S/E: None noted Mental Status Exam Appearance: Groomed in own clothes Eye contact: Good Behavior: Labile Speech: Clear, audible, loud at times Mood: agitated Affect: Angry/calm Thought process: Disorganized, delusional Thought Content: Wanting to leave Cognition: Delusional Insight: Impaired Judgment: Impaired Interventions PRN's used: Zyprexa, Atarax, X 2 Therapeutic interventions: 1:1 assessment, therapeutic communication, active listening, medication administration/education/monitoring, constipation management, medication administration/education/monitoring, behavior monitoring and intervention as needed; reality orientation, distraction, redirection verbal de-escalation, provided reassurance and positive reinforcement, and maintained Q 15 minute safety checks. Restraints/seclusion/emergency medication: None Justification of Continued Inpatient Treatment: Pt continues to be psychotic with paranoid and baptism delusions, she responds to internal stimuli and becomes agitated. Pt remains gravely disabled.
[2021-09-18] MEDS ORDERED: haloperidol 1mg tablet PO ONE (18:25)
[2021-09-18 19:27] VITALS: BP 131/83
[2021-09-18] MEDS: traZODone 50mg tablet PO SCH (20:12)
[2021-09-18] MEDS: ARIPIPRAZOLE 10 MG TABLET PO SCH (20:12)
[2021-09-18] MEDS: temazepam 15mg capsule PO SCH (20:12)
--- NOTE | 2021-09-19 00:52 | NUR ---
Nursing Progress Note: Legal hold: 5270 for grave disability Report received from RN with the use of SBAR REASON FOR ADMIT: Patient was brought to [facility] by her who was concerned that patient was hallucinating that the devil was going to get her. Patient is disoriented, disorganized, and unable to articulate a viable plan for food, clothing, and/or custodial. Her reports that she has been increasingly agitated and has not been sleeping or eating." Assessment What has happened this shift: Pt talking to self in room at shift change. Pt began to become increasingly agitated and statrted crying. SIRIA Ni ordered 2mg Haldol PO for pt. Patient took medication w/o complaint and had a good effect on pt. Patient asked for a snack this evening and heart shaped candies for val. Pt denies A/V H. Pt took evening meds w/o complaint and nannette tto bed shortly after medication administration. Pt woke up briefly at 0100 but went back to bed after receiving dose of Restoril 15mg w/o any issue. S/I, H/I: Pt denies A/VH: Pt denies Sleep: Pt did not sleep this shift ADL's: Independent Group attendance: No Were Meds taken: Yes Any med S/E: None noted Mental Status Exam Appearance: Groomed in own clothes Eye contact: Good Behavior: Labile Speech: Clear, audible, loud at times Mood: agitated Affect: Angry/calm Thought process: Disorganized, delusional Thought Content: Wanting to leave Cognition: Delusional Insight: Impaired Judgment: Impaired Interventions PRN's used:Haldol 2mg PO, Restoril 15mg Therapeutic interventions: 1:1 assessment, therapeutic communication, active listening, medication administration/education/monitoring, constipation management, medication administration/education/monitoring, behavior monitoring and intervention as needed; reality orientation, distraction, redirection verbal de-escalation, provided reassurance and positive reinforcement, and maintained Q 15 minute safety checks. Restraints/seclusion/emergency medication: None Justification of Continued Inpatient Treatment: Pt continues to be psychotic with paranoid and samaritan delusions, she responds to internal stimuli and becomes agitated. Pt remains gravely disabled. Addendum: 09/19/21 at 0531 by Rosa Quiroga RN Pt given hydroxyzine 75mg for agitation. Pt upset about stay and wants pain medication and to go outside to meet .
[2021-09-19] MEDS: temazepam 15mg capsule PO SCH ×2 (01:03→20:05)
[2021-09-19] MEDS: OLANZapine 5mg rapidly disint. tablet PO PRN ×3 (02:28→15:19)
[2021-09-19] MEDS: hydrOXYzine 25 MG tablet PO PRN ×3 (05:04→15:20)
[2021-09-19] MEDS: lansoprazole 15mg solutab PO SCH (07:51)
[2021-09-19] MEDS: nicotine 21mg patch - 24 hr TD SCH (07:52)
[2021-09-19] MEDS: docusate sod 100mg capsule PO SCH ×2 (07:53→20:05)
[2021-09-19] MEDS: aripiprazole 5mg tablet PO SCH (07:53)
[2021-09-19] MEDS: potassium Cl 20 mEq SR tablet PO SCH ×2 (07:53→20:05)
[2021-09-19] MEDS: furosemide 40mg tablet PO SCH ×2 (07:53→20:05)
[2021-09-19] MEDS: metFORMIN 500mg tablet PO SCH ×2 (07:53→20:05)
[2021-09-19] MEDS: aspirin 81mg, enteric-coated 1 TAB TABLET.DR PO SCH (07:53)
[2021-09-19] MEDS: benztropine 1mg tablet PO SCH ×2 (07:53→20:05)
[2021-09-19] MEDS: topiramate 25mg tablet PO SCH (08:01)
[2021-09-19 08:22] VITALS: BP 98/53
[2021-09-19] MEDS ORDERED: haloperidol 1mg tablet PO ONE (11:20)
[2021-09-19] MEDS ORDERED: FLUoxetine 10mg capsule PO ONE (11:35)
--- NOTE | 2021-09-19 17:16 | NUR ---
Nursing Progress Note: Legal hold: 5270 for grave disability Report received from ANAY Suárez, with the use of SBAR REASON FOR ADMIT: Patient was brought to [facility] by her who was concerned that patient was hallucinating that the devil was going to get her. Patient is disoriented, disorganized, and unable to articulate a viable plan for food, clothing, and/or fci. Her reports that she has been increasingly agitated and has not been sleeping or eating." Assessment What has happened this shift: Received patient while she was sitting up in her bed waiting for her breakfast. Patient appears frustrated and was making many delusional and paranoid statements before this RN asked any questions to the patient. Patient was confused and informed myself that Craig Mcclendon, my left messages in the window all night. Patient states I want a MRI done today because I think its my back that hurts. When asked patient to be more specific, patient informed me Its none of your business anyway. Patient received Zyprexa & Atarax at 0815. Patient continued to escalate from there and was alert & oriented x1 (to self) all day. Patient then requested prune juice and MOM, stating her LBM was at least 3 weeks ago. Informed the patient that her last recorded BM was on 09/16/21. Patient then said she would like Kb Mcclendon to come in and visit her today. Informed the patient that we would not be having visiting hours held today as a few other patients had recently had COVID. Patient started yelling and informing me to get out of her room, and told me that I need to go get Jeremiah Chew, who used to be her boyfriend, and ask him if her daughter and could visit. Dr. Chavez in at [address]. In[address] Chavez patient had been yelling at all staff members, and had asked me to stay on the other side of the door threshold, and not enter her room. Dr. Chavez ordered Haldol 2mg po now, and when Dr. Chavez entered the room at 1118, patient asked Dr. Chavez for Prozac. Received an order from Dr. Chavez for Prozac 10mg po to be given now. Both medications administered to patient at 1121. At 1230, patient ambulated out to the fire doors located close to her room, and attempted to push the door open, and stated over and over Im leaving, you cant make me stare here, you are crazy, where is , the only black person who should be here, and was yelling extremely loud and informing all that she will go through that door. Patient finally went back to her room after much coaching to return. Patient requested headsets, which were given to her, and returned to her room. (1421) Pt lying in bed with the headphones on and her eyes closed. (1500) Patient given 2nd dose of Zyprexa & Atarax @ 1519. Patient continues to yell out, then when I enter patient's room, she uses loud cussing words to tell me to get out or to step behind the line coming in to her room. Will continue to monitor. S/I, H/I: Pt denies A/VH: Pt denies Sleep: Pt did not sleep this shift ADL's: Independent Group attendance: No Were Meds taken: Yes, without hesitation. Any med S/E: None noted Mental Status Exam Appearance: Groomed in own clothes Eye contact: Good Behavior: Labile Speech: Clear, audible, loud at times Mood: agitated Affect: Angry Thought process: Disorganized, delusional Thought Content: Wanting to leave Cognition: Delusional Insight: Impaired Judgment: Impaired Interventions PRN's: Zyprexa, Atarax, Haldol 2mg po now, Prozac 10 mg po now and MOM. Therapeutic interventions: 1:1 assessment, therapeutic communication, active listening, medication administration/education/monitoring, constipation management, medication administration/education/monitoring, behavior monitoring and intervention as needed; reality orientation, distraction, redirection verbal de-escalation, provided reassurance and positive reinforcement, and maintained Q 15 minute safety checks. Restraints/seclusion/emergency medication: None Justification of Continued Inpatient Treatment: Pt continues to be psychotic with paranoid and adventism delusions, she responds to internal stimuli and becomes agitated. Pt remains gravely disabled.
[2021-09-19] MEDS ORDERED: haloperidol 5mg tablet PO SCH (18:00)
[2021-09-19 19:24] VITALS: BP 125/84
[2021-09-19] MEDS: ARIPIPRAZOLE 10 MG TABLET PO SCH (20:05)
[2021-09-19] MEDS: traZODone 50mg tablet PO SCH (20:06)
--- NOTE | 2021-09-20 01:34 | NUR ---
Nursing Progress Note: Nereida Legal hold: 5270 for grave disability Report received from ANAY Stratton, with the use of SBAR REASON FOR ADMIT: Patient was brought to [facility] by her who was concerned that patient was hallucinating that the devil was going to get her. Patient is disoriented, disorganized, and unable to articulate a viable plan for food, clothing, and/or longterm. Her reports that she has been increasingly agitated and has not been sleeping or eating." Assessment What has happened this shift: Received pt sitting up in her bed. Pt complained of the food being like cat food and dogfood. Patients thoughts are disorganized and delusional, pt states I need to get somewhere to get to adult protective services. Some of the nurses are witches and some are not. Pt states she feels that everything is being recorded. When asked about the bruise on her elbow pt states I am part black from mother god, I am so full of darkness from being the witches place. At medication time the patient thought this RN touched her thigh and was starting to get upset by it. I dont like being touched. This RN let the patient know she was not touched. The pt took all HS medication without issue. S/I, H/I: Pt denies A/VH: Pt denies Sleep: ADL's: Independent Group attendance: No Were Meds taken: Yes, without hesitation. Any med S/E: None noted Mental Status Exam Appearance: Green unit scrubs Eye contact: Good Behavior: Labile Speech: Clear, audible, loud at times Mood: agitated Affect: Angry Thought process: Disorganized, delusional Thought Content: Wanting to leave Cognition: Delusional Insight: Impaired Judgment: Impaired Interventions PRN's: Therapeutic interventions: 1:1 assessment, therapeutic communication, active listening, medication administration/education/monitoring, constipation management, medication administration/education/monitoring, behavior monitoring and intervention as needed; reality orientation, distraction, redirection verbal de-escalation, provided reassurance and positive reinforcement, and maintained Q 15 minute safety checks. Restraints/seclusion/emergency medication: None Justification of Continued Inpatient Treatment: Pt continues to be psychotic with paranoid and shinto delusions, she responds to internal stimuli and becomes agitated. Pt remains gravely disabled.
[2021-09-20 07:19] VITALS: BP 150/101
[2021-09-20] MEDS ORDERED: haloperidol 5mg tablet PO ONE ×2 (07:30→13:40)
[2021-09-20 07:38] VITALS: BP 125/88
[2021-09-20] MEDS: lansoprazole 15mg solutab PO SCH (07:49)
[2021-09-20] MEDS: aripiprazole 5mg tablet PO SCH (07:49)
[2021-09-20] MEDS: ibuprofen tablet 400 MG TABLET PO PRN (07:50)
[2021-09-20] MEDS: metFORMIN 500mg tablet PO SCH ×2 (07:50→20:43)
[2021-09-20] MEDS: docusate sod 100mg capsule PO SCH ×2 (07:50→20:42)
[2021-09-20] MEDS: aspirin 81mg, enteric-coated 1 TAB TABLET.DR PO SCH (07:50)
[2021-09-20] MEDS: potassium Cl 20 mEq SR tablet PO SCH ×2 (07:53→20:44)
[2021-09-20] MEDS: benztropine 1mg tablet PO SCH ×2 (07:53→20:44)
[2021-09-20] MEDS: furosemide 40mg tablet PO SCH ×2 (07:53→20:43)
[2021-09-20] MEDS: nicotine 21mg patch - 24 hr TD SCH (07:56)
[2021-09-20] MEDS: topiramate 25mg tablet PO SCH (09:28)
[2021-09-20] MEDS: OLANZapine 5mg rapidly disint. tablet PO PRN ×2 (09:32→16:41)
[2021-09-20] MEDS ORDERED: LORazepam 1 MG tablet PO ONE (10:55)
[2021-09-20] MEDS ORDERED: OLANZAPINE 5 MG TABLET PO ONE (11:00)
--- NOTE | 2021-09-20 14:47 | NUR ---
Reassessment: Pt currently on regular diet and eating well, documented with ~89% PO intake meeting estimated nutrient needs. LBM 09/16 receiving routine bowel care per EMR. Will continue to follow and monitor need for nutrition intervention. Recommendations: 1. Continue regular diet 2. Routine bowel care per MD 3. Weekly wts Addendum: 09/20/21 at [address] Amended: Links added. Addendum: 09/20/21 at [address] ALYSON has reviewed and approves of above note.
[2021-09-20] MEDS: haloperidol 5mg tablet PO SCH (16:41)
--- NOTE | 2021-09-20 17:54 | NUR ---
Nursing Progress Note: Nereida Legal hold: 5270 for grave disability Report received from ANAY Cardenas, with the use of SBAR REASON FOR ADMIT: Patient was brought to [facility] by her who was concerned that patient was hallucinating that the devil was going to get her. Patient is disoriented, disorganized, and unable to articulate a viable plan for food, clothing, and/or mcfp. Her reports that she has been increasingly agitated and has not been sleeping or eating." Assessment What has happened this shift: Patient received awake in her room at change of shift. She was receptive to 1:1 assessment, lungs CTA. Patient joined with peers in the community room for breakfast. Patient refused scheduled Topamax stating that it is causing cancer in her brain. Patient endorsed that her is her doctor. She was later encouraged to receive scheduled Topamax. Patient noted making disorganized and delusional statements of being addicted to bleach and seeing snakes in her room. She retreated back to her room after breakfast, noted with headphones over her ears appearing to be responding to internal stimuli. Patient noted talking to herself and yelling out loudly with no one else in the room. She was given PRN Zyprexa 0932. Patient noted yelling out from her room, throwing items including a phone and a coffee cup into the hallway. Patient given one time dose of Ativan 1mg PO and Zyprexa 5mg PO at 1105. She participated for lunch in the community room with peers. Patient noted sitting in the community room, observed calling out to another patient in a delusional manner. She was observed sleeping in her room after lunch. One-time order of Haldol 5mg PO held at 1340 due to not needed at this time. Patient denies SI/HI, AH or VH. Patient was active on the unit throughout the day aside from napping. Patient noted yelling out from her room later in the shift and was given PRN Zyprexa at 1641. She was noted listening to music through headphones in her room. S/I, H/I: Pt denies A/VH: Appears to be responding to internal stimuli. Patient noted talking to herself and yelling out loudly with no one else in the room Sleep: Patient slept 3.5 hours last night per NOC shift, napped for 3 hours today ADL's: Independent Group attendance: No Were Meds taken: Yes, without hesitation. Any med S/E: None noted Mental Status Exam Appearance: Adult female, disheveled long blonde hair with a towel draped over her head. Wearing green unit scrubs. Eye contact: Good Behavior: Labile, impulsive, delusional Speech: Clear, audible, loud at times Mood: Agitated Affect: Angry Thought process: Disorganized, delusional Thought Content: Delusional statements of being addicted to bleach and seeing snakes in her room. Cognition: Delusional, A&O to self. Insight: Impaired Judgment: Impaired Interventions PRN's: One time dose of Ativan 1mg PO, PRN Zyprexa 5mg PO x3 Therapeutic interventions: 1:1 assessment, therapeutic communication, active listening, medication administration/education/monitoring, constipation management, medication administration/education/monitoring, behavior monitoring and intervention as needed; reality orientation, distraction, redirection verbal de-escalation, provided reassurance and positive reinforcement, and maintained Q 15 minute safety checks. Restraints/seclusion/emergency medication: None Justification of Continued Inpatient Treatment: Pt continues to be psychotic with paranoid and amish delusions, she responds to internal stimuli and becomes agitated. Pt remains gravely disabled.
[2021-09-20 19:38] VITALS: BP 142/95
[2021-09-20] MEDS: temazepam 15mg capsule PO SCH ×2 (20:43→22:36)
[2021-09-20] MEDS: traZODone 50mg tablet PO SCH (20:43)
[2021-09-20] MEDS: ARIPIPRAZOLE 10 MG TABLET PO SCH (20:44)
--- NOTE | 2021-09-21 01:22 | NUR ---
Nursing Progress Note Legal hold: 5270 for grave disability Report received from Janice Stratton transmitter engineer in charge REASON FOR ADMIT: Patient was brought to [facility] by her who was concerned that patient was hallucinating that the devil was going to get her. Patient is disoriented, disorganized, and unable to articulate a viable plan for food, clothing, and/or group home. Her reports that she has been increasingly agitated and has not been sleeping or eating." Assessment What has happened this shift: The patient was approached for the evening assessment Her replies were off topic to what was asked. When asked about side effects to medications she began verbalizing her concern that topamax could cause brain cancer. She denies having thoughts to harm herself or others then went to on to state, "You know I'm a two digit computer" and "My family has [employer] at home and were just waiting to leave. There's a lot of people waiting to help " At one point she was attempting to exit the unit and when the transmitter engineer in charge attempted to redirect her she yelled, "mind your own kazoo!" She did how ever go back to her room. She also had to be redirected from yelling out of her room. She is disheveled and her hair appears greasy and uncombed but she did have clean clothes and she appeared appropriately dressed. Her insight and judgement are very poor. She had difficulty going to sleep and two doses of Restoril. She remains gravely disabled.
[2021-09-21] MEDS: OLANZapine 5mg rapidly disint. tablet PO PRN ×3 (05:35→21:17)
[2021-09-21] MEDS: lansoprazole 15mg solutab PO SCH (07:37)
[2021-09-21 08:00] VITALS: BP 113/78
[2021-09-21] MEDS: topiramate 25mg tablet PO SCH (08:04)
[2021-09-21] MEDS: docusate sod 100mg capsule PO SCH ×2 (08:04→21:17)
[2021-09-21] MEDS: aripiprazole 5mg tablet PO SCH (08:04)
[2021-09-21] MEDS: haloperidol 5mg tablet PO SCH ×3 (08:04→17:56)
[2021-09-21] MEDS: metFORMIN 500mg tablet PO SCH ×2 (08:04→21:17)
[2021-09-21] MEDS: aspirin 81mg, enteric-coated 1 TAB TABLET.DR PO SCH (08:04)
[2021-09-21] MEDS: potassium Cl 20 mEq SR tablet PO SCH ×2 (08:05→21:17)
[2021-09-21] MEDS: furosemide 40mg tablet PO SCH ×2 (08:05→21:17)
[2021-09-21] MEDS: benztropine 1mg tablet PO SCH ×2 (08:05→21:18)
[2021-09-21] MEDS: nicotine 21mg patch - 24 hr TD SCH (08:12)
[2021-09-21] MEDS ORDERED: LORazepam 1 MG tablet PO ONE (14:20)
[2021-09-21] MEDS ORDERED: haloperidol 5mg tablet PO ONE (14:20)
[2021-09-21] MEDS ORDERED: diphenhydrAMINE 25mg capsule PO ONE (14:20)
--- NOTE | 2021-09-21 17:14 | NUR ---
Nursing Progress Note: Legal hold: 5270 for GD Report received from ANAY Cardenas, with the use of SBAR REASON FOR ADMIT: Patient was brought to [facility] by her who was concerned that patient was hallucinating that the devil was going to get her. Patient is disoriented, disorganized, and unable to articulate a viable plan for food, clothing, and/or detention. Her reports that she has been increasingly agitated and has not been sleeping or eating." Assessment What has happened this shift: Pt was awake responding to internal stimuli and talking to herself/persons unseen before breakfast. Pt was cooperative with her medications. Pt was yelling things in her room like, "Sherrell! Sherrell! come to [facility], I have something to show you! I don't want to play this fucking game all day! Sherrell!" Pt is delusional and tangential with flight of ideas. "Dr Chavez, please let me out!Annie take me right home please! Where is my social media campaign manager card? You bitch, you witch, you witch!" (Pt will often rhyme the last couple words of a sentence.) "Where's the voice of my daughters!? Where's my daughters?!" Pt had been given her PRN Zydis 5 mg by noc shift early this morning at 0535. Pt is religiously preoccupied. She loudly recited the Lord's prayer to herself in her room with some variants. Pt expressed frustration to this nurse that she can't smoke a cigarette, she can't do a line, she can't smoke a joint, she wants out of here. A male PCT observed patient flashing her naked breasts. He asked her to keep her clothes on . Pt yelled, "look at these titties!" She then made some random statements about her father then said, "I have the authority now father!" Pt became increasingly loud and agitated after lunch and did not respond well to redirection or verbal de-escalation. She was clapping her hands loudly, banging things and screaming profanities like, "you fucker!" An order for a PO B52 was obtained from Dr Cisneros and she was given Haldol 5 mg, Ativan 2 mg, and Benadryl 50 mg at 1424 with good effect. She was observed within an hour of taking it sitting in the rec room calmly and quietly reading a magazine. The effect seemed to be short lived however, and she was observed pounding on the nurse's station door around 1700 screaming at the staff inside. Pt has recently broken 2 sets of radio headphones and so was not given another pair this afternoon which angered her. She was successfully redirected away from the station by a male healthcare consultant. S/I, H/I: Pt denies A/VH: Pt appears to respond to internal stimuli both auditory and visual. Sleep: Patient slept 6.5 hours last night per noc shift report. ADL's: Independent Group attendance: No Were Meds taken: Yes Any med S/E: None noted or reported. Mental Status Exam Appearance: Heavy set, middle aged female, disheveled with long dyed blonde hair dressed in green unit scrubs. Eye contact: Good Behavior: Agitated, yells/rants in her room, responds to internal stimuli. Speech: Clear, audible, frequently loud. Mood: Agitated, labile. Affect: Angry, agitated, labile. Thought process: Disorganized, delusional, tangential, flight of ideas, religiously preoccupied. Thought Content: She wants a cigarette, a line, or a joint. Some staff members are witches. Cognition: A/O X 2 Insight: Impaired Judgment: Impaired Interventions PRN's: Zydis 5 mg Therapeutic interventions: 1:1 assessment, therapeutic communication, active listening, medication administration/education/monitoring medication administration/education/monitoring, behavior monitoring and intervention as needed; reality orientation, distraction, redirection verbal de-escalation, limit setting, provided positive reinforcement, and maintained Q 15 minute safety checks. Restraints/seclusion/emergency medication: PO Haldol 5 mg, Ativan 2 mg, Benadryl 50 mg Justification of Continued Inpatient Treatment: Pt continues to be psychotic with paranoid and cheondoism delusions, she responds to internal stimuli and becomes agitated. Pt remains gravely disabled.
[2021-09-21 19:00] VITALS: BP 130/84
[2021-09-21] MEDS: ARIPIPRAZOLE 10 MG TABLET PO SCH (21:17)
[2021-09-21] MEDS: traZODone 50mg tablet PO SCH (21:17)
[2021-09-21] MEDS: temazepam 15mg capsule PO SCH (21:17)
--- NOTE | 2021-09-22 04:35 | NUR ---
Nursing Progress Note: Legal hold: 5270 Involuntary hold for GD Report received from AANY Trimble, with the use of SBAR REASON FOR ADMIT: [facility] by her who was concerned that patient was hallucinating that the devil was going to get her. Patient is disoriented, disorganized, and unable to articulate a viable plan for food, clothing, and/or care home. Her reports that she has been increasingly agitated and has not been sleeping or eating." Assessment What has happened this shift: Patient walking in the raines at the beginning of shift. Mostly pleasant and cooperative with care; some agitation this shift. Compliant with all medication; PRN Zydis 5mg PO provided. Patient denies SI, HI, A/VH; continuous delusions reported. Patient believes she is to be transported to an ICU for a "heart catheter" and continued to explain and gesture that she needs catheters placed throughout her body. Patient stated, "you see my is also my doctor and he's coming to get. He prescribes all my medicines." Patient provided HS snack in her room; observed sleeping and awake early AM (0400) requesting to get into a bathtub. Data Processing Systems Consultant encouraged more rest and she laid down. S/I, H/I: Denies A/VH: Appears to be responding to IS Sleep: Refer to sleep assessment ADL's: Independent Group attendance: NA Were Meds taken: Yes Any med S/E: None noted or reported Mental Status Exam Appearance: Hair brushed but appears oily, wearing appropriate green unit attire Eye contact: Good Behavior: Mostly pleasant and cooperative, isolates to her room Speech: Clear, audible, frequently loud. Mood: Labile Affect: Congruent Thought process: Disorganized, delusional, tangential, flight of ideas, religiously preoccupied Thought Content: Meeting needs and delusions Cognition: A/O X 2 Insight: Impaired Judgment: Impaired Interventions PRN's: Zydis 5 mg Therapeutic interventions: 1:1 assessment, therapeutic communication, active listening, medication administration/education/monitoring medication administration/education/monitoring, behavior monitoring and intervention as needed; reality orientation, distraction, redirection verbal de-escalation, limit setting, provided positive reinforcement, and maintained Q 15 minute safety checks. Restraints/seclusion/emergency medication: NA Justification of Continued Inpatient Treatment: Pt continues to be psychotic with paranoid and mosque delusions, she responds to internal stimuli and becomes agitated. Pt remains gravely disabled.
[2021-09-22] MEDS: lansoprazole 15mg solutab PO SCH (07:50)
[2021-09-22] MEDS: haloperidol 5mg tablet PO SCH ×3 (08:17→20:16)
[2021-09-22] MEDS: aspirin 81mg, enteric-coated 1 TAB TABLET.DR PO SCH (08:17)
[2021-09-22] MEDS: docusate sod 100mg capsule PO SCH ×2 (08:17→20:15)
[2021-09-22] MEDS: furosemide 40mg tablet PO SCH ×2 (08:17→20:15)
[2021-09-22] MEDS: potassium Cl 20 mEq SR tablet PO SCH ×2 (08:17→20:16)
[2021-09-22] MEDS: ibuprofen tablet 400 MG TABLET PO PRN (08:18)
[2021-09-22] MEDS: metFORMIN 500mg tablet PO SCH ×2 (08:18→20:16)
[2021-09-22] MEDS: benztropine 1mg tablet PO SCH ×2 (08:18→20:16)
[2021-09-22] MEDS: topiramate 25mg tablet PO SCH (08:18)
[2021-09-22] MEDS: aripiprazole 5mg tablet PO SCH (08:18)
[2021-09-22] MEDS: nicotine 21mg patch - 24 hr TD SCH (08:23)
[2021-09-22 08:37] VITALS: BP 116/79
[2021-09-22 11:12] LABS: BASOPHILS # (AUTO) 0.1 X10'3 (0-0.2); BASOPHILS % (AUTO) 0.8 % (0-1); EOSINOPHILS # (AUTO) 0.4 X10'3 (0-0.9); EOSINOPHILS % (AUTO) 3.1 % (0-6); HEMATOCRIT 41.5 % (35.0-45.0); HEMOGLOBIN 13.4 g/dl (12.0-16.0); LYMPHOCYTES # (AUTO) 2.1 X10'3 (1.1-4.8); MEAN CORPUSCULAR HEMOGLOBIN 24.1 PG (27.0-31.0); MEAN CORPUSCULAR HGB CONC 32.4 g/dL (33.0-36.5); MEAN CORPUSCULAR VOLUME 74.3 FL (78-98); MEAN PLATELET VOLUME 7.8 FL (7.4-10.4); MONOCYTES # (AUTO) 0.7 X10'3 (0-0.9); MONOCYTES % (AUTO) 5.8 % (2-12); NEUTROPHILS # (AUTO) 8.4 X10'3 (1.8-7.7); NEUTROPHILS % (AUTO) 72.3 % (42-75); PLATELET COUNT 303 X10'3 (140-440); RED BLOOD COUNT 5.59 X10'6 (4.20-5.60); RED CELL DISTRIBUTION WIDTH 20.6 % (11.5-14.5); WHITE BLOOD COUNT 11.6 X10'3 (4.5-11.0)
[2021-09-22 11:38] LABS: ALBUMIN 3.3 G/DL (3.4-5.0); ANION GAP 13 (8-16); BLOOD UREA NITROGEN 22 MG/DL (7-18); CALCIUM 9.1 MG/DL (8.5-10.1); CHLORIDE 101 MMOL/L (99-107); CREATININE 0.71 MG/DL (0.40-0.90); GLUCOSE 137 MG/DL (70-104); POTASSIUM 3.9 MMOL/L (3.5-5.1); SODIUM 140 MMOL/L (135-145); TOTAL CARBON DIOXIDE 25.7 MMOL/L (24-32); eGFR 85 ML/MIN
--- NOTE | 2021-09-22 17:36 | NUR ---
Nursing Progress Note: Legal hold: 5270 for GD Report received from Nahomy Medrano RN, with the use of SBAR REASON FOR ADMIT: Patient was brought to [facility] by her who was concerned that patient was hallucinating that the devil was going to get her. Patient is disoriented, disorganized, and unable to articulate a viable plan for food, clothing, and/or nursing home. Her reports that she has been increasingly agitated and has not been sleeping or eating." Assessment What has happened this shift: Pt was asleep in her room before breakfast. She woke up and was encouraged to come to breakfast. Pt wished to eat her breakfast in her room. Pt was reminded that meals are eaten in the dining room. Pt was observed responding to internal stimuli slapping herself in the thigh. Asked pt what was going on, who was hitting her in the thigh? Pt replied, "just a family feud, my cousin's jealous because I'm smoking a cigarette." Pt puffed on an imaginary cigarette. Pt's tray was saved and she eventually decided she did wish to eat it. Pt removed the nicotine patch that was applied this morning, a social worker palliative care found it and handed it to this nurse to dispose of properly. Pt had a hospitalist visit today. A CBC and BMP were ordered with no significant abnormal findings. Per report of another RN, pt's radio headphones were taken away because she threw them across the room. Pt was angered that she could not get a set so yelled and ranted for awhile. PCT reported that pt did some door checking and was growling and using a scary voice as well as uttering chant-like verbalizations like "Lucifer of the morning, morning glory, morning power!" Pt rambled about witches. Pt said to go get her magical sister so she can elevate to the pool above where the white is. Pt did nap for awhile after lunch and again before dinner. Pt was not as loud or agitated today and more easily redirected. Pt's Abilify 10 mg HS was D/c'd. Her Haldol was increased to 10 mg BID. S/I, H/I: Pt denies A/VH: Pt appears to respond to internal stimuli seemingly both AH and VH. Sleep: Patient slept 4.75 hours last night per noc shift report, pt did take short intermittent naps today. ADL's: Independent Group attendance: No groups today. Were Meds taken: Yes Any med S/E: None noted or reported. Mental Status Exam Appearance: Heavy set, middle aged female, disheveled with long dyed blonde hair dressed in green unit scrubs. Eye contact: Good Behavior: Frequently responds to internal stimuli, yells and slaps things in her room. Speech: Clear, audible, frequently loud. Mood: Labile Affect: Labile, animated. Thought process: Disorganized, delusional, tangential, flight of ideas, religiously preoccupied. Thought Content: Angry she could not use the radio headphones after throwing them, wants to get up to the pool on the roof to see the white . Cognition: A/O X 2 Insight: Impaired Judgment: Impaired Interventions PRN's: None Therapeutic interventions: 1:1 assessment, therapeutic communication, active listening, medication administration/education/monitoring, encouragement to come to the dining room for meals, encouragement of personal hygiene, behavior monitoring and intervention as needed; reality orientation, distraction, redirection verbal de-escalation, limit setting, provided positive reinforcement, and maintained Q 15 minute safety checks. Restraints/seclusion/emergency medication: None Justification of Continued Inpatient Treatment: Pt continues to be psychotic with paranoid and episcopalian delusions, she responds to internal stimuli and becomes agitated. Pt remains gravely disabled. She needs further medication adjustment and monitoring.
[2021-09-22 19:00] VITALS: BP 122/86
[2021-09-22] MEDS: temazepam 15mg capsule PO SCH (20:15)
[2021-09-22] MEDS: traZODone 50mg tablet PO SCH (20:37)
--- NOTE | 2021-09-23 03:19 | NUR ---
Nursing Progress Note: Legal hold: 5270 Involuntary hold for GD Report received from ANAY Trimble, with the use of SBAR REASON FOR ADMIT: Patient was brought to [facility] by her who was concerned that patient was hallucinating that the devil was going to get her. Patient is disoriented, disorganized, and unable to articulate a viable plan for food, clothing, and/or snf. Her reports that she has been increasingly agitated and has not been sleeping or eating." Assessment What has happened this shift: Patient laying in bed at the beginning of shift. Pleasant and cooperative with care; compliant with medication. Received HS snack in her room. Continues to report delusional thought content about being transferred to another hospital for a catheter placement and observed responding to IS. Patient observed sleeping but broken. S/I, H/I: Denies A/VH: Appears to be responding to IS Sleep: Refer to sleep assessment ADL's: Independent Group attendance: NA Were Meds taken: Yes Any med S/E: None noted or reported Mental Status Exam Appearance: Disrobed and under her covers Eye contact: Good Behavior: Pleasant and cooperative, fatigued, isolative to self Speech: Clear, audible, frequently loud. Mood: Tired Affect: Labile Thought process: Disorganized, delusional, tangential, flight of ideas, religiously preoccupied Thought Content: Meeting needs and delusions Cognition: A/O X 2 Insight: Impaired Judgment: Impaired Interventions PRN's: None Therapeutic interventions: 1:1 assessment, therapeutic communication, active listening, medication administration/education/monitoring medication administration/education/monitoring, behavior monitoring and intervention as needed; reality orientation, distraction, redirection verbal de-escalation, limit setting, provided positive reinforcement, and maintained Q 15 minute safety checks. Restraints/seclusion/emergency medication: NA Justification of Continued Inpatient Treatment: Pt continues to be psychotic with paranoid and amish delusions, she responds to internal stimuli and becomes agitated. Pt remains gravely disabled.
[2021-09-23 07:54] VITALS: BP 132/78
[2021-09-23] MEDS: lansoprazole 15mg solutab PO SCH (08:12)
[2021-09-23] MEDS: benztropine 1mg tablet PO SCH ×2 (08:13→19:59)
[2021-09-23] MEDS: docusate sod 100mg capsule PO SCH ×2 (08:13→19:59)
[2021-09-23] MEDS: metFORMIN 500mg tablet PO SCH ×2 (08:13→19:59)
[2021-09-23] MEDS: aspirin 81mg, enteric-coated 1 TAB TABLET.DR PO SCH (08:13)
[2021-09-23] MEDS: aripiprazole 5mg tablet PO SCH (08:13)
[2021-09-23] MEDS: furosemide 40mg tablet PO SCH ×2 (08:14→19:59)
[2021-09-23] MEDS: topiramate 25mg tablet PO SCH (08:14)
[2021-09-23] MEDS: haloperidol 5mg tablet PO SCH ×2 (08:14→19:59)
[2021-09-23] MEDS: potassium Cl 20 mEq SR tablet PO SCH ×2 (08:14→19:59)
[2021-09-23] MEDS: nicotine 21mg patch - 24 hr TD SCH (08:14)
--- NOTE | 2021-09-23 17:05 | NUR ---
Nursing Progress Note: Legal hold: 5270 Involuntary hold for GD Report received from ANAY Borja, with the use of SBAR REASON FOR ADMIT: Patient was brought to [facility] by her who was concerned that patient was hallucinating that the devil was going to get her. Patient is disoriented, disorganized, and unable to articulate a viable plan for food, clothing, and/or care home. Her reports that she has been increasingly agitated and has not been sleeping or eating." Assessment What has happened this shift: Received patient while she was lying on her left side in bed singing [employer] this morning. Patient was awake for 1:1 Patient Assessment & Patient Interview. Patient has been speaking loudly to others since early this morning, and this has continued all day. Patient saw Dr. White, and informed him that while she was sitting up alongside her bed and looking out her window, she could not differentiate between birds or leaves flying around outside. Patient appears to be responding to internal stimuli, and her conversations consistently involve Craig Mcclendon or Jeremiah Chew. S/I, H/I: Denies A/VH: Appears to be responding to IS Sleep: Refer to sleep assessment ADL's: Independent Group attendance: No Group Meetings held on the Weekends. Were Meds taken: Yes, without hesitation. Any med S/E: None noted or reported Mental Status Exam Appearance: Female with long blonde hair wearing green scrubs. Eye contact: Good Behavior: Pleasant, cooperative, self isolates most of the day. Speech: Clear, audible, frequently loud. Mood: Tired Affect: Labile Thought process: Disorganized, delusional, flight of ideas Thought Content: Meeting needs and delusions Cognition: A/O X 2 Insight: Impaired Judgment: Impaired Interventions PRN's: None Therapeutic interventions: 1:1 assessment, therapeutic communication, active listening, medication administration/education/monitoring medication administration/education/monitoring, behavior monitoring and intervention as needed; reality orientation, distraction, redirection verbal de-escalation, limit setting, provided positive reinforcement, and maintained Q 15 minute safety checks. Restraints/seclusion/emergency medication: NA Justification of Continued Inpatient Treatment: Pt continues to be psychotic with paranoid and presybeterian delusions, she responds to internal stimuli and becomes agitated. Pt remains gravely disabled.
[2021-09-23 19:14] VITALS: BP 133/90
[2021-09-23] MEDS: temazepam 15mg capsule PO SCH (19:59)
[2021-09-23] MEDS: traZODone 50mg tablet PO SCH (19:59)
[2021-09-23] MEDS: acetaminophen 325mg tablet PO PRN (20:00)
[2021-09-24] MEDS: OLANZapine 5mg rapidly disint. tablet PO PRN ×3 (00:49→20:17)
[2021-09-24] MEDS: acetaminophen 325mg tablet PO PRN ×2 (00:49→14:57)
--- NOTE | 2021-09-24 01:43 | NUR ---
Nursing Progress Note: for Nereida Legal hold: 5270 Involuntary hold for GD Report received from ANAY Trimble, with the use of SBAR REASON FOR ADMIT: Patient was brought to [facility] by her who was concerned that patient was hallucinating that the devil was going to get her. Patient is disoriented, disorganized, and unable to articulate a viable plan for food, clothing, and/or long term. Her reports that she has been increasingly agitated and has not been sleeping or eating." Assessment What has happened this shift: Received patient while she was sitting at the side of bed with headphones on. Patient Assessment & Interview performed, as pt would allow. Pt realized she didnt have the same nurse as she did last night and got upset. Capri LEGAL ASSISTANT here tonight and pt took meds for her without hesitation. Pt requiring PRN Zyprexa and Tylenol two separate times. Tylenol given for generalized pain and then for back ache. Patient appears to be responding to internal stimuli, and her conversations remain consistent through the night worker. Pt seems to finally quiet down after above mentioned PRNs and snack given. Sleep has been difficult thus far into shift. S/I, H/I: Denies A/VH: Appears to be responding to IS Sleep: Refer to sleep assessment ADL's: Independent Group attendance: No Group Meetings held on the Weekends. Were Meds taken: Yes, after a familiar nurse was administering the meds. Would not take them from primary nurse. Any med S/E: None noted or reported Mental Status Exam Appearance: Female with long hair, wearing green scrubs, headphones in use. Eye contact: Good Behavior: Self-isolated most of the night, yelling and talking aloud. Speech: Clear, audible, frequently loud. Mood: freq upset, distrusting. Affect: Labile Thought process: Disorganized, delusional, flight of ideas Thought Content: Meeting needs and delusions Cognition: A/O X 2 Insight: Impaired Judgment: Impaired Interventions PRN's: Zyprexa, Tylenol x2 Therapeutic interventions: 1:1 assessment, therapeutic communication, active listening, medication administration/education/monitoring medication administration/education/monitoring, behavior monitoring and intervention as needed; reality orientation, distraction, redirection verbal de-escalation, limit setting, provided positive reinforcement, and maintained Q 15 minute safety checks. Restraints/seclusion/emergency medication: NA Justification of Continued Inpatient Treatment: Pt continues to be psychotic with paranoid and advent delusions, she responds to internal stimuli and becomes agitated. Pt remains gravely disabled.
[2021-09-24] MEDS: lansoprazole 15mg solutab PO SCH (07:20)
[2021-09-24] MEDS: haloperidol 5mg tablet PO SCH ×2 (07:21→20:17)
[2021-09-24] MEDS: topiramate 25mg tablet PO SCH (07:21)
[2021-09-24] MEDS: aripiprazole 5mg tablet PO SCH (07:21)
[2021-09-24] MEDS: benztropine 1mg tablet PO SCH ×2 (07:21→20:16)
[2021-09-24] MEDS: furosemide 40mg tablet PO SCH ×2 (07:21→20:17)
[2021-09-24] MEDS: potassium Cl 20 mEq SR tablet PO SCH ×2 (07:21→20:17)
[2021-09-24] MEDS: aspirin 81mg, enteric-coated 1 TAB TABLET.DR PO SCH (07:21)
[2021-09-24] MEDS: docusate sod 100mg capsule PO SCH ×2 (07:21→20:17)
[2021-09-24] MEDS: metFORMIN 500mg tablet PO SCH ×2 (07:21→20:17)
[2021-09-24] MEDS: nicotine 21mg patch - 24 hr TD SCH (07:22)
[2021-09-24 07:51] VITALS: BP 145/89
--- NOTE | 2021-09-24 17:39 | NUR ---
Nursing Progress Note: Legal hold: 5270 Involuntary hold for GD Report received from ANAY Ward, with the use of SBAR REASON FOR ADMIT: Patient was brought to [facility] by her who was concerned that patient was hallucinating that the devil was going to get her. Patient is disoriented, disorganized, and unable to articulate a viable plan for food, clothing, and/or care home. Her reports that she has been increasingly agitated and has not been sleeping or eating." Assessment What has happened this shift: Received patient while she was sitting up alongside the bed yelling Fk You. Went to see if I could redirect the patient, and patient immediately smiled and said We are going to have a great day. Patient A/O x2. Patient requesting that I go to the ICU to get sandwiches for her to eat. Informed patient of Day & Time. Patient informed that breakfast would be here in approximately one hour. Gave patient juice and left room. Patient again started yelling expletives and continued yelling Craig Mcclendon and Jeremiah Chew, come and visit me today. Patient given all am medications including Zyprexa before breakfast. Patient stated Sonia got crank up my nose; When we line up to do cocaine, I should be the one to go first because Im the woman. Patient speaking in a hyper verbal state. Patient continued to speak to herself and others all day long, and appeared comfortable after eating lunch and returning to her room to rest. Patient complained of a PARRISH rated at a 5 on a scale 1-10. Tylenol given. Patient reports I just need some sleep, patient only slept one hour last night. S/I, H/I: Denies A/VH: Appears to be responding to IS Sleep: Refer to sleep assessment ADL's: Independent Group attendance: No Group Meetings held on the Weekends. Were Meds taken: Yes, without hesitation. Any med S/E: None noted or reported Mental Status Exam Appearance: Female with long blonde hair and wearing green scrubs. Eye contact: Good Behavior: Yelling and Talking Out Loud all day while in room self-isolating. See note above re: headsets. Speech: Clear, audible, frequently loud. Mood: Upset responding to internal stimuli over family members. Affect: Labile Thought process: Disorganized, delusional, flight of ideas Thought Content: Meeting needs and delusions Cognition: A/O X 2 Insight: Impaired Judgment: Impaired Interventions PRN's: Zyprexa @ 0722 Tylenol @ 1500 Therapeutic interventions: 1:1 assessment, therapeutic communication, active listening, medication administration/education/monitoring medication administration/education/monitoring, behavior monitoring and intervention as needed; reality orientation, distraction, redirection verbal de-escalation, limit setting, provided positive reinforcement, and maintained Q 15 minute safety checks. Restraints/seclusion/emergency medication: NA
[2021-09-24 19:27] VITALS: BP 145/96
[2021-09-24] MEDS: temazepam 15mg capsule PO SCH (20:17)
[2021-09-24] MEDS: traZODone 50mg tablet PO SCH (20:17)
--- NOTE | 2021-09-25 02:16 | NUR ---
Nursing Progress Note: Legal hold: 5270 Involuntary hold for GD Report received from ANAY Jordan, with the use of SBAR REASON FOR ADMIT: Patient was brought to [facility] by her who was concerned that patient was hallucinating that the devil was going to get her. Patient is disoriented, disorganized, and unable to articulate a viable plan for food, clothing, and/or senior care. Her reports that she has been increasingly agitated and has not been sleeping or eating." Assessment What has happened this shift: Patient was heard yelling in her room at shift change. This speech writer went to her room to say hi. The patient yelled "get the fuck away from me." So I did. About ten minutes later the patient finds me to apologize. She said she was sorry, mumbled an excuse, then said she would take her medications. Patient had a snack and took her HS medications. She has been sleeping well tonight without trouble. S/I, H/I: Denies A/VH: Appears to be responding to IS Sleep: Refer to sleep assessment ADL's: Independent Group attendance: NA Were Meds taken: Yes Any med S/E: None noted or reported Mental Status Exam Appearance: Disheveled in green scrubs. Eye contact: Good Behavior: Cooperative, fatigued, isolative to self Speech: Clear, audible, frequently loud. Mood: Tired Affect: Labile Thought process: Disorganized, delusional, tangential, flight of ideas, religiously preoccupied Thought Content: Meeting needs and delusions Cognition: A/O X 2 Insight: Impaired Judgment: Impaired Interventions PRN's: None Therapeutic interventions: 1:1 assessment, therapeutic communication, active listening, medication administration/education/monitoring medication administration/education/monitoring, behavior monitoring and intervention as needed; reality orientation, distraction, redirection verbal de-escalation, limit setting, provided positive reinforcement, and maintained Q 15 minute safety checks. 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 Pt remains gravely disabled.
[2021-09-25 08:00] VITALS: BP 118/76
[2021-09-25] MEDS: nicotine 21mg patch - 24 hr TD SCH (08:00)
[2021-09-25] MEDS: aripiprazole 5mg tablet PO SCH (08:19)
[2021-09-25] MEDS: benztropine 1mg tablet PO SCH ×2 (08:19→20:05)
[2021-09-25] MEDS: furosemide 40mg tablet PO SCH ×2 (08:19→20:05)
[2021-09-25] MEDS: haloperidol 5mg tablet PO SCH ×2 (08:19→20:06)
[2021-09-25] MEDS: lansoprazole 15mg solutab PO SCH (08:19)
[2021-09-25] MEDS: aspirin 81mg, enteric-coated 1 TAB TABLET.DR PO SCH (08:19)
[2021-09-25] MEDS: potassium Cl 20 mEq SR tablet PO SCH ×2 (08:19→20:05)
[2021-09-25] MEDS: docusate sod 100mg capsule PO SCH ×2 (08:19→20:05)
[2021-09-25] MEDS: metFORMIN 500mg tablet PO SCH ×2 (08:19→20:05)
[2021-09-25] MEDS: topiramate 25mg tablet PO SCH (08:20)
[2021-09-25] MEDS: OLANZapine 5mg rapidly disint. tablet PO PRN (08:38)
--- NOTE | 2021-09-25 17:46 | NUR ---
Nursing Progress Note: Legal hold: 5270 Involuntary hold for GD Report received from ANAY Bella, with the use of SBAR REASON FOR ADMIT: Patient was [facility] by her who was concerned that patient was hallucinating that the devil was going to get her. Patient is disoriented, disorganized, and unable to articulate a viable plan for food, clothing, and/or intermediate. Her reports that she has been increasingly agitated and has not been sleeping or eating." Assessment What has happened this shift: Received patient while she was sleeping. At approximately 0710, patient woke up and started yelling and went to patients room to assist patient, who then said Can you go to the [facility] and get my two husbands, Craig Mcclendon & Jeremiah Chew. Smiled and informed patient that I need to get her morning medications because they were due now. Patient started yelling Fk you, and said it over and over again. Patient requested I leave the room and put the water pitcher on the shelf in her room, so that can have something to drink when he comes in today. Another water pitcher given to patient to drink. Patient states I have to start behaving or Im never going to get out of here. Informed the patient that she had a good day yesterday, and the patient started to call me a big fat liar. Zyprexa given at this time. Patient calmed down after approximately 1000, and fell asleep until lunch time. Patient awoke for lunch and ambulated to the dining room without hesitation. Patient fell asleep after lunch and is resting quietly. EKG ordered by SIRIA Guzman, and completed by [place] exceptional student education teacher. Conner signed EKG and it was placed in the patients chart. S/I, H/I: Denies A/VH: Delusional Sleep: 6.50 hours ADL's: Independent Group attendance: Did not attend AM Group Meeting - Sleeping Were Meds taken: Yes, without hesitation Any med S/E: None noted or reported Mental Status Exam Appearance: Disheveled in green scrubs. Eye contact: Good Behavior: Cooperative, fatigued, self isolates Speech: Clear, audible, frequently loud, Curses most of the time. Mood: Fatigued Affect: Labile Thought process: Disorganized, delusional, flight of ideas, preoccupied with Husbands Thought Content: Meeting needs and delusions Cognition: A/O X 2 Insight: Impaired Judgment: Impaired Interventions PRN's: Zyprexa x1 Therapeutic interventions: 1:1 assessment, therapeutic communication, active listening, medication administration/education/monitoring medication administration/education/monitoring, behavior monitoring and intervention as needed; reality orientation, distraction, redirection verbal de-escalation, limit setting, provided positive reinforcement, and maintained Q 15 minute safety checks. Restraints/seclusion/emergency medication: NA Justification of Continued Inpatient Treatment: Pt continues to be psychotic with paranoid and hinduism delusions, she responds to internal stimuli and becomes agitated. Pt remains gravely disabled.
[2021-09-25] MEDS: temazepam 15mg capsule PO SCH (20:05)
[2021-09-25] MEDS: traZODone 50mg tablet PO SCH (20:05)
[2021-09-25 20:16] VITALS: BP 112/81
[2021-09-25 20:17] VITALS: BP 112/81
--- NOTE | 2021-09-26 00:07 | NUR ---
Nursing Progress Note: Legal hold: 5270 Involuntary hold for GD Report received from ANAY Trimble, with the use of SBAR REASON FOR ADMIT: Patient was brought to [facility] by her who was concerned that patient was hallucinating that the devil was going to get her. Patient is disoriented, disorganized, and unable to articulate a viable plan for food, clothing, and/or senior living. Her reports that she has been increasingly agitated and has not been sleeping or eating." Assessment What has happened this shift: Pt was in bed resting at change of shift. Pt states she is waiting for her "order". I asked her what order and she proceeded to give me an order for food. 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 Pt is med compliant. Pt states "Im on my best behavior tonight." S/I, H/I: Denies A/VH: denies Sleep: see sleep hours ADL's: Independent Group attendance: no evening groups Were Meds taken: Yes, without hesitation Any med S/E: None noted or reported Mental Status Exam Appearance: Disheveled in green scrubs wearing head phones Eye contact: Good Behavior: Cooperative, fatigued, self isolates Speech: Clear, audible, frequently loud, Curses most of the time. Mood: Fatigued Affect: Labile Thought process: Disorganized, delusional, flight of ideas, Thought Content: Meeting needs and delusions Cognition: A/O X 2 Insight: Impaired Judgment: Impaired Interventions PRN's: none Therapeutic interventions: 1:1 assessment, therapeutic communication, active listening, medication administration/education/monitoring medication administration/education/monitoring, behavior monitoring and intervention as needed; reality orientation, distraction, redirection verbal de-escalation, limit setting, provided positive reinforcement, and maintained Q 15 minute safety checks. Restraints/seclusion/emergency medication: NA Justification of Continued Inpatient Treatment: Pt continues to be psychotic with paranoid and temple delusions, she responds to internal stimuli and becomes agitated. Pt remains gravely disabled.
[2021-09-26] MEDS: lansoprazole 15mg solutab PO SCH (07:42)
[2021-09-26 08:00] VITALS: BP 111/72
[2021-09-26] MEDS: potassium Cl 20 mEq SR tablet PO SCH ×2 (08:02→20:18)
[2021-09-26] MEDS: aspirin 81mg, enteric-coated 1 TAB TABLET.DR PO SCH (08:02)
[2021-09-26] MEDS: aripiprazole 5mg tablet PO SCH (08:02)
[2021-09-26] MEDS: furosemide 40mg tablet PO SCH ×2 (08:02→20:18)
[2021-09-26] MEDS: docusate sod 100mg capsule PO SCH ×2 (08:02→20:17)
[2021-09-26] MEDS: metFORMIN 500mg tablet PO SCH ×2 (08:02→20:18)
[2021-09-26] MEDS: topiramate 25mg tablet PO SCH (08:02)
[2021-09-26] MEDS: haloperidol 5mg tablet PO SCH ×2 (08:03→20:17)
[2021-09-26] MEDS: benztropine 1mg tablet PO SCH ×2 (08:03→20:17)
[2021-09-26] MEDS: nicotine 21mg patch - 24 hr TD SCH (08:07)
--- NOTE | 2021-09-26 10:40 | NUR ---
Spoke to Zoraida [facility], regarding potential for [facility] referral and for a clinician to meet with Nereida on the unit prior to discharge. [facility] Team will not come up to the unit to see her. She needs to get connected to services and walk-in at [facility]. It was suggested that she go straight to [facility] upon discharge. It was also recommended that underwriter complete a peer support referral who could assist with getting Nereida connected to services. Force Dispatcher will discuss this with Nereida. ASIM Mendez
--- NOTE | 2021-09-26 11:22 | NUR ---
Met with Nereida to discuss follow up plan. She is still agreeable to going to [facility] for follow up. She said she is also open to meeting with a administrative services specialist from [facility]. Nereida made bizarre statements about sports book writer having a stamp on her head and not knowing if sports book writer was real or not. She also stated she is planning on going to [facility] and has a plane ticket to do so. Completed and faxed administrative services specialist referral to [facility]. ASIM Mendez
--- NOTE | 2021-09-26 14:21 | NUR ---
Nursing Progress Note: Legal hold: 5270 for GD Report received from ANAY Cardenas, with the use of SBAR REASON FOR ADMIT: Patient was brought to [facility] by her who was concerned that patient was hallucinating that the devil was going to get her. Patient is disoriented, disorganized, and unable to articulate a viable plan for food, clothing, and/or snf. Her reports that she has been increasingly agitated and has not been sleeping or eating." Assessment What has happened this shift: Pt was up before breakfast. Pt asked this nurse, "Is it night time or is it morning?" Pt asked for some coffee. Pt was cooperative with her morning medications. Pt told this RN, "You are a powerful, influential person, we already established that." After breakfast pt stated that she no longer trusted this nurse because she did not like the earrings that I was wearing today, she preferred the ones I had on the other day. Pt was encouraged to shower today several times however, told the pharmacy care coordinator that she could not shower because " might get mad at me." S/I, H/I: Pt denies A/VH: Pt talks to herself in her room. Sleep: Patient slept 6 hours last night per noc shift report. ADL's: Independent Group attendance: Yes Were Meds taken: Yes Any med S/E: None noted or reported. Mental Status Exam Appearance: Heavy set, middle aged female, disheveled with long dyed blonde hair dressed in green unit scrubs. Eye contact: Good Behavior: Mostly pleasant though becomes irritable with staff at times due to paranoia and delusions. Talks to herself in her room. Speech: Clear, audible, somewhat hyperverbal. Mood: Labile Affect: Labile Thought process: Disorganized, delusional, suspicious, tangential, religiously preoccupied. Thought Content: She can't shower today because doesn't want her to. Cognition: A/O X 2 Insight: Impaired Judgment: Impaired Interventions PRN's: None Therapeutic interventions: 1:1 assessment, therapeutic communication, active listening, medication administration/education/monitoring, encouragement to come to the dining room for meals, encouragement of personal hygiene, behavior monitoring and intervention as needed; reality orientation, distraction, redirection verbal de-escalation, limit setting, provided positive reinforcement, and maintained Q 15 minute safety checks. Restraints/seclusion/emergency medication: None Justification of Continued Inpatient Treatment: Pt continues to be psychotic with paranoid and cheondoism delusions, she responds to internal stimuli and becomes irritable. Pt remains gravely disabled. She needs further medication adjustment and monitoring.
[2021-09-26 19:56] VITALS: BP 110/62
[2021-09-26] MEDS: traZODone 50mg tablet PO SCH (20:17)
[2021-09-26] MEDS: temazepam 15mg capsule PO SCH (20:18)
--- NOTE | 2021-09-26 21:05 | NUR ---
Nursing Progress Note: Legal hold: 5270 for GD Report received from Atilio CUEVA, with the use of SBAR REASON FOR ADMIT: Patient was brought to [facility] by her who was concerned that patient was hallucinating that the devil was going to get her. Patient is disoriented, disorganized, and unable to articulate a viable plan for food, clothing, and/or mcc. Her reports that she has been increasingly agitated and has not been sleeping or eating." Assessment What has happened this shift: Pt was laying in bed listening to head phones at change of shift, states she would like to wash the windows. 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 S/I, H/I: Pt denies A/VH: Pt talks to herself in her room. Sleep: see sleep hours ADL's: Independent Group attendance: no evening groups Were Meds taken: Yes Any med S/E: None noted or reported. Mental Status Exam Appearance: Heavy set, middle aged female, disheveled with long dyed blonde hair dressed in green unit scrubs. Eye contact: Good Behavior: cooperative, pleasant, isolates to self in her room Speech: Clear, audible Mood: Labile Affect: Labile Thought process: Disorganized, delusional, suspicious, tangential, religiously preoccupied. Thought Content: She can't shower today because doesn't want her to. Cognition: A/O X 2 Insight: Impaired Judgment: Impaired Interventions PRN's: None Therapeutic interventions: 1:1 assessment, therapeutic communication, active listening, medication administration/education/monitoring, encouragement to come to the dining room for meals, encouragement of personal hygiene, behavior monitoring and intervention as needed; reality orientation, distraction, redirection verbal de-escalation, limit setting, provided positive reinforcement, and maintained Q 15 minute safety checks. Restraints/seclusion/emergency medication: None Justification of Continued Inpatient Treatment: Pt continues to be psychotic with paranoid and nondenominational delusions, she responds to internal stimuli and becomes irritable. Pt remains gravely disabled. She needs further medication adjustment and monitoring. Addendum: 09/27/21 at 0602 by Elissa Kevin RN pt woke up yelling loudly and talking about "mother traylor in the cupboard and insisting is in the closet." Pt demanded to have drawer checked for and seems fearful. Pt became agitated and was given prn zyprexa.
[2021-09-26] MEDS: ibuprofen tablet 400 MG TABLET PO PRN (21:43)
[2021-09-27] MEDS: OLANZapine 5mg rapidly disint. tablet PO PRN ×2 (06:00→20:21)
[2021-09-27] MEDS: lansoprazole 15mg solutab PO SCH (07:16)
[2021-09-27] MEDS: docusate sod 100mg capsule PO SCH ×2 (07:30→20:20)
[2021-09-27] MEDS: aspirin 81mg, enteric-coated 1 TAB TABLET.DR PO SCH (07:30)
[2021-09-27] MEDS: ibuprofen tablet 400 MG TABLET PO PRN (07:30)
[2021-09-27] MEDS: potassium Cl 20 mEq SR tablet PO SCH ×2 (07:37→20:20)
[2021-09-27] MEDS: metFORMIN 500mg tablet PO SCH ×2 (07:37→20:20)
[2021-09-27] MEDS: haloperidol 5mg tablet PO SCH ×2 (07:37→20:20)
[2021-09-27] MEDS: furosemide 40mg tablet PO SCH ×2 (07:37→20:20)
[2021-09-27] MEDS: aripiprazole 5mg tablet PO SCH (07:37)
[2021-09-27] MEDS: benztropine 1mg tablet PO SCH ×2 (07:38→20:20)
[2021-09-27] MEDS: topiramate 25mg tablet PO SCH (07:38)
[2021-09-27 08:00] VITALS: BP 110/85
[2021-09-27] MEDS: nicotine 21mg patch - 24 hr TD SCH (08:04)
--- NOTE | 2021-09-27 09:20 | NUR ---
Reassessment: Pt continues eating well, documented with mostly 100% PO intake since 09/22. Pt participating in snacks per engineering documentation specialist. Overall pt meeting estimated nutrient needs at this time. LBM 09/25, receiving routine bowel care BID. No nutrition intervention implemented at this time. Will continue to follow. Recommendations: 1. Continue regular diet 2. Routine bowel care 3. Weekly scaled wts Addendum: 09/27/21 at [address] Amended: Links added.
--- NOTE | 2021-09-27 09:48 | NUR ---
Erika Samuel, [facility] Peer Support Oven Laborer (ph# [phone]), called to report she received the peer support referral. She requested a phone call regarding when Nereida is going to discharge so she can be sure to have a peer support connect with Nereida. Informed her it would be helpful to have someone meet with Nereida prior to discharge if possible (they are short staffed) or at least when she discharges and goes to [facility]. Security Supervisor will call and let Erika know anticipated discharge date once one is determined. ASIM Mendez
--- NOTE | 2021-09-27 10:45 | NUR ---
Pt removed her nicotine patch and stuck it on her nightstand. This nurse collected it and disposed of it properly. Pt does not want another nicotine patch.
--- NOTE | 2021-09-27 15:06 | NUR ---
Nursing Progress Note: Legal hold: 5270 for GD Report received from ANAY Cardenas, with the use of SBAR REASON FOR ADMIT: Patient was brought to [facility] by her who was concerned that patient was hallucinating that the devil was going to get her. Patient is disoriented, disorganized, and unable to articulate a viable plan for food, clothing, and/or fci. Her reports that she has been increasingly agitated and has not been sleeping or eating." Assessment What has happened this shift: Per noc shift repot, pt was yelling most of the night. She as given her PRN Zydis 5 mg by noc shift early this morning at 0600. Pt was up before breakfast sitting in the dining room. Pt initially refused her Prevacid murphy tabs after scrutinizing them and stating, "that's not Prevacid." The tabs were no different that the same ones she has been taking every morning. Pt is paranoid and suspicious. She was also hesitant to take the rest of her morning meds stating, "Are these the right pills? There's no switch jeanette in there?" "You promise?" She did eventually take her meds including PRN ibuprofen as she had c/o 6/10 back and head pain this morning. Pt responds to internal stimuli in her room. She nearly continuously talks/rambles to herself. Her rambling is loosely associated or tangential. She says things like, "Never ever turn your back on a bitch witch, she'll turn the switch!" "Are you the dark voice...the voice I've been trained on?" Pt seems to like rhyming. She got particularly loud and was yelling to herself at one point. A PCT asked her to not yell by telling her she has a neighbor who's trying to rest. Pt replied, "I also have a over here who's being put to the test" (Rhyming off of the last word the clinical care leader had said...rest/test.) Pt is labile. One moment she is pleasant and cooperative with staff and the next she is telling them to leave her room and never come back. S/I, H/I: Pt denies A/VH: Pt responds to internal stimuli in her room for much of the day, she seems to control it better when she is in common areas like the dining room. Sleep: Patient slept 4.25 hours last night per noc shift report. ADL's: Independent, needs encouragement to shower/perform personal hygiene. Group attendance: Yes Were Meds taken: Yes Any med S/E: None noted or reported. Mental Status Exam Appearance: Heavy set, middle aged female, disheveled with long dyed blonde hair dressed in green unit scrubs. Eye contact: Good Behavior: Loudly responds to internal stimuli in her room, frequently dismissive of staff. Speech: Clear, audible, hyperverbal. Mood: Labile Affect: Labile Thought process: Disorganized, delusional, suspicious, tangential, perseverative. Thought Content: Perseverates on witches, paranoid she is not being given the right pills. Cognition: A/O X 2 Insight: Impaired Judgment: Impaired Interventions PRN's: None Therapeutic interventions: 1:1 assessment, therapeutic communication, active listening, medication administration/education/monitoring, encouragement to come to the dining room for meals, encouragement of personal hygiene, behavior monitoring and intervention as needed; reality orientation, distraction, redirection, verbal de-escalation, limit setting, provided positive reinforcement, and maintained Q 15 minute safety checks. Restraints/seclusion/emergency medication: None Justification of Continued Inpatient Treatment: Pt continues to be psychotic and labile with paranoid and jainism delusions, she responds to internal stimuli and becomes irritable. Pt remains gravely disabled. She needs further medication adjustment and monitoring.
[2021-09-27] MEDS: traZODone 50mg tablet PO SCH (20:20)
[2021-09-27] MEDS: temazepam 15mg capsule PO SCH (20:20)
[2021-09-27 20:27] VITALS: BP 112/77
--- NOTE | 2021-09-28 00:34 | NUR ---
Nursing Progress Note: Legal hold: 5270 for GD Report received from Janice Trimble chargemaster specialist REASON FOR ADMIT: Patient was brought to [facility] by her who was concerned that patient was hallucinating that the devil was going to get her. Patient is disoriented, disorganized, and unable to articulate a viable plan for food, clothing, and/or custodial. Her reports that she has been increasingly agitated and has not been sleeping or eating." Assessment What has happened this shift: Approached the patient while she was in her room for the evening assessment. Her replies were not based in reality. 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 She stated that she would like to talk to a social media content specialist because she wants to see about going to a convalescent hospital or an assisted living home. She then began to state that she had two IVs in her foot for pain management. She reported, "someone was supposed to come in with cigarettes. Father God told me I could smoke every 3 months" Her insight and judgement are very poor and she denies having a mental illness. She is unable to formulate a realistic plan for food, custodial or clothing. She did request a shower and was able to do that independently. She denies thoughts to harm herself or others. She denies having psychotic symptoms but her thought process is disorganized and difficult to follow. At this time she has not required any redirection from staff. She has not been agitated. She took her evening medications. Rash was noted on both arms and the chargemaster specialist was made aware and will pass that off in shift report to have the hospitalist look at it. The rash is small red areas and the patient stated that she is sensitive to soaps.
[2021-09-28] MEDS: lansoprazole 15mg solutab PO SCH (07:41)
[2021-09-28 07:44] VITALS: BP 127/83
[2021-09-28] MEDS: nicotine 21mg patch - 24 hr TD SCH (08:00)
[2021-09-28] MEDS: metFORMIN 500mg tablet PO SCH ×2 (08:07→20:07)
[2021-09-28] MEDS: aspirin 81mg, enteric-coated 1 TAB TABLET.DR PO SCH (08:07)
[2021-09-28] MEDS: aripiprazole 5mg tablet PO SCH (08:07)
[2021-09-28] MEDS: docusate sod 100mg capsule PO SCH ×2 (08:07→20:06)
[2021-09-28] MEDS: benztropine 1mg tablet PO SCH ×2 (08:08→20:07)
[2021-09-28] MEDS: potassium Cl 20 mEq SR tablet PO SCH ×2 (08:08→20:06)
[2021-09-28] MEDS: haloperidol 5mg tablet PO SCH ×3 (08:08→20:06)
[2021-09-28] MEDS: furosemide 40mg tablet PO SCH ×2 (08:08→20:06)
[2021-09-28] MEDS: topiramate 25mg tablet PO SCH (08:08)
[2021-09-28 08:36] LABS: BASOPHILS # (AUTO) 0.1 X10'3 (0-0.2); EOSINOPHILS # (AUTO) 0.3 X10'3 (0-0.9); EOSINOPHILS % (AUTO) 3.7 % (0-6); HEMATOCRIT 41.7 % (35.0-45.0); HEMOGLOBIN 13.6 g/dl (12.0-16.0); LYMPHOCYTES # (AUTO) 1.9 X10'3 (1.1-4.8); LYMPHOCYTES % (AUTO) 20.3 % (21-51); MEAN CORPUSCULAR HEMOGLOBIN 24.4 PG (27.0-31.0); MEAN CORPUSCULAR HGB CONC 32.6 g/dL (33.0-36.5); MEAN CORPUSCULAR VOLUME 74.8 FL (78-98); MEAN PLATELET VOLUME 7.9 FL (7.4-10.4); MONOCYTES # (AUTO) 0.6 X10'3 (0-0.9); MONOCYTES % (AUTO) 6.8 % (2-12); NEUTROPHILS # (AUTO) 6.3 X10'3 (1.8-7.7); NEUTROPHILS % (AUTO) 68.2 % (42-75); PLATELET COUNT 285 X10'3 (140-440); RED BLOOD COUNT 5.58 X10'6 (4.20-5.60); RED CELL DISTRIBUTION WIDTH 19.6 % (11.5-14.5); WHITE BLOOD COUNT 9.3 X10'3 (4.5-11.0)
[2021-09-28 09:19] LABS: ANISOCYTOSIS 2+; MICROCYTOSIS 1+; PLATELET ESTIMATE NORMAL
[2021-09-28 09:25] LABS: ELLIPTOCYTES FEW
[2021-09-28 09:34] LABS: ALBUMIN 3.4 G/DL (3.4-5.0); ALBUMIN/GLOBULIN RATIO 1.1 (1.1-1.5); ALKALINE PHOSPHATASE 115 IU/L (46-116); ANION GAP 10 (8-16); ASPARTATE AMINO TRANSFERASE 12 U/L (10-37); BILIRUBIN,TOTAL 0.2 MG/DL (0.1-1.0); BLOOD UREA NITROGEN 15 MG/DL (7-18); BUN/CREATININE RATIO 24.6 (6.6-38.0); CALCIUM 8.6 MG/DL (8.5-10.1); CHLORIDE 103 MMOL/L (99-107); CREATININE 0.61 MG/DL (0.40-0.90); GLUCOSE 98 MG/DL (70-104); POTASSIUM 4.1 MMOL/L (3.5-5.1); SODIUM 142 MMOL/L (135-145); TOTAL CARBON DIOXIDE 29.1 MMOL/L (24-32); TOTAL PROTEIN 6.4 G/DL (6.4-8.2); eGFR > 90 ML/MIN
[2021-09-28 09:48] LABS: ALANINE AMINOTRANSFERASE 36 U/L (12-78)
--- NOTE | 2021-09-28 14:59 | NUR ---
Nursing Progress Note: Legal hold: 5270 for GD Report received from ANAY Cardenas, with the use of SBAR REASON FOR ADMIT: Patient was brought to [facility] by her who was concerned that patient was hallucinating that the devil was going to get her. Patient is disoriented, disorganized, and unable to articulate a viable plan for food, clothing, and/or mcfp. Her reports that she has been increasingly agitated and has not been sleeping or eating." Assessment What has happened this shift: Pt was up for breakfast in the dining room. Pt was cooperative with her oral medications though refused her nicotine patch. Noc nurse reported that pt developed a rash on her arms after showering last night. Asked pt about it, pt accusingly replied, "you gave it to me!" Pt then made a show of looking at this RN's name tag so she would know who to report. Pt showed this nurse her antecubital where lab had drawn her blood. Pt called it a "carbuncle." Rash appears to have faded. There was a barely notable area on her right posterior arm. Rash is resolving without complication. At lunchtime, this RN observed pt attempting to give her covered cup of ice off her tray to a young male patient. She stated, "Here take this, it has a little magic in it." The male patient politely declined. She then asked this nurse if I wanted it. Pt was quieter this morning. She sat in her room listening to the radio headphones and went longer periods of time without appearing to be responding to internal stimuli. Her response to internal stimuli does appear to increase in the afternoon when she begins rambling/talking to herself or unseen persons in her room. Pt gets a bit loud at times but has been easily redirected today. S/I, H/I: Pt denies A/VH: Pt responds to internal stimuli in her room, talks and yells to herself ,gets worse in the afternoon. Sleep: Patient slept 6.75 hours last night per noc shift report. ADL's: Independent with FWW Group attendance: No Were Meds taken: Yes Any med S/E: None noted or reported. Mental Status Exam Appearance: Heavy set, middle aged female, disheveled with long dyed blonde hair dressed in green unit scrubs. Eye contact: Good Behavior: Mostly cooperative, suspicious and accusatory at times, responds to internal stimuli in her room after lunch. Speech: Clear, audible, hyperverbal. Mood: Labile Affect: Labile Thought process: Disorganized, delusional, paranoid, tangential, magical thinking, religiously preoccupied. Thought Content: This RN gave her a rash, her cup of ice at lunch had magic in it. Cognition: A/O X 2 Insight: Impaired Judgment: Impaired Interventions PRN's: None Therapeutic interventions: 1:1 assessment, therapeutic communication, active listening, medication administration/education/monitoring, encouragement to come to the dining room for meals, encouragement of personal hygiene, behavior monitoring and intervention as needed; reality orientation, distraction, redirection, limit setting, provided positive reinforcement, and maintained Q 15 minute safety checks. Restraints/seclusion/emergency medication: None Justification of Continued Inpatient Treatment: Pt continues to be psychotic and labile with paranoid and bizarre delusions, she responds to internal stimuli and becomes irritable. Pt remains gravely disabled. She needs further medication adjustment and monitoring.
[2021-09-28 20:05] VITALS: BP 131/76
[2021-09-28] MEDS: traZODone 50mg tablet PO SCH (20:06)
[2021-09-28] MEDS: temazepam 15mg capsule PO SCH (20:07)
--- NOTE | 2021-09-28 22:17 | NUR ---
Nursing Progress Note: Legal hold: 5270 for GD Report received from Janice Hollingsworth home office representative REASON FOR ADMIT: Patient was brought to [facility] by her who was concerned that patient was hallucinating that the devil was going to get her. Patient is disoriented, disorganized, and unable to articulate a viable plan for food, clothing, and/or nursing home. Her reports that she has been increasingly agitated and has not been sleeping or eating." Assessment The patient isolated to her bed for the majority of the evening with a music headset on. She was cooperative but slightly irritable and paranoid during the evening assessment. She makes odd statements that do not correlate to topic being discussed. She complained of a headache then added, "It's a sensation of power of you guys. My dad told me it was the change of shift...My mom is a really strong witch" She then made buddhist statements, " is made at me" and then stated she loved all people including those in [place]. She denied medication side effects. She was very concerned about what staff were documenting in her chart. She did appear clean and adequately groomed. Her insight and judgement are poor. She did not require any prn medication before she was able to go to sleep. She is unable to verbalize and adequate discharge plan for food, nursing home or clothing. Medication adjustments continue. The plan is for to follow up with [facility] after discharge.
[2021-09-29 07:10] VITALS: BP 137/98
[2021-09-29] MEDS: lansoprazole 15mg solutab PO SCH ×2 (07:30→07:32)
[2021-09-29] MEDS: aripiprazole 5mg tablet PO SCH (07:30)
[2021-09-29] MEDS: aspirin 81mg, enteric-coated 1 TAB TABLET.DR PO SCH (07:30)
[2021-09-29] MEDS: potassium Cl 20 mEq SR tablet PO SCH ×2 (07:30→20:29)
[2021-09-29] MEDS: docusate sod 100mg capsule PO SCH ×2 (07:30→20:29)
[2021-09-29] MEDS: benztropine 1mg tablet PO SCH ×2 (07:31→20:29)
[2021-09-29] MEDS: furosemide 40mg tablet PO SCH ×2 (07:31→20:29)
[2021-09-29] MEDS: haloperidol 5mg tablet PO SCH ×3 (07:32→20:28)
[2021-09-29] MEDS: metFORMIN 500mg tablet PO SCH ×2 (07:32→20:27)
[2021-09-29] MEDS: nicotine 21mg patch - 24 hr TD SCH ×2 (07:33→07:44)
[2021-09-29] MEDS: topiramate 25mg tablet PO SCH (07:43)
--- NOTE | 2021-09-29 14:59 | NUR ---
Nursing Progress Note Legal hold: 5270 for grave disability Report received from RN with the use of SBAR REASON FOR ADMIT: Patient was brought to [facility] by her who was concerned that patient was hallucinating that the devil was going to get her. Patient is disoriented, disorganized, and unable to articulate a viable plan for food, clothing, and/or fdc. Her reports that she has been increasingly agitated and has not been sleeping or eating." Assessment What has happened this shift: Received Pt in bed sleeping w/o distress at the beginning of the shift. Pt woke and was cooperative with vitals and returned to sleep. Pt took AM meds except prevacid, Nicotine patch and Topamax and ate breakfast in community room. Pt pleasant and cooperative for AM assessments. Nereida stayed in bed during lunch and spoke about waiting for her rodriguez girlfriend, and made other delusional comments. Overall less loud and angry and wanting to leave today. Pt not seen interacting with others much today. Pt used headphones for much of morning, then damaged a pair and flushed pieces of it down toilet. S/I, H/I: Pt denies A/VH: Pt denies Sleep: Pt did not sleep this shift ADL's: Independent Group attendance: No groups Were Meds taken: Yes/Partial Any med S/E: None noted Mental Status Exam Appearance: Casual in green scrubs Eye contact: Good Behavior: Pt cooperative Speech: Clear, audible Mood: Labile Affect: Labile Thought process: Disorganized, delusional Thought Content: Friends coming to stay with her Cognition: Delusional Insight: Impaired Judgment: Impaired Interventions PRN's used: Therapeutic interventions: 1:1 assessment, therapeutic communication, active listening, medication administration/education/monitoring, constipation management, medication administration/education/monitoring, behavior monitoring and intervention as needed; reality orientation, distraction, redirection verbal de-escalation, provided reassurance and positive reinforcement, and maintained Q 15 minute safety checks. Restraints/seclusion/emergency medication: None Justification of Continued Inpatient Treatment: Pt continues to be psychotic with paranoid and hinduism delusions, she responds to internal stimuli and becomes agitated. Pt remains gravely disabled.
[2021-09-29 19:00] VITALS: BP 111/82
[2021-09-29] MEDS: temazepam 15mg capsule PO SCH (20:28)
[2021-09-29] MEDS: traZODone 50mg tablet PO SCH (20:28)
--- NOTE | 2021-09-30 03:04 | NUR ---
Nursing Progress Note: Legal hold: 5270 for GD Report received from Edel CUEVA, with the use of SBAR REASON FOR ADMIT: Patient was brought to [facility] by her who was concerned that patient was hallucinating that the devil was going to get her. Patient is disoriented, disorganized, and unable to articulate a viable plan for food, clothing, and/or senior care. Her reports that she has been increasingly agitated and has not been sleeping or eating." Assessment What has happened this shift: Pt isolates to her room and is observed talking to herself and making delusional statements. She soon lays down and falls asleep. RN wakes pt up for 1:1 assessment which she does cooperate with. She is medication compliant. She asks RN "are you my daughter?" She then talks about random people pleasantly. She falls asleep soon after. S/I, H/I: Pt denies A/VH: Pt talks to herself in her room. Sleep: see sleep hours ADL's: Independent Group attendance: no evening groups Were Meds taken: Yes Any med S/E: None noted or reported. Mental Status Exam Appearance: Heavy set, middle aged female, disheveled with long dyed blonde hair dressed in green unit scrubs. Eye contact: Good Behavior: cooperative, pleasant, isolates to self in her room Speech: Clear, audible Mood: Labile Affect: Labile Thought process: Disorganized, delusional, suspicious, tangential, religiously preoccupied. Thought Content: She can't shower today because doesn't want her to. Cognition: A/O X 2 Insight: Impaired Judgment: Impaired Interventions PRN's: None Therapeutic interventions: 1:1 assessment, therapeutic communication, active listening, medication administration/education/monitoring, encouragement to come to the dining room for meals, encouragement of personal hygiene, behavior monitoring and intervention as needed; reality orientation, distraction, redirection verbal de-escalation, limit setting, provided positive reinforcement, and maintained Q 15 minute safety checks. Restraints/seclusion/emergency medication: None Justification of Continued Inpatient Treatment: Pt continues to be psychotic with paranoid and hindu delusions, she responds to internal stimuli and becomes irritable. Pt remains gravely disabled. She needs further medication adjustment and monitoring.
[2021-09-30 07:40] VITALS: BP 135/91
[2021-09-30] MEDS: nicotine 21mg patch - 24 hr TD SCH (08:00)
[2021-09-30] MEDS: haloperidol 5mg tablet PO SCH ×3 (08:43→20:50)
[2021-09-30] MEDS: docusate sod 100mg capsule PO SCH ×2 (08:44→20:48)
[2021-09-30] MEDS: metFORMIN 500mg tablet PO SCH ×2 (08:44→20:50)
[2021-09-30] MEDS: potassium Cl 20 mEq SR tablet PO SCH ×2 (08:44→20:50)
[2021-09-30] MEDS: topiramate 25mg tablet PO SCH (08:44)
[2021-09-30] MEDS: aripiprazole 5mg tablet PO SCH (08:44)
[2021-09-30] MEDS: furosemide 40mg tablet PO SCH ×2 (08:44→20:49)
[2021-09-30] MEDS: lansoprazole 15mg solutab PO SCH (08:44)
[2021-09-30] MEDS: aspirin 81mg, enteric-coated 1 TAB TABLET.DR PO SCH (08:44)
[2021-09-30] MEDS: benztropine 1mg tablet PO SCH ×2 (08:44→20:49)
--- NOTE | 2021-09-30 17:28 | NUR ---
Nursing Progress Note: Legal hold: 5270 for GD Report received from ANAY Ward, with the use of SBAR REASON FOR ADMIT: Patient was brought to [facility] by her who was concerned that patient was hallucinating that the devil was going to get her. Patient is disoriented, disorganized, and unable to articulate a viable plan for food, clothing, and/or assisted. Her reports that she has been increasingly agitated and has not been sleeping or eating." Assessment What has happened this shift: Received patient while she was sleeping with her shirt on but no bottom scrubs, in her bed. Administered patients morning medications. Patient smiling and asked How many hours did I sleep last night? Informed patient she slept 9 hours last night. Patient using foul language at times, stating, That GD Craig Mcclendon has not been here during the night has he? Informed patient that Craig Mcclendon was not here last night. 1:1 Patient Assessment & Interview completed. Patient talking out loud for a short period of time this morning. Patient reports that she is speaking to Jeremiah Chew. Patient appears delusional, and is using a walker to ambulate to the bathroom or the dining room. Encouraged patient to go to the morning Group Meeting at 1100, but she refused when asked. Patient has been asking for a cigarette most of today, but refused her Habitrol patch at 0800 this morning. Patient was pleasant for most of the day, and met with Salima for today's visit. Patient slept this afternoon from 1530 to 1700. S/I, H/I: Pt denies A/VH: Pt talks to herself in her room. Delusional speaking to Jeremiah Chew is my second . Sleep: 9 hours of sleep. ADL's: Independent. Needs encouragement to wear scrubs and keep them on during the daytime. Group attendance: Despite encouragement, patient did not attend. Were Meds taken: Yes, without hesitation. Any med S/E: None noted or reported. Mental Status Exam Appearance: Heavy set, middle aged female, disheveled with long dyed blonde hair dressing in green unit scrubs. Eye contact: Good Behavior: cooperative, pleasant, isolates to self in her room. Speech: Clear, audible Mood: Delusional Affect: Congruent with Mood Thought process: Disorganized, Delusional and religiously preoccupied. Thought Content: Going home to see my two husbands. Cognition: A/O X 2 Insight: Poor Insight Judgment: Poor insight Interventions PRN's: None Therapeutic interventions: 1:1 assessment, therapeutic communication, active listening, medication administration/education/monitoring, encouragement to come to the dining room for meals, encouragement of personal hygiene, behavior monitoring and intervention as needed; reality orientation, distraction, redirection verbal de-escalation, limit setting, provided positive reinforcement, and maintained Q 15 minute safety checks. Restraints/seclusion/emergency medication: None Justification of Continued Inpatient Treatment: Pt continues to be psychotic with paranoid and spiritism delusions, she responds to internal stimuli and becomes irritable. Pt remains gravely disabled. She needs further medication adjustment and monitoring.
[2021-09-30] MEDS: traZODone 50mg tablet PO SCH (20:49)
[2021-09-30] MEDS: temazepam 15mg capsule PO SCH ×2 (20:50→21:00)
--- NOTE | 2021-09-30 22:16 | NUR ---
Nursing Progress Note: Legal hold: 5270 for GD Report received from Edel CUEVA, with the use of SBAR REASON FOR ADMIT: Patient was brought to [facility] by her who was concerned that patient was hallucinating that the devil was going to get her. Patient is disoriented, disorganized, and unable to articulate a viable plan for food, clothing, and/or detention. Her reports that she has been increasingly agitated and has not been sleeping or eating." Assessment What has happened this shift: Pt is awake in her room half laying, half sitting on her bed in an odd position. She is cooperative with 1:1 assessment and asks RN multiple times if RN is her daughter. She is medication compliant, except refuses the restoril. RN asks why she will not take her sleeping pill, she responds, "because it might be morning." RN points outside to the darkness and tries to reorient pt, but she states, "It might be dark from clouds, why don't you take the sleeping pill, we might be being tricked, by the same trickster." Pt smiles and winks at RN. "So are you or are you not my daughter?" S/I, H/I: Pt denies A/VH: Pt talks to herself in her room. Sleep: see sleep hours ADL's: Independent Group attendance: no evening groups Were Meds taken: Yes Any med S/E: None noted or reported. Mental Status Exam Appearance: Heavy set, middle aged female, disheveled with long dyed blonde hair dressed in green unit scrubs. Eye contact: Good Behavior: cooperative, pleasant, isolates to self in her room Speech: Clear, audible Mood: Labile Affect: Labile Thought process: Disorganized, delusional, suspicious, tangential, religiously preoccupied. Thought Content: She can't shower today because doesn't want her to. Cognition: A/O X 2 Insight: Impaired Judgment: Impaired Interventions PRN's: None Therapeutic interventions: 1:1 assessment, therapeutic communication, active listening, medication administration/education/monitoring, encouragement to come to the dining room for meals, encouragement of personal hygiene, behavior monitoring and intervention as needed; reality orientation, distraction, redirection verbal de-escalation, limit setting, provided positive reinforcement, and maintained Q 15 minute safety checks. Restraints/seclusion/emergency medication: None Justification of Continued Inpatient Treatment: Pt continues to be psychotic with paranoid and presybeterian delusions, she responds to internal stimuli and becomes irritable. Pt remains gravely disabled. She needs further medication adjustment and monitoring.
[2021-10-01] MEDS: lansoprazole 15mg solutab PO SCH (07:30)
[2021-10-01] MEDS: nicotine 21mg patch - 24 hr TD SCH (08:00)
[2021-10-01] MEDS: furosemide 40mg tablet PO SCH ×2 (08:18→20:54)
[2021-10-01] MEDS: aspirin 81mg, enteric-coated 1 TAB TABLET.DR PO SCH (08:18)
[2021-10-01] MEDS: potassium Cl 20 mEq SR tablet PO SCH ×2 (08:18→20:54)
[2021-10-01] MEDS: docusate sod 100mg capsule PO SCH ×2 (08:19→20:54)
[2021-10-01] MEDS: metFORMIN 500mg tablet PO SCH ×2 (08:19→20:58)
[2021-10-01] MEDS: topiramate 25mg tablet PO SCH (08:19)
[2021-10-01] MEDS: benztropine 1mg tablet PO SCH ×2 (08:19→20:54)
[2021-10-01] MEDS: haloperidol 5mg tablet PO SCH ×3 (08:19→20:54)
[2021-10-01 08:26] VITALS: BP 97/56
--- NOTE | 2021-10-01 17:30 | NUR ---
Nursing Progress Note: Legal hold: 5270 for GD Report received from ANAY Borja, with the use of SBAR REASON FOR ADMIT: Patient was brought to [facility] by her who was concerned that patient was hallucinating that the devil was going to get her. Patient is disoriented, disorganized, and unable to articulate a viable plan for food, clothing, and/or residential. Her reports that she has been increasingly agitated and has not been sleeping or eating." Assessment What has happened this shift: Received patient while she was sleeping. Patient was awakened for breakfast, and refused to ambulate in the dining room for breakfast. Patient states Ill only eat in my room, so bring me my tray right here, patting the foot of her bed. Again informed the patient that she needed to go to the dining room to eat, and that was her only option. Patient immediately started yelling obscenities at myself, and was told I appreciate it if she did not call me names. Informed patient that I had her medications to give her. Patient immediately stated I want to look at them in the package before you start to give them to me. Went through each medication that the patient was prescribed, but did not hand them to the patient. Patient took all medications prescribed, but refused to take her Prevacid. Patient took the rest of her prescribed medications, then slept for the rest of the morning. Patient was awake when lunch was being served. Informed patient she needed to go to the dining room to eat. Patient got up and started to ambulated to the Dining Room with her walker. Patient got to the door of her room, and stated Im not going in there for lunch. Informed patient we would hold her lunch for about 10 minutes, and if she would go to the dining room, we would serve it to her. Patient called staff members standing outside the room delivering trays some foul words, then returned to her bed. Patient continued to call myself multiple names, and her door was closed approximately [address] Patient fell asleep. This is 2/2 meals she refused today. S/I, H/I: Pt denies A/VH: Appears to be responding to internal stimuli. Sleep: 8.25 hours ADL's: Independent with ADLs. Group attendance: No weekend Group Meeting held today. Were Meds taken: Yes, with a lengthy hesitation, then refused Prevacid. Any med S/E: None noted or reported. Mental Status Exam Appearance: Heavy set, middle aged female, disheveled with long dyed blonde hair dressed in green unit scrubs. Eye contact: Good Behavior: Calling staff derogatory names, Refusing to go to Dining Room to eat, Speech: Clear, audible Mood: Labile Affect: Labile Thought process: Disorganized, Delusional, Tangential. Thought Content: Delusional & Paranoid Cognition: A/O X 2 Insight: Impaired Judgment: Impaired Interventions PRN's: None Therapeutic interventions: 1:1 assessment, therapeutic communication, active listening, medication administration/education/monitoring, encouragement to come to the dining room for meals, encouragement of personal hygiene, behavior monitoring and intervention as needed; reality orientation, distraction, redirection verbal de-escalation, limit setting, provided positive reinforcement, and maintained Q 15 minute safety checks. Restraints/seclusion/emergency medication: None Justification of Continued Inpatient Treatment: Pt continues to be psychotic with paranoid and jewish delusions, she responds to internal stimuli and becomes irritable. Pt remains gravely disabled. She needs further medication adjustment and monitoring.
[2021-10-01] MEDS: traZODone 50mg tablet PO SCH (20:54)
[2021-10-01] MEDS: temazepam 15mg capsule PO SCH (20:54)
--- NOTE | 2021-10-02 02:43 | NUR ---
Nursing Progress Note: Legal hold: 5270 for GD Report received from ANAY Jordan with the use of SBAR REASON FOR ADMIT: Patient was brought to [facility] by her who was concerned that patient was hallucinating that the devil was going to get her. Patient is disoriented, disorganized, and unable to articulate a viable plan for food, clothing, and/or group home. Her reports that she has been increasingly agitated and has not been sleeping or eating." Assessment What has happened this shift: Patient was asleep on her bed at shift change. She stayed asleep through snack time and didn't want to wake for medications yet. Later, when she woke, her mood was better. The patient invited this designer/writer into her room to sit on the bed and talk. She continues to be delusional and loosely associated with reality. Patient either sleeps or is awake on far bed facing away from door. She can be heard responding to her internal stimuli, but she denies all MH symptoms. Patient was compliant with all medications. S/I, H/I: Denies A/VH: Pt talks to herself in her room. Sleep: see sleep assessment ADL's: Independent Group attendance: N/A Were Meds taken: Yes Any med S/E: None noted or reported. Mental Status Exam Appearance: Heavy set, middle aged female, disheveled with long dyed blonde hair dressed in green unit scrubs. Eye contact: Good Behavior: cooperative, pleasant, isolates to self in her room, guarded. Speech: Clear, audible Mood: Labile Affect: Labile Thought process: Disorganized, delusional, suspicious, tangential, religiously preoccupied. Thought Content: Getting needs met. Cognition: A/O X 2 Insight: Impaired Judgment: Impaired Interventions PRN's: None Therapeutic interventions: 1:1 assessment, therapeutic communication, active listening, medication administration/education/monitoring, encouragement to come to the dining room for meals, encouragement of personal hygiene, behavior monitoring and intervention as needed; reality orientation, distraction, redirection verbal de-escalation, limit setting, provided positive reinforcement, and maintained Q 15 minute safety checks. Restraints/seclusion/emergency medication: None Justification of Continued Inpatient Treatment: Pt continues to be psychotic with paranoid and jew delusions, she responds to internal stimuli and becomes irritable. Pt remains gravely disabled. She needs further medication adjustment and monitoring.
[2021-10-02] MEDS: lansoprazole 15mg solutab PO SCH (07:30)
[2021-10-02] MEDS: metFORMIN 500mg tablet PO SCH ×2 (07:35→20:18)
[2021-10-02] MEDS: aspirin 81mg, enteric-coated 1 TAB TABLET.DR PO SCH (07:35)
[2021-10-02] MEDS: docusate sod 100mg capsule PO SCH ×2 (07:35→20:18)
[2021-10-02] MEDS: benztropine 1mg tablet PO SCH ×2 (07:35→20:17)
[2021-10-02] MEDS: potassium Cl 20 mEq SR tablet PO SCH ×2 (07:36→20:18)
[2021-10-02] MEDS: haloperidol 5mg tablet PO SCH ×3 (07:36→20:18)
[2021-10-02] MEDS: furosemide 40mg tablet PO SCH ×2 (07:36→20:17)
[2021-10-02] MEDS: topiramate 25mg tablet PO SCH (07:39)
[2021-10-02] MEDS: acetaminophen 325mg tablet PO PRN ×2 (07:49→18:47)
[2021-10-02] MEDS: nicotine 21mg patch - 24 hr TD SCH (08:00)
[2021-10-02 08:32] VITALS: BP 111/80
[2021-10-02] MEDS: ondansetron 4mg rapidly disintigrating tab PO PRN (17:15)
--- NOTE | 2021-10-02 17:29 | NUR ---
Nursing Progress Note: Legal hold: 5270 for GD Report received from ANAY Motta with the use of SBAR REASON FOR ADMIT: Patient was brought to [facility] by her who was concerned that patient was hallucinating that the devil was going to get her. Patient is disoriented, disorganized, and unable to articulate a viable plan for food, clothing, and/or senior living. Her reports that she has been increasingly agitated and has not been sleeping or eating." Assessment What has happened this shift: Received patient while she was laying upside down on her bed sleeping, with no sheets or covers on her bed. Patient easily aroused and sat up alongside the bed for breakfast. Patient took all meds with the exception of Prevacid. 1:1 Patient Assessment & Interview completed. Patient pleasant with conversation. Patient smiling and sharing different delusional stories regarding her Two husbands. Patient took morning nap. Patient ate lunch in her room. Patient took 1230 medications as ordered by MD. Patient assisted self to the bathroom and back throughout the day. (1700) Patient called out and went to patients room. Patient had vomited in her water cup brown liquid. Patient states I threw up and now I feel better. Mopped patients room, changed her bed, and administered Zofran to help with nausea. Will continue to monitor patient's nausea. S/I, H/I: Denies A/VH: Pt talks to herself in her room. Appears delusional. Sleep: 2.75 hours ADL's: Independent Group attendance: No Group Attendance held today. Were Meds taken: Yes, but refused Prevacid. Any med S/E: None noted or reported. Mental Status Exam Appearance: Heavy set, middle aged female, disheveled with long dyed blonde hair dressed in green unit scrubs. Eye contact: Good Behavior: cooperative, pleasant, isolates to self in her room, guarded. Speech: Clear, audible Mood: Labile Affect: Labile Thought process: Disorganized & Delusional. Thought Content: Getting needs met. Cognition: A/O X 2 Insight: Impaired Judgment: Impaired Interventions PRN's: None Therapeutic interventions: 1:1 assessment, therapeutic communication, active listening, medication administration/education/monitoring, encouragement to come to the dining room for meals, encouragement of personal hygiene, behavior monitoring and intervention as needed; reality orientation, distraction, redirection verbal de-escalation, limit setting, provided positive reinforcement, and maintained Q 15 minute safety checks. Restraints/seclusion/emergency medication: None Justification of Continued Inpatient Treatment: Pt continues to be psychotic with paranoid and shinto delusions, she responds to internal stimuli and becomes irritable. Pt remains gravely disabled. She needs further medication adjustment and monitoring.
[2021-10-02 19:03] VITALS: BP 114/77
[2021-10-02] MEDS: traZODone 50mg tablet PO SCH (20:17)
[2021-10-02] MEDS: temazepam 15mg capsule PO SCH (20:18)
--- NOTE | 2021-10-03 01:59 | NUR ---
Nursing Progress Note: Legal hold: 5270 for GD Report received from ANAY Trimble with the use of SBAR REASON FOR ADMIT: Patient was brought to [facility] by her who was concerned that patient was hallucinating that the devil was going to get her. Patient is disoriented, disorganized, and unable to articulate a viable plan for food, clothing, and/or [place] [facility]. Her reports that she has been increasingly agitated and has not been sleeping or eating." Assessment What has happened this shift: Patient was seen at bedside. She was napping on her bed all evening, but woke up ~2100. She asked for and was provided a snack along with her HS meds. Patient has been cooperative, but continues to be suspicious. She continues to believe is nearby, and wants to see her, to help get her out of here. Patient mentioned her , "he is outside. He brought me cigarettes. you need to let him in." Told her to have him come during daytime. She thought that was a good idea. Patient endorses depression, but not SI/HI. She denies AV/H, but spends a lot of time in her room talking to herself. She has been more cooperative with staff lately. S/I, H/I: Denies A/VH: Pt talks to herself in her room. Sleep: see sleep assessment ADL's: Independent Group attendance: N/A Were Meds taken: Yes Any med S/E: None noted or reported. Mental Status Exam Appearance: Heavy set, middle aged female, disheveled with long dyed blonde hair dressed in green unit scrubs. Eye contact: Good Behavior: cooperative, pleasant, isolates to self in her room, guarded. Speech: Clear, audible Mood: Labile Affect: Labile Thought process: Disorganized, delusional, suspicious, tangential, religiously preoccupied. Thought Content: Getting needs met. Cognition: A/O X 2 Insight: Impaired Judgment: Impaired Interventions PRN's: Tylenol Therapeutic interventions: 1:1 assessment, therapeutic communication, active listening, medication administration/education/monitoring, encouragement to come to the dining room for meals, encouragement of personal hygiene, behavior monitoring and intervention as needed; reality orientation, distraction, redirection verbal de-escalation, limit setting, provided positive reinforcement, and maintained Q 15 minute safety checks. 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 Pt remains gravely disabled. She needs further medication adjustment and monitoring.
[2021-10-03] MEDS: metFORMIN 500mg tablet PO SCH ×2 (07:27→21:01)
[2021-10-03] MEDS: topiramate 25mg tablet PO SCH (07:27)
[2021-10-03] MEDS: docusate sod 100mg capsule PO SCH ×2 (07:27→21:00)
[2021-10-03] MEDS: benztropine 1mg tablet PO SCH ×2 (07:27→20:59)
[2021-10-03] MEDS: haloperidol 5mg tablet PO SCH ×2 (07:27→12:04)
[2021-10-03] MEDS: furosemide 40mg tablet PO SCH ×2 (07:27→21:01)
[2021-10-03] MEDS: potassium Cl 20 mEq SR tablet PO SCH ×2 (07:27→21:01)
[2021-10-03] MEDS: aspirin 81mg, enteric-coated 1 TAB TABLET.DR PO SCH (07:27)
[2021-10-03] MEDS: lansoprazole 15mg solutab PO SCH (07:30)
[2021-10-03 07:47] VITALS: BP 107/82
[2021-10-03] MEDS: nicotine 21mg patch - 24 hr TD SCH (08:00)
[2021-10-03] MEDS ORDERED: clozapine 25mg tablet PO ONE (16:13)
--- NOTE | 2021-10-03 17:42 | NUR ---
Nursing Progress Note: Legal hold: 5270 for GD Report received from ANAY Cardenas with the use of SBAR REASON FOR ADMIT: Patient was brought to [facility] by her who was concerned that patient was hallucinating that the devil was going to get her. Patient is disoriented, disorganized, and unable to articulate a viable plan for food, clothing, and/or usp. Her reports that she has been increasingly agitated and has not been sleeping or eating." Assessment What has happened this shift: Received patient while she was sitting alongside the bed. Patient immediately asked Edita, can you go to ICU and get me a couple of cigarettes? Informed patient that the ICU is closed to all visitors. Patient stated Then you call [facility] [place] and have him bring me some cigarettes. Informed patient this is a non- smoking hospital, and no one can bring you in cigarettes. Patient is delusional, and is talking to when she looks at her window in her room, begging him to bring her cigarettes. Patient continued talking out loud the rest of the morning. (1230) medications given. Patient was located laying backwards in the bed, with her head at the foot of her bed, and her legs braced against the wall. Patient sat up and ate lunch. S/I, H/I: Denies A/VH: Pt talks to herself in her room. Sleep: 8 hours ADL's: Independent Group attendance: Did not attend Group Meeting Were Meds taken: Yes, without hesitation. Any med S/E: None noted or reported. Mental Status Exam Appearance: Heavy set, middle aged female, disheveled with long dyed blonde hair dressed in green unit scrubs. Eye contact: Good Behavior: Cooperative. Speech: Clear, audible Mood: Labile Affect: Labile Thought process: Disorganized & delusional Thought Content: Meeting own needs Cognition: A/O X 2 Insight: Impaired Judgment: Impaired Interventions PRN's: Therapeutic interventions: 1:1 assessment, therapeutic communication, active listening, medication administration/education/monitoring, encouragement to come to the dining room for meals, encouragement of personal hygiene, behavior monitoring and intervention as needed; reality orientation, distraction, redirection verbal de-escalation, limit setting, provided positive reinforcement, and maintained Q 15 minute safety checks. Restraints/seclusion/emergency medication: None Justification of Continued Inpatient Treatment: Pt continues to be psychotic with paranoid and cheondoism delusions, she responds to internal stimuli and becomes irritable. Pt remains gravely disabled. She needs further medication adjustment and monitoring.
[2021-10-03 19:04] VITALS: BP 116/84
[2021-10-03] MEDS: traZODone 50mg tablet PO SCH (21:00)
--- NOTE | 2021-10-04 00:10 | NUR ---
Nursing Progress Note: Legal hold: 5270 for GD Report received from ANAY Trimble with the use of SBAR REASON FOR ADMIT: Patient was brought to [facility] by her who was concerned that patient was hallucinating that the devil was going to get her. Patient is disoriented, disorganized, and unable to articulate a viable plan for food, clothing, and/or fpc. Her reports that she has been increasingly agitated and has not been sleeping or eating." Assessment What has happened this shift: Patient was lying on her bed talking to herself. She saw my reflection in the window and invited me into her room. Patient's mood is pretty good, but she's easily irritated. "I tried to open the double doors out there to let my family see me, but they wouldn't let it open long enough for them to see me. She looks out the window, "Can you see them out there? they're hard to see, but if you get down to floor level you can see them." she then wants to nap. I said I don't like to wake you for meds, "wake me. You can wake me any time." Woke her with HS medications, and she accepted them, no problem. She lay back down and has been observed sleeping in her room. S/I, H/I: Denies A/VH: Pt talks to herself in her room. Sleep: see sleep assessment ADL's: Independent Group attendance: N/A Were Meds taken: Yes Any med S/E: None noted or reported. Mental Status Exam Appearance: Heavy set, middle aged female, disheveled with long dyed blonde hair dressed in green unit scrubs. Eye contact: Good Behavior: cooperative, pleasant, isolates to self in her room, guarded. Speech: Clear, audible Mood: Labile Affect: Labile Thought process: Disorganized, delusional, suspicious, tangential, religiously preoccupied. Thought Content: Getting needs met. Cognition: A/O X 2 Insight: Impaired Judgment: Impaired Interventions PRN's: Tylenol Therapeutic interventions: 1:1 assessment, therapeutic communication, active listening, medication administration/education/monitoring, encouragement to come to the dining room for meals, encouragement of personal hygiene, behavior monitoring and intervention as needed; reality orientation, distraction, redirection verbal de-escalation, limit setting, provided positive reinforcement, and maintained Q 15 minute safety checks. Restraints/seclusion/emergency medication: None Justification of Continued Inpatient Treatment: Pt continues to be psychotic with paranoid and hindu delusions, she responds to internal stimuli and becomes irritable. Pt remains gravely disabled. She needs further medication adjustment and monitoring.
[2021-10-04] MEDS: lansoprazole 15mg solutab PO SCH (07:33)
[2021-10-04] MEDS ORDERED: clozapine 25mg tablet PO SCH (08:00)
[2021-10-04] MEDS: benztropine 1mg tablet PO SCH ×2 (08:14→20:08)
[2021-10-04] MEDS: aspirin 81mg, enteric-coated 1 TAB TABLET.DR PO SCH (08:14)
[2021-10-04] MEDS: furosemide 40mg tablet PO SCH ×2 (08:14→20:08)
[2021-10-04] MEDS: potassium Cl 20 mEq SR tablet PO SCH ×2 (08:14→20:08)
[2021-10-04] MEDS: topiramate 25mg tablet PO SCH (08:14)
[2021-10-04] MEDS: docusate sod 100mg capsule PO SCH ×2 (08:14→20:08)
[2021-10-04] MEDS: metFORMIN 500mg tablet PO SCH ×2 (08:14→20:08)
[2021-10-04] MEDS: haloperidol 5mg tablet PO SCH ×2 (08:14→12:42)
[2021-10-04] MEDS: clozapine 25mg tablet PO SCH (08:14)
[2021-10-04 08:17] VITALS: BP 117/72
--- NOTE | 2021-10-04 17:14 | NUR ---
Nursing Progress Note: Legal hold: 5270 for GD Report received from ANAY Cardenas, with the use of SBAR REASON FOR ADMIT: Patient was brought to [facility] by her who was concerned that patient was hallucinating that the devil was going to get her. Patient is disoriented, disorganized, and unable to articulate a viable plan for food, clothing, and/or alf. Her reports that she has been increasingly agitated and has not been sleeping or eating." Assessment What has happened this shift: Pt was awake before breakfast. Pt declined to come to lunch. Pt was allowed to eat in her room the other day and now only wants to eat in her room. Pt was cooperative with her medications. Pt responds to internal stimuli in her room talking/rambling to herself for much of the day. Pt listens to the radio headphones. Pt is delusional and disorganized. Pt said to this nurse, "I already told them, I'm not interested in having friends except my cousin Janice, she's loyal...you better hurry up and decide what kind of person you want to be." S/I, H/I: Pt denies A/VH: Pt responds to internal stimuli in her room, talking to herself. Sleep: Patient slept 7.5 hours last night per noc shift report. ADL's: Independent with FWW Group attendance: No Were Meds taken: Yes Any med S/E: None noted or reported. Mental Status Exam Appearance: Heavy set, middle aged female, disheveled with long dyed blonde hair dressed in green unit scrubs. Eye contact: Good Behavior: Isolative to room, refusing to come out of room for meals, responds to internal stimuli in her room. Speech: Clear, audible, hyperverbal. Mood: Irritable Affect: Labile Thought process: Disorganized, delusional, tangential, responds to internal stimuli. Thought Content: She's not interested in having friends. Cognition: A/O X 2 Insight: Impaired Judgment: Impaired Interventions PRN's: None Therapeutic interventions: 1:1 assessment, therapeutic communication, active listening, medication administration/education/monitoring, encouragement to come to the dining room for meals, encouragement of personal hygiene, behavior monitoring and intervention as needed; reality orientation, distraction, redirection, limit setting, provided positive reinforcement, and maintained Q 15 minute safety checks. Restraints/seclusion/emergency medication: None Justification of Continued Inpatient Treatment: Pt remains gravely disabled, she responds to internal stimuli and becomes irritable. She needs further medication adjustment and monitoring. She has been started on Clozaril.
[2021-10-04 19:39] VITALS: BP 109/68
[2021-10-04] MEDS: traZODone 50mg tablet PO SCH (20:09)
--- NOTE | 2021-10-04 21:58 | NUR ---
Nursing Progress Note Legal hold: 5270 for grave disability Report received [facility] REASON FOR ADMIT: Patient was brought to [facility] by her who was concerned that patient was hallucinating that the devil was going to get her. Patient is disoriented, disorganized, and unable to articulate a viable plan for food, clothing, and/or alf. Her reports that she has been increasingly agitated and has not been sleeping or eating." Assessment What has happened this shift: The patient isolated to her room for the entire evening. During the evening assessment she gave rambling disjointed replies that for the most part did not correlate to what was asked. She was irritable at times then apologetic. She presents as gravely disabled and was unable to articulate a viable plan for food, alf or clothing if she were to leave the hospital. She made odd statements for example "[facility]" She quickly became agitated with answering questions and dismissed this RN, "Go out and take a bow then knock yourself out" She was medication compliant and denied medication side effects. She is not really attending to her ADLs and her hair appeared unwashed. Her insight and judgement are poor. She did not verbalize any suicidal or homicidal thoughts. Her mood was labile. Justification of Continued Inpatient Treatment: The patient continues to be gravely disabled and medication adjustments continue. Her 5270 is up on 10/10/21
[2021-10-05 07:10] LABS: BASOPHILS # (AUTO) 0.1 X10'3 (0-0.2); BASOPHILS % (AUTO) 0.8 % (0-1); EOSINOPHILS # (AUTO) 0.3 X10'3 (0-0.9); EOSINOPHILS % (AUTO) 2.4 % (0-6); HEMATOCRIT 41.6 % (35.0-45.0); HEMOGLOBIN 13.7 g/dl (12.0-16.0); LYMPHOCYTES # (AUTO) 2.2 X10'3 (1.1-4.8); LYMPHOCYTES % (AUTO) 15.7 % (21-51); MEAN CORPUSCULAR HEMOGLOBIN 24.6 PG (27.0-31.0); MEAN CORPUSCULAR HGB CONC 32.8 g/dL (33.0-36.5); MEAN CORPUSCULAR VOLUME 74.9 FL (78-98); MONOCYTES % (AUTO) 7.2 % (2-12); NEUTROPHILS # (AUTO) 10.2 X10'3 (1.8-7.7); NEUTROPHILS % (AUTO) 73.9 % (42-75); PLATELET COUNT 287 X10'3 (140-440); RED BLOOD COUNT 5.56 X10'6 (4.20-5.60); RED CELL DISTRIBUTION WIDTH 18.5 % (11.5-14.5); WHITE BLOOD COUNT 13.8 X10'3 (4.5-11.0)
[2021-10-05] MEDS: lansoprazole 15mg solutab PO SCH ×2 (07:14→07:30)
[2021-10-05 07:24] VITALS: BP 123/76
[2021-10-05] MEDS: topiramate 25mg tablet PO SCH (08:11)
[2021-10-05] MEDS: clozapine 25mg tablet PO SCH (08:11)
[2021-10-05] MEDS: benztropine 1mg tablet PO SCH ×2 (08:12→20:17)
[2021-10-05] MEDS: aspirin 81mg, enteric-coated 1 TAB TABLET.DR PO SCH (08:12)
[2021-10-05] MEDS: haloperidol 5mg tablet PO SCH ×2 (08:12→12:55)
[2021-10-05] MEDS: docusate sod 100mg capsule PO SCH ×2 (08:12→20:17)
[2021-10-05] MEDS: metFORMIN 500mg tablet PO SCH ×2 (08:12→20:17)
[2021-10-05] MEDS: potassium Cl 20 mEq SR tablet PO SCH ×2 (08:12→20:17)
[2021-10-05] MEDS: furosemide 40mg tablet PO SCH ×2 (08:12→20:17)
--- NOTE | 2021-10-05 14:55 | NUR ---
Reassessment: Pt PO intake mostly 100%, though she has been refusing some meals since last assessment 09/27. Pt continues to participate in most snacks per blade operator. Overall pt is meeting estimated nutrient needs at this time. [facility] 10/04, receiving routine bowel care. No nutrition intervention implemented at this time. Will continue to follow. Recommendations: 1. Continue regular diet 2. Routine bowel care 3. Weekly scaled wts Addendum: 10/05/21 at [address] Amended: Links added. Addendum: 10/05/21 at [address] I have reviewed assessment by consumer insights intern
[2021-10-05] MEDS: polyethylene glycol 3350 17gm powd pack PO PRN (16:03)
--- NOTE | 2021-10-05 16:25 | NUR ---
Nursing Progress Note: Legal hold: 5270 for GD Report received from ANAY Cardenas, with the use of SBAR REASON FOR ADMIT: Patient was brought to [facility] by her who was concerned that patient was hallucinating that the devil was going to get her. Patient is disoriented, disorganized, and unable to articulate a viable plan for food, clothing, and/or retirement. Her reports that she has been increasingly agitated and has not been sleeping or eating." Assessment What has happened this shift: Pt was up for breakfast in the dining room. She also came to the dining room for lunch and ate approximately 75%. Pt refused her Prevacid murphy tabs. Pt has frequently refused them since 09/29/21 and was difficult to convince to take them before then. Pt insists that she does not need or want them. Notified Dr Cisneros and it was discussed with the patient to try Protonix 40 mg daily instead. Pt was agreeable. Pt c/o constipation to Dr Cisneros requesting Fleets enema. This RN assessed bowel sounds, they were present in all 4 quadrants, abdomen was soft and non tender. Per GI assessment documentation, she has been having large BMs nearly every [address] Cisneros gave orders to increase her Colace to 200 mg BID and add Miralax PRN daily. Pt told this RN that she thinks the problem is resolving "because my stomach is soft and I picked most of it out myself." Pt states that she still feels that 3 Fleets enemas would do the trick. Pt refused prune juice and MOM. Pt was given Miralax in water at 1603. Pt's Clozapine has been increased, 50 mg have been added at bedtime. She has a new order for Trazodone 100 mg HS to start tonight and increase it to 200 mg starting on 10/07/21. Pt is talking to herself less in her room and has only yelled once today. She does continue to make delusional statements like her dad is coming to pick her up and take her to another hospital. However, her delusional statements were fewer and less frequent today. S/I, H/I: Pt denies A/VH: Pt denies though does respond to internal stimuli. Sleep: Pt only slept 1 hour last night per noc shift report. ADL's: Independent with FWW Group attendance: No Were Meds taken: Yes Any med S/E: None noted or reported. Mental Status Exam Appearance: Heavy set, middle aged female, disheveled with long dyed blonde hair dressed in green unit scrubs. Eye contact: Good Behavior: Mostly pleasant and cooperative though remains mildly suspicious and irritable at times. Speech: Clear, audible, hyperverbal. Mood: Mostly good Affect: Mild lability Thought process: Disorganized, delusional. Thought Content: She needs 3 Fleets enemas. Cognition: A/O X 2 Insight: Poor Judgment: Poor Interventions PRN's: Miralax Therapeutic interventions: 1:1 assessment, therapeutic conversation, active listening, medication administration/education/monitoring, encouragement to come to the dining room for meals, encouragement of personal hygiene, behavior monitoring and intervention as needed; reality orientation, distraction, redirection, limit setting, provided positive reinforcement, and maintained Q 15 minute safety checks. Restraints/seclusion/emergency medication: None Justification of Continued Inpatient Treatment: Pt remains gravely disabled, she responds to internal stimuli and becomes irritable. She needs further medication adjustment and monitoring. Her Clozaril is being titrated up and her other medications titrated down.
[2021-10-05 19:40] VITALS: BP 99/65
[2021-10-05] MEDS: traZODone 50mg tablet PO SCH (20:17)
[2021-10-05] MEDS ORDERED: clozapine 25mg tablet PO SCH (21:00)
--- NOTE | 2021-10-06 01:10 | NUR ---
Nursing Progress Note: Legal hold: 5270 Involuntary hold for GD Report received from ANAY Hollingsworth, with the use of SBAR REASON FOR ADMIT: Patient was brought to [facility] by her who was concerned that patient was hallucinating that the devil was going to get her. Patient is disoriented, disorganized, and unable to articulate a viable plan for food, clothing, and/or senior living. Her reports that she has been increasingly agitated and has not been sleeping or eating." Assessment What has happened this shift: Patient laying in bed at the beginning of shift. Pleasant and cooperative with care; compliant with medication. Patient denies SI, HI, A/VH but appears to be responding to IS. Patient continues to report delusional thought content about needing to be admitted to ICU. She was provided HS snack prior to bed; observed sleeping and does not appear to be having difficulty. S/I, H/I: Denies A/VH: Responding to IS Sleep: Refer to sleep assessment ADL's: Independent with FWW Group attendance: NA Were Meds taken: Yes Any med S/E: None observed or reported Mental Status Exam Appearance: Disheveled, unkept and greasy hair, wearing green unit attire Eye contact: Good Behavior: Pleasant and cooperative, fatigued Speech: Clear, audible Mood: Fatigued Affect: Congruent Thought process: Disorganized, delusional Thought Content: Delusions and meeting needs Cognition: A/O X 2 Insight: Poor Judgment: Poor Interventions PRN's: None Therapeutic interventions: 1:1 assessment, therapeutic conversation, active listening, medication administration/education/monitoring, encouragement to come to the dining room for meals, encouragement of personal hygiene, behavior monitoring and intervention as needed; reality orientation, distraction, redirection, limit setting, provided positive reinforcement, and maintained Q 15 minute safety checks. Restraints/seclusion/emergency medication: None Justification of Continued Inpatient Treatment: Pt remains gravely disabled, she responds to internal stimuli and becomes irritable. She needs further medication adjustment and monitoring. Her Clozaril is being titrated up and her other medications titrated down.
[2021-10-06 07:14] VITALS: BP 126/84
[2021-10-06] MEDS: pantoprazole 40mg Tablet.DR PO SCH (08:06)
[2021-10-06] MEDS: haloperidol 5mg tablet PO SCH ×2 (08:06→12:36)
[2021-10-06] MEDS: furosemide 40mg tablet PO SCH ×2 (08:06→20:44)
[2021-10-06] MEDS: aspirin 81mg, enteric-coated 1 TAB TABLET.DR PO SCH (08:06)
[2021-10-06] MEDS: polyethylene glycol 3350 17gm powd pack PO PRN (08:06)
[2021-10-06] MEDS: metFORMIN 500mg tablet PO SCH ×2 (08:06→20:43)
[2021-10-06] MEDS: potassium Cl 20 mEq SR tablet PO SCH ×2 (08:06→20:43)
[2021-10-06] MEDS: clozapine 25mg tablet PO SCH ×2 (08:06→20:45)
[2021-10-06] MEDS: benztropine 1mg tablet PO SCH ×2 (08:07→20:43)
[2021-10-06] MEDS: docusate sod 100mg capsule PO SCH ×2 (08:07→20:44)
--- NOTE | 2021-10-06 15:35 | NUR ---
Nursing Progress Note: Legal hold: 5270 for GD Report received from ANAY Hernandez, with the use of SBAR REASON FOR ADMIT: Patient was brought to [facility] by her who was concerned that patient was hallucinating that the devil was going to get her. Patient is disoriented, disorganized, and unable to articulate a viable plan for food, clothing, and/or penitentiary. Her reports that she has been increasingly agitated and has not been sleeping or eating." Assessment What has happened this shift: Pt was up in the dining room for breakfast, she ate 100%. She also came to the dining room for lunch and ate 75%. Pt was given PRN Miralax this morning. Pt had an XLG BM. Pt believed today was October 26. Pt was pleasant and cooperative with care. Pt did not appear to be responding to internal stimuli today and napped at intermittent intervals throughout the day. S/I, H/I: Pt denies A/VH: Pt denies Sleep: Pt slept 7 hours last night per noc shift report, pt took naps throughout the day. ADL's: Independent with FWW Group attendance: No Were Meds taken: Yes Any med S/E: None noted or reported. Mental Status Exam Appearance: Heavy set, middle aged female, disheveled with long dyed blonde hair dressed in green unit scrubs. Eye contact: Good Behavior: Pleasant, cooperative, listens to radio headphones in her room. Speech: Clear, audible. Mood:Good Affect: Calm Thought process: Remains disorganized though less so. Thought Content: She has been pooping for 2 days, she can't chug Miralax in water she has to sip it. Cognition: A/O X 2 Insight: Poor Judgment: Poor Interventions PRN's: Miralax Therapeutic interventions: 1:1 assessment, therapeutic conversation, active listening, medication administration/education/monitoring, encouragement to come to the dining room for meals, encouragement of personal hygiene, behavior monitoring and intervention as needed; reality orientation, distraction, redirection, provided positive reinforcement, and maintained Q 15 minute safety checks. Restraints/seclusion/emergency medication: None Justification of Continued Inpatient Treatment: Pt remains disorganized. She needs further medication adjustment and monitoring. Her Clozaril is being titrated up and her other medications titrated down.
[2021-10-06 19:00] VITALS: BP 153/102
[2021-10-06] MEDS: traZODone 50mg tablet PO SCH (20:43)
--- NOTE | 2021-10-07 01:52 | NUR ---
Nursing Progress Note: Legal hold: 5270 Involuntary hold for GD Report received from ANAY Hollingsworth, with the use of SBAR REASON FOR ADMIT: Patient was brought to [facility] by her who was concerned that patient was hallucinating that the devil was going to get her. Patient is disoriented, disorganized, and unable to articulate a viable plan for food, clothing, and/or residential. Her reports that she has been increasingly agitated and has not been sleeping or eating." Assessment What has happened this shift: Patient laying in bed at the beginning of shift. Pleasant and cooperative with care; compliant with medication. Patient has remained in bed the majority of shift; did not participate in HS snack. She is observed sleeping and does not appear to be having difficulty. S/I, H/I: Unable to assess A/VH: Unable to assess Sleep: Refer to sleep assessment ADL's: Independent with FWW Group attendance: NA Were Meds taken: Yes Any med S/E: None observed or reported Mental Status Exam Appearance: Disheveled, unkept and greasy hair, wearing green unit attire Eye contact: Good Behavior: Pleasant and cooperative, sleeping Speech: Clear, audible Mood: Fatigued Affect: Congruent Thought process: Unable to assess Thought Content: Sleeping Cognition: A/O X 2 Insight: Poor Judgment: Poor Interventions PRN's: None Therapeutic interventions: 1:1 assessment, therapeutic conversation, active listening, medication administration/education/monitoring, encouragement to come to the dining room for meals, encouragement of personal hygiene, behavior monitoring and intervention as needed; reality orientation, distraction, redirection, limit setting, provided positive reinforcement, and maintained Q 15 minute safety checks. Restraints/seclusion/emergency medication: None Justification of Continued Inpatient Treatment: Pt remains gravely disabled, she responds to internal stimuli and becomes irritable. She needs further medication adjustment and monitoring. Her Clozaril is being titrated up and her other medications titrated down.
[2021-10-07 07:58] VITALS: BP 110/86
[2021-10-07] MEDS: benztropine 1mg tablet PO SCH ×2 (08:15→20:08)
[2021-10-07] MEDS: haloperidol 5mg tablet PO SCH ×2 (08:15→13:05)
[2021-10-07] MEDS: metFORMIN 500mg tablet PO SCH ×2 (08:15→20:07)
[2021-10-07] MEDS: aspirin 81mg, enteric-coated 1 TAB TABLET.DR PO SCH (08:15)
[2021-10-07] MEDS: docusate sod 100mg capsule PO SCH ×2 (08:15→20:00)
[2021-10-07] MEDS: pantoprazole 40mg Tablet.DR PO SCH (08:16)
[2021-10-07] MEDS: potassium Cl 20 mEq SR tablet PO SCH ×2 (08:16→20:07)
[2021-10-07] MEDS: furosemide 40mg tablet PO SCH ×2 (08:16→20:07)
[2021-10-07] MEDS: clozapine 25mg tablet PO SCH ×2 (08:17→20:09)
[2021-10-07] MEDS ORDERED: magnesium citrate 296ml oral solution PO ONE (13:25)
--- NOTE | 2021-10-07 17:47 | NUR ---
Nursing Progress Note Legal hold: 5270 for grave disability Report received from RN with the use of SBAR REASON FOR ADMIT: Patient was brought to [facility] by her who was concerned that patient was hallucinating that the devil was going to get her. Patient is disoriented, disorganized, and unable to articulate a viable plan for food, clothing, and/or mcfp. Her reports that she has been increasingly agitated and has not been sleeping or eating." Assessment What has happened this shift: Received Pt in bed sleeping w/o distress at the beginning of the shift. Pt woke and was cooperative with vitals and returned to sleep. Pt took AM meds w/o issue. Pt spent most of the day in her room and spoke delusionally about this RN being able to walk through [place] and gave a [facility] business card to this RN stating it was her husbands number. Pt c/o being impacted still and per Dr Clay, was given Mag. Citrate. Pt vomited shortly after that. Pt in bed using headphones in afternoon. S/I, H/I: Pt denies A/VH: Pt denies Sleep: Pt did not sleep this shift ADL's: Independent Group attendance: No groups Were Meds taken: Yes Any med S/E: None noted Mental Status Exam Appearance: Casual in green scrubs Eye contact: Good Behavior: Pt cooperative Speech: Clear, audible Mood: Labile Affect: Labile Thought process: Disorganized, delusional Thought Content: Going home Cognition: Delusional Insight: Impaired Judgment: Impaired Interventions PRN's used: Once dose of Mag Citrate Therapeutic interventions: 1:1 assessment, therapeutic communication, active listening, medication administration/education/monitoring, constipation management, medication administration/education/monitoring, behavior monitoring and intervention as needed; reality orientation, distraction, redirection verbal de-escalation, provided reassurance and positive reinforcement, and maintained Q 15 minute safety checks. 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 Pt remains gravely disabled.
[2021-10-07 19:00] VITALS: BP 126/85
[2021-10-07] MEDS: traZODone 50mg tablet PO SCH (20:08)
--- NOTE | 2021-10-07 22:32 | NUR ---
Nursing Progress Note Legal hold: 5270 for grave disability Report received from ANAY Hollingsworth with the use of SBAR REASON FOR ADMIT: Patient was brought to [facility] by her who was concerned that patient was hallucinating that the devil was going to get her. Patient is disoriented, disorganized, and unable to articulate a viable plan for food, clothing, and/or residential. Her reports that she has been increasingly agitated and has not been sleeping or eating." Assessment What has happened this shift: came in after shift change to pt lying in bed stating she had vomited on floor and covered it up with blankets. Pt stated feeling nauseous. Pt given mag citrate in the AM. Brought the pt some water and saltine crackers to settle stomach. Pt reported wanting to leave and go to assisted living community or something similar. Pt kept referring to me as her daughter and a supposed sister Katherine. Pt is polite and appropriate. Pt took all evening meds w/o complaint. Brought pt a snack as she had missed snack. Pt went to sleep shortly after. S/I, H/I: Pt denies A/VH: Pt denies Sleep:See sleep hours ADL's: Independent Group attendance: No group in the evening Were Meds taken: Yes Any med S/E: None noted Mental Status Exam Appearance: Casual in green scrubs Eye contact: Good Behavior: Pt cooperative Speech: Clear, audible Mood: Labile Affect: Labile Thought process: Disorganized, delusional Thought Content: Going home Cognition: Delusional Insight: Impaired Judgment: Impaired Interventions PRN's used: None Therapeutic interventions: 1:1 assessment, therapeutic communication, active listening, medication administration/education/monitoring, constipation management, medication administration/education/monitoring, behavior monitoring and intervention as needed; reality orientation, distraction, redirection verbal de-escalation, provided reassurance and positive reinforcement, and maintained Q 15 minute safety checks. Restraints/seclusion/emergency medication: None Justification of Continued Inpatient Treatment: Pt continues to be psychotic with paranoid and muslim delusions, she responds to internal stimuli and becomes agitated. Pt remains gravely disabled.
[2021-10-08 08:07] VITALS: BP 108/67
[2021-10-08] MEDS: clozapine 25mg tablet PO SCH (09:27)
[2021-10-08] MEDS: haloperidol 5mg tablet PO SCH ×2 (09:27→12:50)
[2021-10-08] MEDS: pantoprazole 40mg Tablet.DR PO SCH (09:27)
[2021-10-08] MEDS: docusate sod 100mg capsule PO SCH ×2 (09:28→20:06)
[2021-10-08] MEDS: metFORMIN 500mg tablet PO SCH ×2 (09:28→20:06)
[2021-10-08] MEDS: aspirin 81mg, enteric-coated 1 TAB TABLET.DR PO SCH (09:28)
[2021-10-08] MEDS: benztropine 1mg tablet PO SCH ×2 (09:28→20:06)
[2021-10-08] MEDS: furosemide 40mg tablet PO SCH ×2 (09:29→20:06)
[2021-10-08] MEDS: potassium Cl 20 mEq SR tablet PO SCH ×2 (09:29→20:07)
[2021-10-08] MEDS: polyethylene glycol 3350 17gm powd pack PO PRN (12:50)
[2021-10-08] MEDS ORDERED: clozapine 25mg tablet PO PRN (17:05)
--- NOTE | 2021-10-08 17:54 | NUR ---
Nursing Progress Note Legal hold: 5270 for grave disability Report received from ANAY Borja with the use of SBAR REASON FOR ADMIT: Patient was brought to [facility] by her who was concerned that patient was hallucinating that the devil was going to get her. Patient is disoriented, disorganized, and unable to articulate a viable plan for food, clothing, and/or care home. Her reports that she has been increasingly agitated and has not been sleeping or eating." Assessment What has happened this shift: Received patient while she was sleeping on her back snoring. Patient woke up about 0800 and ambulated to the dining room using her FWW. Patient returned to her room then took and medications ordered and 1:1 patient assessment was completed. Patient smiling and stated Sonia been tired the past few days but I feel okay. Patient talkative but not making delusional statements. Patient A/O x2. Patient read a few magazines for the next few hours then ambulated down the hallway with her walker. Patient ate lunch in the Community Room, and then requested a shower, and ambulated down to the shower for a shower and shampoo. Patient returned and went to the Community Room and colored for the rest of the afternoon. Patient very calm and pleasant throughout the day. Throughout the whole day, patient did not make any delusional, disoriented, or unpleasant statements all day long. Patient participated in snack time and returned back to the Community Room to color. S/I, H/I: Pt denies A/VH: Pt denies Sleep: 2.75 hours ADL's: Independent, Showered & Shampooed Today. Group attendance: No Group Meeting Today. Were Meds taken: Yes, without hesitation. Any med S/E: None noted Mental Status Exam Appearance: Female Patient with Medium Length Blonde Hair dressed in Green Unit Scrubs. Eye contact: Good Behavior: Cooperative, Pleasant with staff & peers. Speech: Clear, audible Mood: Sonia been tired the past few days but I feel okay. Affect: Calm. Cheerful Thought process: Disorganized, delusional Thought Content: Going home Cognition: A & O x2 Insight: Impaired Judgment: Impaired Interventions PRN's used: None Therapeutic interventions: 1:1 assessment, therapeutic communication, active listening, medication administration/education/monitoring, constipation management, medication administration/education/monitoring, behavior monitoring and intervention as needed; reality orientation, distraction, redirection verbal de-escalation, provided reassurance and positive reinforcement, and maintained Q 15 minute safety checks. Restraints/seclusion/emergency medication: None Justification of Continued Inpatient Treatment: Pt continues to be psychotic with paranoid and sabianist delusions, she responds to internal stimuli and becomes agitated. Pt remains gravely disabled.
[2021-10-08 20:01] VITALS: BP 137/104
[2021-10-08] MEDS ORDERED: traZODone 50mg tablet PO SCH (21:00)
[2021-10-08] MEDS ORDERED: clozapine 100mg tablet PO SCH (21:00)
--- NOTE | 2021-10-09 04:36 | NUR ---
Nursing Progress Note: Legal hold: 5270 Involuntary hold for GD Report received from ANAY Trimble, with the use of SBAR REASON FOR ADMIT: Patient was brought to [facility] by her who was concerned that patient was hallucinating that the devil was going to get her. Patient is disoriented, disorganized, and unable to articulate a viable plan for food, clothing, and/or care home. Her reports that she has been increasingly agitated and has not been sleeping or eating." Assessment What has happened this shift: Patient laying in bed at the beginning of shift. Pleasant and cooperative with care; compliant with medication. PRN Clozapine 50mg PO provided for sleep per patient request. Patient denies SI, HI, A/VH; does not appear to be responding to IS and no apparent delusions reported. Patient reported, "I feel different today. Better, maybe something is starting to work." Patient participated in HS snack and observed conversing with female peer prior to bed. She is observed sleeping and does not appear to be having difficulty after PRN Clozapine. S/I, H/I: Denies A/VH: Denies Sleep: Refer to sleep assessment ADL's: Independent with FWW Group attendance: NA Were Meds taken: Yes Any med S/E: None observed or reported Mental Status Exam Appearance: Appropriately dressed in green unit attire Eye contact: Good Behavior: Pleasant and cooperative, social Speech: Clear, audible Mood: Bright Affect: Hopeful Thought process: Linear Thought Content: Meeting needs and hopeful she medication adjustments are working Cognition: A/O X 2 Insight: Poor Judgment: Poor Interventions PRN's: Clozapine 50mg Therapeutic interventions: 1:1 assessment, therapeutic conversation, active listening, medication administration/education/monitoring, encouragement to come to the dining room for meals, encouragement of personal hygiene, behavior monitoring and intervention as needed; reality orientation, distraction, redirection, limit setting, provided positive reinforcement, and maintained Q 15 minute safety checks. Restraints/seclusion/emergency medication: None Justification of Continued Inpatient Treatment: Pt remains gravely disabled, she responds to internal stimuli and becomes irritable. She needs further medication adjustment and monitoring. Her Clozaril is being titrated up and her other medications titrated down.
[2021-10-09 07:42] VITALS: BP 133/93
[2021-10-09] MEDS ORDERED: clozapine 25mg tablet PO SCH ×2 (08:00→21:00)
[2021-10-09] MEDS: haloperidol 5mg tablet PO SCH ×2 (08:18→12:55)
[2021-10-09] MEDS: pantoprazole 40mg Tablet.DR PO SCH (08:19)
[2021-10-09] MEDS: benztropine 1mg tablet PO SCH ×2 (08:21→20:22)
[2021-10-09] MEDS: aspirin 81mg, enteric-coated 1 TAB TABLET.DR PO SCH (08:23)
[2021-10-09] MEDS: furosemide 40mg tablet PO SCH ×2 (08:23→20:22)
[2021-10-09] MEDS: potassium Cl 20 mEq SR tablet PO SCH ×2 (08:23→20:20)
[2021-10-09] MEDS: metFORMIN 500mg tablet PO SCH ×2 (08:23→20:23)
[2021-10-09] MEDS: docusate sod 100mg capsule PO SCH ×2 (08:23→20:22)
--- NOTE | 2021-10-09 13:57 | NUR ---
Called Nereida's , Craig (ph# [phone]), to inform him that Nereida's hold expires tomorrow and the Dr is going to ask her to stay voluntarily. Craig reported he talked to her last night and she sounded better. Answered his questions regarding her medications. Informed him that we recommend they follow up with [facility] upon discharge (walk-in at [facility]). He reported the Dr there said Nereida was faking and he did not want her to go back there. He reported they will follow up with her PCP at [facility]. Screen Printing Press Operator will call Craig tomorrow to inform him if Nereida is going to discharge or not. ASIM Mendez
--- NOTE | 2021-10-09 17:46 | NUR ---
Nursing Progress Note: Legal hold: 5270 Involuntary hold for GD Report received from NITA Nava, with the use of SBAR REASON FOR ADMIT: Patient was brought to [facility] by her who was concerned that patient was hallucinating that the devil was going to get her. Patient is disoriented, disorganized, and unable to articulate a viable plan for food, clothing, and/or correction. Her reports that she has been increasingly agitated and has not been sleeping or eating." Assessment What has happened this shift: Received patient while she was sleeping in bed. Patient woke up and stated Good Morning and ambulated to the dining room using her FWW, to eat breakfast. Patient ate breakfast and talked to two other peers who were sitting at the same table. Patient smiling & pleasant during medication administration and 1:1 Patient had no complaints during her physical assessment. Patient went to Group Meeting this morning and this afternoon. Patient ambulated in hallway using FWW. S/I, H/I: Denies A/VH: Denies Sleep: 6.75 hours ADL's: Independent with FWW Group attendance: Attended AM & PM Group Meeting Today. Were Meds taken: Yes, without hesitation. Any med S/E: None observed or reported Mental Status Exam Appearance: Appropriately dressed in green unit attire Eye contact: Good Behavior: Pleasant and Cooperative Speech: Clear, audible Mood: Cheerful Affect: Motivated. Smiling. Thought process: Linear Thought Content: Meeting Needs. Cognition: A/O X 2 Insight: Poor Judgment: Poor Interventions PRN's: None Therapeutic interventions: 1:1 assessment, therapeutic conversation, active listening, medication administration/education/monitoring, encouragement to come to the dining room for meals, encouragement of personal hygiene, behavior monitoring and intervention as needed; reality orientation, distraction, redirection, limit setting, provided positive reinforcement, and maintained Q 15 minute safety checks. Restraints/seclusion/emergency medication: None Justification of Continued Inpatient Treatment: Pt remains gravely disabled, she responds to internal stimuli and becomes irritable. She needs further medication adjustment and monitoring. Her Clozaril is being titrated up and her other medications titrated down.
[2021-10-09 20:00] VITALS: BP 126/84
[2021-10-09] MEDS ORDERED: traZODone 50mg tablet PO SCH (21:00)
--- NOTE | 2021-10-10 02:30 | NUR ---
Nursing Progress Note: Legal hold: 5270 Involuntary hold for GD Report received from ANAY Trimble, with the use of SBAR REASON FOR ADMIT: Patient was brought to [facility] by her who was concerned that patient was hallucinating that the devil was going to get her. Patient is disoriented, disorganized, and unable to articulate a viable plan for food, clothing, and/or retirement. Her reports that she has been increasingly agitated and has not been sleeping or eating." Assessment What has happened this shift: Patient seen at bedside for 1:1. Her eyes are clear and she looks at me direct. Patient is not irritable and she speaks clearly. Patient has noticed changes as well as staff. Patient is getting better. She comes out for snacks and sits in community room. "I'm ready for my medicine, when you want to bring it." She is asking for medicine, because she knows it is helping her now. Patient made no delusional statements in staff presence. She denies all MH symptoms, and none were observed. S/I, H/I: Denies A/VH: Denies Sleep: Refer to sleep assessment ADL's: Independent with FWW Group attendance: N/A Were Meds taken: Yes Any med S/E: None observed or reported Mental Status Exam Appearance: Appropriately dressed in green unit attire Eye contact: Good Behavior: Pleasant and cooperative, social Speech: Clear, audible Mood: Bright Affect: Hopeful Thought process: Linear Thought Content: Meeting needs and hopeful the medication adjustments are working Cognition: A/O X 2 Insight: Poor Judgment: Poor Interventions PRN's: Therapeutic interventions: 1:1 assessment, therapeutic conversation, active listening, medication administration/education/monitoring, encouragement to come to the dining room for meals, encouragement of personal hygiene, behavior monitoring and intervention as needed; reality orientation, distraction, redirection, limit setting, provided positive reinforcement, and maintained Q 15 minute safety checks. Restraints/seclusion/emergency medication: None Justification of Continued Inpatient Treatment: Pt remains gravely disabled, she responds to internal stimuli and becomes irritable. She needs further medication adjustment and monitoring. Her Clozaril is being titrated up and her other medications titrated down.
[2021-10-10] MEDS: pantoprazole 40mg Tablet.DR PO SCH (07:38)
[2021-10-10] MEDS: haloperidol 5mg tablet PO SCH ×2 (07:38→12:26)
[2021-10-10] MEDS: docusate sod 100mg capsule PO SCH (07:38)
[2021-10-10] MEDS: benztropine 1mg tablet PO SCH (07:39)
[2021-10-10] MEDS: furosemide 40mg tablet PO SCH (07:39)
[2021-10-10] MEDS: aspirin 81mg, enteric-coated 1 TAB TABLET.DR PO SCH (07:39)
[2021-10-10] MEDS: metFORMIN 500mg tablet PO SCH (07:40)
[2021-10-10] MEDS: potassium Cl 20 mEq SR tablet PO SCH (07:40)
[2021-10-10 08:00] VITALS: BP 126/71
[2021-10-10] MEDS ORDERED: clozapine 25mg tablet PO SCH (08:00)
[2021-10-10] MEDS: acetaminophen 325mg tablet PO PRN (08:06)
--- NOTE | 2021-10-10 13:34 | NUR ---
DISCHARGE PLAN Called Nereida's , Craig (ph# [phone]), to inform him that Nereida is getting discharged today. He reported he or his daughter are unable to pick her up. Requested a [facility] marine engine driver transport her home. They will pick her up at 3 PM to take her home. Informed Craig that she will need to follow up with [facility] and walk-in to [facility]. He seemed to understand that she needs to walk in there. Informed Nereida of this as well. ASIM Mendez
--- NOTE | 2021-10-10 13:50 | NUR ---
Faxed labs to [facility] on [address] for Clozaril Rx. Fax# [phone] C ASIM Nieves
[2021-10-10] MEDS ORDERED: NICO-907 BC (14:12)
[2021-10-10] MEDS ORDERED: DOCU100C40 PO (14:12)
[2021-10-10] MEDS ORDERED: ATRIN INH (14:12)
[2021-10-10] MEDS ORDERED: POTA-197 PO (14:12)
[2021-10-10] MEDS ORDERED: METF-1203 PO (14:12)
[2021-10-10] MEDS ORDERED: ASPI-1071 PO (14:12)
[2021-10-10] MEDS ORDERED: CLOZ100T21 PO (14:12)
[2021-10-10] MEDS ORDERED: HALO5TAB PO (14:12)
[2021-10-10] MEDS ORDERED: PANT40TA54 PO (14:12)
[2021-10-10] MEDS ORDERED: ALBU18HF2 INH (14:12)
[2021-10-10] MEDS ORDERED: CLOZ25TA12 PO (14:12)
[2021-10-10] MEDS ORDERED: TRAZ-251 PO (14:12)
[2021-10-10] MEDS ORDERED: BENZ1TAB90 PO (14:12)
[2021-10-10] MEDS ORDERED: FURO40TA4 PO (14:12)
--- NOTE | 2021-10-10 15:15 | NUR ---
DISCHARGE: Patient discharged and escorted from unit at approximately 1514. Patient is A&O x4, calm and cooperative. Discharge instructions reviewed, patient verbalized understanding. All belongings inventoried and returned to patient. Home meds sent with patient. She was picked up by a family member for transport back to patients residence. Patient left the hospital without incident.
== END 2021-10-10 15:51 | disposition home or self-care (01) | DRG 885 ==
LOC: ER 11:13 → ED HOLD 08-24 17:00 → ADULT MH 08-24 22:11
PROVIDERS: ADMIT Psychiatry & Neurology Psychiatry; ATTEND Psychiatry & Neurology Psychiatry
DX: F20.9 Schizophrenia, unspecified (principal); I11.0 Hypertensive heart disease with heart failure; G93.41 Metabolic encephalopathy; M84.48XA Pathological fracture, other site, initial encounter for fracture; I48.91 Unspecified atrial fibrillation; F12.10 Cannabis abuse, uncomplicated; E11.9 Type 2 diabetes mellitus without complications; E66.01 Morbid (severe) obesity due to excess calories; E78.00 Pure hypercholesterolemia, unspecified; G89.29 Other chronic pain; I25.10 Atherosclerotic heart disease of native coronary artery without angina pectoris; I27.81 Cor pulmonale (chronic); I50.9 Heart failure, unspecified; K05.10 Chronic gingivitis, plaque induced; K21.9 Gastro-esophageal reflux disease without esophagitis; F41.9 Anxiety disorder, unspecified; G47.30 Sleep apnea, unspecified; M54.9 Dorsalgia, unspecified; F60.3 Borderline personality disorder; K59.00 Constipation, unspecified; X58.XXXA Exposure to other specified factors, initial encounter; J44.9 Chronic obstructive pulmonary disease, unspecified; K04.7 Periapical abscess without sinus; Z20.822 Contact with and (suspected) exposure to COVID-19; F14.90 Cocaine use, unspecified, uncomplicated; F15.90 Other stimulant use, unspecified, uncomplicated; F17.200 Nicotine dependence, unspecified, uncomplicated; Z91.14 Patient's other noncompliance with medication regimen; Z68.34 Body mass index [BMI] 34.0-34.9, adult; Z88.8 Allergy status to other drugs, medicaments and biological substances; Z88.0 Allergy status to penicillin; Z82.49 Family history of ischemic heart disease and other diseases of the circulatory system; Z98.891 History of uterine scar from previous surgery; Z98.51 Tubal ligation status; Y93.89 Activity, other specified; Y92.89 Other specified places as the place of occurrence of the external cause; Y99.8 Other external cause status
CPT/HCPCS: 36415; 80048; 80053; 80061; 80076; 80305; 80320; 81003; 81025; 82140; 82948; 83036; 83880; 84145; 84443; 85007; 85008; 85025; 87081; 87635; 93005; 94640; 94760; 99285; C9803; Q0163; Q0164; Q0177

== ENCOUNTER 2022-10-24 22:06 | Emergency (ER) | payer MEDICARE, OTHER ==
[~2022-10-24] VITALS: Ht 167.6 cm; Wt 118.2 kg
[~2022-10-24 22:06] MED LIST changes: +ALBU18HF2 INH; -ALBU8.5H17 INH; +ASPI-1071 PO; +ATRIN INH; +BENZ1TAB90 PO; -CHOL200012 PO; +CLOZ100T21 PO; +CLOZ25TA12 PO; +DOCU100C40 PO; +HALO5TAB PO; +NICO-907 BC; -OMEP20CA16 PO; +PANT40TA54 PO; +POTA-197 PO; -POTA-84 PO; +TRAZ-251 PO
[2022-10-25 00:51] LABS: BASOPHILS # (AUTO) 0.1 X10'3 (0-0.2); BASOPHILS % (AUTO) 0.8 % (0-1); EOSINOPHILS # (AUTO) 0.2 X10'3 (0-0.9); EOSINOPHILS % (AUTO) 1.5 % (0-6); HEMATOCRIT 41.8 % (35.0-45.0); HEMOGLOBIN 13.6 g/dl (12.0-16.0); LYMPHOCYTES # (AUTO) 2.2 X10'3 (1.1-4.8); LYMPHOCYTES % (AUTO) 16.2 % (21-51); MEAN CORPUSCULAR HEMOGLOBIN 24.2 PG (27.0-31.0); MEAN CORPUSCULAR HGB CONC 32.5 g/dL (33.0-36.5); MEAN CORPUSCULAR VOLUME 74.3 FL (78-98); MEAN PLATELET VOLUME 7.3 FL (7.4-10.4); NEUTROPHILS # (AUTO) 10.1 X10'3 (1.8-7.7); NEUTROPHILS % (AUTO) 74.5 % (42-75); PLATELET COUNT 351 X10'3 (140-440); RED BLOOD COUNT 5.63 X10'6 (4.20-5.60); RED CELL DISTRIBUTION WIDTH 17.4 % (11.5-14.5); WHITE BLOOD COUNT 13.5 X10'3 (4.5-11.0)
[2022-10-25 01:00] LABS: ALANINE AMINOTRANSFERASE 15 U/L (12-78); ALBUMIN 3.6 G/DL (3.4-5.0); ALKALINE PHOSPHATASE 129 IU/L (46-116); ANION GAP 9 (8-16); ASPARTATE AMINO TRANSFERASE 9 U/L (10-37); BILIRUBIN,TOTAL 0.2 MG/DL (0.1-1.0); BLOOD UREA NITROGEN 12 MG/DL (7-18); BUN/CREATININE RATIO 15.2 (10.0-20.0); CALCIUM 8.9 MG/DL (8.5-10.1); CHLORIDE 95 MMOL/L (99-107); CREATININE 0.79 MG/DL (0.40-0.90); GLUCOSE 119 MG/DL (70-104); POTASSIUM 4.1 MMOL/L (3.5-5.1); SODIUM 137 MMOL/L (135-145); TOTAL CARBON DIOXIDE 33.4 MMOL/L (24-32); TOTAL PROTEIN 7.3 G/DL (6.4-8.2); eGFR 75 ML/MIN
[2022-10-25] MEDS ORDERED: iohexol 300mg/ml 100ml inj. ONE (01:07)
[2022-10-25] MEDS ORDERED: predniSONE 20 mg tablet PO ONE (03:10)
[2022-10-25] MEDS ORDERED: levoFLOXACIN 750MG TABLET PO ONE (03:10)
[2022-10-25] MEDS ORDERED: LEVO750T68 PO (03:12)
[2022-10-25] MEDS ORDERED: PRED20TA PO (03:12)
[2022-10-25 05:10] VITALS: BP 122/80
== END 2022-10-25 03:25 | disposition home or self-care (01) ==
LOC: ER 22:07
DX: J18.9 Pneumonia, unspecified organism (principal); I11.9 Hypertensive heart disease without heart failure; I51.9 Heart disease, unspecified; G89.29 Other chronic pain; M54.9 Dorsalgia, unspecified; F41.9 Anxiety disorder, unspecified; F20.9 Schizophrenia, unspecified; Z88.0 Allergy status to penicillin; Z88.8 Allergy status to other drugs, medicaments and biological substances; Z79.899 Other long term (current) drug therapy
CPT/HCPCS: 36415; 71045; 71260; 80053; 83880; 84484; 85025; 93005; 99285; J3490; J7512; Q9967

== ENCOUNTER 2025-03-04 16:01 | Emergency (ER) | payer MEDICARE, OTHER ==
[~2025-03-04] VITALS: Ht 167.6 cm; Wt 121.4 kg
[~2025-03-04 16:01] MED LIST changes: -BENZ1TAB90 PO; +COG1T PO
--- NOTE | 2025-03-04 17:10 | Physician Documentation ---
History of Present Illness ~ Chief Complaint: Hyperglycemia Stated Complaint: HIGH BLOOD SUGAR Time Seen by MD: 19:53 Primary Medical Doctor: Dr. zamora [facility] HPI Patient is a 59-year-old female that reports in the emergency department for evaluation of hyperglycemia today. He has reports that she does not use insulin to control her diabetes she only uses metformin at this time that her glucose was greater than 300 today. Patient reports feeling generally unwell in his short of breath. Patient reports that she has COPD at baseline but she does not use oxygen at home. Courses she is significantly out of breath with exertion. Additional note by Guero Chow DO: I took over the care of this patient from previous physician. I reviewed any previous notes available, obtain my own history, review of systems and physical examination was performed by myself. This is a pleasant 59-year-old female with a known history of diabetes in his COPD presents for evaluation of elevated glucose in 300s. No obvious trigger provocation. The particular palliating or aggravating factors. She reports polyuria and polydipsia. She states that she has been compliant with her metformin. She is supposed to be on Ozempic as well, however she can not afford it. She also reports chronic shortness a breath, does have history of COPD. No concern for tobacco, alcohol or illicit substances use Medication Reconciliation Allergies: Coded Allergies: gabapentin (Verified Allergy, Intermediate, THROAT SWELLS, 03/04/25) Penicillins (Verified Allergy, Unknown, 03/04/25) amlodipine (Verified Allergy, Unknown, 03/04/25) amoxicillin (Verified Allergy, Unknown, 03/04/25) lisinopril (Verified Allergy, Unknown, 03/04/25) varenicline (Verified Adverse Reaction, Intermediate, RASH, 03/04/25) Scheduled Aspirin (Ecotrin*), 1 TAB PO DAILY Benztropine Mesylate (Benztropine Mesylate), 0.5 MG PO BID Clozapine (Clozapine), 25 MG PO BID Clozapine (Clozapine), 1 TAB PO HS Furosemide (Furosemide), 40 MG PO BID Haloperidol (Haloperidol), 5 MG PO BIDBL Ipratropium [place] MDI* (Atrovent MDI*), 2 PUFFS INH BID Metformin HCl (Metformin HCl), 500 MG PO Q12H Pantoprazole Sodium (Pantoprazole Sodium), 40 MG PO BKF Potassium Chloride (Klor-Con M20), 20 MEQ PO BID Scheduled PRN Albuterol Sulfate (Ventolin Hfa), 2 PUFFS INH Q4HPRN PRN for SOB or wheezing Docusate Sodium (Docusate Sodium), 200 MG PO DAILY PRN for constipation Nicotine Polacrilex (Nicotine Lozenge), 2 MG BC TID PRN for NICOTINE CRAVING Trazodone HCl (Trazodone HCl), 25 MG PO HS PRN for sleep Past Medical History Past Medical History: Coronary Artery Disease, Congestive Heart Failure, High Cholesterol, Hypertension, Vascular Disease, *PULMONARY*, COPD, Sleep Apnea, Gastritis, Diabetes, Chronic Back Pain, Anxiety, Schizophrenia Past Surgical History: , orthopedic surgeries, tubal ligation, other Other Past Surgical History: recent back surgery with a seroma Patient History: Hypertension in father Hypertension in mother Pertaining to mother Alcohol Use: Occasionally Drug Use: marijuana Lives with: Family Lives In: Home Occupation: disabled Review of Systems ROS 10 point review of systems was performed and unless noted above in HPI is negative for acute process/complaint. Physical Exam Vital Signs: Temperature: 97.1, Source: Oral, Heart Rate: 81, Respiratory Rate: 16, BP: 141/87, Pulse Oximetry: 94, Weight: 121.400 Oxygen Flow Rate: 0 Physical Exam GENERAL: Awake, alert, oriented, GCS 15, no apparent distress, non-toxic appearing, answers questions, follows commands appropriately. Pleasant lady examined in bed 6., accompanied by daughter and female friend HEENT: Atraumatic, normocephalic, pupils equal, extraocular muscles intact, sclerae anicteric, mucus membranes dry, oropharynx is clear, no stridor. NECK: supple, full active range of motion, trachea midline, no thyromegaly, no lymphadenopathy, no JVD. CARDIOVASCULAR: regular rate/rhythm, no murmurs/gallops/rubs, Pulses are 2+ in all extremities and symmetric. Capillary refill less than 2 seconds. PULMONARY: Nonlabored, good air movement ,no respiratory distress, speaking in full sentences, clear to auscultation bilaterally, no wheezing, no ronchi, no rales, no accessory muscle use. GASTROINTESTINAL: Soft, non-tender, non-distended, normal active bowel sounds, no organomegaly, no pulsatile masses, no CVA tenderness. NEUROLOGIC: Lucid with normal mental status. Normal facial symmetry. Moves all extremities symmetrically and with purpose. No truncal ataxia. Speech is fluid without evidence of dysarthria or aphasia, no focal deficits appreciated. MUSCULOSKELETAL: There is full range of motion of all extremities. There is no joint pain or joint swelling or joint erythema. There is no muscle pain or tenderness or swelling. EXTREMITIES: warm, well-perfused, no cyanosis, no clubbing, no edema, no acute deformities. Skin: warm, dry, no rashes or lesions, no jaundice, no petechiae orpurpura. No ecchymosis. PSYCHIATRIC: Normal affect, normal insight, normal concentration. Focused exam: [] Progress Results/Orders Results/Orders Orders - GUERO CHOW DO Culture Blood (03/04/25 20:05) * Rt Notification Q1H (03/04/25 21:09) Completed Orders - GUERO CHOW DO Normal Saline 1000ml (0.9% Sodium Chlori (03/04/25 20:05) Ceftriaxone/B2v-Splebadw 1gm (Rocephin 1 (03/04/25 20:05) Albuterol 2.5mg/3ml Nebule (Proventil 2. (03/04/25 20:10) Albuterol 2.5mg/3ml Nebule (Proventil 2. (03/04/25 21:10) BMP (03/04/25 21:11) Medications Received in ER Medications (Trade) Dose Ordered Sig/Jerson Route PRN Reason Start Time Stop Time Status Last Admin Dose Admin Sodium Chloride 1,000 ml @ 1,000 mls/hr ONCE ONCE IV 03/04/25 20:05 03/04/25 21:04 DC 03/04/25 20:10 1,000 MLS/HR Ceftriaxone Sodium 50 ml @ 100 mls/hr ONCE ONCE IV 03/04/25 20:05 03/04/25 20:34 DC 03/04/25 20:47 100 MLS/HR (Proventil 2.5 MG/3ML nebule) 2.5 mg ONCE ONCE NEB 03/04/25 21:10 03/04/25 21:11 DC 03/04/25 21:26 2.5 MG Vital Signs 03/04/25 03/04/25 03/04/25 03/04/25 16:34 18:42 20:23 20:24 Temp 97.1 97.1 Pulse 81 96 74 Resp 16 16 21 22 B/P (MAP) 141/87 138/76 (96) 137/80 (99) Pulse Ox 94 95 O2 Flow Rate 0 0 0 03/04/25 03/04/25 03/04/25 21:29 21:32 21:41 Pulse 80 70 78 Resp 20 20 16 B/P (MAP) 142/77 (98) Pulse Ox 100 95 O2 Delivery Room Air* Room Air* O2 Flow Rate 0 0 0 FiO2 21 21 Laboratory Tests Test 03/04/25 16:36 03/04/25 16:41 03/04/25 17:36 03/04/25 20:01 Glucometer 291 H 192 H Urine Specimen Description Cln catch midstream Urine Color Yellow Urine Clarity Clear Urine pH 6.0 Urine Specific [place] <=1.005 Urine Protein Negative Urine Glucose (UA) >=1000 H Urine Ketones Negative Urine Occult Blood Negative Urine Nitrite Negative Urine Bilirubin Negative Urine Urobilinogen 0.2 Urine Leukocyte Esterase Negative Urine RBC 0-2 Urine WBC 5-10 H Urine Squamous Epithelial Cells Moderate Urine Transitional Epithelial Cells Few Urine Renal Cells Few Urine Bacteria 1+ Urine Culture Indicated Indicated Volume Urine Centrifuged 10 ml Urine Comment White Blood Count 17.9 H Red Blood Count 4.97 Hemoglobin 10.3 L Hematocrit 32.1 L Mean Corpuscular Volume 64.6 L Mean Corpuscular Hemoglobin 20.8 L Mean Corpuscular Hemoglobin Concent 32.2 L Red Cell Distribution Width 17.1 H Platelet Count 422 Mean Platelet Volume 7.2 L Neutrophils (%) (Auto) 74.7 Lymphocytes (%) (Auto) 15.7 L Monocytes (%) (Auto) 6.5 Eosinophils (%) (Auto) 1.6 Basophils (%) (Auto) 1.5 H Neutrophils # (Auto) 13.4 H Lymphocytes # (Auto) 2.8 Monocytes # (Auto) 1.2 H Eosinophils # (Auto) 0.3 Basophils # (Auto) 0.3 H CBC Comment Platelet Estimate Normal Red Blood Cell Morphology Perf Hypochromasia 1+ Basophilic Stippling Anisocytosis 1+ Microcytosis 2+ D-Dimer 0.28 D-Dimer Comment Sodium Level 126 L Potassium Level 3.3 L Chloride Level 89 L Carbon Dioxide Level 27.6 Anion Gap 9 Blood Urea Nitrogen 14 Creatinine 0.96 H Estimated GFR/1.73 m2 60 BUN/Creatinine Ratio 14.6 Glucose Level 243 H Lactic Acid Level 4.4 *H Calcium Level 8.4 L Total Bilirubin 0.3 Aspartate Amino Transf (AST/SGOT) 11 Alanine Aminotransferase (ALT/SGPT) 20 Alkaline Phosphatase 138 H Troponin I High Sensitivity 9 Pro-B-Type Natriuretic Peptide 114 Total Protein 6.9 Albumin 3.2 L Globulin 3.7 Albumin/Globulin Ratio 0.9 L Chemistry Comments Test 03/04/25 20:08 03/04/25 20:34 Lactic Acid Level 3.2 H Troponin I High Sensitivity 10 11 Troponin I High Sens Percent Delta 11 10 Troponin I Hi Sens Absolute Change 1 1 Sodium Level 129 L Potassium Level 2.9 *L Chloride Level 93 L Carbon Dioxide Level 27.3 Anion Gap 9 Blood Urea Nitrogen 13 Creatinine 0.80 Estimated GFR/1.73 m2 74 BUN/Creatinine Ratio 16.3 Glucose Level 179 H Calcium Level 8.1 L Albumin 2.9 L Chemistry Comments Microbiology Date/Time Source Procedure Growth Status 03/04/25 18:08 Urine Clean Catch Midstream Urine Culture - Preliminary Culture received. Resulted Medical Decision Making Findings Facility Status: ED Holds, [facility] process The plan was discussed with the patient, who demonstrates clear understanding of the plan and is in agreement with the plan unless otherwise noted in the chart. All questions have been answered, all concerns were addressed unless otherwise documented. I was available throughout their ED stay for frequent reassessment and questions. Differential Diagnoses (considered and possible or likely): [Hyperglycemia without ketosis or acidosis, DKA, HHS, urinary tract infection, pneumonia, occult bacteremia as a cause of hypoglycemia, given her shortness a breath COPD versus COPD exacerbation, less likely ACS, less likely CHF] ??Differential Diagnoses (considered and unlikely, not requiring evaluation currently): [See above] MDM Data Please see HPI for the following: Independent Historians and external Records Review. Historian: [Patient] Independent Historians: ?[Record review] Medication Management: [Reviewed medication list] Social History and determinants: [Reviewed] Please see the body of the note for the following: Any independent interpretations of ECG, imaging studies. All vitals signs/haemodynamics, ordered tests were independently reviewed and interpreted by myself. Nursing triage complaint and vitals reviewed, additional nursing notes were reviewed as available and I agree unless otherwise noted or documented in contradiction in the chart Vital Signs: Independently reviewed Labs: Independently interpreted Imaging: Independently interpreted Old Medical Records: Independently reviewed, see HPI for relevant summary and information Pulse Oximetry: [98%] interpreted as [normal on room air] by me [Linotype Worker: [Regular Rate, Regular rhythm, no ectopy, NSR] reviewed and interpreted by me] Additionally notably showing: [Hemodynamics reviewed. The patient is not febrile, not tachycardic, no evidence of hypotension respiratory distress. CBC shows leukocytosis of 17.9, 74% neutrophils. Mild anemia of 10.3. Normal platelets. D-dimer is negative. Chemistry notable for hyponatremia of 126. Glucose is elevated at 291. Lactic acid is elevated 4.4. UA is questionable for urinary tract infection, patient is asymptomatic. Culture pending. Ceftriaxone was given.] Repeat metabolic panel shows mild hypokalemia, improved hyponatremia. Tests considered but not ordered include: [CTA has been considerably does not appear to be necessary given negative D-dimer] Social Determinants of Health Impact: Patient was evaluated in [facility] [place] to healthcare due to below par ratio of patient to medical providers. [] Comorbid Conditions Impacting Present Evaluation and Care/Treatment: [Diabetes, schizophrenia, COPD] Management Discussions with other Healthcare Providers: [] Treatment and Disposition Medication Management (Given or considered): [Fluid resuscitation was provided for treatment of clinically and/or laboratory apparent dehydration. Antibiotics. Breathing treatment]. See EMR for details Consideration for Hospitalization/Escalation/Deescalation of Care: Admission for observation has been considered, [however the patient is able to tolerate p.o., their symptoms are controlled, they are able to rely on oral medications, and their chief complaint/diagnosis can be managed on outpatient basis.] ?ED Course:?[Potassium was repleted. Glucose markedly improved.] ?Shared decision making:?[Patient is hemodynamically stable for discharge home with follow with their primary care provider. [ ] Specific and cautious return precautions provided and discussed with full understanding. Any incidental findings were also discussed and follow up recommendations given. [] All questions answered. Patient/family were able to verbalize back return pre cautions. Patient/family agree to plan. Copies of imaging and laboratory studies were provided.] Code status:?FULL Please see the full Electronic Medical Record for full details of nursing documentation, medications list, other records of complete past medical history and conditions, vital signs, laboratory studies, and any radiologic study interpretations by radiologists. Portions of this note were completed using [employer] dictation software and as a result there may exist minor errors in spelling. I have reviewed elements of past family and social history and agree as included in note. Departure Disposition: HOME / SELF CARE / HOMELESS Impression: Primary Impression: Hyperglycemia without ketosis Additional Impressions: Hyponatremia Hypokalemia Urinary tract infection Condition: Improved Discharge Instructions: Hyperglycemia, Flsl-[id number], Urinary Tract Infection, Adult Additional Instructions: Please follow-up with the primary care provider and check her electrolytes in the proximally two weeks. Your sodium was low today, this could be side-effect of psychiatric medications. Referrals: NO PRIMARY CARE PROVIDER (PCP) Prescriptions Cefpodoxime Proxetil (Vantin) 200 Mg Tablet 1 TAB PO Q12H for 7 Days, #14 TAB Prov: GUERO CHOW DO 03/04/25 Education Educated: Patient, Family Educated regarding: diagnosis, treatment, prognosis, need for follow up Signature Scribe Signature: No scribe Attestation: This note accurately reflects clinical decisions, work performed by myself, DO FLAVIA Pena [facility] Mar 04, 2025 17:10 GUERO CHOW DO Mar 04, 2025 20:08
--- NOTE | 2025-03-04 17:13 | ELECTROCARDIOGRAPH REPORT ---
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 Efrain Epperson Measurements Intervals [place] Rate: 85 P: 35 ND: 164 QRS: 4 QRSD: 99 T: 42 QT: 487 QTc: 580 Interpretive Statements Sinus rhythm Ventricular trigeminy Low voltage, extremity and precordial leads Prolonged QT interval Electronically Signed On 03-05-2025 19:29:[address] Efrain Epperson Please click the below link to view image of tracing.
--- NOTE | 2025-03-04 17:52 | RADIOLOGY REPORT ---
EXAM: DI CHEST,SINGLE VIEW TECHNIQUE: Single frontal chest radiograph CLINICAL HISTORY: SOB COMPARISON: CT CHEST on DOS: 10/25/22, CHEST,SINGLE VIEW on DOS: 10/24/22 Findings/Impression: Frontal chest radiograph demonstrates no acute osseous or superficial soft tissue abnormalities. The trachea is midline. The cardiac silhouette and mediastinum are within normal limits. No pneumothorax, pleural effusions, or consolidations.
[2025-03-04 17:53] LABS: MEAN PLATELET VOLUME 7.2 FL (7.4-10.4); RED CELL DISTRIBUTION WIDTH 17.1 % (11.5-14.5)
[2025-03-04 17:55] LABS: LEUKOCYTE ESTERASE ,URINE NEGATIVE (Neg); NITRITES, URINE NEGATIVE (Neg); OCCULT BLOOD,URINE NEGATIVE (Neg)
[2025-03-04 18:05] LABS: UA COLLECTION TYPE CLN CATCH MIDSTREAM
[2025-03-04 18:07] LABS: CREATININE 0.96 MG/DL (0.40-0.90); TOTAL CARBON DIOXIDE 27.6 MMOL/L (24-32); eCRCL 60 ML/MIN; eGFR 60 ML/MIN
[2025-03-04 18:08] LABS: RENAL CELLS, URINE FEW /HPF; SQUAMOUS EPITHELIAL CELL,UR MODERATE /LPF (FEW)
[2025-03-04 18:15] LABS: PRO BRAIN NATRIURETIC PEPTIDE 114 PG/ML (0-125)
[2025-03-04 18:28] LABS: PLATELET ESTIMATE NORMAL
[2025-03-04 18:42] VITALS: TEMP 97.1
[2025-03-04] MEDS: normal saline 1000ml 1,000 ML IV ONE (20:10)
[2025-03-04] MEDS ORDERED: albuterol 2.5 MG/3 ML nebule NEB ONE (20:10)
[2025-03-04] MEDS: CefTRIAXone/D5W-Rocephin 1gm 50 ML IV ONE (20:47)
[2025-03-04] MEDS: albuterol 2.5 MG/3 ML nebule NEB ONE (21:26)
[2025-03-04 21:29] VITALS: PULSE 80; RESP 20
[2025-03-04 21:32] VITALS: PULSE 70; RESP 20; O2SAT 100
[2025-03-04 21:35] LABS: CREATININE 0.80 MG/DL (0.40-0.90); TOTAL CARBON DIOXIDE 27.3 MMOL/L (24-32); eCRCL 72 ML/MIN; eGFR 74 ML/MIN
[2025-03-04] MEDS ORDERED: CEFP200T13 PO (21:54)
[2025-03-04] MEDS: POTASSIUM BICARB 20meq eff tab 20 MEQ TABLET.EFF PO ONE (22:12)
[2025-03-04 22:25] VITALS: BP 138/80; PULSE 72; RESP 18; O2SAT 95
== END 2025-03-04 22:27 | disposition home or self-care (01) ==
LOC: ER 16:02
DX: E11.65 Type 2 diabetes mellitus with hyperglycemia (principal); N39.0 Urinary tract infection, site not specified; E78.00 Pure hypercholesterolemia, unspecified; E87.1 Hypo-osmolality and hyponatremia; E87.6 Hypokalemia; G47.30 Sleep apnea, unspecified; F20.9 Schizophrenia, unspecified; I11.0 Hypertensive heart disease with heart failure; I50.9 Heart failure, unspecified; I25.10 Atherosclerotic heart disease of native coronary artery without angina pectoris; J44.9 Chronic obstructive pulmonary disease, unspecified; F12.90 Cannabis use, unspecified, uncomplicated; Z79.85 Long-term (current) use of injectable non-insulin antidiabetic drugs; Z87.19 Personal history of other diseases of the digestive system; Z88.0 Allergy status to penicillin; Z88.8 Allergy status to other drugs, medicaments and biological substances; Z98.51 Tubal ligation status
CPT/HCPCS: 36415; 71045; 80048; 80053; 81001; 82948; 83605; 83880; 84484; 85008; 85025; 85379; 87040; 87088; 93005; 94640; 96361; 96365; 99285; J0696; J7030; 94760

== ENCOUNTER 2025-05-03 08:27 | Outpatient (CLI) | payer MEDICARE ==
[~2025-05-03] VITALS: Ht 167.6 cm; Wt 121.7 kg
[2025-05-03] VITALS (7 sets, daily range): BP systolic 103–130; BP diastolic 61–81; PULSE 85–120; RESP 16–18; O2SAT 93–94
[2025-05-03] MEDS ORDERED: aminophylline 250mg/10ml inj. IV ONE (10:55)
[2025-05-03] MEDS: regadenoson 0.4mg/5ml syringe IV ONE (11:17)
--- NOTE | 2025-05-03 13:47 | RADIOLOGY REPORT ---
Procedure: GA NM QUIN SCAN Exam Date: 05/03/2025 10:06 AM Reason for study/Clinical History: PRECORDIAL PAIN;SHORTNESS OF BREATH Comparison Study: None Myocardial Perfusion Study with SPECT Technique: The patient received an intravenous injection of 8.9 mCi of technetium-99m sestamibi while at rest. After a short delay, SPECT tomographic images of the heart were obtained. The patient then went to the stress lab where they received an intravenous infusion of 0.[address] andard protocol. 32.7 mCi of technetium-99m sestamibi was injected intravenously immediately after the start of the lexiscan infusion. Gated SPECT tomographic images of the heart were acquired and processed. Findings: No reversible perfusion defect. End diastolic volume: 63 mL End systolic volume: 13 mL The left ventricular ejection fraction is 80 %. (normal greater than 50%) Impression: No reversible defect. The left ventricular ejection fraction is 80 %.
== END 2025-05-03 23:59 | disposition home or self-care (01) ==
LOC: NM 08:27
PROVIDERS: ATTEND Internal Medicine Interventional Cardiology
DX: R06.02 Shortness of breath (principal); R07.2 Precordial pain
CPT/HCPCS: 78452; 93017; A9500; J2785; J0280